=== PATIENT | male | born 1955 | race Caucasian/White ===

== ENCOUNTER 2023-01-15 07:30 | Outpatient (OUT) | payer MEDICARE, OTHER, SELFPAY ==
--- NOTE | 2023-01-15 15:00 | CA_ITS ---
Patient: VICKY VASQUEZ Exam Date: 01/15/2023 : 1955 Gender:M Ordering : BISHNU CARBAJAL Admission #: [id number] Family : DR Arnettchristina Barrigabing . Order #: [id number] CLICK HERE TO VIEW EXAM ECHOCARDIOGRAM REPORT PROCEDURE: CA ECHO DOPPLER COMPLETE INDICATIONS: LINDER, COMPARISON: None. DESCRIPTION: COMPLETE ECHOCARDIOGRAM Real-time transthoracic echocardiography with 2D, M-mode, spectral and color flow Doppler performed. QUALITY: Technical quality was limited. LEFT VENTRICLE: Normal chamber size. Mild concentric left ventricular hypertrophy. LV EF: Global left ventricular systolic function is difficult to assess but appears preserved; estimated ejection fraction is 55 to 60%. Cannot comment on regional wall motion abnormalities. DIASTOLIC: Grade 1, mild diastolic dysfunction. ATRIAL SEPTUM: Inadequately seen. LEFT ATRIUM: Mild dilatation. RIGHT ATRIUM: Mild dilatation. RIGHT VENTRICLE: Mild dilatation. Normal right ventricular systolic function. TRICUSPID VALVE: Normal mobility and thickness. No stenosis with mild regurgitation. Mild pulmonary hypertension. RVSP 36 mmHg MITRAL VALVE: Normal mobility and thickness. No evidence of mitral valve stenosis. No mitral regurgitation. AORTIC VALVE: Normal aortic valve. No evidence of aortic valve stenosis. No aortic regurgitation. AORTIC ROOT: Normal diameter and appearance. PULMONIC VALVE: Not well visualized. No stenosis. Trivial regurgitation. PERICARDIUM: No evidence of pericardial effusion. IVC: Not well visualized. CONCLUSION: Global left ventricular systolic function is difficult to assess but appears preserved; visually estimated ejection fraction is 55 to 60%. Mild left ventricular hypertrophy. Grade 1, mild diastolic dysfunction. Biatrial enlargement. The right ventricle is mildly dilated with preserved systolic function. Mild tricuspid regurgitation. Mildly elevated right ventricular systolic pressure. Adult Echocardiography Procedure Report Left Ventricle LVEDD (3.7 - 5.6 cm): 5.71 cm LVESD (2.2 - 4.0 cm): 3.79 cm LVIVS thickness (0.6 - 1.2 cm): 1.00 cm LVOT Max Gradient: 4.61 mm[Hg] Peak Velocity (LVOT): 1.07 m/s LVOT Diameter 2.02 cm Left Atrium Mitral Valve MV E to A Ratio: 0.60 Right Ventricle RV Internal Diastolic Dimension: 4.46 cm Aorta Ascending Ao Diam: 3.58 cm Aortic Valve AoV Area (Peak Rishi): 2.53 cm2, 2.53 cm2 Peak Velocity(Antegrade Flow): 1.36 m/s Peak Gradient(Antegrade Flow): 7.38 mm[Hg] Tricuspid Valve Peak Velocity (Regurgitant Flow): 2.86 m/s Pulmonic Valve Peak Gradient: 2.53 mm[Hg] Right Atrium Dictated by: Marni Ritter M.D. on 01/16/2023 at 19:00 Approved by: Marni Ritter M.D. on 01/16/2023 at 19:03
== END 2023-01-15 07:31 ==
LOC: CARD 01-31 07:31
PROVIDERS: Visit Provider Internal Medicine Cardiovascular Disease
DX: R06.09 Other forms of dyspnea (principal)
CPT/HCPCS: 93306

== ENCOUNTER 2023-02-14 06:32 | Outpatient (OUT) | payer MEDICARE, OTHER, SELFPAY ==
[2023-02-14 08:35] LABS: BUN Creatinine Ratio 10.7; Calcium 7.8 mg/dL (8.5-10.1); Carbon Dioxide 29.4 mmol/L (21.0-32.0); Chloride 103 mmol/L (98-107); Estimated GFR (African America >60 (>=60); Estimated GFR (Non-African Ame >60 (>=60); Glucose 128 mg/dL (74-106); Potassium 3.4 mmol/L (3.5-5.1); Sodium 139 mmol/L (136-145)
== END 2023-02-14 06:33 | disposition home or self-care (01) ==
LOC: LAB 06:34
PROVIDERS: PCP Family Medicine; Visit Provider Nurse Practitioner Acute Care
DX: I50.32 Chronic diastolic (congestive) heart failure (principal)
CPT/HCPCS: 36415; 80048

== ENCOUNTER 2023-11-27 07:28 | Outpatient (OUT) | payer MEDICARE, OTHER, SELFPAY ==
[2023-11-27 08:24] LABS: Anion Gap 11.6; BUN Creatinine Ratio 16.4; Calcium 8.5 mg/dL (8.5-10.1); Carbon Dioxide 29.3 mmol/L (21.0-32.0); Chloride 107 mmol/L (98-107); Estimated GFR (African America >60 (>=60); Estimated GFR (Non-African Ame >60 (>=60); Glucose 131 mg/dL (74-106); Potassium 3.9 mmol/L (3.5-5.1); Sodium 144 mmol/L (136-145)
== END 2023-11-27 07:29 | disposition home or self-care (01) ==
LOC: LAB 07:30
PROVIDERS: PCP Family Medicine; Visit Provider Internal Medicine Cardiovascular Disease
DX: I50.32 Chronic diastolic (congestive) heart failure (principal)
CPT/HCPCS: 36415; 80048

== ENCOUNTER 2024-01-26 06:38 | Outpatient (OUT) | payer MEDICARE, OTHER, SELFPAY ==
--- NOTE | 2024-01-26 06:46 | MR_ITS ---
The [address] [address] Patient Name: VICKY VASQUEZ MRN: [id number] date: 1955 Sex: M Assigned Patient Location: LAB Current Patient Location: LAB Accession/Order Number: [id number] Exam Date: 01/26/2024 07:00 Report Date: 01/26/2024 13:28 At the request of: LOLITA PANCHAL Procedure: MR head/brain wo/w con EXAM: MR head/brain wo/w con HISTORY: Asymmetrical hearing loss, left side tinnitus COMPARISON: None. TECHNIQUE: Multisequence MRI brain was performed with and without intravenous contrast. FINDINGS: There is no restricted diffusion to suggest acute infarct. There is no midline shift, mass effect, or abnormal extraaxial fluid collections. There are no abnormal parenchymal or leptomeningeal enhancement. The cortical sulci and ventricular system are mildly enlarged, consistent with mild cerebral atrophy. The internal auditory canals and cerebellopontine angles are unremarkable, without masses or abnormal enhancement. The bilateral cranial nerves VII and VIII are unremarkable. No abnormality is seen involving the membranous labyrinth. The major intracranial flow voids are visualized. The cerebellar tonsils are normal in position. The orbits demonstrate no suspicious enhancement or any focal lesions. The paranasal sinuses show no air-fluid level. There is a mucous retention cyst within left maxillary sinus and mild mucosal thickening of bilateral maxillary sinuses. There is mild left mastoid effusion. The calvarium and extracranial soft tissues are unremarkable. MR/MR head/brain wo/w con IMPRESSION: No acute intracranial abnormality or abnormal intracranial enhancement. Clear internal auditory canals and cerebellopontine angles. Mild left mastoid effusion. Electronically authenticated by: GARCIA TURNERU Date: 01/26/2024 13:28
[2024-01-26 07:00] LABS: Estimated GFR (African America >60 (>=60); Estimated GFR (Non-African Ame 54 (>=60)
== END 2024-01-26 06:39 | disposition home or self-care (01) ==
LOC: LAB 06:39
PROVIDERS: PCP Family Medicine; Visit Provider Otolaryngology
DX: H90.3 Sensorineural hearing loss, bilateral (principal); H93.12 Tinnitus, left ear
CPT/HCPCS: 36415; 70553; 82565; A9575

== ENCOUNTER 2024-08-18 07:51 | Outpatient (OUT) | payer MEDICARE, OTHER, SELFPAY ==
--- OUTSIDE RECORDS SUMMARY | 2024-08-18 07:56 | XMS_ITS | CCD ---
Author Organization [facility] Care Team Providers Care Chronic Disease Epidemiologist Name Role Phone ABDIEL ., DR FARIAS Primary Care Unavailable HOY ., DR FARIAS Admitting Unavailable HOY ., DR FARIAS Attending Unavailable HOY ., DR FARIAS Consulting Unavailable HOY ., DR FARIAS Primary Care Unavailable MISC, DR ADAME Admitting Unavailable MISC, DR ADAME Attending Unavailable MISC, DR ADAME Consulting Unavailable HOY ., DR FARIAS Primary Care Unavailable MISC, DR ADAME Admitting Unavailable MISC, DR ADAME Attending Unavailable MISC, DR ADAME Consulting Unavailable HOY ., DR FARIAS Consulting Unavailable HOY ., DR FARIAS Primary Care Unavailable HOY ., DR FARIAS Admitting Unavailable HOY ., DR FARIAS Attending Unavailable HOY ., DR FARIAS Consulting Unavailable HOY ., DR FARIAS Primary Care Unavailable HOY ., DR FARIAS Admitting Unavailable HOY ., DR FARIAS Attending Unavailable [place], DR ELTON Parikh Consulting Unavailable BISHNU CARBAJAL Attending Unavailable HAYLEY KIRBY Attending Unavailable Jarrett Vyas MD Primary Care Provider [phone] DAKOTA ROCHA Attending Unavailable DAKOTA ROCHA Attending Unavailable DAKOTA ROCHA Attending Unavailable IVANA DEAL Attending Unavailable JARRETT VYAS Referring Unavailable LOLITA PANCHAL Attending Unavailable LOLITA PANCHAL Attending Unavailable DAKOTA ROCHA Attending Unavailable DAKOTA ROCHA Attending Unavailable DAKOTA ROCHA Attending Unavailable Allergies Allergy Classification Reported Allergen(s) Allergy Type Date of Onset Reaction(s) Facility (1 source) Iodine Drug Allergy 07-14-1989 [facility] Repository Medications Current Medications Medication Drug Class(es) Dates Sig (Normalized) Sig (Original) dapagliflozin 10 mg oral tablet (5 sources) Sodium-Glucose Cotransporter 2 Inhibitor Start: 07-06-2023 Farxiga 10 MG 07/06/2023 Active diclofenac sodium 75 mg delayed release oral tablet (5 sources) Nonsteroidal Anti-inflammatory Drug Start: 06-25-2023 take 1 tablet by mouth twice daily as needed diclofenac (Voltaren) 75 MG EC tablet Take 75 mg by mouth 2 (two) times a day as needed 06/25/2023 Active furosemide 20 mg oral tablet (5 sources) Loop Diuretic Start: 04-14-2023 take 1 tablet by mouth in the morning furosemide (Lasix) 20 MG tablet Take 20 mg by mouth in the morning. 04/14/2023 Active 24 hr metoprolol succinate 100 mg extended release oral tablet (5 sources) beta-Adrenergic Ervin Start: 05-20-2023 take 1 tablet by mouth every twenty-four hours in the morning metoprolol succinate XL (Toprol-XL) 100 MG 24 hr tablet Take 100 mg by mouth in the morning. 05/20/2023 Active Problems Active Problems Problem Classification Problem Date Documented Da te Episodic/Chronic Congestive heart failure; nonhypertensive (12 sources) Unspecified diastolic (congestive) heart failure; Translations: [Chronic diastolic (congestive) heart failure] Onset: 08-15-2022 Chronic Disorders of lipid metabolism (1 source) Hyperlipidemia, unspecified; Translations: [HYPERLIPIDEMIA UNSPECIFIED] Onset: 09-01-2022 Chronic Esophageal disorders (1 source) Gastro-esophageal reflux disease without esophagitis; Translations: [GERD WITHOUT ESOPHAGITIS] Onset: 09-01-2022 Chronic Essential hypertension (8 sources) Essential (primary) hypertension; Translations: [Essential hypertension] Onset: 09-01-2022 Chronic Heart valve disorders (5 sources) Tricuspid valve regurgitation; Translations: [Rheumatic tricuspid insufficiency] Onset: 11-27-2022 01-21-2024 Chronic Hypertension with complications and secondary hypertension (1 source) Hypertensive heart disease with heart failure; Translations: [HTN HEART DISEASE W/HEART FAIL] Onset: 08-15-2022 Chronic Mycoses (2 sources) Pain in toe; Translations: [Tinea unguium] 04-26-2024 Episodic Osteoarthritis (5 sources) Osteoarthritis of knee; Translations: [Osteoarthritis of knee, unspecified] Onset: 10-01-2023 01-21-2024 Chronic Other diseases of veins and lymphatics (1 source) Vascular insufficiency; Translations: [Venous insufficiency (chronic) (peripheral)] 07-01-2024 Episodic Other lower respiratory disease (4 sources) Other forms of dyspnea; Translations: [OTHER FORMS OF DYSPNEA] Onset: 11-21-2022 Episodic Other skin disorders (2 sources) Asteatosis cutis; Translations: [Xerosis cutis] 04-26-2024 Episodic Pulmonary heart disease (7 sources) Pulmonary hypertension, unspecified; Translations: [Pulmonary hypertension] Onset: 11-27-2022 Chronic Past or Other Problems Problem Classification Problem Date Documented Da te Episodic/Chronic Diabetes mellitus without complication (1 source) Other abnormal glucose; Translations: [OTHER ABNORMAL GLUCOSE] Onset: 08-15-2022 Episodic Nonspecific chest pain (5 sources) Chest pain, unspecified; Translations: [CHEST PAIN UNSPECIFIED] Onset: 08-15-2022 Episodic Other ear and sense organ disorders (5 sources) Impacted cerumen; Translations: [Impacted cerumen, unspecified ear] Onset: 10-01-2023 01-21-2024 Episodic Other lower respiratory disease (5 sources) Dyspnea on exertion; Translations: [Other forms of dyspnea] Onset: 11-27-2022 01-21-2024 Episodic Other non-traumatic joint disorders (5 sources) Pain in unspecified knee; Translations: [PAIN IN UNSPECIFIED KNEE] Onset: 08-14-2022 Episodic Other screening for suspected conditions (not mental disorders or infectious disease) (2 sources) Encounter for screening for malignant neoplasm of prostate; Translations: [Encounter for screening for malignant neoplasm of rectum] Onset: 08-15-2022 Episodic Residual codes; unclassified (5 sources) Edema of lower extremity; Translations: [Localized edema] Onset: 11-27-2022 01-21-2024 Episodic Results Test Name Value Interpretation Reference Range Facility Office Visiton 03-29-2024 Follow-up visit [id number] Yuan Wilson 1955 M Date Provider Department Center 03/29/2024 Mattie-HAYLEY KIRBY [facility] Family History Problem Relation Age of Onset Heart failure Mother Heart attack Father Family Status - Relation Status Age at Mother Father Level of Service:03360 [place] OFFICE/OUTPATIENT ESTABLISHED LOW MDM 20 MIN Normal [facility] Office Visiton 10-01-2023 Follow-up visit [id number] Yuan Wilson 1955 M Date Provider Department Center 10/01/2023 [id number] CARBAJAL [facility] Family History Problem Relation Age of Onset Heart failure Mother Heart attack Father Family Status - Relation Status Age at Mother Father Level of Service:64674 [place] OFFICE/OUTPATIENT ESTABLISHED LOW MDM 20 MIN Normal [facility] PROF CHEM 8 (BAS METB)on Anion gap [Moles/Vol] 9.9 mmol/L Normal [facility] Comment on above: Performed By: #### B MP #### [facility] [address] [address] [address] Nataly Frye Calcium [Mass/Vol] 7.9 mg/dL Critically low 8.5-10.1 [facility] Comment on above: Performed By: #### B MP #### [facility] [address] [address] [address] Nataly Frye Chloride [Moles/Vol] 104 mmol/L Normal 98-107 [facility] Comment on above: Performed By: #### B MP #### [facility] [address] [address] [address] Nataly Frye CO2 [Moles/Vol] 33.8 mmol/L Critically high 21.0-32.0 [facility] Comment on above: Performed By: #### B MP #### [facility] [address] [address] [address] Nataly Frye Creatinine [Mass/Vol] 1.19 mg/dL Normal 0.70-1.30 [facility] Comment on above: Performed By: #### B MP #### [facility] [address] [address] [address] Nataly Frye EGFR-AF GIBRALTARIAN >60 Normal >=60 [facility] Comment on above: Performed By: #### B MP #### [facility] [address] [address] [address] Nataly Frye EGFR-NON AF GIBRALTARIAN >60 Normal >=60 [facility] Comment on above: Performed By: #### B MP #### [facility] [address] [address] [address] Nataly Frye Glucose [Mass/Vol] 130 mg/dL Critically high 74-106 [facility] Comment on above: Performed By: #### B MP #### [facility] [address] [place] [address] Dr. Nataly Frye Potassium [Moles/Vol] 3.7 mmol/L Normal 3.5-5.1 [facility] Comment on above: Performed By: #### B MP #### [facility] [address] [place] [address] Dr. Nataly Frye Sodium [Moles/Vol] 144 mmol/L Normal 136-145 [facility] Comment on above: Performed By: #### B MP #### [facility] [address] [place] [address] Dr. Nataly Frye Urea nitrogen [Mass/Vol] 18.0 mg/dL Normal 7.0-18.0 [facility] Comment on above: Performed By: #### B MP #### [facility] [address] [place] [address] Dr. Nataly Frye Urea nitrogen/Creatinine [Mass ratio] 15.1 mg/mg Normal [facility] Comment on above: Performed By: #### B MP #### [facility] [address] [place] [address] Dr. Nataly Frye BNPon 11-21-2022 Natriuretic peptide B (Bld) [Mass/Vol] 58.0 pg/mL Normal <=900.0 [facility] Comment on above: Performed By: #### B MP, BNP #### [facility] [address] [place] [address] Dr. Nataly Frye PROF CHEM 8 (BAS METB)on Anion gap [Moles/Vol] 9.6 mmol/L Normal [facility] Comment on above: Performed By: #### B MP, BNP #### [facility] [address] [place] [address] Dr. Nataly Frye Calcium [Mass/Vol] 7.3 mg/dL Critically low 8.5-10.1 [facility] Comment on above: Performed By: #### B MP, BNP #### [facility] [address] [address] [address] Nataly Frye Chloride [Moles/Vol] 104 mmol/L Normal 98-107 [facility] Comment on above: Performed By: #### B MP, BNP #### [facility] [address] [address] [address] Nataly Frye CO2 [Moles/Vol] 34.7 mmol/L Critically high 21.0-32.0 [facility] Comment on above: Performed By: #### B MP, BNP #### [facility] [address] [address] [address] Nataly Frye Creatinine [Mass/Vol] 1.33 mg/dL Critically high 0.70-1.30 [facility] Comment on above: Performed By: #### B MP, BNP #### [facility] [address] [place] [address] Dr. Nataly Frye EGFR-AF GIBRALTARIAN >60 Normal >=60 [facility] Comment on above: Performed By: #### B MP, BNP #### [facility] [address] [address] [address] Nataly Frye EGFR-NON AF GIBRALTARIAN 54 mL/min/1.73m2 Critically low >=60 [facility] Comment on above: Performed By: #### B MP, BNP #### [facility] [address] [address] [address] Nataly Frye Glucose [Mass/Vol] 146 mg/dL Critically high 74-[address] [facility] Comment on above: Performed By: #### B MP, BNP #### [facility] [address] [address] [address] Nataly Frye Potassium [Moles/Vol] 3.3 mmol/L Critically low 3.5-5.1 [facility] Comment on above: Performed By: #### B MP, BNP #### [facility] [address] [address] [address] Nataly Frye Sodium [Moles/Vol] 145 mmol/L Normal 136-145 [facility] Comment on above: Performed By: #### B MP, BNP #### [facility] [address] [place], [place] [address] Dr. Nataly Frye Urea nitrogen [Mass/Vol] 22.0 mg/dL Critically high 7.0-18.0 [facility] Comment on above: Performed By: #### B MP, BNP #### [facility] [address] [place], [place] [address] Dr. Nataly Frye Urea nitrogen/Creatinine [Mass ratio] 16.5 mg/mg Normal [facility] Comment on above: Performed By: #### B MP, BNP #### [facility] [address] [place], [place] [address] Dr. Nataly Frye ECHOCARDIO M/2D COMPLETEon 0 08-27-2022 ECHOCARDIO M/2D COMPLETE Patient: YUAN WILSON Exam Date: 08/27/2022 : 1955 Gender:M Ordering : DR JARRETT VYAS . Admission #: [id number] Family : Order #: [id number] CLICK HERE TO VIEW EXAM ECHOCARDIOGRAM REPORT PROCEDURE: CARDIO PULMONARY ECHOCARDIO M/2D COMP INDICATIONS: Chest pain, hypertension COMPARISON: None. DESCRIPTION: COMPLETE ECHOCARDIOGRAM Real-time transthoracic echocardiography with 2D, M-mode, spectral and color flow Doppler performed. QUALITY: Technical quality was good. 72 288# BP 116/72 LEFT VENTRICLE: Normal chamber size. Moderate concentric left ventricular hypertrophy. LV EF: Normal left ventricular ejection fraction, (>55%). DIASTOLIC: Diastolic function is indeterminate. ATRIAL SEPTUM: Visually appears intact. LEFT ATRIUM: Moderate dilatation. RIGHT ATRIUM: Severe dilatation. RIGHT VENTRICLE: Moderate dilatation. Right ventricular systolic function is reduced. TRICUSPID VALVE: Normal mobility and thickness. Moderate to severe regurgitation. Doppler studies reveal severely (>60) elevated right sided pressures. RVSP 84mmHg MITRAL VALVE: Normal mobility and thickness. No evidence of mitral valve stenosis. There is no mitral annular calcification. Mild mitral regurgitation. AORTIC VALVE: Normal trileaflet appearance. No visible sclerosis. Normal leaflet mobility. No evidence of aortic valve stenosis. No aortic regurgitation. AORTIC ROOT: Normal diameter and appearance. PULMONIC VALVE: Normal thickness and mobility. No stenosis. Mild regurgitation. PERICARDIUM: No evidence of pericardial effusion. CONCLUSION: Global left ventricular systolic function is normal; visually estimated ejection fraction is 60 to 65%. No wall motion abnormalities. Moderate left ventricular hypertrophy. Diastolic function is indeterminate. Biatrial enlargement. Right ventricle is moderately dilated with reduced systolic function. Moderate to severe tricuspid regurgitation. Severely elevated right-sided pressures; RVSP is 84 mmHg. Mild mitral regurgitation. Mild pulmonic regurgitation. Adult Echocardiography Procedure Report Left Ventricle LVEDD (3.7 - 5.6 cm): 5.50 cm LVESD (2.2 - 4.0 cm): 3.08 cm LVIVS thickness (0.6 - 1.2 cm): 1.31 cm LVPW thickness (0.5 - 1.0 cm): 1.21 cm e': 0.16 m/s E - e': 3.93 LVOT Max Gradient: 4.15 mm[Hg] Peak Velocity (LVOT): 1.02 m/s LVOT Diameter 2.28 cm Left Ventricular Ejection Fraction: 74.70 %, 74.70 % Left Atrium LA Volume Index (2D A2C): 118.17 ml, 118.17 ml Left Atrium Systolic Dimension: 5.33 cm Mitral Valve MV E to A Ratio: 1.00 Mitral Valve A-Wave Peak Velocity: 0.62 m/s Mitral Valve E-Wave Peak Velocity: 0.63 m/s Right Ventricle Aorta AO Root Diam: 3.72 cm Aortic Valve AoV Area (Peak Rishi): 2.77 cm2, 2.77 cm2 Peak Velocity(Antegrade Flow): 1.50 m/s Peak Gradient(Antegrade Flow): 8.96 mm[Hg] Tricuspid Valve Peak Velocity (Regurgitant Flow): 4.30 m/s, 4.35 m/s Peak Velocity: 0.42 m/s Pulmonic Valve Peak Velocity: 1.19 m/s, 1.10 m/s Peak Gradient: 5.64 mm[Hg], 4.85 mm[Hg] Right Atrium Right Atrium Systolic Pressure: 88.74 ml, 63.28 ml, 114.21 ml Dictated by: Marni Ritter M.D. on 08/27/2022 at 12:10 Approved by: Marni Ritter M.D. on 08/27/2022 at 12:17 Normal [facility] NM STRESS/REST MULTIon 08-26 NM STRESS/REST MULTI Patient: YUAN WILSON Exam Date: 08/26/2022 : 1955 Gender:M Ordering : DR JARRETT VYAS . Admission #: [id number] Family : Order #: [id number] CLICK HERE TO VIEW EXAM RADIOLOGY REPORT PROCEDURE: RADIONUCLIDE IMAGING STRESS/REST MULTI COMPARISON: None. INDICATIONS: Chest pain TECHNIQUE: Exam Description: Stress/Rest two day protocol gated SPECT Rest Imagin.0 mCi Tc-99m Cardiolite IV on 08/27/2022 Stress Imaging 26.2 mCi Tc-99m Cardiolite IV on 08/26/2022 Exercise Protocol: Osvaldo Heart Rate (bpm): Rest: 80 Max: 155 PMHR: 100 Blood Pressure: Rest: 124/78 Max: 196/86 Exercise Time: Minutes: 2 Seconds: 13 Stage Reached: Stage: 1 Mets 4.6 Symptoms: SOB Rest and peak stress ECG findings were normal and the exercise portion of the study was normal per attending physician Dr. Hanks . For more details please see separate cardiac stress test report. FINDINGS: QUALITY OF STUDY: Good. PERFUSION DEFECT: None. LOCATION: N/A SIZE: N/A. SEVERITY: N/A. TYPE: N/A. WALL MOTION: Normal. LV SIZE: Enlarged; EDV 133 mL. TID / TCD: None; 0.9 LVEF: Normal. Calculated EF 70%. SUMMARY: Myocardial perfusion imaging study has ABNORMAL findings. CONCLUSION: 1. No reversible ischemia 2. Dilated left ventricle, end-diastolic volume of 133 mL 3. Normal exercise test Dictated by: Elton Saba MD on 08/28/2022 at 06:10 Approved by: Elton Saba MD on 08/28/2022 at 06:12 Normal [facility] INSULINon 08-15-2022 Insulin 18.8 uIU/mL Normal 2.6-24.9 [facility] Comment on above: Performed By: #### I NSULIN ####[facility] [address] [place], [place] [address]XfBambi Frye BNPon 08-14-2022 Natriuretic peptide B (Bld) [Mass/Vol] 140.0 pg/mL Normal <=900.0 [facility] Comment on above: Performed By: #### L IPID, URIC, BNP, T7, TSH, CMP #### [facility] [address] [address] [address] Nataly Frye CBC AUTO DIFFon 08-14-2022 BASO # 0.0 103/ul Normal 0.0-0.1 [facility] Comment on above: Performed By: #### C BC #### [facility] [address] [address] [address] Nataly Frye Basophils/100 WBC (Bld) 0.6 % Normal 0.2-2.0 [facility] Comment on above: Performed By: #### C BC #### [facility] [address] [address] [address] Nataly Frye EO # 0.1 103/ul Normal 0.0-0.7 [facility] Comment on above: Performed By: #### C BC #### [facility] [address] [place] [address] Dr. Nataly Frye Eosinophils/100 WBC (Bld) 2.7 % Normal 0.9-7.0 [facility] Comment on above: Performed By: #### C BC #### [facility] [address] [address] [address] Nataly Frye Erythrocyte distribution width (RBC) [Ratio] 18.1 % Critically high 11.0-15.0 [facility] Comment on above: Performed By: #### C BC #### [facility] [address] [place] [address] Dr. Nataly Frye Hematocrit (Bld) [Volume fraction] 30.2 % Critically low 42.0-54.0 [facility] Comment on above: Performed By: #### C BC #### [facility] [address] [address] [address] Nataly Frye Hemoglobin (Bld) [Mass/Vol] 8.8 g/dL Critically low 14.0-18.0 [facility] Comment on above: Performed By: #### C BC #### [facility] [address] [address] [address] Nataly Frye IG # 0.06 10e3/ul Critically high 0.00-0.03 [facility] Comment on above: Performed By: #### C BC #### [facility] [address] [place] [address] Dr. Nataly Frye IG % 1.3 % Critically high 0.0-0.5 [facility] Comment on above: Performed By: #### C BC #### [facility] [address] [place] [address] Dr. Nataly Frye LYMPH # 1.7 103/ul Normal 1.2-3.8 [facility] Comment on above: Performed By: #### C BC #### [facility] [address] [place] [address] Dr. Nataly Frye Lymphocytes/100 WBC (Bld) 36.6 % Normal 20.5-60.0 [facility] Comment on above: Performed By: #### C BC #### [facility] [address] [place] [address] Dr. Nataly Frye MANUAL DIFF REQ NO Normal [facility] Comment on above: Performed By: #### C BC #### [facility] [address] [place] [address] Dr. Nataly Frye MCH (RBC) [Entitic mass] 25.5 pg Critically low 25.9-34.0 [facility] Comment on above: Performed By: #### C BC #### [facility] [address] [place] [address] Dr. Nataly Frye MCHC (RBC) [Mass/Vol] 29.1 g/dL Critically low 29.9-35.2 [facility] Comment on above: Performed By: #### C BC #### [facility] [address] [place] [address] Dr. Nataly Frye MCV (RBC) [Entitic vol] 87.5 fL Normal 80.0-94.0 [facility] Comment on above: Performed By: #### C BC #### [facility] [address] [place] [address] Dr. Nataly Frye MONO # 0.5 103/ul Normal 0.3-0.8 [facility] Comment on above: Performed By: #### C BC #### [facility] [address] [place] [address] Dr. Nataly Frye Monocytes/100 WBC (Bld) 11.0 % Normal 1.7-12.0 [facility] Comment on above: Performed By: #### C BC #### [facility] [address] [place] [address] Dr. Nataly Frye NEUT # 2.3 103/ul Normal 1.4-6.5 [facility] Comment on above: Performed By: #### C BC #### [facility] [address] [place] [address] Dr. Nataly Frye Neutrophils/100 WBC (Bld) 47.8 % Normal 43.0-75.0 [facility] Comment on above: Performed By: #### C BC #### [facility] [address] [place] [address] Dr. Nataly Frye Platelet mean volume (Bld) [Entitic vol] 9.5 fL Normal 9.5-13.5 [facility] Comment on above: Performed By: #### C BC #### [facility] [address] [place] [address] Dr. Nataly Frye PLT 172 103/ul Normal 150-450 [facility] Comment on above: Performed By: #### C BC #### [facility] [address] [place] [address] Dr. Nataly Frye RBC 3.45 106/ul Critically low 4.70-6.10 [facility] Comment on above: Performed By: #### C BC #### [facility] [address] [place] [address] Dr. Nataly Frye WBC 4.7 103/ul Normal 4.0-11.0 [facility] Comment on above: Performed By: #### C BC #### [facility] [address] [place] [address] Dr. Nataly Frye FREE THYROXINE INDEX T7on FTI 2.18 Normal 1.30-4.50 [facility] Comment on above: Performed By: #### L IPID, URIC, BNP, T7, TSH, CMP #### [facility] [address] [address] [address] Nataly Frye T3U 34.0 % Normal 33.0-40.0 [facility] Comment on above: Performed By: #### L IPID, URIC, BNP, T7, TSH, CMP #### [facility] [address] [address] [address] Nataly Frye T4 [Mass/Vol] 6.40 ug/dL Normal 4.50-12.10 [facility] Comment on above: Performed By: #### L IPID, URIC, BNP, T7, TSH, CMP #### [facility] [address] [address] [address] Nataly Frye GLYCOHEMOGLOBIN A1Con 2022 ADA RECOMMENDATION SEE BELOW Normal [facility] Comment on above: Result Comment: ADA RECOMMENDED LIMIT 4.0 - 6.0 ADA THERAPEUTIC TARGET < 7.0 ACTION SUGGESTED > 7.0 Performed By: #### A 1C ####[facility] [id number] [address]Dr. Nataly Frye HbA1c (Bld) [Mass fraction] 5.6 % Normal 4.5-6.2 [facility] Comment on above: Performed By: #### A 1C ####[facility] [id number] [address]Dr. Nataly Frye LIPID PROFILEon 08-14-2022 CHOL-HDL RATIO NORM SEE BELOW Normal [facility] Comment on above: Result Comment: 3.3 - 4.4 LOW RISK 4.4 - 7.1 AVERAGE RISK 7.1 - 11.0 MODERATE RISK >11.0 HIGH RISK Performed By: #### L IPID, URIC, BNP, T7, TSH, CMP #### [facility] [address] [address] [address] Nataly Frye Cholesterol [Mass/Vol] 106 mg/dL Normal <=200 [facility] Comment on above: Performed By: #### L IPID, URIC, BNP, T7, TSH, CMP #### [facility] [address] [address] [address] Nataly Frye Cholesterol in HDL [Mass/Vol] 25 mg/dL Critically low 40-60 [facility] Comment on above: Performed By: #### L IPID, URIC, BNP, T7, TSH, CMP #### [facility] [address] [address] [address] Nataly Frye Cholesterol in LDL [Mass/Vol] 34.6 mg/dL Normal [facility] Comment on above: Performed By: #### L IPID, URIC, BNP, T7, TSH, CMP #### [facility] [address] [address] [address] Nataly Frye Cholesterol.total/Ch olesterol in HDL [Mass ratio] 4.2 {ratio} Normal [facility] Comment on above: Performed By: #### L IPID, URIC, BNP, T7, TSH, CMP #### [facility] [address] [address] [address] Nataly Frye HDL NORMAL > or = 60 mg/dl - LO W CARDIOVASCULAR RISK <40 mg/dl - HIGH CARDIOVASCULAR RISK Normal [facility] Comment on above: Performed By: #### L IPID, URIC, BNP, T7, TSH, CMP #### [facility] [address] [address] [address] Nataly Frye LDL CALC NORMAL SEE BELOW Normal [facility] Comment on above: Result Comment: <100 mg/dl OPTIMAL 100 - 129 mg/dl NEAR OR ABOVE OPTIMAL 130 - 159 mg/dl BORDERLINE HIGH 160 - 189 mg/dl HIGH >190 mg/dl VERY HIGH Performed By: #### L IPID, URIC, BNP, T7, TSH, CMP #### [facility] [address] [address] [address] Nataly Frye Triglyceride [Mass/Vol] 232 mg/dL Critically high <=150 [facility] Comment on above: Performed By: #### L IPID, URIC, BNP, T7, TSH, CMP #### [facility] [address] [address] [address] Nataly Frye VLDL CALC 46.4 mg/dL Normal [facility] Comment on above: Performed By: #### L IPID, URIC, BNP, T7, TSH, CMP #### [facility] [address] [place] [address] Dr. Nataly Frye PROF 14(COMP METB)on 023 Albumin [Mass/Vol] 3.3 g/dL Critically low 3.4-5.0 [facility] Comment on above: Performed By: #### L IPID, URIC, BNP, T7, TSH, CMP #### [facility] [address] [place] [address] Dr. Nataly Frye Albumin/Globulin [Mass ratio] 1.0 {ratio} Normal [facility] Comment on above: Performed By: #### L IPID, URIC, BNP, T7, TSH, CMP #### [facility] [address] [place] [address] Dr. Nataly Frye ALP [Catalytic activity/Vol] 86 U/L Normal 46-116 [facility] Comment on above: Performed By: #### L IPID, URIC, BNP, T7, TSH, CMP #### [facility] [address] [place] [address] Dr. Nataly Frye ALT [Catalytic activity/Vol] 64 U/L Critically high 16-63 [facility] Comment on above: Performed By: #### L IPID, URIC, BNP, T7, TSH, CMP #### [facility] [address] [place] [address] Dr. Nataly Frye Anion gap [Moles/Vol] 11.3 mmol/L Normal [facility] Comment on above: Performed By: #### L IPID, URIC, BNP, T7, TSH, CMP #### [facility] [address] [place] [address] Dr. Nataly Frye AST [Catalytic activity/Vol] 37 U/L Normal 15-37 [facility] Comment on above: Performed By: #### L IPID, URIC, BNP, T7, TSH, CMP #### [facility] [address] [place] [address] Dr. Nataly Frye Bilirubin [Mass/Vol] 0.4 mg/dL Normal 0.2-1.0 [facility] Comment on above: Performed By: #### L IPID, URIC, BNP, T7, TSH, CMP #### [facility] [address] [place] [address] Dr. Nataly Frye Calcium [Mass/Vol] 7.9 mg/dL Critically low 8.5-10.1 [facility] Comment on above: Performed By: #### L IPID, URIC, BNP, T7, TSH, CMP #### [facility] [address] [place] [address] Dr. Nataly Frye Chloride [Moles/Vol] 106 mmol/L Normal 98-107 [facility] Comment on above: Performed By: #### L IPID, URIC, BNP, T7, TSH, CMP #### [facility] [address] [place] [address] Dr. Nataly Frye CO2 [Moles/Vol] 30.7 mmol/L Normal 21.0-32.0 [facility] Comment on above: Performed By: #### L IPID, URIC, BNP, T7, TSH, CMP #### [facility] [address] [place] [address] Dr. Nataly Frye Creatinine [Mass/Vol] 0.98 mg/dL Normal 0.70-1.30 [facility] Comment on above: Performed By: #### L IPID, URIC, BNP, T7, TSH, CMP #### [facility] [address] [place] [address] Dr. Nataly Frye EGFR-AF GIBRALTARIAN >60 Normal >=60 [facility] Comment on above: Performed By: #### L IPID, URIC, BNP, T7, TSH, CMP #### [facility] [address] [place] [address] Dr. Nataly Frye EGFR-NON AF GIBRALTARIAN >60 Normal >=60 [facility] Comment on above: Performed By: #### L IPID, URIC, BNP, T7, TSH, CMP #### [facility] [address] [place] [address] Dr. Nataly Frye Globulin (S) [Mass/Vol] 3.3 g/dL Normal [facility] Comment on above: Performed By: #### L IPID, URIC, BNP, T7, TSH, CMP #### [facility] [address] [address] [address] Nataly Frye Glucose [Mass/Vol] 114 mg/dL Normal [facility] Comment on above: Performed By: #### L IPID, URIC, BNP, T7, TSH, CMP #### [facility] [address] [address] [address] Nataly Frye Performed By: #### A 1C ####[facility] [address] [address] Nataly Frye Potassium [Moles/Vol] 4.0 mmol/L Normal 3.5-5.1 [facility] Comment on above: Performed By: #### L IPID, URIC, BNP, T7, TSH, CMP #### [facility] [address] [place] [address] Dr. Nataly Frye Protein [Mass/Vol] 6.6 g/dL Normal 6.4-8.2 [facility] Comment on above: Performed By: #### L IPID, URIC, BNP, T7, TSH, CMP #### [facility] [address] [place] [address] Dr. Nataly Frye Sodium [Moles/Vol] 144 mmol/L Normal 136-145 [facility] Comment on above: Performed By: #### L IPID, URIC, BNP, T7, TSH, CMP #### [facility] [address] [address] [address] Nataly Frye Urea nitrogen [Mass/Vol] 11.0 mg/dL Normal 7.0-18.0 [facility] Comment on above: Performed By: #### L IPID, URIC, BNP, T7, TSH, CMP #### [facility] [address] [address] [address] Nataly Frye Urea nitrogen/Creatinine [Mass ratio] 11.2 mg/mg Normal [facility] Comment on above: Performed By: #### L IPID, URIC, BNP, T7, TSH, CMP #### [facility] [address] [place] [address] Dr. Nataly Frye TSHon 08-14-2022 TSH 1.816 uIU/mL Normal 0.358-3.740 [facility] Comment on above: Performed By: #### L IPID, URIC, BNP, T7, TSH, CMP ####[facility] [address] [place], [place] [address]Bu. Nataly Frye URIC ACID SERUMon 08-14-2022 Urate [Mass/Vol] 6.6 mg/dL Normal 3.5-7.2 [facility] Comment on above: Performed By: #### L IPID, URIC, BNP, T7, TSH, CMP ####[facility] [address] [place], [place] [address]Dy. Nataly Frye Physician Referralon 021 Physician Referral [phone] [id number]:[id number] Normal [facility] Vital Signs Date Time Vital Sign Value Performing Clinician Faci lity 07-08-2024 10:44-0500 Body height 182.9 cm Dakota Rocha DPM Work Phone: [facility] 07-08-2024 10:44-0500 Body mass index (BMI) [Ratio] 36.35 kg/m2 Dakota Brown DPM Work Phone: [facility] 07-08-2024 10:44-0500 Body weight 121.56 kg Dakota Rocha DPM Work Phone: [facility] 07-08-2024 10:44-0500 Respiratory rate 18 /min Dakota Brown DPM Work Phone: [facility] 04-29-2024 09:53-0400 Body height 182.9 cm Dakota Rocha DPM Work Phone: [facility] 04-29-2024 09:53-0400 Body mass index (BMI) [Ratio] 36.35 kg/m2 Dakota Rocha DPM Work Phone: [facility] 04-29-2024 09:53-0400 Body weight 121.56 kg Dakota Rocha DPM Work Phone: [facility] 04-29-2024 09:53-0400 Diastolic blood pressure 80 mm[Hg] Dakota Rocha DPM Work Phone: [facility] 04-29-2024 09:53-0400 Heart rate 79 /min Dakota Rocha DPM Work Phone: [facility] 04-29-2024 09:53-0400 Systolic blood pressure 129 mm[Hg] Dakota Rocha DPM Work Phone: [facility] Healthcare Encounters Encounter Date Encounter Type Care Provider Facility Start: 07-08-2024 End: 07-08-2024 Bamboo flowsheet Dakota Rocha DPM Work Phone: [facility] Start: 07-08-2024 End: 07-08-2024 Bamboo flowsheet Dakota Rocha DPM Work Phone: [facility] Start: 07-08-2024 End: 07-08-2024 Patient encounter procedure Dakota Rocha DPM Work Phone: [facility] Comment on above: Pain due to onychomy cosis of toenails of both feet (Primary Dx); Venous insufficiency; Xerosis cutis Start: 07-08-2024 End: 07-08-2024 ambulatory DAKOTA ROCHA Not Available Start: 07-05-2024 End: 07-05-2024 Bamboo flowsheet Dakota Rocha DPM Work Phone: [facility] Start: 07-05-2024 End: 07-05-2024 Bamboo flowsheet Dakota Rocha DPM Work Phone: [facility] Start: 04-29-2024 End: 04-29-2024 Bamboo flowsheet Dakota Rocha DPM Work Phone: [facility] Start: 04-29-2024 End: 04-29-2024 Bamboo flowsheet Dakota Rocha DPM Work Phone: [facility] Start: 04-29-2024 End: 04-29-2024 Patient encounter procedure Dakota Rocha DPM Work Phone: [facility] Comment on above: Pain due to onychomy cosis of toenails of both feet (Primary Dx); Xerosis cutis Start: 04-29-2024 End: 04-29-2024 ambulatory DAKOTA ROCHA Not Available Start: 03-29-2024 End: 03-29-2024 ambulatory [facility] Start: 02-19-2024 End: 02-19-2024 ambulatory DAKOTA ROCHA Not Available Start: 02-17-2024 End: 02-17-2024 ambulatory LOLITA Vinod TIMMIS Not Available Start: 01-21-2024 End: 01-21-2024 ambulatory LOLITA H TIMMIS Not Available Start: 01-14-2024 End: 01-14-2024 ambulatory IVANA DEAL Not Available Start: 12-04-2023 End: 12-04-2023 ambulatory DAKOTA ROCHA Not Available Start: 10-01-2023 End: 10-01-2023 [facility] Start: 09-25-2023 End: 09-25-2023 ambulatory DAKOTA ROCHA Not Available Start: 07-17-2023 End: 07-17-2023 ambulatory DAKOTA ROCHA Not Available Start: 12-10-2022 End: 12-11-[address] JARRETT VYAS . Facility:[facility] Start: 11-21-2022 End: 11-22-[address] JARRETT VYAS . Facility:[facility] Start: 08-27-2022 End: 08-28-[address] JARRETT VYAS . Facility:[facility] Start: 08-26-2022 End: 08-27-[address] JARRETT VYAS . Facility:[facility] Start: 08-14-2022 End: 08-15-[address] JARRETT VYAS . Facility:[facility] Plan of Treatment Date Care Activity Detail Author Start: 09-16-2024 End: 09-16-2024 Patient encounter procedure 09/16/2024 10:40 AM EST Procedure Visit [facility] [address] [facility] [address] [place] [address] Dakota Rocha DPM [address] [address] [facility] Start: 07-08-2024 End: 07-08-2024 Patient encounter procedure [facility] Comment on above: Pain due to onychomy cosis of toenails of both feet (Primary Dx); Venous insufficiency; Xerosis cutis Start: 05-05-2024 End: 05-05-2024 Clinical Support 05/05/2024 8:00 AM EDT Clinical Support [facility] [address] [facility] [address] [place] [address] Ivana Deal, [facility] [address] [place] [address] [facility] Start: 04-29-2024 End: 04-29-2024 Patient encounter procedure 04/29/2024 10:00 AM EDT Procedure Visit [facility] [address] [facility] [address] [place] [address] Dakota Rocha DPM [address] [address] Pain due to onychomycosis of toenails of both feet (Primary Dx); Xerosis cutis [facility] Comment on above: Pain due to onychomy cosis of toenails of both feet (Primary Dx); Xerosis cutis Start: 03-14-2024 Influenza vaccination Influenza Vacc ine (#1) [facility] Start: 2022 Pneumococcal Vaccine : 65+ Years (1 of 1 - PCV) Pneumococcal Vaccine: 65+ Years (1 of 1 - PCV) [facility] Start: 1955 Screening for malign ant neoplasm of colon [facility] Payers Date Payer Category Payer Medicare MEDICARE [id number] 2022 Private Health Insurance [employer] [id number] 1959 Medicare [id number] 1959 Private Health Insurance [id number] 1957 Unknown [id number] .2.593 1957 Unknown [id number] [id number] .2.593 1957 Unknown [id number] [id number] .2.593 1957 Unknown [id number] [id number] .2.593 1957 Unknown [id number] [id number] .2.593 1957 Unknown [id number] 2.16.840.1.901201.3.579 .2.1259 1957 Unknown [id number] 2.16.840.1.374571.3.579 .2.1259 1957 Unknown [id number] [id number] .2.1259 1957 Unknown [id number] [id number] .2.1259 1957 Unknown [id number] 2.16.840.1.758540.3.579 .2.9 1957 Unknown [id number] 2.16.840.1.888530.3.579 .2.1259 1957 Unknown [id number] 2.16.840.1.436084.3.579 .2.9 1957 Unknown [id number] [id number] .2.9 1957 Unknown [id number] [id number] .2.1259 Social History Date Type Detail Facility Start: 01-21-2024 Tobacco smoking stat [facility] Never smoked tobacco [facility] Start: 01-21-2024 Tobacco use and exposure Smokeless tobacco non-user [facility] Start: 02-17-2024 End: 07-08-2024 Alcoholic beverage intake Ex-drinker (finding) [facility] Start: 02-17-2024 End: 07-08-2024 History of Social function [facility] Start: 02-17-2024 End: 07-08-2024 Tobacco use panel [facility] Start: 1955 Sex assigned at Not on file [facility] NEGATED: Highlighted rowStart: NINF History of tobacco use Passive smoker [facility] Clinical Notes 10-01-2023 to 07-08-2024 Dakota Rocha DPM - 07/08/2024 10:50 AM Isabel Rocha DPM - 04/29/2024 10:00 AM EDT Note Date & Type Note Facility 07-08-2024 History of Present illness Narrative Patient: Yuan Wilson : 1955 PCP: Jarrett Vyas MD SUBJECTIVE This is a 69 y.o. male that presents today with a CC of elongated, thick nails. Pt states nails have been elongated and thick for many years and cause pain with ambulation in shoegear. Pt has tried previous treatment with minimal relief. Pt presents today for nail care and treatment. Patient has positive history of xerosis to feet in the past. Allergies: No Known Allergies Past Medical History: Past Medical History: Diagnosis Date GERD (gastroesophageal reflux disease) History of Crohn's disease HTN (hypertension) ([facility]) Kidney stone Medications: Current Outpatient Medications: diclofenac (Voltaren) 75 MG EC tablet, Take 75 mg by mouth 2 (two) times a day as needed, Disp: , Rfl: Farxiga 10 MG, , Disp: , Rfl: furosemide (Lasix) 20 MG tablet, Take 20 mg by mouth in the morning., Disp: , Rfl: metoprolol succinate XL (Toprol-XL) 100 MG 24 hr tablet, Take 100 mg by mouth in the morning., Disp: , Rfl: Social History: Social History Socioeconomic History Marital status: Spouse name: Not on file Number of children: Not on file Years of education: Not on file Highest education level: Not on file Occupational History Not on file Tobacco Use Smoking status: Never Passive exposure: Never Smokeless tobacco: Never Vaping Use Vaping status: Unknown Substance and Sexual Activity Alcohol use: Not Currently Drug use: Never Sexual activity: Defer Other Topics Concern Not on file Social History Narrative Not on file Social Drivers of Health Financial Resource Strain: Not on file Food Insecurity: Not on file Transportation Needs: Not on file Physical Activity: Not on file Stress: Not on file Social Connections: Not on file Intimate Partner Violence: Unknown (09/04/2023) [facility] [place] Safety & Environment Fear of Current or Ex-Partner: Not on file Emotionally Abused: Not on file Physically Abused: Not on file Sexually Abused: Not on file Physically or Sexually Abused: Not on file Housing Stability: Not on file ROS: General: denies fever, chills, fatigue, malaise OBJECTIVE LE EXAM: DERM: Elongated thick yellow crumbly nails digits 1 through 10. Diminished hair growth b/l feet. Greatly diminished Dry and scaly skin to bilateral foot and legs +1 pitting edema to bilateral ankles with small telangiectasias and varicosities to bilateral ankles VASC: Positive palpable pedal pulses bilaterally NEURO: Gross sensation intact to bilateral feet ORTHO: Positive pain on palpation to nails 1 through 10 ASSESSMENT 1. Pain due to onychomycosis of toenails of both feet 2. Venous insufficiency 3. Xerosis cutis PLAN Discussed proper foot care with patient today. Debride nails in length and thickness digits 1 through 10 Visit spent with patient education on condition and treatment of condition. Patient to continue with Lac-Hydrin cream to feet daily and call if refill needed Dakota Rocha DPM documented in this encounter [facility] 04-29-2024 History of Present illness Narrative Patient: Yuan Wilson : 1955 PCP: Jarrett Vyas MD SUBJECTIVE This is a 68 y.o. male that presents today with a CC of elongated, thick nails. Pt states nails have been elongated and thick for many years and cause pain with ambulation in shoegear. Pt has tried previous treatment with minimal relief. Pt presents today for nail care and treatment. Patient has positive history of xerosis to feet in the past. Allergies: No Known Allergies Past Medical History: Past Medical History: Diagnosis Date GERD (gastroesophageal reflux disease) History of Crohn's disease HTN (hypertension) ([facility]) Kidney stone Medications: Current Outpatient Medications: diclofenac (Voltaren) 75 MG EC tablet, Take 75 mg by mouth 2 (two) times a day as needed, Disp: , Rfl: Farxiga 10 MG, , Disp: , Rfl: furosemide (Lasix) 20 MG tablet, Take 20 mg by mouth in the morning., Disp: , Rfl: metoprolol succinate XL (Toprol-XL) 100 MG 24 hr tablet, Take 100 mg by mouth in the morning., Disp: , Rfl: Social History: Social History Socioeconomic History Marital status: Spouse name: Not on file Number of children: Not on file Years of education: Not on file Highest education level: Not on file Occupational History Not on file Tobacco Use Smoking status: Never Passive exposure: Never Smokeless tobacco: Never Vaping Use Vaping status: Unknown Substance and Sexual Activity Alcohol use: Not Currently Drug use: Never Sexual activity: Defer Other Topics Concern Not on file Social History Narrative Not on file Social Drivers of Health Financial Resource Strain: Not on file Food Insecurity: Not on file Transportation Needs: Not on file Physical Activity: Not on file Stress: Not on file Social Connections: Not on file Intimate Partner Violence: Unknown (09/04/2023) Re[facility] from [facility] [place] Safety & Environment Fear of Current or Ex-Partner: Not on file Emotionally Abused: Not on file Physically Abused: Not on file Sexually Abused: Not on file Physically or Sexually Abused: Not on file Housing Stability: Not on file ROS: General: denies fever, chills, fatigue, malaise OBJECTIVE LE EXAM: DERM: Elongated thick yellow crumbly nails digits 1 through 10. Diminished hair growth b/l feet. Greatly diminished Dry and scaly skin to bilateral foot and legs +1 pitting edema to bilateral ankles with small telangiectasias and varicosities to bilateral ankles VASC: Positive palpable pedal pulses bilaterally NEURO: Gross sensation intact to bilateral feet ORTHO: Positive pain on palpation to nails 1 through 10 ASSESSMENT 1. Pain due to onychomycosis of toenails of both feet 2. Xerosis cutis PLAN Discussed proper foot care with patient today. Debride nails in length and thickness digits 1 through 10 Visit spent with patient education on condition and treatment of condition. Patient to continue with Lac-Hydrin cream to feet daily and call if refill needed Dakota Rocha DPM documented in this encounter [facility] 03-29-2024 Note Stable no concerning symptoms or worsening SOB or orthopnea [facility] 03-29-2024 Note Hypertension is curr ently well controlled Renal function has remained stable Continue toprol, aldactone and lasix [facility] 03-29-2024 Note [facility] II remains euvo lemic without exacerbation or activity limiting symptoms Continue GDMT- continue lasix daily and aldactone Diuretic therapy Monitor daily weights, I&O, fluid restriction 1.5-2L/day, renal function and electrolytes- [facility] 03-29-2024 Note Pt is here for a six month follow up. Pt denies chest pain, palpatation, dizziness Review of Systems Constitutional: Weight loss: 10# since January 2023. Cardiovascular: Positive for dyspnea on exertion and leg swelling. All other systems reviewed and are negative. [facility] 03-29-2024 Note [facility] CARDIOLOGY PROGR ESS NOTE HPI: Yuan Wilson is a 68 y.o. male here for routine F/U HPI 68 y.o. year old male patient with heart failure preserved ejection fraction, hypertension, and pulmonary hypertension Pt denies chest pain, palpatation, dizziness. Overall states he is feeling really well, admits typical SOB with exertion. He weight has reduced by 10 pounds since last visit. Review of Systems Constitutional: Weight loss: 10# since January 2023. Cardiovascular: Positive for dyspnea on exertion and leg swelling. All other systems reviewed and are negativ Visit Vitals BP 108/70 (BP Location: Right arm, Patient Position: Sitting) Pulse 81 Ht 1.829 m (6') Wt 119 kg (263 lb) SpO2 (!) 83% BMI 35.67 kg/m??? Smoking Status Never BSA 2.46 m??? No Known Allergies Medications: Current Outpatient Medications on File Prior to Visit Medication Sig Dispense Refill aspirin 81 mg EC tablet Take 81 mg by mouth in the morning. diclofenac (Voltaren) 75 mg EC tablet Take 75 mg by mouth in the morning. furosemide (Lasix) 20 mg tablet Take 1 tablet (20 mg) by mouth in the morning. 90 tablet 3 lansoprazole (Prevacid) [address] capsule Take 15 mg by mouth before breakfast. Do not crush or chew. metoprolol succinate XL (Toprol-XL) 100 mg 24 hr tablet Take 100 mg by mouth in the morning. spironolactone (Aldactone) 25 mg tablet Take 1 tablet (25 mg) by mouth in the morning. 90 tablet 3 [DISCONTINUED] dapagliflozin propanediol (Farxiga) 10 mg Take 1 tablet (10 mg) by mouth in the morning. (Patient not taking: Reported on 10/01/2023) 30 tablet 11 [DISCONTINUED] spironolactone (Aldactone) 25 mg tablet Take 0.5 tablets (12.5 mg) by mouth in the morning. (Patient not taking: Reported on 03/29/2024) 45 tablet 3 No current facility-administered medications on file prior to visit. Physical Exam: Constitutional: Appearance: Normal appearance. Without apparent distress, obese HENT: Head: Normocephalic and atraumatic. Nose: Nose normal. Mouth/Throat: Mouth: Mucous membranes are moist. Eyes: Extraocular Movements: Extraocular movements intact. Conjunctiva/sclera: Conjunctivae normal. Neck: Vascular: No JVD. Cardiovascular: Rate and Rhythm: Normal rate and regular rhythm. Pulses: Dorsalis pedis pulses are 3 on the right side and 3on the left side. Posterior tibial pulses are 3 on the right side and 3 on the left side. Heart sounds: Normal heart sounds, S1 normal and S2 normal. Pulmonary: Effort: Pulmonary effort is normal. Breath sounds: Normal breath sounds. Abdominal: General: Bowel sounds are normal. Palpations: Abdomen is soft. Musculoskeletal: General: Normal range of motion. Cervical back: Normal range of motion. Right lower leg: No edema. Left lower leg: No edema. Skin: General: Skin is warm and dry. Capillary Refill: Capillary refill takes less than 2 seconds. Neurological: General: No focal deficit present. Mental Status: he is alert and oriented to person, place, and time. Psychiatric: Mood and Affect: Mood normal. Behavior: Behavior normal. Thought Content: Thought content normal. Judgment: Judgment normal. Labs: reviewed with pt 02/14/2023 Sodium 139, Potassium 3.4, Chloride 103, CO2 29.4, BUN 13, Serum Creatinine 1.21, eGFR >60% 12/10/2022 Sodium 144, potassium 3.7, chloride 104, CO2 33.8, BUN 18, serum creatinine 1.19, estimated GFR greater than 60% 11/21/2022 Sodium 145, potassium 3.3, chloride 104, CO2 34.7, BUN 22, serum creatinine 1.33, estimated GFR 54% NT proBNP 58 08/15/2022 WBC 4.7, hemoglobin 8.8, hematocrit 8.2, platelets 172 Sodium 144, potassium 4.0, CO2 30.7, serum creatinine 0.96, GFR greater than 60% Total cholesterol 106, HDL 25, triglycerides 232, LDL 34.6 Imaging and other tests Echo: 01/15/2023 Global left ventricular systolic function is difficult to assess but appears preserved estimated ejection fraction 55 to 60% Mild left ventricular foot hypertrophy Grade 1 mild diastolic dysfunction Biatrial enlargement Right ventricle is mildly dilated and preserved systolic function Mild tricuspid regurgitation Mildly elevated right ventricular systolic pressure. RVSP 36 mmHg Echo: 08/27/2022 Left ventricle: Normal chamber size. Moderate concentric left ventricular hypertrophy. LVEF greater than 55%. Diastolic function is indeterminate. Left atrium : Moderate dilatation Right atrium severe dilatation Right ventricle: Moderate dilatation. Right ventricular systolic function is reduced. Tricuspid valve: Normal mobility and thickness. Moderate to severe regurgitation. Doppler studies revealed severely elevated right-sided pressures. RVSP 84 mmHg. Mitral valve: Normal mobility and thickness. No evidence of mitral valve stenosis. There is no mitral annular calcification. Mild mitral regurgitation. Aortic valve: Normal trileaflet appearance. No visible sclerosis. Normal leaflet mobility. No eviden (more content not included)... [facility] 10-01-2023 Note Cardiology Clinic No te Subjective Yuan Wilson is a 68 y.o. year old male patient with heart failure preserved ejection fraction, hypertension, and pulmonary hypertension seen in follow-up. Patient Active Problem List Diagnosis Pulmonary hypertension (CMS/HCC) Tricuspid valve insufficiency LINDER (dyspnea on exertion) Essential hypertension Diastolic heart failure (CMS/HCC) Lower extremity edema Impacted cerumen Osteoarthritis of knee Family History Problem Relation Name Age of Onset Heart failure Mother Heart attack Father Social History Tobacco Use Smoking status: Never Smokeless tobacco: Never Substance Use Topics Alcohol use: Not Currently ROS 10 point ROS is performed and is negative unless otherwise specified in HPI Objective Visit Vitals BP 124/82 (BP Location: Right arm, Patient Position: Sitting) Pulse 64 Ht 1.829 m (6') Wt 123 kg (271 lb) SpO2 96% BMI 36.75 kg/m??? Smoking Status Never BSA 2.5 m??? Physical Exam General: Awake, alert, good spirits. NAD Pulm: Breath sounds clear to ascultation bilaterally with no wheeze, crackles or rhonchi Cards: Regular rate and rhythm, S1, S2. No S3 or S4 gallop. Murmur: none Abd: Soft, Nontender, physiologic bowel sounds are present Extr: No lower extremity edema, erythmea, or cyanosis Skin: warm, dry, well perfused Neuro: A&Ox3, No gross deficits Allergies No Known Allergies Medications Current Outpatient Medications: aspirin 81 mg EC tablet, Take 81 mg by mouth in the morning., Disp: , Rfl: diclofenac (Voltaren) 75 mg EC tablet, Take 75 mg by mouth in the morning., Disp: , Rfl: furosemide (Lasix) 20 mg tablet, Take 1 tablet (20 mg) by mouth in the morning., Disp: 90 tablet, Rfl: 3 lansoprazole (Prevacid) [address] capsule, Take 15 mg by mouth before breakfast. Do not crush or chew., Disp: , Rfl: metoprolol succinate XL (Toprol-XL) 100 mg 24 hr tablet, Take 100 mg by mouth in the morning., Disp: , Rfl: spironolactone (Aldactone) 25 mg tablet, Take 0.5 tablets (12.5 mg) by mouth in the morning., Disp: 45 tablet, Rfl: 3 dapagliflozin propanediol (Farxiga) 10 mg, Take 1 tablet (10 mg) by mouth in the morning. (Patient not taking: Reported on 10/01/2023), Disp: 30 tablet, Rfl: 11 spironolactone (Aldactone) 25 mg tablet, Take 1 tablet (25 mg) by mouth in the morning., Disp: 90 tablet, Rfl: 3 Recent Labs 02/14/2023 Sodium 139, Potassium 3.4, Chloride 103, CO2 29.4, BUN 13, Serum Creatinine 1.21, eGFR >60% 12/10/2022 Sodium 144, potassium 3.7, chloride 104, CO2 33.8, BUN 18, serum creatinine 1.19, estimated GFR greater than 60% 11/21/2022 Sodium 145, potassium 3.3, chloride 104, CO2 34.7, BUN 22, serum creatinine 1.33, estimated GFR 54% NT proBNP 58 08/15/2022 WBC 4.7, hemoglobin 8.8, hematocrit 8.2, platelets 172 Sodium 144, potassium 4.0, CO2 30.7, serum creatinine 0.96, GFR greater than 60% Total cholesterol 106, HDL 25, triglycerides 232, LDL 34.6 Imaging and other tests Echo: 01/15/2023 Global left ventricular systolic function is difficult to assess but appears preserved estimated ejection fraction 55 to 60% Mild left ventricular foot hypertrophy Grade 1 mild diastolic dysfunction Biatrial enlargement Right ventricle is mildly dilated and preserved systolic function Mild tricuspid regurgitation Mildly elevated right ventricular systolic pressure. RVSP 36 mmHg Echo: 08/27/2022 Left ventricle: Normal chamber size. Moderate concentric left ventricular hypertrophy. LVEF greater than 55%. Diastolic function is indeterminate. Left atrium : Moderate dilatation Right atrium severe dilatation Right ventricle: Moderate dilatation. Right ventricular systolic function is reduced. Tricuspid valve: Normal mobility and thickness. Moderate to severe regurgitation. Doppler studies revealed severely elevated right-sided pressures. RVSP 84 mmHg. Mitral valve: Normal mobility and thickness. No evidence of mitral valve stenosis. There is no mitral annular calcification. Mild mitral regurgitation. Aortic valve: Normal trileaflet appearance. No visible sclerosis. Normal leaflet mobility. No evidence of aortic valve stenosis. No aortic regurgitation. Aortic root: Normal diameter and appearance Pulmonic valve: Normal thickness and mobility. No stenosis mild regurgitation. Pericardium: No evidence of pericardial effusion Stress test: 06/25/2023 ECG findings were normal in the exercise portion of the study was normal No reversible ischemia Dilated left ventricle, end-diastolic volume is 133 mL Normal exercise stress test Patient remained in sinus rhythm for the duration of the study. Maximum heart rate was 155, which was 100% maximum predicted heart rate. Multifocal PVCs noted during exercise. Assessment/Plan 1. Diastolic heart failure - compensated heart failure preserved ejection fraction NYHA class II. -Patient is on lasix and spironolactone. He was started on (more content not included)... [facility] 10-01-2023 Note Patient here for 6 m o follow up diastolic heart failure, hypertension, and pulmonary hypertension. Dilip Jin CNP increased spironolactone to 25mg daily at last apt in Mar 2023, and advised him to take lasix prn. He said when he did this he started swelling up a lot. He went back to taking lasix 20mg daily and spironolactone 12.5mg daily. States he feels great and is able to walk farther now. Denies chest pain, lightheadedness/syncope, and palpitations. He is not taking Farxiga due to its high cost. [facility] Evaluation note Diagnosis Pain due to onychomycosis of toenails of both feet- Primary Xerosis cutis Other specified disease of sebaceous glands [facility] Diagnosis Pain due to onychomycosis of toenails of both feet- Primary Venous insufficiency Unspecified venous (peripheral) insufficiency Xerosis cutis Other specified disease of sebaceous glands documented in this encounter [facility] Summary Purpose Family History No Family History Records FoundNo Family History Records FoundNo Family History Records FoundNo Family History Records Found Advance Directives No Advanced Directives Records FoundNo Advanced Directives Records FoundNo Advanced Directives Records FoundNo Advanced Directives Records Found Additional Source Comments (unrecognized sect ion and content) No Status Records FoundNo Status Records FoundNo Status Records FoundNo Status Records Found INFORMATION SOURCE (unrecogn ized section and content) DATE CREATED AUTHOR 06/06/2021 Val[facility] Jose [facility] DATE CREATED AUTHOR AUTHOR'S ORGANIZ ATION 12/20/2022 [facility] DATE CREATED AUTHOR AUTHOR'S ORGANIZ ATION 03/30/2024 [facility] DATE CREATED AUTHOR AUTHOR'S ORGANIZ ATION 07/09/2024 [facility] EPIC Care Teams (unrecognized sec tion and content) Chronic Disease Epidemiologist Relationship Specialty Start Date End Date Jarrett Vyas MD [address] [place] [id number] PCP - General Family Medicine 07/17/23 Chronic Disease Epidemiologist Relationship Specialty Start Date End Date Jarrett Vyas MD [address] [place] [id number] PCP - General Family Medicine 07/17/23 Reason for Visit (unrecogniz ed section and content) Reason Comments Toenail Care Non DM Nails Reason Comments Toenail Care Non dm nail care FOR RECORDS PERTAINING TO PATIENTS WHO ARE OR HAVE BEEN ENROLLED IN A CHEMICAL DEPENDENCY/SUBSTANCEABUSE PROGRAM, SOME INFORMATION MAY BE OMITTED. This clinical summary was aggregated from multiple sources. Caution should be exercised in using it in the provision of clinical care. This summary normalizes information from multiple sources, and as a consequence, information in this document may materially change the coding, format and clinical context of patient data. In addition, data may be omitted in some cases. CLINICAL DECISIONS SHOULD BE BASED ON THE PRIMARY CLINICAL RECORDS. [facility] [employer] [facility] provides no warranty or guarantee of the accuracy or completeness of information in this document.
[2024-08-18 08:12] LABS: Basophils Percent Auto 0.6 % (0.2-2.0); Eosinophils Absolute Auto 0.2 10^3/uL (0.0-0.7); Eosinophils Percent Auto 3.2 % (0.9-7.0); Hematocrit 32.5 % (42.0-54.0); Immature Granulocytes Abs Auto 0.05 10^3/uL (0.00-0.03); Immature Granulocytes Pct Auto 0.8 % (0.0-0.5); Lymphocytes Absolute Auto 2.9 10^3/uL (1.2-3.8); Lymphocytes Percent Auto 46.7 % (20.5-60.0); Mean Corpuscular HGB Conc 33.8 g/dL (29.9-35.2); Mean Corpuscular Hemoglobin 33.4 pg (25.9-34.0); Mean Corpuscular Volume 98.8 fL (80.0-94.0); Mean Platelet Volume 10.1 fL (9.5-13.5); Monocytes Absolute Auto 0.6 10^3/uL (0.3-0.8); Neutrophils Absolute Auto 2.4 10^3/uL (1.4-6.5); Neutrophils Percent Auto 38.7 % (43.0-75.0); Platelet Count 172 10^3/uL (150-450); Red Blood Count 3.29 10^6/uL (4.70-6.10); Red Cell Distribution Width 14.8 % (11.0-15.0); White Blood Count 6.3 10^3/uL (4.0-11.0)
[2024-08-18 08:47] LABS: Estimated Average Glucose 111 mg/dL; Glycohemoglobin A1C 5.5 % (4.5-6.2)
[2024-08-18 08:58] LABS: Alanine Aminotransferase 53 U/L (16-63); Albumin Globulin Ratio 1.2; Albumin Level 3.7 g/dL (3.4-5.0); Alkaline Phosphatase 80 U/L (46-116); Aspartate Amino Transferase 37 U/L (15-37); BUN Creatinine Ratio 12.3; Bilirubin Total 0.5 mg/dL (0.2-1.0); Calcium 7.8 mg/dL (8.5-10.1); Carbon Dioxide 32.2 mmol/L (21.0-32.0); Chloride 105 mmol/L (98-107); Cholesterol 103 mg/dL (<=200); Estimated GFR (African America >60 (>=60 mL/min/1.73m^2); Estimated GFR (Non-African Ame 59 (>=60 mL/min/1.73m^2); Free T3 1.77 pg/mL (2.18-3.98); Globulin 3.1 g/dL; Glucose 124 mg/dL (74-106); HDL Cholesterol 26 mg/dL (40-60); Potassium 4.2 mmol/L (3.5-5.1); Sodium 145 mmol/L (136-145); Thyroid Stimulating Hormone 3.293 uIU/mL (0.358-3.740); Total Protein 6.8 g/dL (6.4-8.2); Triglycerides 281 mg/dL (<=150); VLDL CHOLESTEROL 56.2 mg/dL
[2024-08-18 09:43] LABS: Prostate Specific Antigen Scrn 0.13 ng/mL (<=4.00)
== END 2024-08-18 07:52 | disposition home or self-care (01) ==
LOC: LAB 07:54
PROVIDERS: PCP Family Medicine; Visit Provider Family Medicine
DX: I07.1 Rheumatic tricuspid insufficiency (principal); I50.32 Chronic diastolic (congestive) heart failure; I27.20 Pulmonary hypertension, unspecified; I11.0 Hypertensive heart disease with heart failure
CPT/HCPCS: 36415; 80053; 80061; 83036; 83880; 84436; 84443; 84481; 85025; G0103

== ENCOUNTER 2024-10-07 07:36 | Outpatient (OUT) | payer MEDICARE, OTHER, SELFPAY ==
--- OUTSIDE RECORDS SUMMARY | 2024-10-07 07:38 | XMS_ITS | CCD ---
Author Organization [facility] Care Team Providers Care Contracts Officer Name Role Phone ABDIEL ., DR FARIAS [...] Unavailable HOY ., DR FARIAS Attending Unavailable POWELLTON, DR ELTON Parikh Consulting Unavailable Jarrett Vyas MD Primary Care Provider [phone] BISHNU CARBAJAL Attending Unavailable HAYLEY KIRBY Attending Unavailable JACUQELYN AGUILAR Attending Unavailable DAKOTA ROCHA Attending Unavailable DAKOTA ROCHA Attending Unavailable IVANA DEAL Attending Unavailable JARRETT VYAS Referring Unavailable LOLITA PANCHAL Attending Unavailable LOLITA PANCHAL Attending Unavailable DAKOTA ROCHA Attending Unavailable DAKOTA ROCHA Attending Unavailable DAKOTA ROCHA Attending Unavailable Allergies Allergy Classification Reported Allergen(s) Allergy Type Date of Onset Reaction(s) Facility (1 source) Iodine Drug Allergy 07-14-1989 [facility] Repository Medications Current Medications Medication Drug Class(es) [...] sources) Unspecified diastolic (congestive) heart failure; Translations: [Diastolic heart failure] Onset: 08-15-2022 Chronic Disorders of lipid metabolism (1 source) Hyperlipidemia, unspecified; Translations: [HYPERLIPIDEMIA UNSPECIFIED] Onset: 09-01-2022 Chronic Esophageal disorders (1 source) Gastro-esophageal reflux disease without esophagitis; Translations: [GERD WITHOUT ESOPHAGITIS] Onset: 09-01-2022 Chronic Essential hypertension (8 sources) Essential (primary) hypertension; Translations: [Essential hypertension] Onset: 09-01-2022 01-21-2024 Chronic Heart valve disorders (7 sources) Tricuspid valve regurgitation; Translations: [Rheumatic tricuspid [...] FORMS OF DYSPNEA] Onset: 11-21-2022 Episodic Other lower respiratory disease (2 sources) Shortness of breath; Translations: [Shortness of breath] Onset: 09-17-2024 Episodic Other skin disorders (2 sources) Asteatosis cutis; Translations: [Xerosis cutis] 04-26-2024 Episodic Pulmonary heart disease (7 sources) Pulmonary hypertension; Translations: [Pulmonary hypertension, unspecified] Onset: 11-27-2022 01-21-2024 Chronic Past or Other Problems Problem Classification [...] Value Interpretation Reference Range Facility Office Visiton 09-17-2024 Follow-up visit [id number] Yuan Wilson 1955 M Date Provider Department Center 09/17/2024 Benjamín-JACQUELYN AGUILAR [facility] Family History Problem Relation Age of Onset Heart failure Mother Heart attack Father Family Status - Relation Status Age at Mother Father Level of Service:55342 [place] OFFICE/OUTPATIENT ESTABLISHED MOD MDM 30 MIN Normal [facility] Office Visiton 03-29-2024 Follow-up visit [id number] Yuan Wilson 1955 M Date Provider Department Center 03/29/2024 120-HAYLEY KIRBY CARD [facility] Family History Problem Relation Age of Onset Heart failure Mother Heart attack Father Family Status - Relation Status Age at Mother Father Level of Service:84698 CA OFFICE/OUTPATIENT ESTABLISHED LOW MDM 20 MIN Normal [facility] Office Visiton 10-01-2023 Follow-up visit [id number] Yuan Wilson 1955 M Date Provider Department Center 10/01/2023 3848-BISHNU CARBAJAL CARD [facility] Family History Problem Relation Age of Onset Heart failure Mother Heart attack Father Family Status - Relation Status Age at Mother Father Level of Service:02983 [place] OFFICE/OUTPATIENT ESTABLISHED LOW MDM 20 MIN Normal [facility] PROF CHEM 8 (BAS METB)on Anion gap [Moles/Vol] 9.9 mmol/L Normal [facility] Comment on above: Performed By: #### B MP #### [facility] [address] [address] [address] Nataly Frye Calcium [Mass/Vol] 7.9 mg/dL Critically low 8.5-10.1 [facility] Comment on above: Performed By: #### B MP #### [facility] [address] [address] [address] Nataly Frye Chloride [Moles/Vol] 104 mmol/L Normal 98-107 [facility] Comment on above: Performed By: #### B MP #### [facility] [address] [address] [address] Nataly Frye CO2 [Moles/Vol] 33.8 mmol/L Critically high 21.0-32.0 [facility] Comment on above: Performed By: #### B MP #### [facility] [address] [address] [address] Nataly Frye Creatinine [Mass/Vol] 1.19 mg/dL Normal 0.70-1.30 [facility] Comment on above: Performed By: #### B MP #### [facility] [address] [address] [address] Nataly Frye EGFR-AF SLOVENIAN >60 Normal >=60 [facility] Comment on above: Performed By: #### B MP #### [facility] [address] [address] [address] Nataly Frye EGFR-NON AF SLOVENIAN >60 Normal >=60 [facility] Comment on above: Performed By: #### B MP #### [facility] [address] [address] [address] Nataly Frye Glucose [Mass/Vol] 130 mg/dL Critically high 74-106 [facility] Comment on above: Performed By: #### B MP #### [facility] [address] [place] [address] Dr. Nataly Frye Potassium [Moles/Vol] 3.7 mmol/L Normal 3.5-5.1 [facility] Comment on above: Performed By: #### B MP #### [facility] [address] [place] [address] Dr. Nataly Frye Sodium [Moles/Vol] 144 mmol/L Normal 136-145 [facility] Comment on above: Performed By: #### B MP #### [facility] [address] [place] [address] Dr. Nataly Frye Urea nitrogen [Mass/Vol] 18.0 mg/dL Normal 7.0-18.0 [facility] Comment on above: Performed By: #### B MP #### [facility] [address] [place] [address] Dr. Nataly Frye Urea nitrogen/Creatinine [Mass ratio] 15.1 mg/mg Normal [facility] Comment on above: Performed By: #### B MP #### [facility] [address] [place] [address] Dr. Nataly Frye BNPon 11-21-2022 Natriuretic peptide B (Bld) [Mass/Vol] 58.0 pg/mL Normal <=900.0 [facility] Comment on above: Performed By: #### B MP, BNP #### [facility] [address] [address] [address] Nataly Frye PROF CHEM 8 (BAS METB)on Anion gap [Moles/Vol] 9.6 mmol/L Normal [facility] Comment on above: Performed By: #### B MP, BNP #### [facility] [address] [place] [address] Dr. Nataly Frye Calcium [Mass/Vol] 7.3 mg/dL Critically low 8.5-10.1 [facility] Comment on above: Performed By: #### B MP, BNP #### [facility] [address] [place] [address] Dr. Ntaaly Frye Chloride [Moles/Vol] 104 mmol/L Normal 98-107 [facility] Comment on above: Performed By: #### B MP, BNP #### [facility] [address] [place] [address] Dr. Nataly Frye CO2 [Moles/Vol] 34.7 mmol/L Critically high 21.0-32.0 [facility] Comment on above: Performed By: #### B MP, BNP #### [facility] [address] [place] [address] Dr. Nataly Frye Creatinine [Mass/Vol] 1.33 mg/dL Critically high 0.70-1.30 [facility] Comment on above: Performed By: #### B MP, BNP #### [facility] [address] [place] [address] Dr. Nataly Frye EGFR-AF SLOVENIAN >60 Normal >=60 [facility] Comment on above: Performed By: #### B MP, BNP #### [facility] [address] [place] [address] Dr. Nataly Frye EGFR-NON AF SLOVENIAN 54 mL/min/1.73m2 Critically low >=60 [facility] Comment on above: Performed By: #### B MP, BNP #### [facility] [address] [place] [address] Dr. Nataly Frye Glucose [Mass/Vol] 146 mg/dL Critically high 74-106 [facility] Comment on above: Performed By: #### B MP, BNP #### [facility] [address] [address] [address] Nataly Frye Potassium [Moles/Vol] 3.3 mmol/L Critically low 3.5-5.1 [facility] Comment on above: Performed By: #### B MP, BNP #### [facility] [address] [address] [address] Nataly Frye Sodium [Moles/Vol] 145 mmol/L Normal 136-145 [facility] Comment on above: Performed By: #### B MP, BNP #### [facility] [address] [address] [address] Nataly Frye Urea nitrogen [Mass/Vol] 22.0 mg/dL Critically high 7.0-18.0 [facility] Comment on above: Performed By: #### B MP, BNP #### [facility] [address] [address] [address] Nataly Frye Urea nitrogen/Creatinine [Mass ratio] 16.5 mg/mg Normal [facility] Comment on above: Performed By: #### B MP, BNP #### [facility] [address] [address] [address] Nataly Frye ECHOCARDIO M/2D COMPLETEon 0 08-27-2022 ECHOCARDIO M/2D COMPLETE Patient: YUAN WILSON Exam Date: 08/27/2022 : 1955 Gender:M Ordering : DR JARRETT VYAS . Admission #: [id number] Family : Order #: [id number] CLICK HERE TO VIEW EXAM ECHOCARDIOGRAM REPORT [...] Ritter M.D. on 08/27/2022 at 12:17 Normal [facility] NM STRESS/REST MULTIon 08-26 NM STRESS/REST MULTI Patient: YUAN WILSON Exam Date: 08/26/2022 : 1955 Gender:M Ordering : DR JARRETT VYAS . Admission #: [id number] Family : Order #: [id number] CLICK HERE TO VIEW EXAM RADIOLOGY REPORT [...] MD on 08/28/2022 at 06:12 Normal [facility] INSULINon 08-15-2022 Insulin 18.8 uIU/mL Normal 2.6-24.9 [facility] Comment on above: Performed By: #### I NSULIN ####[facility] [id number] [address]Dr. Nataly Frye BNPon 08-14-2022 Natriuretic peptide B (Bld) [Mass/Vol] 140.0 pg/mL Normal <=900.0 [facility] Comment on above: Performed By: #### L IPID, URIC, BNP, T7, TSH, CMP #### [facility] [address] [address] [address] Nataly Frye CBC AUTO DIFFon 08-14-2022 BASO # 0.0 103/ul Normal 0.0-0.1 [facility] Comment on above: Performed By: #### C BC #### [facility] [address] [place] [address] Dr. Nataly Frye Basophils/100 WBC (Bld) 0.6 % Normal 0.2-2.0 [facility] Comment on above: Performed By: #### C BC #### [facility] [address] [place] [address] Dr. Nataly Frye EO # 0.1 103/ul Normal 0.0-0.7 [facility] Comment on above: Performed By: #### C BC #### [facility] [address] [address] [address] Nataly Frye Eosinophils/100 WBC (Bld) 2.7 % Normal 0.9-7.0 [facility] Comment on above: Performed By: #### C BC #### [facility] [address] [place] [address] Dr. Nataly Frye Erythrocyte distribution width (RBC) [Ratio] 18.1 % Critically high 11.0-15.0 [facility] Comment on above: Performed By: #### C BC #### [facility] [address] [place] [address] Dr. Nataly Frye Hematocrit (Bld) [Volume fraction] 30.2 % Critically low 42.0-54.0 [facility] Comment on above: Performed By: #### C BC #### [facility] [address] [address] [address] Nataly Frye Hemoglobin (Bld) [Mass/Vol] 8.8 g/dL Critically low 14.0-18.0 [facility] Comment on above: Performed By: #### C BC #### [facility] [address] [place] [address] Dr. Nataly Frye IG # 0.06 10e3/ul Critically high 0.00-0.03 [facility] Comment on above: Performed By: #### C BC #### [facility] [address] [place] [address] Dr. Nataly Frye IG % 1.3 % Critically high 0.0-0.5 [facility] Comment on above: Performed By: #### C BC #### [facility] [address] [place] [address] Dr. Nataly Frye LYMPH # 1.7 103/ul Normal 1.2-3.8 [facility] Comment on above: Performed By: #### C BC #### [facility] [address] [place] [address] Dr. Nataly Frye Lymphocytes/100 WBC (Bld) 36.6 % Normal 20.5-60.0 [facility] Comment on above: Performed By: #### C BC #### [facility] [address] [place] [address] Dr. Nataly Frye MANUAL DIFF REQ NO Normal [facility] Comment on above: Performed By: #### C BC #### [facility] [address] [place] [address] Dr. Nataly Frye MCH (RBC) [Entitic mass] 25.5 pg Critically low 25.9-34.0 [facility] Comment on above: Performed By: #### C BC #### [facility] [address] [place] [address] Dr. Nataly Frye MCHC (RBC) [Mass/Vol] 29.1 g/dL Critically low 29.9-35.2 [facility] Comment on above: Performed By: #### C BC #### [facility] [address] [address] [address] Nataly Frye MCV (RBC) [Entitic vol] 87.5 fL Normal 80.0-94.0 [facility] Comment on above: Performed By: #### C BC #### [facility] [address] [address] [address] Nataly Frye MONO # 0.5 103/ul Normal 0.3-0.8 [facility] Comment on above: Performed By: #### C BC #### [facility] [address] [address] [address] Nataly Frye Monocytes/100 WBC (Bld) 11.0 % Normal 1.7-12.0 [facility] Comment on above: Performed By: #### C BC #### [facility] [address] [address] [address] Nataly Frye NEUT # 2.3 103/ul Normal 1.4-6.5 [facility] Comment on above: Performed By: #### C BC #### [facility] [address] [address] [address] Nataly Frye Neutrophils/100 WBC (Bld) 47.8 % Normal 43.0-75.0 [facility] Comment on above: Performed By: #### C BC #### [facility] [address] [address] [address] Nataly Frye Platelet mean volume (Bld) [Entitic vol] 9.5 fL Normal 9.5-13.5 [facility] Comment on above: Performed By: #### C BC #### [facility] [address] [address] [address] Nataly Frye PLT 172 103/ul Normal 150-450 [facility] Comment on above: Performed By: #### C BC #### [facility] [address] [address] [address] Nataly Frye RBC 3.45 106/ul Critically low 4.70-6.10 [facility] Comment on above: Performed By: #### C BC #### [facility] [address] [address] [address] Nataly Frye WBC 4.7 103/ul Normal 4.0-11.0 [facility] Comment on above: Performed By: #### C BC #### [facility] [address] [address] [address] Nataly Frye FREE THYROXINE INDEX T7on FTI 2.18 Normal 1.30-4.50 [facility] Comment on above: Performed By: #### L IPID, URIC, BNP, T7, TSH, CMP #### [facility] [address] [address] [address] Nataly Frye T3U 34.0 % Normal 33.0-40.0 [facility] Comment on above: Performed By: #### L IPID, URIC, BNP, T7, TSH, CMP #### [facility] [address] [address] [address] Nataly Frye T4 [Mass/Vol] 6.40 ug/dL Normal 4.50-12.10 [facility] Comment on above: Performed By: #### L IPID, URIC, BNP, T7, TSH, CMP #### [facility] [address] [address] [address] Nataly Frye GLYCOHEMOGLOBIN A1Con 2022 ADA RECOMMENDATION SEE BELOW Normal [facility] Comment on above: Result Comment: ADA RECOMMENDED LIMIT 4.0 - 6.0 ADA THERAPEUTIC TARGET < 7.0 ACTION SUGGESTED > 7.0 Performed By: #### A 1C ####[facility] [id number] [id number] Nataly Frye HbA1c (Bld) [Mass fraction] 5.6 % Normal 4.5-6.2 [facility] Comment on above: Performed By: #### A 1C ####[facility] [address] [id number] Nataly Frye LIPID PROFILEon 08-14-2022 CHOL-HDL RATIO NORM SEE BELOW Normal [facility] Comment on above: Result Comment: 3.3 - 4.4 LOW RISK 4.4 - 7.1 AVERAGE RISK 7.1 - 11.0 MODERATE RISK >11.0 HIGH RISK Performed By: #### L IPID, URIC, BNP, T7, TSH, CMP #### [facility] [address] [place] [address] Dr. Nataly Frye Cholesterol [Mass/Vol] 106 mg/dL Normal <=200 [facility] Comment on above: Performed By: #### L IPID, URIC, BNP, T7, TSH, CMP #### [facility] [address] [place] [address] Dr. Nataly Frye Cholesterol in HDL [Mass/Vol] 25 mg/dL Critically low 40-60 [facility] Comment on above: Performed By: #### L IPID, URIC, BNP, T7, TSH, CMP #### [facility] [address] [place] [address] Dr. Nataly Frye Cholesterol in LDL [Mass/Vol] 34.6 mg/dL Normal [facility] Comment on above: Performed By: #### L IPID, URIC, BNP, T7, TSH, CMP #### [facility] [address] [place] [address] Dr. Nataly Frye Cholesterol.total/Ch olesterol in HDL [Mass ratio] 4.2 {ratio} Normal [facility] Comment on above: Performed By: #### L IPID, URIC, BNP, T7, TSH, CMP #### [facility] [address] [place] [address] Dr. Nataly Frye HDL NORMAL > or = 60 mg/dl - LO W CARDIOVASCULAR RISK <40 mg/dl - HIGH CARDIOVASCULAR RISK Normal [facility] Comment on above: Performed By: #### L IPID, URIC, BNP, T7, TSH, CMP #### [facility] [address] [place] [address] Dr. Nataly Frye LDL CALC NORMAL SEE BELOW Normal [facility] Comment on above: Result Comment: <100 mg/dl OPTIMAL 100 - 129 mg/dl NEAR OR ABOVE OPTIMAL 130 - 159 mg/dl BORDERLINE HIGH 160 - 189 mg/dl HIGH >190 mg/dl VERY HIGH Performed By: #### L IPID, URIC, BNP, T7, TSH, CMP #### [facility] [address] [place] [address] Dr. Nataly Frye Triglyceride [Mass/Vol] 232 mg/dL Critically high <=150 [facility] Comment on above: Performed By: #### L IPID, URIC, BNP, T7, TSH, CMP #### [facility] [address] [address] [address] Nataly Frye VLDL CALC 46.4 mg/dL Normal [facility] Comment on above: Performed By: #### L IPID, URIC, BNP, T7, TSH, CMP #### [facility] [address] [place] [address] Dr. Nataly Frye PROF 14(COMP METB)on 023 Albumin [Mass/Vol] 3.3 g/dL Critically low 3.4-5.0 [facility] Comment on above: Performed By: #### L IPID, URIC, BNP, T7, TSH, CMP #### [facility] [address] [place] [address] Dr. Nataly Frye Albumin/Globulin [Mass ratio] 1.0 {ratio} Normal [facility] Comment on above: Performed By: #### L IPID, URIC, BNP, T7, TSH, CMP #### [facility] [address] [place] [address] Dr. Nataly Frye ALP [Catalytic activity/Vol] 86 U/L Normal 46-116 [facility] Comment on above: Performed By: #### L IPID, URIC, BNP, T7, TSH, CMP #### [facility] [address] [place] [address] Dr. Nataly Frye ALT [Catalytic activity/Vol] 64 U/L Critically high 16-63 [facility] Comment on above: Performed By: #### L IPID, URIC, BNP, T7, TSH, CMP #### [facility] [address] [place] [address] Dr. Nataly Frye Anion gap [Moles/Vol] 11.3 mmol/L Normal [facility] Comment on above: Performed By: #### L IPID, URIC, BNP, T7, TSH, CMP #### [facility] [address] [place] [address] Dr. Nataly Frye AST [Catalytic activity/Vol] 37 U/L Normal 15-37 [facility] Comment on above: Performed By: #### L IPID, URIC, BNP, T7, TSH, CMP #### [facility] [address] [place] [address] Dr. Nataly Frye Bilirubin [Mass/Vol] 0.4 mg/dL Normal 0.2-1.0 [facility] Comment on above: Performed By: #### L IPID, URIC, BNP, T7, TSH, CMP #### [facility] [address] [place] [address] Dr. Nataly Frye Calcium [Mass/Vol] 7.9 mg/dL Critically low 8.5-10.1 [facility] Comment on above: Performed By: #### L IPID, URIC, BNP, T7, TSH, CMP #### [facility] [address] [place] [address] Dr. Nataly Frye Chloride [Moles/Vol] 106 mmol/L Normal 98-107 [facility] Comment on above: Performed By: #### L IPID, URIC, BNP, T7, TSH, CMP #### [facility] [address] [place] [address] Dr. Nataly Frye CO2 [Moles/Vol] 30.7 mmol/L Normal 21.0-32.0 [facility] Comment on above: Performed By: #### L IPID, URIC, BNP, T7, TSH, CMP #### [facility] [address] [place] [address] Dr. Nataly Frye Creatinine [Mass/Vol] 0.98 mg/dL Normal 0.70-1.30 [facility] Comment on above: Performed By: #### L IPID, URIC, BNP, T7, TSH, CMP #### [facility] [address] [place] [address] Dr. Nataly Frye EGFR-AF SLOVENIAN >60 Normal >=60 [facility] Comment on above: Performed By: #### L IPID, URIC, BNP, T7, TSH, CMP #### [facility] [address] [address] [address] Nataly Frye EGFR-NON AF SLOVENIAN >60 Normal >=60 [facility] Comment on above: Performed By: #### L IPID, URIC, BNP, T7, TSH, CMP #### [facility] [address] [address] [address] Nataly Frye Globulin (S) [Mass/Vol] 3.3 g/dL Normal [facility] Comment on above: Performed By: #### L IPID, URIC, BNP, T7, TSH, CMP #### [facility] [address] [address] [address] Nataly Frye Glucose [Mass/Vol] 114 mg/dL Normal [facility] Comment on above: Performed By: #### L IPID, URIC, BNP, T7, TSH, CMP #### [facility] [address] [address] [address] Nataly Frye Performed By: #### A 1C ####[facility] [id number] [address]Dr. Nataly Frye Potassium [Moles/Vol] 4.0 mmol/L Normal 3.5-5.1 [facility] Comment on above: Performed By: #### L IPID, URIC, BNP, T7, TSH, CMP #### [facility] [address] [address] [address] Nataly Frye Protein [Mass/Vol] 6.6 g/dL Normal 6.4-8.2 [facility] Comment on above: Performed By: #### L IPID, URIC, BNP, T7, TSH, CMP #### [facility] [address] [address] [address] Nataly Frye Sodium [Moles/Vol] 144 mmol/L Normal 136-145 [facility] Comment on above: Performed By: #### L IPID, URIC, BNP, T7, TSH, CMP #### [facility] [address] [address] [address] Nataly Frye Urea nitrogen [Mass/Vol] 11.0 mg/dL Normal 7.0-18.0 [facility] Comment on above: Performed By: #### L IPID, URIC, BNP, T7, TSH, CMP #### [facility] [address] [place], [place] [address] Dr. Nataly Frye Urea nitrogen/Creatinine [Mass ratio] 11.2 mg/mg Normal [facility] Comment on above: Performed By: #### L IPID, URIC, BNP, T7, TSH, CMP #### [facility] [address] [place], [place] [address] Dr. Nataly Frye TSHon 08-14-2022 TSH 1.816 uIU/mL Normal 0.358-3.740 [facility] Comment on above: Performed By: #### L IPID, URIC, BNP, T7, TSH, CMP ####[facility] [id number] [place], [place] [address]XmDr. Nataly Frye URIC ACID SERUMon 08-14-2022 Urate [Mass/Vol] 6.6 mg/dL Normal 3.5-7.2 [facility] Comment on above: Performed By: #### L IPID, URIC, BNP, T7, TSH, CMP ####[facility] [id number] [id number]. Nataly Frye Physician Referralon 021 Physician Referral [phone] [id number] Normal [facility] Vital Signs Date Time Vital Sign Value Performing Clinician Faci lity 07-08-2024 10:44-0500 Body height 182.9 cm Dakota JORDANM Work Phone: [facility] 07-08-2024 10:44-0500 Body mass index (BMI) [Ratio] 36.35 kg/m2 Dakota Rocha DPM Work Phone: [facility] 07-08-2024 10:44-0500 Body weight 121.56 kg Dakota Rocha DPM Work Phone: [facility] 07-08-2024 10:44-0500 Respiratory rate 18 /min Dakota Rocha DPM Work Phone: [facility] 04-29-2024 09:53-0400 Body height 182.9 cm Dakota Rocha DPM Work Phone: [facility] 04-29-2024 09:53-0400 Body mass index (BMI) [Ratio] 36.35 kg/m2 Dakota Rocha DPM Work Phone: [facility] 04-29-2024 09:53-0400 Body weight 121.56 kg Dakota Rocha DPM Work Phone: [facility] 04-29-2024 09:53-0400 Diastolic blood pressure 80 mm[Hg] Dakota Rocha DPM Work Phone: [facility] 04-29-2024 09:53-0400 Heart rate 79 /min Dakota oRcha DPM Work Phone: [facility] 04-29-2024 09:53-0400 Systolic blood pressure 129 mm[Hg] Dakota Rocha DPM Work Phone: [facility] Healthcare Encounters Encounter Date Encounter Type Care Provider Facility Start: 09-30-2024 End: 09-30-2024 ambulatory DAKOTA ROCHA Not Available Start: 09-17-2024 End: 09-17-2024 ambulatory [facility] Start: 07-08-2024 End: 07-08-2024 Bamboo flowsheet Dakota Rocha DPM Work Phone: [facility] Start: 07-08-2024 End: 07-08-2024 Bamboo flowsheet Dakota Rocha DPM Work Phone: [facility] Start: 07-08-2024 End: 07-08-2024 Patient encounter procedure Dakota Rocha DPM Work Phone: [facility] Comment on above: Pain due to onychomy cosis of toenails of both feet (Primary Dx); Venous insufficiency; Xerosis cutis Start: 07-08-2024 End: 07-08-2024 ambulatory DAKOTA ROCHA Not Available Start: 07-05-2024 End: 07-05-2024 Bamboo flowsheet Dakota Rocha DPM Work Phone: [facility] Start: 07-05-2024 End: 07-05-2024 Bamboo flowsheet Dakota Rocha DPM Work Phone: [facility] Start: 04-29-2024 End: 04-29-2024 Bamboo flowsheet Dakota Rocha DPM Work Phone: [facility] Start: 04-29-2024 End: 04-29-2024 Bamboo flowsheet Dakota Rocha DPM Work Phone: [facility] Start: 04-29-2024 End: 04-29-2024 Patient encounter procedure Dakota Rocha DPM Work Phone: [facility] Comment on above: Pain due to onychomy cosis of toenails of both feet (Primary Dx); Xerosis cutis Start: 04-29-2024 End: 04-29-2024 ambulatory DAKOTA ROCHA Not Available Start: 03-29-2024 End: 03-29[facility] Start: 02-19-2024 End: 02-19-2024 ambulatory DAKOTA ROCHA Not Available Start: 02-17-2024 End: 02-17-2024 ambulatory LOLITA H TIMMIS Not Available Start: 01-21-2024 End: 01-21-2024 ambulatory LOLITA H TIMMIS Not Available Start: 01-14-2024 End: 01-14-2024 ambulatory IVANA DEAL Not Available Start: 12-04-2023 End: 12-04-2023 ambulatory DAKOTA ROCHA Not Available Start: 10-01-2023 End: 10-01-2023 ambulatory [facility] Start: 12-10-2022 End: 12-11-[address] JARRETT VYAS . Facility: Start: 11-21-2022 End: 11-22-[address] JARRETT VYAS . Facility:[facility] Start: 08-27-2022 End: 08-28-[address] JARRETT VYAS . Facility:[facility] Start: 08-26-2022 End: 08-27-[address] JARRETT VYAS . Facility:[facility] Start: 08-14-2022 End: 08-15-[address] JARRETT VYAS . Facility: Plan of Treatment Date Care Activity Detail Author Start: 09-16-2024 End: 09-16-2024 Patient encounter procedure 09/16/2024 10:40 AM EST Procedure Visit [facility] [address] [facility] [address] [place] [address] Dakota Rocha, DPM [address] [address] [facility] Start: 07-08-2024 End: 07-08-2024 Patient encounter procedure [facility] Comment on above: Pain due to onychomy cosis of toenails of both feet (Primary Dx); Venous insufficiency; Xerosis cutis Start: 05-05-2024 End: 05-05-2024 Clinical Support 05/05/2024 8:00 AM EDT Clinical Support [facility] [address] [facility] [address] [place] [address] Ivana Deal, [facility] [address] [place] [address] [facility] Start: 04-29-2024 End: 04-29-2024 Patient encounter procedure 04/29/2024 10:00 AM EDT Procedure Visit [facility] [address] [facility] [address] [place] [address] Dakota Rocha, DPM [address] [address] Pain due to onychomycosis of toenails of both feet (Primary Dx); Xerosis cutis [facility] Comment on above: Pain due to onychomy cosis of toenails of both feet (Primary Dx); Xerosis cutis Start: 03-14-2024 Influenza vaccination Influenza Vacc ine (#1) [facility] Start: 2022 Pneumococcal Vaccine : 65+ Years (1 of 1 - PCV) Pneumococcal Vaccine: 65+ Years (1 of 1 - PCV) [facility] Start: 1955 Screening for malign ant neoplasm of colon [facility] Healthcare Payers Date Payer Category Payer Medicare MEDICARE [id number] 2022 Private Health Insurance [employer] [id number] 1959 Medicare [id number] 1959 Private Health Insurance [id number] 1957 Unknown [id number] [id number] .2.593 1957 Unknown [id number] [id number] .2.593 1957 Unknown [id number] 2.16.840.1.607862.3.579 .2.593 1957 Unknown [id number] 2.16.840.1.550699.3.579 .2.593 1957 Unknown [id number] 2.16.840.1.627091.3.579 .2.593 1957 Unknown [id number] 2.16.840.1.796820.3.579 .2.1259 1957 Unknown [id number] 2.16.840.1.315916.3.579 .2.1259 1957 Unknown [id number] 2.16.840.1.233403.3.579 .2.1259 1957 Unknown [id number] 2.16.840.1.627851.3.579 .2.1259 1957 Unknown [id number] 2.16.840.1.289329.3.579 .2.1259 1957 Unknown [id number] 2.16.840.1.712944.3.579 .2.1259 1957 Unknown [id number] 2.16.840.1.112117.3.579 .2.1259 1957 Unknown [id number] [id number] .2.1259 Social History Date Type Detail Facility Start: 01-21-2024 Tobacco smoking stat [facility] Never smoked tobacco [facility] Start: [...] NINF History of tobacco use Passive smoker [facility] Clinical Notes 10-01-2023 to 09-17-2024 Dakota Rocha, ELVER - 07/08/2024 10:50 AM Isabel Rocha, ELVER - 04/29/2024 10:00 AM EDT Note Date & Type Note Facility 09-17-2024 Note PR Cardiology - [facility] Subjective Yuan Wilson is a 69 y.o. year old male patient being seen for 6 mo follow up diastolic heart failure, hypertension, and pulmonary hypertension. Had routine labs with lipid panel last month. Denies chest pain, palpitations, and LE edema. Says his LINDER remains unchanged. Doing very well. Patient Active Problem List Diagnosis Pulmonary hypertension (CMS/HCC) Tricuspid valve insufficiency LINDER (dyspnea on exertion) Essential hypertension Diastolic heart failure (CMS/HCC) Lower extremity edema Impacted cerumen Osteoarthritis of knee Hearing loss Anemia Family History Problem Relation Name Age of Onset Heart failure Mother Heart attack Father Social History Tobacco Use Smoking status: Never Smokeless tobacco: Never Substance Use Topics Alcohol use: Not Currently HPI Yuan is seen in follow-up. This is the first time I am meeting him. He is a 69-year-old man who has a history of heart failure preserved ejection fraction, hypertension and pulmonary hypertension. In 2022 he underwent an echocardiogram that showed normal LV systolic function with moderate to severe tricuspid regurgitation and severely elevated right-sided pressures with an RVSP of 84 mmHg. He was managed for heart failure with preserved ejection fraction. Follow-up echocardiogram in January 2023 showed improvement in right-sided pressures with an RVSP of 36 and mild tricuspid regurgitation. In the past he was started on Jardiance but could not afford it. He is currently on spironolactone and furosemide. In addition he is on metoprolol succinate and baby aspirin. He denies chest pain. He has lower extremity edema. He has shortness of breath that has been worse lately. NYHA class II-III symptoms. No palpitations. Review of Systems Cardiovascular: Positive for dyspnea on exertion (unchanged) and leg swelling. Negative for chest pain and palpitations. Neurological: Positive for loss of balance. All other systems reviewed and are negative. Objective Visit Vitals BP 118/78 (BP Location: Right arm, Patient Position: Sitting) Pulse 87 Ht 1.829 m (6') Wt 122 kg (269 lb) SpO2 96% BMI 36.48 kg/m??? Smoking Status Never BSA 2.49 m??? Physical Exam Constitutional: Appearance: He is well-developed. He is obese. He is not ill-appearing. HENT: Head: Normocephalic and atraumatic. Nose: Nose normal. Eyes: General: No scleral icterus. Pupils: Pupils are equal, round, and reactive to light. Neck: Thyroid: No thyromegaly. Vascular: No JVD. Cardiovascular: Rate and Rhythm: Normal rate and regular rhythm. Pulses: Radial pulses are 2+ on the right side and 2+ on the left side. Heart sounds: Normal heart sounds. No murmur heard. No friction rub. No gallop. Pulmonary: Effort: Pulmonary effort is normal. No respiratory distress. Breath sounds: Normal breath sounds. No wheezing or rales. Chest: Chest wall: No tenderness. Abdominal: General: Bowel sounds are normal. There is no distension. Palpations: Abdomen is soft. Tenderness: There is no abdominal tenderness. Musculoskeletal: General: No swelling. Cervical back: Neck supple. Right lower le+ Pitting Edema present. Left lower le+ Pitting Edema present. Skin: General: Skin is warm and dry. Neurological: General: No focal deficit present. Mental Status: He is alert and oriented to person, place, and time. Psychiatric: Mood and Affect: Mood normal. Behavior: Behavior is cooperative. Judgment: Judgment normal. Allergies No Known Allergies Medications Current Outpatient [...] , Rfl: spironolactone (Aldactone) 25 mg tablet, TAKE 1 TABLET BY MOUTH EVERY DAY IN THE MORNING, Disp: 90 tablet, Rfl: 3 dapagliflozin propanediol (Farxiga) 10 mg, Take 1 tablet (10 mg) by mouth in the morning., Disp: 30 tablet, Rfl: 11 Recent Labs Blood testing 08/18/2024: Hemoglobin 11, platelets 172, potassium 4.2, BUN 15, creatinine 1.22, EGFR 59, hemoglobin A1c 5.5%, LFTs normal, NT proBNP 165, triglycerides 281, cholesterol 103, HDL 26, LDL 21, TSH 3.293, T4 normal, free T31.77 [2.18-3.98]. 02/14/2023 Sodium 139, Potassium 3.4, Chloride 103, CO2 29.4, BUN 13, Serum Creatinine 1.21, eGFR >60% 12/10/2022 Sodium 144, potassium 3.7, chloride 104, CO2 33.8, BUN 18, serum creatinine 1.19, estimated GFR greater than 60% 11/21/2022 Sodium 145, potassium 3.3, chloride 104, (more content not included)... [facility] 07-08-2024 History of Present illness Narrative Patient: [...] disease) History of Crohn's disease HTN (hypertension) ([facility]) Kidney stone Medications: Current Outpatient Medications: diclofenac [...] Partner Violence: Unknown (09/04/2023) Re[facility] from [facility] [place] [facility] Fear of Current [...] Dakota Rocha DPM documented in this encounter [facility] 04-29-2024 History of Present illness Narrative Patient: [...] disease) History of Crohn's disease HTN (hypertension) ([facility]/HCC) Kidney stone Medications: Current Outpatient Medications: diclofenac [...] Partner Violence: Unknown (09/04/2023) Received from [facility] [place] [facility] Fear of Current [...] Dakota Rocha DPM documented in this encounter [facility] 03-29-2024 Note Stable no concerning symptoms or worsening SOB or orthopnea [facility] 03-29-2024 Note Hypertension is curr ently well controlled Renal function has remained stable Continue toprol, aldactone and lasix [facility] 03-29-2024 Note [facility] II remains euvo lemic without exacerbation or activity limiting symptoms Continue GDMT- continue lasix daily and aldactone Diuretic therapy Monitor daily weights, I&O, fluid restriction 1.5-2L/day, renal function and electrolytes- [facility] 03-29-2024 Note [facility] CARDIOLOGY PROGR ESS NOTE [...] mobility. No eviden (more content not included)... [facility] 03-29-2024 Note Pt is here for a six month follow up. Pt denies chest pain, palpatation, dizziness Review of Systems Constitutional: Weight loss: 10# since January 2023. Cardiovascular: Positive for dyspnea on exertion and leg swelling. All other systems reviewed and are negative. [facility] 10-01-2023 Note Cardiology Clinic No te Subjective [...] was started on (more content not included)... [facility] 10-01-2023 Note Patient here for 6 m [...] taking Farxiga due to its high cost. [facility] Evaluation note Diagnosis Pain due to onychomycosis [...] and content) DATE CREATED AUTHOR 06/06/2021 [facility] [employer] [facility] DATE CREATED AUTHOR AUTHOR'S ORGANIZ ATION 12/20/2022 [facility] DATE CREATED AUTHOR AUTHOR'S ORGANIZ ATION 09/19/2024 [facility] DATE CREATED AUTHOR AUTHOR'S ORGANIZ ATION 10/02/2024 [facility] Special[facility] EP[employer] Care Teams (unrecognized sec tion and content) Contracts Officer Relationship Specialty Start Date End Date Jarrett Vyas MD [address] [place] [address] PCP - General Family Medicine 07/17/23 Contracts Officer Relationship Specialty Start Date End Date Jarrett Vyas MD [address] [place] [address] [phone] PCP - General Family Medicine 07/17/23 Reason [...] BE BASED ON THE PRIMARY CLINICAL RECORDS. [facility] [email or web address] [facility]. provides no warranty or guarantee of the accuracy or completeness of information in this document.
--- NOTE | 2024-10-07 08:00 | CA_ITS ---
Patient Name: VICKY VASQUEZ MR#: [id number] : 1955 Exam Date: 10/07/2024 Ordering Doctor: DR JACQUELYN COFFMAN M.D. ECHOCARDIOGRAM REPORT PROCEDURE: CA ECHO DOPPLER COMPLETE INDICATIONS: Heart failure, dyspnea, hypertension COMPARISON: None. DESCRIPTION: COMPLETE ECHOCARDIOGRAM Real-time transthoracic echocardiography with 2D, M-mode, spectral and color flow Doppler performed. QUALITY: Technical quality was good. LEFT VENTRICLE: Normal chamber size. Thickened septal wall. Mild to moderate concentric hypertrophy. Normal systolic function. LV EF: Normal left ventricular ejection fraction, (60-65%). DIASTOLIC: Diastolic function is indeterminate. ATRIAL SEPTUM: LEFT ATRIUM: Severe dilatation. RIGHT ATRIUM: Moderate dilatation. RIGHT VENTRICLE: Normal chamber size. Normal right ventricular systolic function. TRICUSPID VALVE: Normal mobility and thickness. No stenosis with mild to moderate regurgitation. Doppler studies reveal severely (>60) elevated right sided pressures. RVSP 63 mmHg MITRAL VALVE: Normal mobility and thickness. No evidence of mitral valve stenosis. There is no mitral annular calcification. Mild mitral regurgitation. AORTIC VALVE: Normal trileaflet appearance. No visible sclerosis. Normal leaflet mobility. No evidence of aortic valve stenosis. No aortic regurgitation. AORTIC ROOT: Normal diameter and appearance. Ascending aorta is normal in size. PULMONIC VALVE: Normal thickness and mobility. No stenosis. Trivial regurgitation. PERICARDIUM: No evidence of pericardial effusion. IVC: Collapses with inspirations. IVC is dilated (2.2 cm) PLEURA: CONCLUSION: 1. Mild to moderate concentric left ventricular hypertrophy with normal systolic function. LVEF is estimated at 60 to 65%. 2. Normal right ventricular size and systolic function. 3. Moderate to severe biatrial dilatation. 4. Mild to moderate tricuspid regurgitation. 5. Mild mitral regurgitation. 6. Severely elevated right-sided pressures. RVSP is 63 mmHg. Adult Echocardiography Procedure Report Left Ventricle LVEDD (3.7 - 5.6 cm): 5.27 cm LVESD (2.2 - 4.0 cm): 3.70 cm LVIVS thickness (0.6 - 1.2 cm): 1.46 cm LVPW thickness (0.5 - 1.0 cm): 0.92 cm e': 0.14 m/s E - e': 4.18 LVOT Max Gradient: 2.57 mm[Hg] LVOT Area (cm2): 0.80 m/s Peak Velocity (LVOT): 0.80 m/s Mean Velocity (LVOT): 0.58 m/s LVOT Diameter 2.33 cm Left Atrium LA Volume Index (2D A2C): 56.78 ml/m2 Left Atrium Systolic Dimension: 5.52 cm Mitral Valve MV E to A Ratio: 1.05 Mitral Valve A-Wave Peak Velocity: 0.55 m/s Mitral Valve E-Wave Peak Velocity: 0.58 m/s Right Ventricle Aorta AO Root Diam: 3.71 cm Ascending Ao Diam: 2.99 cm Aortic Valve AoV Area (Peak Rishi): 2.84 cm2, 2.84 cm2 AoV Area (VTI): 2.67 cm2, 2.67 cm2 Peak Velocity(Antegrade Flow): 1.20 m/s Peak Gradient(Antegrade Flow): 5.79 mm[Hg] Mean Velocity(Antegrade Flow): 0.83 m/s Mean Gradient(Antegrade Flow): 3.14 mm[Hg] Velocity Time Integral: 28.79 cm Tricuspid Valve Peak Velocity (Regurgitant Flow): 3.71 m/s Pulmonic Valve Mean Gradient: 1.51 mm[Hg] Mean Velocity: 0.57 m/s Peak Velocity: 0.87 m/s, 1.00 m/s Peak Gradient: 3.98 mm[Hg], 3.01 mm[Hg] Right Atrium Right Atrium Systolic Pressure: 55.67 ml, 55.67 ml Dictated by: Jacquelyn Coffman M.D. on 10/08/2024 at 17:00 Approved by: Jacquelyn Coffman M.D. on 10/08/2024 at 17:07
[2024-10-07] MEDS: ALBUTEROL SULFATE 2.5 MG/3 ML VIAL NEB IH (09:07)
== END 2024-10-07 07:37 | disposition home or self-care (01) ==
LOC: CARD 07:36
PROVIDERS: PCP Family Medicine; Visit Provider Internal Medicine Interventional Cardiology
DX: I50.32 Chronic diastolic (congestive) heart failure (principal); R06.02 Shortness of breath
CPT/HCPCS: 93306; 94060; 94726; 94729

== ENCOUNTER 2024-10-28 06:53 | Outpatient (OUT) | payer MEDICARE, OTHER, SELFPAY ==
--- OUTSIDE RECORDS SUMMARY | 2024-10-28 06:59 | XMS_ITS | CCD ---
Author Organization [facility] Care Team Providers Care Regulator Mechanic Name Role Phone ABDIEL ., DR FARIAS [...] Unavailable HOY ., DR FARIAS Attending Unavailable BURKE, DR ELTON Parikh Consulting Unavailable Jarrett Vyas MD Primary Care Provider [phone] DAKOTA ROCHA Attending Unavailable DAKOTA ROCHA Attending Unavailable IVANA DEAL Attending Unavailable JARRETT VYAS Referring Unavailable LOLITA PANCHAL Attending Unavailable LOLITA PANCHAL Attending Unavailable DAKOAT ROCHA Attending Unavailable DAKOTA ROCHA Attending Unavailable DAKOTA ROCHA Attending Unavailable JACQUELYN AGUILAR Attending Unavailable HAYLEY KIRBY Attending Unavailable Allergies Allergy Classification Reported Allergen(s) Allergy Type Date of Onset Reaction(s) Facility (1 source) Iodine Drug Allergy 07-14-1989 [facility] Rep[facility] Medications Current Medications Medication Drug Class(es) [...] Test Name Value Interpretation Reference Range Facility 10-19-2024 36 Patient called back. He will double his lasix to 40mg daily and have BMP in 1 week. Order faxed to [facility]. Patient verbalized understanding. Normal [facility] 36on 10-18-2024 36 Regarding echo resul t from 10/07/2024: MD Maryann Turner MA I want him to increase furosemide to 40 mg daily. He will need the BMP I had ordered to be done 1 week after the increase. LM for patient to return my call. Normal [facility] Office Visiton 09-17-2024 Follow-up visit [id number] Yuan Wilson 1955 M Date Provider Department Center 09/17/2024 AJCQUELYN MERA [facility] Family History Problem Relation Age of Onset Heart failure Mother Heart attack Father Family Status - Relation Status Age at Mother Father Level of Service:27162 [place] OFFICE/OUTPATIENT ESTABLISHED MOD MDM [address] [facility] Office Visiton 03-29-2024 Follow-up visit [id number] Yuan Wilson 1955 M Date Provider Department Center 03/29/2024 HAYLEY SALMON [facility] Family History Problem Relation Age of Onset Heart failure Mother Heart attack Father Family Status - Relation Status Age at Mother Father Level of Service:37476 [place] OFFICE/OUTPATIENT ESTABLISHED LOW MDM [address] [facility] PROF CHEM 8 (BAS METB)on Anion gap [Moles/Vol] 9.9 mmol/L Normal [facility] Comment on above: Performed By: #### B MP #### [facility] [address] [place] [address] Dr. Nataly Frye Calcium [Mass/Vol] 7.9 mg/dL Critically low 8.5-10.1 Th [facility] Comment on above: Performed By: #### B MP #### [facility] [address] [address] [address] Nataly Frye Chloride [Moles/Vol] 104 mmol/L Normal 98-107 [facility] Comment on above: Performed By: #### B MP #### [facility] [address] [address] [address] Nataly Frye CO2 [Moles/Vol] 33.8 mmol/L Critically high 21.0-32.0 [facility] Comment on above: Performed By: #### B MP #### [facility] [address] [address] [address] Nataly Frye Creatinine [Mass/Vol] 1.19 mg/dL Normal 0.70-1.30 [facility] Comment on above: Performed By: #### B MP #### [facility] [address] [place] [address] Dr. Nataly Frye EGFR-AF BURUNDIAN >60 Normal >=60 [facility] Comment on above: Performed By: #### B MP #### [facility] [address] [address] [address] Nataly Frye EGFR-NON AF BURUNDIAN >60 Normal >=60 [facility] Comment on above: Performed By: #### B MP #### [facility] [address] [address] [address] Nataly Frye Glucose [Mass/Vol] 130 mg/dL Critically high 74-106 T [facility] Comment on above: Performed By: #### B MP #### [facility] [address] [place] [address] Dr. Nataly Frye Potassium [Moles/Vol] 3.7 mmol/L Normal 3.5-5.1 [facility] Comment on above: Performed By: #### B MP #### [facility] [address] [address] [address] Nataly Frye Sodium [Moles/Vol] 144 mmol/L Normal 136-145 [facility] Comment on above: Performed By: #### B MP #### [facility] [address] [place] [address] Dr. Nataly Frye Urea nitrogen [Mass/Vol] 18.0 mg/dL Normal 7.0-18.0 [facility] Comment on above: Performed By: #### B MP #### [facility] [address] [place] [address] Dr. Nataly Frye Urea nitrogen/Creatinine [Mass ratio] 15.1 mg/mg Normal [facility] Comment on above: Performed By: #### B MP #### [facility] [address] [place] [address] Dr. Nataly Frye BNPon 11-21-2022 Natriuretic peptide B (Bld) [Mass/Vol] 58.0 pg/mL Normal <=900.0 [facility] Comment on above: Performed By: #### B MP, BNP #### [facility] [address] [address] [address] Nataly Frye PROF CHEM 8 (BAS METB)on Anion gap [Moles/Vol] 9.6 mmol/L Normal [facility] Comment on above: Performed By: #### B MP, BNP #### [facility] [address] [place] [address] Dr. Nataly Frye Calcium [Mass/Vol] 7.3 mg/dL Critically low 8.5-10.1 [facility] Comment on above: Performed By: #### B MP, BNP #### [facility] [address] [place] [address] Dr. Nataly Frye Chloride [Moles/Vol] 104 mmol/L Normal 98-107 [facility] Comment on above: Performed By: #### B MP, BNP #### [facility] [address] [place] [address] Dr. Nataly Frye CO2 [Moles/Vol] 34.7 mmol/L Critically high 21.0-32.0 [facility] Comment on above: Performed By: #### B MP, BNP #### [facility] [address] [place] [address] Dr. Nataly Frye Creatinine [Mass/Vol] 1.33 mg/dL Critically high 0.70-1.30 [facility] Comment on above: Performed By: #### B MP, BNP #### [facility] [address] [place] [address] Dr. Nataly Frye EGFR-AF BURUNDIAN >60 Normal >=60 [facility] Comment on above: Performed By: #### B MP, BNP #### [facility] [address] [place] [address] Dr. Nataly Frye EGFR-NON AF BURUNDIAN 54 mL/min/1.73m2 Critically low >=60 [facility] Comment on above: Performed By: #### B MP, BNP #### [facility] [address] [place] [address] Dr. Nataly Frye Glucose [Mass/Vol] 146 mg/dL Critically high 74-106 [facility] Comment on above: Performed By: #### B MP, BNP #### [facility] [address] [address] [address] Nataly Frye Potassium [Moles/Vol] 3.3 mmol/L Critically low 3.5-5.1 [facility] Comment on above: Performed By: #### B MP, BNP #### [facility] [address] [place] [address] Dr. Nataly Frye Sodium [Moles/Vol] 145 mmol/L Normal 136-145 [facility] Comment on above: Performed By: #### B MP, BNP #### [facility] [address] [place] [address] Dr. Nataly Frye Urea nitrogen [Mass/Vol] 22.0 mg/dL Critically high 7.0-18.0 [facility] Comment on above: Performed By: #### B MP, BNP #### [facility] [address] [place] [address] Dr. Nataly Frye Urea nitrogen/Creatinine [Mass ratio] 16.5 mg/mg Normal [facility] Comment on above: Performed By: #### B MP, BNP #### [facility] [address] [place] [address] Dr. Nataly Frye ECHOCARDIO M/2D COMPLETEon 0 08-27-2022 ECHOCARDIO M/2D COMPLETE Patient: YUAN WILSON Exam Date: 08/27/2022 : 1955 Gender:M Ordering : DR JARRETT VYAS . Admission #: [id number] Family : Order #: [id number] CLICK HERE TO VIEW EXAM ECHOCARDIOGRAM REPORT [...] Ritter M.D. on 08/27/2022 at 12:17 Normal [facility] NM STRESS/REST MULTIon 08-26 NM STRESS/REST MULTI Patient: YUAN WILSON Exam Date: 08/26/2022 : 1955 Gender:M Ordering : DR JARRETT VYAS . Admission #: [id number] Family : Order #: [id number] CLICK HERE TO VIEW EXAM RADIOLOGY REPORT [...] MD on 08/28/2022 at 06:12 Normal [facility] INSULINon 08-15-2022 Insulin 18.8 uIU/mL Normal 2.6-24.9 [facility] Comment on above: Performed By: #### I NSULIN ####[facility] [address] [address]Dr. Nataly Frye BNPon 08-14-2022 Natriuretic peptide B (Bld) [Mass/Vol] 140.0 pg/mL Normal <=900.0 [facility] Comment on above: Performed By: #### L IPID, URIC, BNP, T7, TSH, CMP #### [facility] [address] [address] [address] Nataly Frye CBC AUTO DIFFon 08-14-2022 BASO # 0.0 103/ul Normal 0.0-0.1 [facility] Comment on above: Performed By: #### C BC #### [facility] [address] [place] [address] Dr. Nataly Frye Basophils/100 WBC (Bld) 0.6 % Normal 0.2-2.0 [facility] Comment on above: Performed By: #### C BC #### [facility] [address] [place] [address] Dr. Nataly Frye EO # 0.1 103/ul Normal 0.0-0.7 [facility] Comment on above: Performed By: #### C BC #### [facility] [address] [place] [address] Dr. Nataly Frye Eosinophils/100 WBC (Bld) 2.7 % Normal 0.9-7.0 [facility] Comment on above: Performed By: #### C BC #### [facility] [address] [place] [address] Dr. Nataly Frye Erythrocyte distribution width (RBC) [Ratio] 18.1 % Critically high 11.0-15.0 [facility] Comment on above: Performed By: #### C BC #### [facility] [address] [place] [address] Dr. Nataly Frye Hematocrit (Bld) [Volume fraction] 30.2 % Critically low 42.0-54.0 [facility] Comment on above: Performed By: #### C BC #### [facility] [address] [place] [address] Dr. Nataly Frye Hemoglobin (Bld) [Mass/Vol] 8.8 g/dL Critically low 14.0-18.0 [facility] Comment on above: Performed By: #### C BC #### [facility] [address] [place] [address] Dr. Nataly Frye IG # 0.06 10e3/ul Critically high 0.00-0.03 [facility] Comment on above: Performed By: #### C BC #### [facility] [address] [place] [address] Dr. Nataly Frye IG % 1.3 % Critically high 0.0-0.5 [facility] Comment on above: Performed By: #### C BC #### [facility] [address] [place] [address] Dr. Nataly Frye LYMPH # 1.7 103/ul Normal 1.2-3.8 [facility] Comment on above: Performed By: #### C BC #### [facility] [address] [place] [address] Dr. Nataly Frye Lymphocytes/100 WBC (Bld) 36.6 % Normal 20.5-60.0 [facility] Comment on above: Performed By: #### C BC #### [facility] [address] [place] [address] Dr. Nataly Frye MANUAL DIFF REQ NO Normal [facility] Comment on above: Performed By: #### C BC #### [facility] [address] [place] [address] Dr. Nataly Frye MCH (RBC) [Entitic mass] 25.5 pg Critically low 25.9-34.0 [facility] Comment on above: Performed By: #### C BC #### [facility] [address] [place] [address] Dr. Nataly Frye MCHC (RBC) [Mass/Vol] 29.1 g/dL Critically low 29.9-35.2 [facility] Comment on above: Performed By: #### C BC #### [facility] [address] [place] [address] Dr. Nataly Frye MCV (RBC) [Entitic vol] 87.5 fL Normal 80.0-94.0 [facility] Comment on above: Performed By: #### C BC #### [facility] [address] [place] [address] Dr. Nataly Frye MONO # 0.5 103/ul Normal 0.3-0.8 [facility] Comment on above: Performed By: #### C BC #### [facility] [address] [place] [address] Dr. Nataly Frye Monocytes/100 WBC (Bld) 11.0 % Normal 1.7-12.0 [facility] Comment on above: Performed By: #### C BC #### [facility] [address] [place] [address] Dr. Nataly Frye NEUT # 2.3 103/ul Normal 1.4-6.5 [facility] Comment on above: Performed By: #### C BC #### [facility] [address] [place] [address] Dr. Nataly Frye Neutrophils/100 WBC (Bld) 47.8 % Normal 43.0-75.0 [facility] Comment on above: Performed By: #### C BC #### [facility] [address] [place] [address] Dr. Nataly Frye Platelet mean volume (Bld) [Entitic vol] 9.5 fL Normal 9.5-13.5 [facility] Comment on above: Performed By: #### C BC #### [facility] [address] [place] [address] Dr. Nataly Frye PLT 172 103/ul Normal 150-450 [facility] Comment on above: Performed By: #### C BC #### [facility] [address] [place] [address] Dr. Nataly Frye RBC 3.45 106/ul Critically low 4.70-6.10 [facility] Comment on above: Performed By: #### C BC #### [facility] [address] [address] [address] Nataly Frye WBC 4.7 103/ul Normal 4.0-11.0 [facility] Comment on above: Performed By: #### C BC #### [facility] [address] [address] [address] Nataly Frye FREE THYROXINE INDEX T7on FTI 2.18 Normal 1.30-4.50 [facility] Comment on above: Performed By: #### L IPID, URIC, BNP, T7, TSH, CMP #### [facility] [address] [address] [address] Nataly Frye T3U 34.0 % Normal 33.0-40.0 [facility] Comment on above: Performed By: #### L IPID, URIC, BNP, T7, TSH, CMP #### [facility] [address] [address] [address] Nataly Frye T4 [Mass/Vol] 6.40 ug/dL Normal 4.50-12.10 [facility] Comment on above: Performed By: #### L IPID, URIC, BNP, T7, TSH, CMP #### [facility] [address] [address] [address] Nataly Frye GLYCOHEMOGLOBIN A1Con 2022 ADA RECOMMENDATION SEE BELOW Normal [facility] Comment on above: Result Comment: ADA RECOMMENDED LIMIT 4.0 - 6.0 ADA THERAPEUTIC TARGET < 7.0 ACTION SUGGESTED > 7.0 Performed By: #### A 1C ####[facility] [address] [id number] Nataly Frye HbA1c (Bld) [Mass fraction] 5.6 % Normal 4.5-6.2 [facility] Comment on above: Performed By: #### A 1C ####[facility] [address] [address]Dr. Nataly Frye LIPID PROFILEon 08-14-2022 CHOL-HDL RATIO NORM SEE BELOW Normal [facility] Comment on above: Result Comment: 3.3 - 4.4 LOW RISK 4.4 - 7.1 AVERAGE RISK 7.1 - 11.0 MODERATE RISK >11.0 HIGH RISK Performed By: #### L IPID, URIC, BNP, T7, TSH, CMP #### [facility] [address] [address] [address] Nataly Frye Cholesterol [Mass/Vol] 106 mg/dL Normal <=200 [facility] Comment on above: Performed By: #### L IPID, URIC, BNP, T7, TSH, CMP #### [facility] [address] [address] [address] Nataly Frye Cholesterol in HDL [Mass/Vol] 25 mg/dL Critically low 40-60 [facility] Comment on above: Performed By: #### L IPID, URIC, BNP, T7, TSH, CMP #### [facility] [address] [place] [address] Dr. Nataly Frye Cholesterol in LDL [Mass/Vol] 34.6 mg/dL Normal [facility] Comment on above: Performed By: #### L IPID, URIC, BNP, T7, TSH, CMP #### [facility] [address] [address] [address] Nataly Frye Cholesterol.total/Ch olesterol in HDL [Mass ratio] 4.2 {ratio} Normal [facility] Comment on above: Performed By: #### L IPID, URIC, BNP, T7, TSH, CMP #### [facility] [address] [address] [address] Nataly Frye HDL NORMAL > or = 60 mg/dl - LO W CARDIOVASCULAR RISK <40 mg/dl - HIGH CARDIOVASCULAR RISK Normal [facility] Comment on above: Performed By: #### L IPID, URIC, BNP, T7, TSH, CMP #### [facility] [address] [place] [address] Dr. Nataly Frye LDL CALC NORMAL SEE BELOW Normal [facility] Comment on above: Result Comment: <100 mg/dl OPTIMAL 100 - 129 mg/dl NEAR OR ABOVE OPTIMAL 130 - 159 mg/dl BORDERLINE HIGH 160 - 189 mg/dl HIGH >190 mg/dl VERY HIGH Performed By: #### L IPID, URIC, BNP, T7, TSH, CMP #### [facility] [address] [place] [address] Dr. Nataly Frye Triglyceride [Mass/Vol] 232 mg/dL Critically high <=150 [facility] Comment on above: Performed By: #### L IPID, URIC, BNP, T7, TSH, CMP #### [facility] [address] [place] [address] Dr. Nataly Frye VLDL CALC 46.4 mg/dL Normal [facility] Comment on above: Performed By: #### L IPID, URIC, BNP, T7, TSH, CMP #### [facility] [address] [place] [address] Dr. Nataly Frye PROF 14(COMP METB)on 023 Albumin [Mass/Vol] 3.3 g/dL Critically low 3.4-5.0 Th [facility] Comment on above: Performed By: #### L IPID, URIC, BNP, T7, TSH, CMP #### [facility] [address] [place] [address] Dr. Nataly Frye Albumin/Globulin [Mass ratio] 1.0 {ratio} Normal [facility] Comment on above: Performed By: #### L IPID, URIC, BNP, T7, TSH, CMP #### [facility] [address] [place] [address] Dr. Nataly Frye ALP [Catalytic activity/Vol] 86 U/L Normal 46-116 [facility] Comment on above: Performed By: #### L IPID, URIC, BNP, T7, TSH, CMP #### [facility] [address] [place] [address] Dr. Nataly Frye ALT [Catalytic activity/Vol] 64 U/L Critically high 16-63 [facility] Comment on above: Performed By: #### L IPID, URIC, BNP, T7, TSH, CMP #### [facility] [address] [place] [address] Dr. Nataly Frye Anion gap [Moles/Vol] 11.3 mmol/L Normal [facility] Comment on above: Performed By: #### L IPID, URIC, BNP, T7, TSH, CMP #### [facility] [address] [address] [address] Nataly Frye AST [Catalytic activity/Vol] 37 U/L Normal 15-37 [facility] Comment on above: Performed By: #### L IPID, URIC, BNP, T7, TSH, CMP #### [facility] [address] [place] [address] Dr. Nataly Frye Bilirubin [Mass/Vol] 0.4 mg/dL Normal 0.2-1.0 [facility] Comment on above: Performed By: #### L IPID, URIC, BNP, T7, TSH, CMP #### [facility] [address] [place] [address] Dr. Nataly Frye Calcium [Mass/Vol] 7.9 mg/dL Critically low 8.5-10.1 [facility] Comment on above: Performed By: #### L IPID, URIC, BNP, T7, TSH, CMP #### [facility] [address] [place] [address] Dr. Nataly Frye Chloride [Moles/Vol] 106 mmol/L Normal 98-107 [facility] Comment on above: Performed By: #### L IPID, URIC, BNP, T7, TSH, CMP #### [facility] [address] [place] [address] Dr. Nataly Frye CO2 [Moles/Vol] 30.7 mmol/L Normal 21.0-32.0 [facility] Comment on above: Performed By: #### L IPID, URIC, BNP, T7, TSH, CMP #### [facility] [address] [place] [address] Dr. Nataly Frye Creatinine [Mass/Vol] 0.98 mg/dL Normal 0.70-1.30 [facility] Comment on above: Performed By: #### L IPID, URIC, BNP, T7, TSH, CMP #### [facility] [address] [place] [address] Dr. Nataly Frye EGFR-AF BURUNDIAN >60 Normal >=60 [facility] Comment on above: Performed By: #### L IPID, URIC, BNP, T7, TSH, CMP #### [facility] [address] [address] [address] Nataly Frye EGFR-NON AF BURUNDIAN >60 Normal >=60 [facility] Comment on above: Performed By: #### L IPID, URIC, BNP, T7, TSH, CMP #### [facility] [address] [address] [address] Nataly Frye Globulin (S) [Mass/Vol] 3.3 g/dL Normal [facility] Comment on above: Performed By: #### L IPID, URIC, BNP, T7, TSH, CMP #### [facility] [address] [place] [address] Dr. Nataly Frye Glucose [Mass/Vol] 114 mg/dL Normal [facility] Comment on above: Performed By: #### L IPID, URIC, BNP, T7, TSH, CMP #### [facility] [address] [place] [address] Dr. Nataly Frye Performed By: #### A 1C ####[facility] [address] [address]. Nataly Frye Potassium [Moles/Vol] 4.0 mmol/L Normal 3.5-5.1 [facility] Comment on above: Performed By: #### L IPID, URIC, BNP, T7, TSH, CMP #### [facility] [address] [place] [address] Dr. Nataly Frye Protein [Mass/Vol] 6.6 g/dL Normal 6.4-8.2 [facility] Comment on above: Performed By: #### L IPID, URIC, BNP, T7, TSH, CMP #### [facility] [address] [place] [address] Dr. Nataly Frye Sodium [Moles/Vol] 144 mmol/L Normal 136-145 [facility] Comment on above: Performed By: #### L IPID, URIC, BNP, T7, TSH, CMP #### [facility] [address] [place] [address] Dr. Nataly Frye Urea nitrogen [Mass/Vol] 11.0 mg/dL Normal 7.0-18.0 [facility] Comment on above: Performed By: #### L IPID, URIC, BNP, T7, TSH, CMP #### [facility] [address] [address] [address] Nataly Frye Urea nitrogen/Creatinine [Mass ratio] 11.2 mg/mg Normal [facility] Comment on above: Performed By: #### L IPID, URIC, BNP, T7, TSH, CMP #### [facility] [address] [address] [address] Nataly Frye TSHon 08-14-2022 TSH 1.816 uIU/mL Normal 0.358-3.740 [facility] Comment on above: Performed By: #### L IPID, URIC, BNP, T7, TSH, CMP ####[facility] [address] [address]Dr. Nataly Frye URIC ACID SERUMon 08-14-2022 Urate [Mass/Vol] 6.6 mg/dL Normal 3.5-7.2 [facility] Comment on above: Performed By: #### L IPID, URIC, BNP, T7, TSH, CMP ####[facility] [address] [id number]. Nataly Frye Physician Referralon 021 Physician Referral [phone] [id number] Normal [facility] Vital Signs Date Time Vital Sign Value Performing Clinician Faci lity 07-08-2024 10:44-0500 Body height 182.9 cm Dakota Rocha DPM Work Phone: [facility] 07-08-2024 10:44-0500 Body mass index (BMI) [Ratio] 36.35 kg/m2 Dakota Rocha DPM Work Phone: [facility] 07-08-2024 10:44-0500 Body weight 121.56 kg Dakota Rocha DPM Work Phone: [facility] 07-08-2024 10:44-0500 Respiratory rate 18 /min Dakota Rocha DPM Work Phone: [facility] 04-29-2024 09:53-0400 Body height 182.9 cm Dakota Rocha DPM Work Phone: [facility] 04-29-2024 09:53-0400 Body mass index (BMI) [Ratio] 36.35 kg/m2 Dakota Rocha DPM Work Phone: [facility] 04-29-2024 09:53-0400 Body weight 121.56 kg Dakota Rocha DPM Work Phone: [facility] 04-29-2024 09:53-0400 Diastolic blood pressure 80 mm[Hg] Dakota Rocha DPM Work Phone: [facility] 04-29-2024 09:53-0400 Heart rate 79 /min Dakota Rocha DPM Work Phone: [facility] 04-29-2024 09:53-0400 Systolic blood pressure 129 mm[Hg] Dakota Rocha DPM Work Phone: [facility] Healthcare Encounters Encounter Date Encounter Type Care Provider Facility Start: 09-30-2024 End: 09-30-2024 ambulatory DAKOTA ROCHA Not Available Start: 09-17-2024 End: 09-17-2024 ambulatory [facility] Start: 07-08-2024 End: 07-08-2024 Bamboo flowsheet Dakota Rocha DPM Work Phone: [facility] Start: 07-08-2024 End: 07-08-2024 Bamboo flowsheet Dakota Rocha DPM Work Phone: [facility] Start: 07-08-2024 End: 07-08-2024 Patient encounter procedure Dakota Rocha DPM Work Phone: [facility] Comment on above: Pain due [...] Start: 04-29-2024 End: 04-29-2024 Bamboo flowsheet Dakota Jed Aj DPM Work Phone: [facility] Start: 04-29-2024 End: 04-29-2024 Patient encounter procedure Dakota Rocha DPM Work Phone: [facility] Comment on above: Pain due to onychomy cosis of toenails of both feet (Primary Dx); Xerosis cutis Start: 04-29-2024 End: 04-29-2024 ambulatory DAKOTA ROCHA Not Available Start: 03-29-2024 End: 03-29-2024 ambulatory [facility] Start: 02-19-2024 End: 02-19-2024 ambulatory DAKOTA ROCHA Not Available Start: 02-17-2024 End: 02-17-2024 ambulatory LOLITA H TIMMIS Not Available Start: 01-21-2024 End: 01-21-2024 ambulatory LOLITA H TIMMIS Not Available Start: 01-14-2024 End: 01-14-2024 ambulatory IVANA DEAL Not Available Start: 12-04-2023 End: 12-04-2023 ambulatory DAKOTA ROCHA Not Available Start: 12-10-2022 [...] Procedure Visit [facility] [address] [facility] [address] [place] [address] Dakota Rocha DPM [address] [address] [facility] Start: 07-08-2024 End: 07-08-2024 Patient encounter procedure [facility] Comment on above: Pain due to onychomy cosis of toenails of both feet (Primary Dx); Venous insufficiency; Xerosis cutis Start: 05-05-2024 End: 05-05-2024 Clinical Support 05/05/2024 8:00 AM EDT Clinical Support [facility] [address] [facility] [address] [place] [address] Ivana Deal, [facility] [address] [place] [address] [facility] Start: 04-29-2024 End: 04-29-2024 Patient encounter procedure 04/29/2024 10:00 AM EDT Procedure Visit [facility] [address] [facility] [address] [place] [address] Dakota Rocha DPM [address] [address] Pain due to onychomycosis of toenails of both feet (Primary Dx); Xerosis cutis [facility] Comment on above: Pain due to onychomy cosis of toenails of both feet (Primary Dx); Xerosis cutis Start: 03-14-2024 Influenza vaccination Influenza Vacc ine (#1) [facility] Start: 2022 Pneumococcal Vaccine : 65+ Years (1 of 1 - PCV) Pneumococcal Vaccine: 65+ Years (1 of 1 - PCV) [facility] Start: 1955 Screening for malign ant neoplasm of colon [facility] Payers Date Payer Category Payer Medicare MEDICARE [id number] 2022 Private Health Insurance HUMAN [id number] 5 1959 Medicare [id number] 1959 Private Health Insurance [id number] 1957 Unknown [id number] 2..840.1.469407.3.579 .2.593 1957 Unknown [id number] 2.840.1.790331.3.579 .2.593 1957 Unknown [id number] 2.16.840.1.503051.3.579 .2.593 1957 Unknown [id number] 2.16.840.1.092231.3.579 .2.593 1957 Unknown [id number] 2.16.840.1.879250.3.579 .2.593 1957 Unknown [id number] 2.16.840.1.596105.3.579 .2.1259 1957 Unknown [id number] 2.16.840.1.689335.3.579 .2.1259 1957 Unknown [id number] 2.16.840.1.063011.3.579 .2.1259 1957 Unknown [id number] 2.16.840.1.360941.3.579 .2.1259 1957 Unknown [id number] 2.16.840.1.506440.3.579 .2.1259 1957 Unknown [id number] 2.16.840.1.965085.3.579 .2.1259 1957 Unknown [id number] 2.16.840.1.720381.3.579 .2.1259 1957 Unknown [id number] 2.16.840.1.770022.3.579 .2.1259 Social History Date Type Detail Facility Start: 01-21-2024 Tobacco smoking stat [facility] Never smoked tobacco [facility] Start: 01-21-2024 [...] of tobacco use Passive smoker [facility] Progress note 09-17-2024 Note Date & Type Note Facility 09-17-2024 Note MD Cardiology - [facility] Subjective Yuan Wilson is a 69 [...] 3.3, chloride 104, (more content not included)... [facility] History of Present illness Narrative 07-08-2024 Dakota Rocha, DPM - 07/08/2024 10:50 AM EST Note Date & Type Note Facility 07-08-2024 History of Presen t illness Narrative Patient: Yuan Wilson : 1955 [...] disease) History of Crohn's disease HTN (hypertension) ([facility]) Kidney stone Medications: Current Outpatient Medications: diclofenac [...] Partner Violence: Unknown (09/04/2023) [facility] [place] [facility] Fear of [...] Dakota Rocha DPM documented in this encounter [facility] History of Present illness Narrative 04-29-2024 Dakota Rocha DPM - 04/29/2024 10:00 AM EDT Note Date & Type Note Facility 04-29-2024 History of Presen t illness Narrative Patient: Yuan Wilson : 1955 [...] disease) History of Crohn's disease HTN (hypertension) ([facility]) Kidney stone Medications: Current Outpatient Medications: diclofenac [...] Partner Violence: Unknown (09/04/2023) Received from [facility] [place] [facility] Fear of [...] Dakota Rocha DPM documented in this encounter [facility] Progress note 03-29-2024 Note Date & Type Note Facility 03-29-2024 Note Stable no concerning symptoms or worsening SOB or orthopnea [facility] Progress note 03-29-2024 Note Date & Type Note Facility 03-29-2024 Note Hypertension is curr ently well controlled Renal function has remained stable Continue toprol, aldactone and lasix [facility] Progress note 03-29-2024 Note Date & Type Note Facility 03-29-2024 Note [facility] II remains euvo lemic without exacerbation or activity limiting symptoms Continue GDMT- continue lasix daily and aldactone Diuretic therapy Monitor daily weights, I&O, fluid restriction 1.5-2L/day, renal function and electrolytes- [facility] Progress note 03-29-2024 Note Date & Type Note Facility 03-29-2024 Note Pt is here for a six month follow up. Pt denies chest pain, palpatation, dizziness Review of Systems Constitutional: Weight loss: 10# since January 2023. Cardiovascular: Positive for dyspnea on exertion and leg swelling. All other systems reviewed and are negative. [facility] Progress note 03-29-2024 Note Date & Type Note Facility 03-29-2024 Note [facility] ESS NOTE [...] mobility. No eviden (more content not included)... [facility] Evaluation note Note Date & Type Note Facility Evaluation note Diagnosis Pain due to onychomycosis of toenails of both feet- Primary Xerosis cutis Other specified disease of sebaceous glands documented in this encounter [facility] Evaluation note Note Date & Type Note Facility Evaluation note Diagnosis Pain due to onychomycosis [...] section and content) DATE CREATED AUTHOR 06/06/2021 [facility] DATE CREATED AUTHOR AUTHOR'S ORGANIZ ATION 12/20/2022 [facility] pital DATE CREATED AUTHOR AUTHOR'S ORGANIZ ATION 10/02/2024 [facility] EPIC DATE CREATED AUTHOR AUTHOR'S ORGANIZ ATION 10/19/2024 [facility] Care Teams (unrecognized sec tion and content) Regulator Mechanic Relationship Specialty Start Date End Date Jarrett Vyas MD [address] [place] [address] PCP - General Family Medicine 07/17/23 Regulator Mechanic Relationship Specialty Start Date End Date Jarrett Vyas MD [address] [place] [address] PCP - General Family Medicine 07/17/23 Reason [...] BE BASED ON THE PRIMARY CLINICAL RECORDS. [facility]. provides no warranty or guarantee of the accuracy or completeness of information in this document.
[2024-10-28 08:53] LABS: Anion Gap 12.7; BUN Creatinine Ratio 11.7; Calcium 8.2 mg/dL (8.5-10.1); Chloride 106 mmol/L (98-107); Estimated GFR (African America >60 (>=60 mL/min/1.73m^2); Estimated GFR (Non-African Ame 52 (>=60 mL/min/1.73m^2); Glucose 139 mg/dL (74-106); Potassium 3.7 mmol/L (3.5-5.1); Sodium 144 mmol/L (136-145)
== END 2024-10-28 06:54 | disposition home or self-care (01) ==
LOC: LAB 06:56
PROVIDERS: PCP Family Medicine; Visit Provider Internal Medicine Interventional Cardiology
DX: I50.32 Chronic diastolic (congestive) heart failure (principal)
CPT/HCPCS: 36415; 80048

== ENCOUNTER 2025-02-11 06:45 | Outpatient (OUT) | payer MEDICARE, OTHER, SELFPAY ==
--- OUTSIDE RECORDS SUMMARY | 2024-12-14 09:00 | XMS_ITS ---
Author Organization [facility] in [place] Address [address] [place] [address] Care Team Providers Care Drug And Alcohol Counsellor Name Role Phone Melquiades Vyas Primary Care Provider [phone] Arsen Hanks [phone] REASON FOR VISIT ABN.PFT Encounters Encounter Location Date Provider Diagnosis Pulmonary Medicine [address] [address] 12/14/2024 Arsen Hanks Plan Of Treatment No Information Progress Notes * Yuan VASQUEZDOB: 7 (69 yo M)Acc No.[id number]:12/14/2024 UNLOCKED PROGRESS NOTE New Patient Patient: Yuan ORDOÑEZ Provider: Lety Hanks DO :1955 A ge:69 Y S ex:Male Date:12/14/2024 Address:[address] [place], [place] [id number] Pcp:Melquiades Vyas Subjective: * Chief Complaints: * 1 . ABN.PFT. * Medical History: Objective: * Vitals: Assessment: Plan: * Treatment: * * Electronic signature of Berna Hanks DO on 02/11/2025 at 06:47 AM EDT Sign off status: Pending Visit Status: C ANC (Cancelled) * Provider: Lety Hanks DO Date: 0 12/14/2024 Generated for Printi ng/Faxing/eTransmitting on: 02/11/2025 06:47 AM EDT
--- OUTSIDE RECORDS SUMMARY | 2025-01-31 07:00 | XMS_ITS ---
Author Organization [facility] [place] Address [address] [place] [address] Care Team Providers Care Flask Carrier Name Role Phone Melquiades Vyas Primary Care Provider Allergies No Known Allergies REASON FOR VISIT Presents to office with for right upper arm and right shoulder pain x1 month. Getting worse. Denies any injury, unable to lift the arm up. Medications Medication SIG (Take, Route, Frequency, Duration) Notes Start Date End Date Status Multi For Him Active Spironolactone 25 MG 1/2 tablet Orally Daily Active Lasix 40 MG 1 tablet Orally Once a day Active Metoprolol Succinate ER 100 MG TAKE 1 TABLET BY MOUTH EVERY DAY for 90 days Active Farxiga 10 MG 1 tablet Orally Once a day Active Aspirin 81 81 MG 1 tablet Orally Once a day Active Advair HFA 115-21 MCG/ACT 2 puffs Inhala tion Twice a day for 30 days 11/08/2024 Active Turmeric Active Diclofenac Sodium 75 MG 1 tablet as need ed Orally Twice a day for 30 06/25/2023 Active Social History Tobacco Use: Social History Observation Description Date Details (start date - stop date) Never Smoker NA - NA Tobacco Use/Smoking Question Answer Notes Patient is a nonsmoker AUDIT-C (Standard) Question Answer Notes Did you have a drink containing alcohol in the p ast year? 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 [address] [place] [address] 01/31/2025 Melquiades Hobing Shoulder impingement syndrome, right M75.41 and Frozen shoulder, right M75.01 Assessments Encounter Date Diagnosis (ICD Code) Assessment Notes Treatment Notes Treatment Clinical Notes Section Notes 01/31/2025 Shoulder impingement syndrome, right (ICD-10 - M75.41) 01/31/2025 Frozen shoulder, right (ICD-10 - M75.01) Plan Of Treatment Pending Test Test Name Order Date MRI SHOULDER RT WO CON 01/31/2025 Progress Notes * Yuan VASQUEZDOB: 7 (69 yo M)Acc No.[id number]:01/31/2025 Progress Note Patient: Yuan ORDOÑEZ Provider: Ngoc Vyas ([facility])MD :1955 A ge:69 Y S ex:Male Date:01/31/2025 Address:[address] [place], [place] [id number] Check In:10:46 AM ESTCheck O ut:11:37 AM EST Subjective: * Chief Complaints: * P resents to office with for right upper arm and right shoulder pain x1 month. Getting worse. Denies any injuryUnable to lift the arm up. * HPI: G eneral: R shoudler - no injry= no old injury - feels deeper than just muscle Beenn goping on for a month - prog worse. * Active Problem List R06.09 Other forms of dyspn ea Modified On:11/14/2022/U Status:confirmed I10 Essential (primary) hypertension Modified On:11/14/2022U Status:confirmed I07.1 Rheumatic tricuspid insufficiency Modified On:11/14/2022/U Status:confirmed I27.20 Pulmonary hypertensi on, unspecified Modified On:11/14/2022U Status:confirmed I50.32 Chronic diastolic (c ongestive) heart failure Modified On:01/28/2023 Status:confirmed K50.90 Crohn disease Modified On:06/19/2023 Status:confirmed M17.9 Knee osteoarthritis Modified On:06/25/2023 Status:confirmed H61.20 Cerumen impaction Modified On:06/25/2023 Status:confirmed R06.09 Dyspnea on exertion Modified On:10/06/2023 Status:confirmed H91.90 Hearing loss Modified On:11/10/2023 Status:confirmed 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 SNHL (sen sorineural hearing loss) Modified On:01/22/2024 Status:confirmed H93.12 Left-sided tinnitus Modified On:01/22/2024 Status:confirmed D64.9 Anemia Modified On:08/18/2024 Status:confirmed J44.9 COPD (chronic obstru ctive pulmonary disease) Modified On:10/15/2024 Status:confirmed M75.41 Shoulder impingement syndrome, right Modified On:01/31/2025 Status:confirmed M75.01 Frozen shoulder, rig ht Modified On:01/31/2025 Status:confirmed * Medical History: * Surgical History: L umbar surgery Right Knee Surgery Bilateral Kidney Stone Removal Laproscopic Surgery for Crohns Disese RLQ Hernia Repair * Hospitalization/Major Diagno stic Procedure: * Family History: F ather: , diagnosed with Diabetes mellitus without mention of complication, type II or unspecified type, not stated as uncontrolled, Unspecified essential hypertension. M other: , congestive heart failure, diagnosed with Unspecified essential hypertension, Diabetes mellitus without mention of complication, type II or unspecified type, not stated as uncontrolled. B rother(s): Skin Cancer, diagnosed with Other malignant neoplasm of unspecified site, Diabetes mellitus without mention of complication, type II or unspecified type, not stated as uncontrolled. D aughter(s): alive. 2 brother(s) , 1 sister(s) . 5 daughter(s) - healthy. . Unknown history on one brother and sister. * Social History: T obacco Use: T obacco Use/Smoking P atient is a n onsmoker D rug/Alcohol: A FAMILIA-C (Standard) D id you have a drink containing alcohol in the past year? N o P oints 0 I nterpretation N egative * Medications: T akingAdvair HFA(Fluticasone-Salmeterol) 115-21 MCG/ACT Aerosol 2 puffs Inhalation Twice a day Aspirin 81(Aspirin) 81 MG Tablet Delayed Release 1 tablet Orally Once a day Diclofenac Sodium 75 MG Tablet Delayed Release 1 tablet as needed Orally Twice a day Farxiga(Dapagliflozin Propanediol) 10 MG Tablet 1 tablet Orally Once a day Lasix(Furosemide) 40 MG Tablet 1 tablet Orally Once a day Metoprolol Succinate ER 100 MG Tablet Extended Release 24 Hour TAKE 1 TABLET BY MOUTH EVERY DAY Multi For Him Spironolactone 25 MG Tablet 1/2 tablet Orally Daily Turmeric Medication List reviewed and reconciled with the patientTaking Advair HFA(Fluticasone-Salmeterol) 115-21 MCG/ACT Aerosol 2 puffs Inhalation Twice a day Taking Aspirin 81(Aspirin) 81 MG Tablet Delayed Release 1 tablet Orally Once a day Taking Diclofenac Sodium 75 MG Tablet Delayed Release 1 tablet as needed Orally Twice a day Taking Farxiga(Dapagliflozin Propanediol) 10 MG Tablet 1 tablet Orally Once a day Taking Lasix(Furosemide) 40 MG Tablet 1 tablet Orally Once a day Taking Metoprolol Succinate ER 100 MG Tablet Extended Release 24 Hour TAKE 1 TABLET BY MOUTH EVERY DAY Taking Multi For Him Taking Spironolactone 25 MG Tablet 1/2 tablet Orally Daily Taking Turmeric Medication List reviewed and reconciled with the patient * Allergies: N .K.D.A.no[Allergies Verified] Objective: * Vitals: W t:272.4lbs, Ht: 72 in, BP:112/68mm Hg, BMI:36.94Index, Ht-cm: 182.88 cm, Wt-k.56 kg. * Examination: A bdomen Exam:: R shoulder -= very limited inr or exteranl aor lateal moevement due to pain and just lack pf movment =- on forced exam - has shome rotation in shoulder bu is all coming from scapular rotation. Assessment: * Assessment: 1. S houlder impingement syndrome, right - M75.41 (Primary) 2 . F rozen shoulder, right - M75.01 Plan: * Treatment: 2. F rozen shoulder, right I maging: MRI SHOULDER RT WO CON * Procedure Codes: * Preventive Medicine: Screenings/Counseling: B WA ACTION PLAN Above Normal BMI Follow-up D ietary management education, guidance, and counseling See treatment section of progress note for complete details of management plan. F ALL RISK SCREENING Fall Risk Assessment: N o falls in the past year * * Sign off status: Completed Visit Status: C HK (Check Out) true * Provider: Ngoc Vyas ([facility])MD Date: 0 01/31/2025 Generated for Chel quiñonez/Jake/Edisonitting on: 0 02/11/2025 06:48 AM EDT History and Physical Notes * HPI (History of Present Illness) Category Sub-Category Detail Notes Category Not es General R shoudler - no injry= no old injury - feels deeper than just muscle Beenn goping on for a month - prog worse Examination Category Sub-Category Detail Notes Category Not es Abdomen Exam: R shoulder -= very limited inr or exteranl aor lateal moevement due to pain and just lack pf movment =- on forced exam - has shome rotation in shoulder bu is all coming from scapular rotation
--- OUTSIDE RECORDS SUMMARY | 2025-02-09 05:06 | XMS_ITS ---
Author Organization [facility] in [place] Address [address] [place] [address] Care Team Providers Care Utilization Reviewer Name Role Phone Melquiades Vyas Primary Care Provider [phone] REASON FOR VISIT pre-medicate Medications Medication SIG (Take, Route, Frequency, Duration) Notes Start Date End Date Status Valium 10 MG 1 tablet as needed O rally once about 1 hour before procedure for 1 days 02/09/2025 Active Encounters Encounter Location Date Provider Diagnosis [facility] [address] [place] [address] 02/09/2025 Melquiades Vyas Plan Of Treatment Medication Medication Name Sig Start Date Stop Date Notes Valium 10 MG 1 tablet as needed O rally once about 1 hour before procedure for 1 days 02/09/2025 Progress Notes * Yuan VASQUEZDOB: (69 yo M)Acc No.[id number]:02/09/2025 Patient: Yuan ORDOÑEZ :1955 A ge:69 Y S ex:Male Address:[address] [place] [address], [address] * Refills Start Valium Tablet, 10 MG, Orally, 1, 1 tablet as needed, once about 1 hour before procedure, 1 days * true * Date: Generated for Chel quiñonez/Veenag/eTransmitting on: 0 02/11/2025 06:47 AM EDT
--- OUTSIDE RECORDS SUMMARY | 2025-02-09 06:45 | XMS_ITS | CCD ---
Author Organization 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 Name Role Phone ABDIEL ., DR FARIAS [...] Unavailable HOY ., DR FARIAS Attending Unavailable [place], DR ELTON [employer] Unavailable Jarrett Vyas MD Primary Care Provider [phone] Jarrett Vyas MD Primary Care Provider [phone] DAKOTA ROCHA Attending Unavailable DAKOTA ROCHA Attending Unavailable IVANA DEAL Attending Unavailable JARRETT VYAS Referring Unavailable LOLITA PANCHAL Attending Unavailable LOLITA PANCHAL Attending Unavailable DAKOTA ROCHA Attending Unavailable DAKOTA ROCHA Attending Unavailable DAKOTA ROCHA Attending Unavailable HAYLEY KIRBY Attending Unavailable JACQUELYN AGUILAR Attending Unavailable JACQUELYN AGUILAR Attending Unavailable Allergies Allergy Classification Reported Allergen(s) Allergy Type Date of Onset Reaction(s) Facility (1 source) Iodine Drug Allergy 07-14-[address] [facility] Repository Medications Current Medications Medication Drug Class(es) Dates Sig (Normalized) Sig (Original) dapagliflozin 10 mg oral tablet (7 sources) Sodium-Glucose Cotransporter 2 Inhibitor Start: 07-06-2023 Farxiga 10 MG 07/06/2023 Active diclofenac sodium 75 mg delayed release oral tablet (7 sources) Nonsteroidal Anti-inflammatory Drug Start: 06-25-2023 take 1 tablet by mouth twice daily as needed diclofenac (Voltaren) 75 MG EC tablet Take 75 mg by mouth 2 (two) times a day as needed 06/25/2023 Active furosemide 20 mg oral tablet (7 sources) Loop Diuretic Start: 04-14-2023 take 1 tablet by mouth in the morning furosemide (Lasix) 20 MG tablet Take 20 mg by mouth in the morning. 04/14/2023 Active 24 hr metoprolol succinate 100 mg extended release oral tablet (7 sources) beta-Adrenergic Ervin Start: 05-20-2023 take 1 tablet by mouth every twenty-four hours in the morning metoprolol succinate XL (Toprol-XL) 100 MG 24 hr tablet Take 100 mg by mouth in the morning. 05/20/2023 Active Problems Active Problems Problem Classification Problem Date Documented Da te Episodic/Chronic Congestive heart failure; nonhypertensive (14 sources) Unspecified diastolic (congestive) heart failure; Translations: [Diastolic heart failure] Onset: 08-15-2022 Chronic Disorders of lipid metabolism (1 source) Hyperlipidemia, unspecified; Translations: [HYPERLIPIDEMIA UNSPECIFIED] Onset: 09-01-2022 Chronic Esophageal disorders (1 source) Gastro-esophageal reflux disease without esophagitis; Translations: [GERD WITHOUT ESOPHAGITIS] Onset: 09-01-2022 Chronic Essential hypertension (10 sources) Essential (primary) hypertension; Translations: [Essential hypertension] Onset: 09-01-2022 01-21-2024 Chronic Heart valve disorders (9 sources) Tricuspid valve regurgitation; Translations: [Rheumatic tricuspid insufficiency] Onset: 11-27-2022 01-21-2024 Chronic Hypertension with complications and secondary hypertension (1 source) Hypertensive heart disease with heart failure; Translations: [HTN HEART DISEASE W/HEART FAIL] Onset: 08-15-2022 Chronic Mycoses (3 sources) Pain in toe; Translations: [Tinea unguium] 04-26-2024 Episodic Osteoarthritis (7 sources) Osteoarthritis of knee; Translations: [Osteoarthritis of knee, unspecified] Onset: 10-01-2023 01-21-2024 Chronic Other diseases of veins and lymphatics (2 sources) Vascular insufficiency; Translations: [Venous insufficiency (chronic) (peripheral)] 07-01-2024 Episodic Other lower respiratory disease (4 sources) Other forms of dyspnea; Translations: [OTHER FORMS OF DYSPNEA] Onset: 11-21-2022 Episodic Other lower respiratory disease (2 sources) Shortness of breath; Translations: [Shortness of breath] Onset: 09-17-2024 Episodic Other skin disorders (3 sources) Asteatosis cutis; Translations: [Xerosis cutis] 04-26-2024 Episodic Pulmonary heart disease (9 sources) Pulmonary hypertension; Translations: [Pulmonary hypertension, unspecified] Onset: 11-27-2022 01-21-2024 Chronic Past or Other Problems Problem Classification Problem Date Documented Da te Episodic/Chronic Diabetes mellitus without complication (1 source) Other abnormal glucose; Translations: [OTHER ABNORMAL GLUCOSE] Onset: 08-15-2022 Episodic Nonspecific chest pain (5 sources) Chest pain, unspecified; Translations: [CHEST PAIN UNSPECIFIED] Onset: 08-15-2022 Episodic Other ear and sense organ disorders (7 sources) Impacted cerumen; Translations: [Impacted cerumen, unspecified ear] Onset: 10-01-2023 01-21-2024 Episodic Other lower respiratory disease (7 sources) Dyspnea on exertion; Translations: [Other forms [...] rectum] Onset: 08-15-2022 Episodic Residual codes; unclassified (7 sources) Edema of lower extremity; Translations: [Localized edema] Onset: 11-27-2022 01-21-2024 Episodic Results Test Name Value Interpretation Reference Range Facility Office Visiton 12-13-2024 Follow-up visit [id number] Yuan Wilson 1955 M Date Provider Department Center 12/13/2024 Benjamín-JACQUELYN AGUILAR [facility] Family History Problem Relation Age of Onset Heart failure Mother Heart attack Father Family Status - Relation Status Age at Mother Father Level of Service:74049 [place] OFFICE/OUTPATIENT ESTABLISHED MOD MDM 30 MIN [facility] 11-22-2024 36 Regarding lab result s from 10/28/2024: and PFT's from 10/07/2024: MD Yolette Turner MA Renal function is ok. Continue same increased lasix dose. I also reviewed his PFTs and I want him to see Dr Hanks. Follow up with me in 2 months. Addendum added to last visit's note. LM for patient on his VM. Asked him to call back to schedule December with Dr. Aguilar. Referral to Dr. Hanks sent. [facility] 10-27-2024 29 Addended by: YOLETTE HDZ on: 10/27/2024 11:58 AM Modules accepted: Orders [facility] 10-27-2024 36 Patient called to make you aware that the increase in lasix (up to 40mg daily) has been affecting his neuropathy. Says his feet felt like he was walking on burning coals . He has not noticed more SOB. Trelegy inhaler has been helping him. Denies LE edema. He took 20mg today instead of 40mg. I reminded him to have BMP you ordered, and he will have it drawn tomorrow. Please advise. Thanks. (I have added Maria Teresa to this thread because I am off tomorrow.) [facility] 10-19-2024 36 Patient called back. He will double his lasix to 40mg daily and have BMP in 1 week. Order faxed to [facility]. Patient verbalized understanding. [facility] 10-18-2024 36 Regarding echo resul t from 10/07/2024: MD Yolette Turner MA I want him to increase furosemide to 40 mg daily. He will need the BMP I had ordered to be done 1 week after the increase. LM for patient to return my call. [facility] Telephoneon 10-18-2024 Telephone [id number] Yuan Wilson 1955 Date Provider Department Center 10/18/2024 8-YOLETTE HDZ CARD [facility] Family History Problem Relation Age of Onset Heart failure Mother Heart attack Father Family Status - Relation Status Age at Mother Father Normal [facility] Office Visiton 09-17-2024 Follow-up visit [id number] Yuan Wilson 1955 M Date Provider Department Center 09/17/2024 Benjamín-JACQUELYN AGUILAR [facility] Family History Problem Relation Age of Onset Heart failure Mother Heart attack Father Family Status - Relation Status Age at Mother Father Level of Service:24294 [place] OFFICE/OUTPATIENT ESTABLISHED MOD MDM 30 MIN Normal [facility] Office Visiton 03-29-2024 Follow-up visit [id number] Yuan Wilson 1955 M Date Provider Department Center 03/29/2024 120-MIRTAHAYLEY CARD [facility] Family History Problem Relation Age of Onset Heart failure Mother Heart attack Father Family Status - Relation Status Age at Mother Father Level of Service:61739 [place] OFFICE/OUTPATIENT ESTABLISHED LOW MDM 20 MIN Normal [facility] PROF CHEM 8 (BAS METB)on Anion gap [Moles/Vol] 9.9 mmol/L Normal [facility] Comment on above: Performed By: #### B MP #### [facility] [address] [address] [address] Nataly Frye Calcium [Mass/Vol] 7.9 mg/dL Critically low 8.5-10.1 [facility] Comment on above: Performed By: #### B MP #### [facility] [address] [address] [address] Nataly Frye Chloride [Moles/Vol] 104 mmol/L Normal 98-107 [facility] Comment on above: Performed By: #### B MP #### [facility] [address] [address] [address] Nataly Frye CO2 [Moles/Vol] 33.8 mmol/L Critically high 21.0-32.0 [facility] Comment on above: Performed By: #### B MP #### [facility] [address] [address] [address] Nataly Frye Creatinine [Mass/Vol] 1.19 mg/dL Normal 0.70-1.30 [facility] Comment on above: Performed By: #### B MP #### [facility] [address] [place] [address] Dr. Nataly Frye EGFR-AF BAHAMIAN >60 Normal >=60 [facility] Comment on above: Performed By: #### B MP #### [facility] [address] [place] [address] Dr. Nataly Frye EGFR-NON AF BAHAMIAN >60 Normal >=60 [facility] Comment on above: Performed By: #### B MP #### [facility] [address] [place] [address] Dr. Nataly Frye Glucose [Mass/Vol] 130 mg/dL Critically high 74-106 [facility] Comment on above: Performed By: #### B MP #### [facility] [address] [place] [address] Dr. Nataly Frye Potassium [Moles/Vol] 3.7 mmol/L Normal 3.5-5.1 [facility] Comment on above: Performed By: #### B MP #### [facility] [address] [place] [address] Dr. Nataly Frye Sodium [Moles/Vol] 144 mmol/L Normal 136-145 [facility] Comment on above: Performed By: #### B MP #### [facility] [address] [place] [address] Dr. Nataly Frye Urea nitrogen [Mass/Vol] 18.0 mg/dL Normal 7.0-18.0 [facility] Comment on above: Performed By: #### B MP #### [facility] [address] [place] [address] Dr. Nataly Frye Urea nitrogen/Creatinine [Mass ratio] 15.1 mg/mg Normal [facility] Comment on above: Performed By: #### B MP #### [facility] [address] [place] [address] Dr. Nataly Frye BNPon 11-21-2022 Natriuretic peptide B (Bld) [Mass/Vol] 58.0 pg/mL Normal <=900.0 [facility] Comment on above: Performed By: #### B MP, BNP #### [facility] [address] [place] [address] Dr. Nataly Frye PROF CHEM 8 (BAS METB)on Anion gap [Moles/Vol] 9.6 mmol/L Normal [facility] Comment on above: Performed By: #### B MP, BNP #### [facility] [address] [place] [address] Dr. Nataly Frye Calcium [Mass/Vol] 7.3 mg/dL Critically low 8.5-10.[address] [facility] Comment on above: Performed By: #### B MP, BNP #### [facility] [address] [place] [address] Dr. Nataly Frye Chloride [Moles/Vol] 104 mmol/L Normal 98-107 [facility] Comment on above: Performed By: #### B MP, BNP #### [facility] [address] [place] [address] Dr. Nataly Frye CO2 [Moles/Vol] 34.7 mmol/L Critically high 21.0-32.0 [facility] Comment on above: Performed By: #### B MP, BNP #### [facility] [address] [place] [address] Dr. Nataly Frye Creatinine [Mass/Vol] 1.33 mg/dL Critically high 0.70-1.30 [facility] Comment on above: Performed By: #### B MP, BNP #### [facility] [address] [place] [address] Dr. Nataly Frye EGFR-AF BAHAMIAN >60 Normal >=60 [facility] Comment on above: Performed By: #### B MP, BNP #### [facility] [address] [place] [address] Dr. Nataly Frye EGFR-NON AF BAHAMIAN 54 mL/min/1.73m2 Critically low >=60 [facility] Comment on above: Performed By: #### B MP, BNP #### [facility] [address] [place] [address] Dr. Nataly Frye Glucose [Mass/Vol] 146 mg/dL Critically high 74-106 [facility] Comment on above: Performed By: #### B MP, BNP #### [facility] [address] [address] [address] Nataly Frye Potassium [Moles/Vol] 3.3 mmol/L Critically low 3.5-5.1 [facility] Comment on above: Performed By: #### B MP, BNP #### [facility] [address] [address] [address] Nataly Frye Sodium [Moles/Vol] 145 mmol/L Normal 136-145 [facility] Comment on above: Performed By: #### B MP, BNP #### [facility] [address] [place] [address] Dr. Nataly Frye Urea nitrogen [Mass/Vol] 22.0 mg/dL Critically high 7.0-18.0 [facility] Comment on above: Performed By: #### B MP, BNP #### [facility] [address] [place] [address] Dr. Nataly Frye Urea nitrogen/Creatinine [Mass ratio] 16.5 mg/mg Normal [facility] Comment on above: Performed By: #### B MP, BNP #### [facility] [address] [place] [address] Dr. Nataly Frye ECHOCARDIO M/2D COMPLETEon 0 08-27-2022 ECHOCARDIO M/2D COMPLETE Patient: YUAN WILSON Exam Date: 08/27/2022 : 1955 Gender:M Ordering : DR JARRETT VYAS . Admission #: [id number] Family : Order #: [id number] CLICK HERE TO VIEW EXAM ECHOCARDIOGRAM REPORT [...] Ritter M.D. on 08/27/2022 at 12:17 Normal [facility] STRESS/REST MULTIon 08-26 NM STRESS/REST MULTI Patient: YUAN WILSON Exam Date: 08/26/2022 : 1955 Gender:M Ordering : DR JARRETT VYAS . Admission #: [id number] Family : Order #: [id number] CLICK HERE TO VIEW EXAM RADIOLOGY REPORT [...] MD on 08/28/2022 at 06:[address] [facility] INSULINon 08-15-2022 Insulin 18.8 uIU/mL Normal 2.6-24.[address] [facility] Comment on above: Performed By: #### I NSULIN ####[facility] [id number] [address]Dr. Nataly Frye BNPon 08-14-2022 Natriuretic peptide B (Bld) [Mass/Vol] 140.0 pg/mL Normal <=900.[address] [facility] Comment on above: Performed By: #### L IPID, URIC, BNP, T7, TSH, CMP #### [facility] [address] [place] [address] Dr. Nataly Frye CBC AUTO DIFFon 08-14-2022 BASO # 0.0 103/ul Normal 0.0-0.1 [facility] Comment on above: Performed By: #### C BC #### [facility] [address] [place] [address] Dr. Nataly Frye Basophils/100 WBC (Bld) 0.6 % Normal 0.2-2.[address] [facility] Comment on above: Performed By: #### C BC #### [facility] [address] [place] [address] Dr. Nataly Frye EO # 0.1 103/ul Normal 0.0-0.[address] [facility] Comment on above: Performed By: #### C BC #### [facility] [address] [place] [address] Dr. Nataly Frye Eosinophils/100 WBC (Bld) 2.7 % Normal 0.9-7.[address] [facility] Comment on above: Performed By: #### C BC #### [facility] [address] [place] [address] Dr. Nataly Frye Erythrocyte distribution width (RBC) [Ratio] 18.1 % Critically high 11.0-15.0 [facility] Comment on above: Performed By: #### C BC #### [facility] [address] [address] [address] Nataly Frye Hematocrit (Bld) [Volume fraction] 30.2 % Critically low 42.0-54.0 [facility] Comment on above: Performed By: #### C BC #### [facility] [address] [place] [address] Dr. Nataly Frye Hemoglobin (Bld) [Mass/Vol] 8.8 g/dL Critically low 14.0-18.0 [facility] Comment on above: Performed By: #### C BC #### [facility] [address] [place] [address] Dr. Nataly Frye IG # 0.06 10e3/ul Critically high 0.00-0.03 [facility] Comment on above: Performed By: #### C BC #### [facility] [address] [place] [address] Dr. Nataly Frye IG % 1.3 % Critically high 0.0-0.5 [facility] Comment on above: Performed By: #### C BC #### [facility] [address] [place] [address] Dr. Nataly Frye LYMPH # 1.7 103/ul Normal 1.2-3.8 [facility] Comment on above: Performed By: #### C BC #### [facility] [address] [place] [address] Dr. Nataly Frye Lymphocytes/100 WBC (Bld) 36.6 % Normal 20.5-60.0 [facility] Comment on above: Performed By: #### C BC #### [facility] [address] [place] [address] Dr. Nataly Frye MANUAL DIFF REQ NO Normal [facility] Comment on above: Performed By: #### C BC #### [facility] [address] [place] [address] Dr. Nataly Frye MCH (RBC) [Entitic mass] 25.5 pg Critically low 25.9-34.0 [facility] Comment on above: Performed By: #### C BC #### [facility] [address] [place] [address] Dr. Nataly Frye MCHC (RBC) [Mass/Vol] 29.1 g/dL Critically low 29.9-35.[address] [facility] Comment on above: Performed By: #### C BC #### [facility] [address] [place] [address] Dr. Nataly Frye MCV (RBC) [Entitic vol] 87.5 fL Normal 80.0-94.[address] [facility] Comment on above: Performed By: #### C BC #### [facility] [address] [place] [address] Dr. Nataly Frye MONO # 0.5 103/ul Normal 0.3-0.[address] [facility] Comment on above: Performed By: #### C BC #### [facility] [address] [place] [address] Dr. Nataly Frye Monocytes/100 WBC (Bld) 11.0 % Normal 1.7-12.[address] [facility] Comment on above: Performed By: #### C BC #### [facility] [address] [place] [address] Dr. Nataly Frye NEUT # 2.3 103/ul Normal 1.4-6.[address] [facility] Comment on above: Performed By: #### C BC #### [facility] [address] [place] [address] Dr. Nataly Frye Neutrophils/100 WBC (Bld) 47.8 % Normal 43.0-75.[address] [facility] Comment on above: Performed By: #### C BC #### [facility] [address] [place] [address] Dr. Nataly Frye Platelet mean volume (Bld) [Entitic vol] 9.5 fL Normal 9.5-13.[address] [facility] Comment on above: Performed By: #### C BC #### [facility] [address] [place] [address] Dr. Nataly Frye PLT 172 103/ul Normal 150-[address] [facility] Comment on above: Performed By: #### C BC #### [facility] [address] [place] [address] Dr. Nataly Frye RBC 3.45 106/ul Critically low 4.70-6.10 [facility] Comment on above: Performed By: #### C BC #### [facility] [address] [address] [address] Nataly Frye WBC 4.7 103/ul Normal 4.0-11.0 [facility] Comment on above: Performed By: #### C BC #### [facility] [address] [address] [address] Nataly Frye FREE THYROXINE INDEX T7on FTI 2.18 Normal 1.30-4.50 [facility] Comment on above: Performed By: #### L IPID, URIC, BNP, T7, TSH, CMP #### [facility] [address] [place] [address] Dr. Nataly Frye T3U 34.0 % Normal 33.0-40.0 [facility] Comment on above: Performed By: #### L IPID, URIC, BNP, T7, TSH, CMP #### [facility] [address] [address] [address] Nataly Frye T4 [Mass/Vol] 6.40 ug/dL Normal 4.50-12.10 [facility] Comment on above: Performed By: #### L IPID, URIC, BNP, T7, TSH, CMP #### [facility] [address] [address] [address] Nataly Frye GLYCOHEMOGLOBIN A1Con 2022 ADA RECOMMENDATION SEE BELOW Normal [facility] Comment on above: Result Comment: ADA RECOMMENDED LIMIT 4.0 - 6.0 ADA THERAPEUTIC TARGET < 7.0 ACTION SUGGESTED > 7.0 Performed By: #### A 1C ####[facility] [id number] [address]Dr. Nataly Frye HbA1c (Bld) [Mass fraction] 5.6 % Normal 4.5-6.2 [facility] Comment on above: Performed By: #### A 1C ####[facility] [id number] [address]Dr. Nataly Frye LIPID PROFILEon 08-14-2022 CHOL-HDL RATIO NORM SEE BELOW Normal [facility] Comment on above: Result Comment: 3.3 - 4.4 LOW RISK 4.4 - 7.1 AVERAGE RISK 7.1 - 11.0 MODERATE RISK >11.0 HIGH RISK Performed By: #### L IPID, URIC, BNP, T7, TSH, CMP #### [facility] [address] [address] [address] Nataly Frye Cholesterol [Mass/Vol] 106 mg/dL Normal <=[address] [facility] Comment on above: Performed By: #### L IPID, URIC, BNP, T7, TSH, CMP #### [facility] [address] [address] [address] Nataly Frye Cholesterol in HDL [Mass/Vol] 25 mg/dL Critically low 40-60 [facility] Comment on above: Performed By: #### L IPID, URIC, BNP, T7, TSH, CMP #### [facility] [address] [address] [address] Nataly Frye Cholesterol in LDL [Mass/Vol] 34.6 mg/dL Normal [facility] Comment on above: Performed By: #### L IPID, URIC, BNP, T7, TSH, CMP #### [facility] [address] [address] [address] Nataly Frye Cholesterol.total/Ch olesterol in HDL [Mass ratio] 4.2 {ratio} Normal [facility] Comment on above: Performed By: #### L IPID, URIC, BNP, T7, TSH, CMP #### [facility] [address] [address] [address] Nataly Frye HDL NORMAL > or = 60 mg/dl - LO W CARDIOVASCULAR RISK <40 mg/dl - HIGH CARDIOVASCULAR RISK Normal [facility] Comment on above: Performed By: #### L IPID, URIC, BNP, T7, TSH, CMP #### [facility] [address] [address] [address] Nataly Frye LDL CALC NORMAL SEE BELOW Normal [facility] Comment on above: Result Comment: <100 mg/dl OPTIMAL 100 - 129 mg/dl NEAR OR ABOVE OPTIMAL 130 - 159 mg/dl BORDERLINE HIGH 160 - 189 mg/dl HIGH >190 mg/dl VERY HIGH Performed By: #### L IPID, URIC, BNP, T7, TSH, CMP #### [facility] [address] [address] [address] Nataly Frye Triglyceride [Mass/Vol] 232 mg/dL Critically high <=150 [facility] Comment on above: Performed By: #### L IPID, URIC, BNP, T7, TSH, CMP #### [facility] [address] [place] [address] Dr. Nataly Frye VLDL CALC 46.4 mg/dL Normal [facility] Comment on above: Performed By: #### L IPID, URIC, BNP, T7, TSH, CMP #### [facility] [address] [place] [address] Dr. Nataly Frye PROF 14(COMP METB)on 023 Albumin [Mass/Vol] 3.3 g/dL Critically low 3.4-5.0 [facility] Comment on above: Performed By: #### L IPID, URIC, BNP, T7, TSH, CMP #### [facility] [address] [place] [address] Dr. Nataly Frye Albumin/Globulin [Mass ratio] 1.0 {ratio} Normal [facility] Comment on above: Performed By: #### L IPID, URIC, BNP, T7, TSH, CMP #### [facility] [address] [place] [address] Dr. Nataly Frye ALP [Catalytic activity/Vol] 86 U/L Normal 46-116 [facility] Comment on above: Performed By: #### L IPID, URIC, BNP, T7, TSH, CMP #### [facility] [address] [place] [address] Dr. Nataly Frye ALT [Catalytic activity/Vol] 64 U/L Critically high 16-63 [facility] Comment on above: Performed By: #### L IPID, URIC, BNP, T7, TSH, CMP #### [facility] [address] [place] [address] Dr. Nataly Frye Anion gap [Moles/Vol] 11.3 mmol/L Normal [facility] Comment on above: Performed By: #### L IPID, URIC, BNP, T7, TSH, CMP #### [facility] [address] [place] [address] Dr. Nataly Frye AST [Catalytic activity/Vol] 37 U/L Normal 15-37 [facility] Comment on above: Performed By: #### L IPID, URIC, BNP, T7, TSH, CMP #### [facility] [address] [place] [address] Dr. Nataly Frye Bilirubin [Mass/Vol] 0.4 mg/dL Normal 0.2-1.0 [facility] Comment on above: Performed By: #### L IPID, URIC, BNP, T7, TSH, CMP #### [facility] [address] [place] [address] Dr. Nataly Frye Calcium [Mass/Vol] 7.9 mg/dL Critically low 8.5-10.1 [facility] Comment on above: Performed By: #### L IPID, URIC, BNP, T7, TSH, CMP #### [facility] [address] [place] [address] Dr. Nataly Frye Chloride [Moles/Vol] 106 mmol/L Normal 98-107 [facility] Comment on above: Performed By: #### L IPID, URIC, BNP, T7, TSH, CMP #### [facility] [address] [place] [address] Dr. Nataly Frye CO2 [Moles/Vol] 30.7 mmol/L Normal 21.0-32.0 [facility] Comment on above: Performed By: #### L IPID, URIC, BNP, T7, TSH, CMP #### [facility] [address] [place] [address] Dr. Nataly Frye Creatinine [Mass/Vol] 0.98 mg/dL Normal 0.70-1.30 [facility] Comment on above: Performed By: #### L IPID, URIC, BNP, T7, TSH, CMP #### [facility] [address] [place] [address] Dr. Nataly Frye EGFR-AF BAHAMIAN >60 Normal >=60 [facility] Comment on above: Performed By: #### L IPID, URIC, BNP, T7, TSH, CMP #### [facility] [address] [address] [address] Nataly Frye EGFR-NON AF BAHAMIAN >60 Normal >=60 [facility] Comment on above: Performed By: #### L IPID, URIC, BNP, T7, TSH, CMP #### [facility] [address] [address] [address] Nataly Frye Globulin (S) [Mass/Vol] 3.3 g/dL Normal [facility] Comment on above: Performed By: #### L IPID, URIC, BNP, T7, TSH, CMP #### [facility] [address] [place] [address] Dr. Nataly Frye Glucose [Mass/Vol] 114 mg/dL Normal [facility] Comment on above: Performed By: #### L IPID, URIC, BNP, T7, TSH, CMP #### [facility] [address] [place] [address] Dr. Nataly Frye Performed By: #### A 1C ####[facility] [address] [place], [place] [address]Dr. Nataly Frye Potassium [Moles/Vol] 4.0 mmol/L Normal 3.5-5.[address] [facility] Comment on above: Performed By: #### L IPID, URIC, BNP, T7, TSH, CMP #### [facility] [address] [address] [address] Nataly Frye Protein [Mass/Vol] 6.6 g/dL Normal 6.4-8.2 [facility] Comment on above: Performed By: #### L IPID, URIC, BNP, T7, TSH, CMP #### [facility] [address] [place] [address] Dr. Nataly Frye Sodium [Moles/Vol] 144 mmol/L Normal 136-145 [facility] Comment on above: Performed By: #### L IPID, URIC, BNP, T7, TSH, CMP #### [facility] [address] [place], [place] [address] Dr. Nataly Frye Urea nitrogen [Mass/Vol] 11.0 mg/dL Normal 7.0-18.0 [facility] Comment on above: Performed By: #### L IPID, URIC, BNP, T7, TSH, CMP #### [facility] [address] [place], [place] [address] Dr. Nataly Frye Urea nitrogen/Creatinine [Mass ratio] 11.2 mg/mg Normal [facility] Comment on above: Performed By: #### L IPID, URIC, BNP, T7, TSH, CMP #### [facility] [address] [place], [place] [address] Dr. Nataly Frye TSHon 08-14-2022 TSH 1.816 uIU/mL Normal 0.358-3.740 [facility] Comment on above: Performed By: #### L IPID, URIC, BNP, T7, TSH, CMP ####[facility] [address] [place], [place] [address]LlDr. Nataly Frye URIC ACID SERUMon 08-14-2022 Urate [Mass/Vol] 6.6 mg/dL Normal 3.5-7.2 [facility] Comment on above: Performed By: #### L IPID, URIC, BNP, T7, TSH, CMP ####[facility] [address] [place], [place] [address]RxDr. Nataly Frye Physician Referralon 021 Physician Referral [phone] [id number]:[id number] Normal [facility] Vital Signs Date Time Vital Sign Value Performing Clinician Faci lity 12-09-2024 10:30-040 Body height 182.9 cm Dakota Rocha DPM Work Phone: [facility] 12-09-2024 10:30-040 Body mass index (BMI) [Ratio] 36.35 kg/m2 Dakota Rocha DPM Work Phone: [facility] 12-09-2024 10:30-040 Body weight 121.56 kg Dakota Brown DPM Work Phone: [facility] 12-09-2024 10:30-0400 Respiratory rate 18 /min Dakota Rocha DPM Work Phone: [facility] 07-08-2024 10:44-0500 Body height 182.9 cm Dakota Rocha DPM Work Phone: [facility] 07-08-2024 10:44-0500 Body mass index (BMI) [Ratio] 36.35 kg/m2 Dakota Brown DPM Work Phone: [facility] 07-08-2024 10:44-0500 Body weight 121.56 kg Dakota Rocha DPM Work Phone: [facility] 07-08-2024 10:44-0500 Respiratory rate 18 /min Dakota Rocha DPM Work Phone: [facility] 04-29-2024 09:53-0400 Body height 182.9 cm Dakota Rocha DPM Work Phone: [facility] 04-29-2024 09:53-0400 Body mass index (BMI) [Ratio] 36.35 kg/m2 Dakota Brown DPM Work Phone: [facility] 04-29-2024 09:53-0400 Body weight 121.56 kg Dakota Rocha DPM Work Phone: [facility] 04-29-2024 09:53-0400 Diastolic blood pressure 80 mm[Hg] Dakotadestiny Rocha DPM Work Phone: [facility] 04-29-2024 09:53-0400 Heart rate 79 /min Dakota Aj DPM Work Phone: [facility] 04-29-2024 09:53-0400 Systolic blood pressure 129 mm[Hg] Dakota Aj DPM Work Phone: [facility] Healthcare Encounters Encounter Date Encounter Type Care Provider Facility Start: 12-13-2024 End: 12-13-2024 ambulatory [facility] Start: 12-09-2024 End: 12-09-2024 Bamboo flowsheet Dakota Rocha DPM Work Phone: [facility] Start: 12-09-2024 End: 12-09-2024 Bamboo flowsheet Dakota Rocha DPM Work Phone: [facility] Start: 12-09-2024 End: 12-09-2024 Patient encounter procedure Dakota Rocha DPM Work Phone: [facility] Comment on above: Pain due to onychomy cosis of toenails of both feet (Primary Dx); Venous insufficiency; Xerosis cutis Start: 12-09-2024 End: 12-09-2024 ambulatory DAKOTA ROCHA Not Available Start: 09-30-2024 End: 09-30-2024 ambulatory DAKOTA ROCHA Not Available Start: 09-17-2024 End: 09-17-2024 ambulatory [facility] Start: 07-08-2024 End: 07-08-2024 Bamboo flowsheet Dakota Rocha DPM Work Phone: [facility] Start: 07-08-2024 End: 07-08-2024 Bamboo flowsheet Dakota Rocha DPM Work Phone: [facility] Start: 07-08-2024 End: 07-08-2024 [...] Not Available Start: 03-29-2024 End: 03-29-2024 ambulatory [facility] Start: 02-19-2024 End: 02-19-2024 ambulatory DAKOTA ROCHA Not Available Start: 02-17-2024 End: 02-17-2024 ambulatory LOLITA H TIMMIS Not Available Start: 01-21-2024 End: 01-21-2024 ambulatory LOLITA H TIMMIS Not Available Start: 01-14-2024 End: 01-14-2024 ambulatory IVANA DEAL Not Available Start: 12-10-2022 End: 12-11-[address] JARRETT VYAS . Facility:[facility] Start: 11-21-2022 End: 11-22-[address] JARRETT VYAS . Facility:[facility] Start: 08-27-2022 End: 08-28-[address] JARRETT VYAS . Facility:[facility] Start: 08-26-2022 End: 08-27-[address] JARRETT VYAS . Facility:[facility] Start: 08-14-2022 End: 08-15-[address] JARRETT VYAS . Facility:[facility] Plan of Treatment Date Care Activity Detail Author Start: 03-14-2025 Influenza vaccination Influenz a Vaccine (Season Ended) [facility] Start: 12-09-2024 End: 12-09-2024 Patient encounter procedure 12/09/2024 10:40 AM EDT Procedure Visit [facility] [address] [facility] [address] [place] [address] Dakota Rocha, NIKKIM [address] [address] Pain due to onychomycosis of toenails of both feet (Primary Dx); Venous insufficiency; Xerosis cutis [facility] Comment on above: Pain due to onychomy cosis of toenails of both feet (Primary Dx); Venous insufficiency; Xerosis cutis Start: 09-16-2024 End: 09-16-2024 Patient encounter procedure 09/16/2024 10:40 AM EST Procedure Visit [facility] [address] [id number] Dakota Rocha, NIKKIM [address] [address] [facility] Start: 07-08-2024 End: 07-08-2024 Patient encounter procedure [facility] Comment on above: Pain due to onychomy cosis of toenails of both feet (Primary Dx); Venous insufficiency; Xerosis cutis Start: 05-05-2024 End: 05-05-2024 Clinical Support 05/05/2024 8:00 AM EDT Clinical Support [facility] [address] [facility] [address] [place] [id number] Ivana Deal, [facility] [address] [place] [address] [facility] Start: 04-29-2024 End: 04-29-2024 Patient encounter procedure 04/29/2024 10:00 AM EDT Procedure Visit [facility] [address] [facility] [address] [place] [id number] Dakota Rocha, ELVER [address] [address] Pain due to onychomycosis of toenails of both feet (Primary Dx); Xerosis cutis [facility] Comment on above: Pain due to onychomy cosis of toenails of both feet (Primary Dx); Xerosis cutis Start: 03-14-2024 Influenza vaccination Influenza Vacc ine (#1) [facility] Start: 2022 Pneumococcal Vaccine : 65+ Years (1 of 1 - PCV) Pneumococcal Vaccine: 65+ Years (1 of 1 - PCV) [facility] Start: 2007 Pneumococcal Vaccine : 65+ Years (1 of 1 - PCV) Pneumococcal Vaccine: 65+ Years (1 of 1 - PCV) [facility] Start: 1955 Screening for malign ant neoplasm of colon [facility] Payers Date Payer Category Payer Medicare MEDICARE [id number] 2022 Private Health Insurance [employer] .[id number] 1959 Medicare [id number] 1959 Private Health Insurance [id number] 1957 Unknown [id number] [id number] .2.593 1957 Unknown [id number] 2.16.840.1.835797.3.579 .2.593 1957 Unknown [id number] 2.16.840.1.419786.3.579 .2.593 1957 Unknown [id number] 2.16.840.1.493377.3.579 .2.593 1957 Unknown [id number] 2.16.840.1.936370.3.579 .2.593 1957 Unknown [id number] 2.16.840.1.850670.3.579 .2.1259 1957 Unknown [id number] 2.16.840.1.365243.3.579 .2.1259 1957 Unknown [id number] 2.16.840.1.433996.3.579 .2.1259 1957 Unknown [id number] 2.16.840.1.636063.3.579 .2.1259 1957 Unknown [id number] 2.16.840.1.194304.3.579 .2.1259 1957 Unknown [id number] 2.16.840.1.359183.3.579 .2.1259 1957 Unknown [id number] 2.16.840.1.974967.3.579 .2.1259 1957 Unknown [id number] [id number] .2.1259 Social History Date Type Detail Facility Start: 01-21-2024 Tobacco smoking stat [facility] Never smoked tobacco [facility] Start: 01-21-2024 Tobacco use and exposure Smokeless tobacco non-user [facility] Start: 02-17-2024 End: 12-09-2024 Alcoholic beverage intake Ex-drinker (finding) [facility] Start: 02-17-2024 End: 09-30-2024 History of Social function [facility] Start: 02-17-2024 End: 09-30-2024 Tobacco use panel [facility] Start: 1955 Sex assigned at Not on file N [facility] NEGATED: Highlighted rowStart: NINF History of tobacco use Passive smoker [facility] Clinical Notes 03-29-2024 to 12-13-2024 Dakota Rocha, DP - 12/09/2024 10:40 AM EDTDakota Rocha, DPM - 07/08/2024 10:50 AM ESTDakota Rocha, DPM - 04/29/2024 10:00 AM EDT Note Date & Type Note Facility 12-13-2024 Note OR Cardiology - [facility] Subjective Yuan Wilson is a 69 y.o. year old male patient being seen for 3 mo follow up. Patient had PFT and ECHO. Patient states he still has LINDER. Patient states his lasix was increase and if he takes 2 every day, patient states he gets leg cramps, patient states he takes 1 one day and 2 the next day. Patient would like to talk about the use of THC for his neuropathy in his feet. Patient Active Problem List Diagnosis Pulmonary hypertension (CMS/HCC) Tricuspid valve insufficiency LINDER (dyspnea on exertion) Essential hypertension Diastolic heart failure (CMS/HCC) Lower extremity edema Impacted cerumen Osteoarthritis of knee Hearing loss Anemia Family History Problem Relation Name Age of Onset Heart failure Mother Heart attack Father Social History Tobacco Use Smoking status: Never Smokeless tobacco: Never Substance Use Topics Alcohol use: Yes Comment: occasional Drug use: Never HPI Yuan is seen in follow-up. This [...] is on metoprolol succinate and baby aspirin. At visit of 09/17/2024 he was complaining of shortness of breath. I checked an echocardiogram that showed severely elevated right-sided pressures with an RVSP of 63 mmHg. I increased his Lasix to 40 mg daily. A follow-up BMP on 10/28/2024 showed stable renal function and potassium. 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 Today he reports that he is taking furosemide 20 mg alternating with 40 mg every other day, due to cramping in his legs if he takes furosemide 40 mg daily. He denies chest pain. He still has lower extremity edema. He still has shortness of breath NYHA class II-III symptoms. No palpitations. He will see pulmonary tomorrow. Review of Systems Cardiovascular: Positive for dyspnea on exertion (unchanged). Neurological: Positive for loss of balance. All other systems reviewed and are negative. Objective Visit Vitals BP 119/81 (BP Location: Left arm, Patient Position: Sitting) Pulse 71 Ht 1.829 m (6') Wt 122 kg (269 lb) SpO2 98% BMI 36.48 kg/m??? Smoking Status Never BSA [...] mouth in the morning., Disp: , Rfl: dapagliflozin propanediol (Farxiga) 10 mg, Take 1 tablet (10 mg) by mouth in the morning., Disp: 30 tablet, Rfl: 11 diclofenac (Voltaren) 75 mg EC tablet, Take 75 mg by mouth in the morning., Disp: , Rfl: furosemide (Lasix) 20 mg tablet, Take 2 tablets (40 mg) by mouth in the morning. (Patient taking differently: Take 40 mg by mouth in the morning. 1 29 mg tab, next day 2 20 mg tabs), Disp: 180 tablet, Rfl: 3 lansoprazole (Prevacid) [address] capsule, Take 15 mg by mouth before breakfast. Do not crush or chew., Disp: , Rfl: metoprolol succinate XL (Toprol-XL) 100 mg 24 hr tablet, Take 100 mg by m (more content not included)... [facility] 12-09-2024 History of Present illness Narrative Patient: Yuan [...] presents today for nail care and treatment. Pt also has history of venous stasis to b/l lower extremities Patient has positive history of xerosis to feet in the past. Allergies: No Known Allergies Past Medical History: Past Medical History: Diagnosis Date GERD (gastroesophageal reflux disease) History of Crohn's disease HTN (hypertension) ([facility]) Kidney stone Medications: Current Outpatient Medications: diclofenac [...] Partner Violence: Unknown (09/04/2023) Received from [facility] Safety & Environment Fear of Current or [...] feet ORTHO: Positive pain on palpation to toenails of the left 1,2,3,4,5 toes and right 1,2,3,4,5 toes ASSESSMENT 1. Pain due to onychomycosis of toenails of both feet 2. Venous insufficiency 3. Xerosis cutis PLAN Discussed proper foot care with patient today. Debride nails in length and thickness digits 1 through 10 Visit spent with patient education on condition and treatment of condition. Patient to continue with Lac-Hydrin cream to feet daily and call if refill needed Dakota A Brown, DPM documented in this encounter [facility] 09-17-2024 Note OR Cardiology - [facility] Subjective Yuan Wilson is a 69 [...] 3.3, chloride 104, (more content not included)... [facility] 07-08-2024 History of Present illness Narrative Patient: [...] disease) History of Crohn's disease HTN (hypertension) ([facility]) Kidney stone Medications: Current Outpatient Medications: diclofenac [...] Partner Violence: Unknown (09/04/2023) [facility] from [facility] [place] Safety & Environment Fear of Current [...] Dakota Rocha DPM documented in this encounter [facility] 04-29-2024 History of Present illness Narrative [...] disease) History of Crohn's disease HTN (hypertension) ([facility]) Kidney stone Medications: Current Outpatient Medications: diclofenac [...] Partner Violence: Unknown (09/04/2023) Received from [facility] [place] Safety & Environment Fear of Current [...] Dakota Rocha DPM documented in this encounter [facility] 03-29-2024 Note Stable no concerning symptoms or worsening SOB or orthopnea [facility] 03-29-2024 Note Hypertension is curr ently well controlled Renal function has remained stable Continue toprol, aldactone and lasix [facility] 03-29-2024 Note [facility] II remains euvo lemic without exacerbation or activity limiting symptoms Continue GDMT- continue lasix daily and aldactone Diuretic therapy Monitor daily weights, I&O, fluid restriction 1.5-2L/day, renal function and electrolytes- [facility] 03-29-2024 Note Pt is here for a six month follow up. Pt denies chest pain, palpatation, dizziness Review of Systems Constitutional: Weight loss: 10# since January 2023. Cardiovascular: Positive for dyspnea on exertion and leg swelling. All other systems reviewed and are negative. [facility] 03-29-2024 Note [facility] CARDIOLOGY PROGR ESS NOTE [...] mobility. No eviden (more content not included)... [facility] Evaluation note Diagnosis Pain due to onychomycosis of toenails of both feet- Primary Xerosis cutis Other specified disease of sebaceous glands documented in this encounter [facility] HealthcareEvaluation note* Diagnosis Pain due to onychomycosis of toenails of both feet- Primary Venous insufficiency Unspecified venous (peripheral) insufficiency Xerosis cutis Other specified disease of sebaceous glands documented in this encounter [facility] HealthcareEvaluation note* Diagnosis Pain due to onychomycosis [...] content) DATE CREATED AUTHOR 06/06/2021 [facility] DATE CREATED AUTHOR AUTHOR'S ORGANIZ ATION 12/20/2022 [facility] pital DATE CREATED AUTHOR AUTHOR'S ORGANIZ ATION 12/11/2024 [facility] EPIC DATE CREATED AUTHOR AUTHOR'S ORGANIZ ATION 12/13/2024 [facility] Care Teams (unrecognized sec tion and content) Egg Trayer Relationship Specialty Start Date End Date Jarrett Vyas MD [address] [place] [address] PCP - General Family Medicine 07/17/23 Egg Trayer Relationship Specialty Start Date End Date Jarrett Vyas MD [address] [place] [address] PCP - General Family Medicine 07/17/23 Egg Trayer Relationship Specialty Start Date End Date Jarrett Vyas MD [address] [place] [address] PCP - General Family Medicine 07/17/23 Egg Trayer Relationship Specialty Start Date End Date Jarrett Vyas MD [address] [place] [address] PCP - General Family Medicine 07/17/23 Reason [...] BE BASED ON THE PRIMARY CLINICAL RECORDS. [employer] [facility]. provides no warranty or guarantee of the accuracy or completeness of information in this document.
--- NOTE | 2025-02-11 | MR_ITS ---
The [address] [address] Patient Name: VICKY VASQUEZ MRN: [id number] date: 1955 Sex: M Assigned Patient Location: MRI Current Patient Location: MRI Accession/Order Number: [id number] Exam Date: 02/11/2025 09:17 Report Date: 02/11/2025 09:21 At the request of: JARRETT MEADOWS MD Procedure: MR shoulder RT wo con MR RIGHT SHOULDER CLINICAL INFORMATION: Right shoulder pain. COMPARISON: None. PROCEDURE: Axial, oblique coronal, and oblique sagittal long TR images of the shoulder were obtained. FINDINGS: ROTATOR CUFF AND ASSOCIATED STRUCTURES Biceps Tendon: The biceps tendon is normally situated within the bicipital groove. No complete or partial biceps tendon tear is present. Rotator cuff: There is a full-thickness tear of the supraspinatus insertion. There is medial retraction of portions of the tendon by 1.8 cm. There is a gap partial unroofing the humeral head at the insertion site measuring 1.6 cm in AP dimension. There is increased signal intensity within the infraspinatus tendon suggesting tendinopathy. Teres minor and subscapularis are intact. Musculature: There is no muscular tear, contusion, or atrophy. Bursa: No bursal effusion or thickening is seen. OSSEOUS STRUCTURES Acromioclavicular joint: There are moderate degenerative changes of the acromioclavicular joint. A type 2 acromion configuration is noted. There is no anterior or lateral acromial downsloping. Bones: No Hill-Sachs, reverse Hill-Sachs, or bony Bankart lesions are seen. There are no fractures or regions of abnormal bone marrow signal intensity. GLENOHUMERAL JOINT Joint: There is no glenohumeral joint effusion. Cartilage: No focal hyaline cartilage defects are noted. Labrum: The labrum is not optimally evaluated. Other support structures: There is mild thickening of the joint capsule in the axillary recess measuring 1 cm in thickness. Correlation with clinical signs of adhesive capsulitis is recommended. MR/MR shoulder RT wo con IMPRESSION: 1. There is a full-thickness tear of the supraspinatus insertion. There is medial retraction of portions of the tendon by 1.8 cm. There is a gap partial unroofing the humeral head at the insertion site measuring 1.6 cm in AP dimension. 2. There is increased signal intensity within the infraspinatus tendon suggesting tendinopathy. 3. There is mild thickening of the joint capsule in the axillary recess measuring 1 cm in thickness. Correlation with clinical signs of adhesive capsulitis is recommended. Impression dictated by: Dylan Cutler M.D. 02/11/2025 9:21 AM Dictation Location: [place] [address] Electronically authenticated by: [id number] Y Date: 02/11/2025 09:21
--- OUTSIDE RECORDS SUMMARY | 2025-02-11 06:48 | XMS_ITS | CCD ---
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 Name Role Phone ABDIEL ., DR FARIAS Primary Care Unavailable HOY ., DR FARIAS Admitting Unavailable HOY ., DR FARIAS Attending Unavailable HOY ., DR FARISA Consulting Unavailable HOY ., DR FARIAS Primary [...] Unavailable HOY ., DR FARIAS Attending Unavailable FAIR PLAY, DR ELTON Parikh Consulting Unavailable Jarrett Vyas MD Primary Care Provider [phone] Jarrett Vyas MD Primary Care Provider [phone] DAKOTA ROCHA Attending Unavailable DAKOTA ROCHA Attending [...] (1 source) [facility] Drug Allergy 07-14-1989 [facility] Medications Current Medications Medication Drug [...] Range Facility Office Visiton 12-13-2024 Follow-up visit [id number] Yuan Wilson 1955 M Date Provider Department Center 12/13/2024 Benjamín-JACQUELYN AGUILAR [facility] Family History Problem Relation Age of Onset Heart failure Mother Heart attack Father Family Status - Relation Status Age at Mother Father Level of Service:07071 [place] OFFICE/OUTPATIENT ESTABLISHED MOD MDM 30 MIN [facility] 11-22-2024 36 Regarding lab result s from [...] Dr. Aguilar. Referral to Dr. Hanks sent. [facility] 10-27-2024 29 Addended by: YOLETTE HDZ on: 10/27/2024 11:58 AM Modules accepted: Orders [facility] 10-27-2024 36 Patient called to make you [...] this thread because I am off tomorrow.) [facility] 10-19-2024 36 Patient called back. He will double his lasix to 40mg daily and have BMP in 1 week. Order faxed to [facility]. Patient verbalized understanding. [facility] 10-18-2024 36 Regarding echo resul t from 10/07/2024: MD Yolette Turner MA I want him to increase furosemide to 40 mg daily. He will need the BMP I had ordered to be done 1 week after the increase. LM for patient to return my call. [facility] Telephoneon 10-18-2024 Telephone [id number] Yuan Wilson 1955 Date Provider Department Center 10/18/2024 8-YOLETTE HDZ CARD [facility] Family History Problem Relation Age of Onset Heart failure Mother Heart attack Father Family Status - Relation Status Age at Mother Father Normal [facility] Office Visiton 09-17-2024 Follow-up visit [id number] Yuan Wilson 1955 M Date Provider Department Center 09/17/2024 Benjamín-JACQUELYN AGUILAR [facility] Family History Problem Relation Age of Onset Heart failure Mother Heart attack Father Family Status - Relation Status Age at Mother Father Level of Service:08085 [place] OFFICE/OUTPATIENT ESTABLISHED MOD MDM 30 MIN Normal [facility] Office Visiton 03-29-2024 Follow-up visit [id number] Yuan Wilson 1955 M Date Provider Department Center 03/29/2024 120-MIRTAHAYLEY CARD [facility] Family History Problem Relation Age of Onset Heart failure Mother Heart attack Father Family Status - Relation Status Age at Mother Father Level of Service:06948 [place] OFFICE/OUTPATIENT ESTABLISHED LOW MDM 20 MIN Normal [facility] PROF CHEM 8 (BAS METB)on Anion gap [Moles/Vol] 9.9 mmol/L Normal [facility] Comment on above: Performed By: #### B MP #### [facility] [address] [address] [address] Nataly Frye Calcium [Mass/Vol] 7.9 mg/dL Critically low 8.5-10.1 [facility] Comment on above: Performed By: #### B MP #### [facility] [address] [address] [address] Nataly Frye Chloride [Moles/Vol] 104 mmol/L Normal 98-107 [facility] Comment on above: Performed By: #### B MP #### [facility] [address] [address] [address] Nataly Frye CO2 [Moles/Vol] 33.8 mmol/L Critically high 21.0-32.0 [facility] Comment on above: Performed By: #### B MP #### [facility] [address] [address] [address] Nataly Frye Creatinine [Mass/Vol] 1.19 mg/dL Normal 0.70-1.30 [facility] Comment on above: Performed By: #### B MP #### [facility] [address] [place] [address] Dr. Nataly Frye EGFR-AF HUNGARIAN >60 Normal >=60 [facility] Comment on above: Performed By: #### B MP #### [facility] [address] [place] [address] Dr. Nataly Frye EGFR-NON AF HUNGARIAN >60 Normal >=60 [facility] Comment on above: Performed By: #### B MP #### [facility] [address] [place] [address] Dr. Nataly Frye Glucose [Mass/Vol] 130 mg/dL Critically high 74-106 [facility] Comment on above: Performed By: #### B MP #### [facility] [address] [place] [address] Dr. Nataly Frye Potassium [Moles/Vol] 3.7 mmol/L Normal 3.5-5.1 [facility] Comment on above: Performed By: #### B MP #### [facility] [address] [place] [address] Dr. Nataly Frye Sodium [Moles/Vol] 144 mmol/L Normal 136-145 [facility] Comment on above: Performed By: #### B MP #### [facility] [address] [place] [address] Dr. Nataly Frye Urea nitrogen [Mass/Vol] 18.0 mg/dL Normal 7.0-18.0 [facility] Comment on above: Performed By: #### B MP #### [facility] [address] [place] [address] Dr. Nataly Frye Urea nitrogen/Creatinine [Mass ratio] 15.1 mg/mg Normal [facility] Comment on above: Performed By: #### B MP #### [facility] [address] [place] [address] Dr. Nataly Frye BNPon 11-21-2022 Natriuretic peptide B (Bld) [Mass/Vol] 58.0 pg/mL Normal <=900.0 [facility] Comment on above: Performed By: #### B MP, BNP #### [facility] [address] [place] [address] Dr. Nataly Frye PROF CHEM 8 (BAS METB)on Anion gap [Moles/Vol] 9.6 mmol/L Normal [facility] Comment on above: Performed By: #### B MP, BNP #### [facility] [address] [place] [address] Dr. Nataly Frye Calcium [Mass/Vol] 7.3 mg/dL Critically low 8.5-10.1 [facility] Comment on above: Performed By: #### B MP, BNP #### [facility] [address] [place] [address] Dr. Nataly Frye Chloride [Moles/Vol] 104 mmol/L Normal 98-107 [facility] Comment on above: Performed By: #### B MP, BNP #### [facility] [address] [place] [address] Dr. Nataly Frye CO2 [Moles/Vol] 34.7 mmol/L Critically high 21.0-32.0 [facility] Comment on above: Performed By: #### B MP, BNP #### [facility] [address] [place] [address] Dr. Nataly Frye Creatinine [Mass/Vol] 1.33 mg/dL Critically high 0.70-1.30 [facility] Comment on above: Performed By: #### B MP, BNP #### [facility] [address] [place] [address] Dr. Nataly Frye EGFR-AF HUNGARIAN >60 Normal >=60 [facility] Comment on above: Performed By: #### B MP, BNP #### [facility] [address] [place] [address] Dr. Nataly Frye EGFR-NON AF HUNGARIAN 54 mL/min/1.73m2 Critically low >=60 [facility] Comment on above: Performed By: #### B MP, BNP #### [facility] [address] [place] [address] Dr. Nataly Frye Glucose [Mass/Vol] 146 mg/dL Critically high 74-106 [facility] Comment on above: Performed By: #### B MP, BNP #### [facility] [address] [address] [address] Nataly Frey Potassium [Moles/Vol] 3.3 mmol/L Critically low 3.5-5.1 [facility] Comment on above: Performed By: #### B MP, BNP #### [facility] [address] [address] [address] Nataly Frye Sodium [Moles/Vol] 145 mmol/L Normal 136-145 [facility] Comment on above: Performed By: #### B MP, BNP #### [facility] [address] [place] [address] Dr. Nataly Frye Urea nitrogen [Mass/Vol] 22.0 mg/dL Critically high 7.0-18.0 [facility] Comment on above: Performed By: #### B MP, BNP #### [facility] [address] [place] [address] Dr. Nataly Frye Urea nitrogen/Creatinine [Mass ratio] 16.5 mg/mg Normal [facility] Comment on above: Performed By: #### B MP, BNP #### [facility] [address] [place] [address] Dr. Nataly Frye ECHOCARDIO M/2D COMPLETEon 0 08-27-2022 ECHOCARDIO M/2D COMPLETE Patient: YUAN WILSON Exam Date: 08/27/2022 : 1955 Gender:M Ordering : DR JARRETT VYAS . Admission #: [id number] Family : Order #: [id number] CLICK HERE TO VIEW EXAM ECHOCARDIOGRAM REPORT [...] Ritter M.D. on 08/27/2022 at 12:17 Normal [facility] STRESS/REST MULTIon 08-26 NM STRESS/REST MULTI Patient: YUAN WILSON Exam Date: 08/26/2022 : 1955 Gender:M Ordering : DR JARRETT VYAS . Admission #: [id number] Family : Order #: [id number] CLICK HERE TO VIEW EXAM RADIOLOGY REPORT [...] MD on 08/28/2022 at 06:12 Normal [facility] INSULINon 08-15-2022 Insulin 18.8 uIU/mL Normal 2.6-24.9 [facility] Comment on above: Performed By: #### I NSULIN ####[facility] [address] [address]Dr. Nataly Frye BNPon 08-14-2022 Natriuretic peptide B (Bld) [Mass/Vol] 140.0 pg/mL Normal <=900.0 [facility] Comment on above: Performed By: #### L IPID, URIC, BNP, T7, TSH, CMP #### [facility] [address] [place] [address] Dr. Naatly Frye CBC AUTO DIFFon 08-14-2022 BASO # 0.0 103/ul Normal 0.0-0.1 [facility] Comment on above: Performed By: #### C BC #### [facility] [address] [place] [address] Dr. Nataly Frye Basophils/100 WBC (Bld) 0.6 % Normal 0.2-2.0 [facility] Comment on above: Performed By: #### C BC #### [facility] [address] [place] [address] Dr. Nataly Frye EO # 0.1 103/ul Normal 0.0-0.7 [facility] Comment on above: Performed By: #### C BC #### [facility] [address] [place] [address] Dr. Nataly Frye Eosinophils/100 WBC (Bld) 2.7 % Normal 0.9-7.0 [facility] Comment on above: Performed By: #### C BC #### [facility] [address] [place] [address] Dr. Nataly Frye Erythrocyte distribution width (RBC) [Ratio] 18.1 % Critically high 11.0-15.0 [facility] Comment on above: Performed By: #### C BC #### [facility] [address] [address] [address] Nataly Frye Hematocrit (Bld) [Volume fraction] 30.2 % Critically low 42.0-54.0 [facility] Comment on above: Performed By: #### C BC #### [facility] [address] [place] [address] Dr. Nataly Frye Hemoglobin (Bld) [Mass/Vol] 8.8 g/dL Critically low 14.0-18.0 [facility] Comment on above: Performed By: #### C BC #### [facility] [address] [place] [address] Dr. Nataly Frye IG # 0.06 10e3/ul Critically high 0.00-0.03 [facility] Comment on above: Performed By: #### C BC #### [facility] [address] [place] [address] Dr. Nataly Frye IG % 1.3 % Critically high 0.0-0.5 [facility] Comment on above: Performed By: #### C BC #### [facility] [address] [place] [address] Dr. Nataly Frye LYMPH # 1.7 103/ul Normal 1.2-3.8 [facility] Comment on above: Performed By: #### C BC #### [facility] [address] [place] [address] Dr. Nataly Frye Lymphocytes/100 WBC (Bld) 36.6 % Normal 20.5-60.0 [facility] Comment on above: Performed By: #### C BC #### [facility] [address] [place] [address] Dr. Nataly Frye MANUAL DIFF REQ NO Normal [facility] Comment on above: Performed By: #### C BC #### [facility] [address] [place] [address] Dr. Nataly Frye MCH (RBC) [Entitic mass] 25.5 pg Critically low 25.9-34.0 [facility] Comment on above: Performed By: #### C BC #### [facility] [address] [place] [address] Dr. Nataly Frye MCHC (RBC) [Mass/Vol] 29.1 g/dL Critically low 29.9-35.2 [facility] Comment on above: Performed By: #### C BC #### [facility] [address] [place] [address] Dr. Nataly Frye MCV (RBC) [Entitic vol] 87.5 fL Normal 80.0-94.0 [facility] Comment on above: Performed By: #### C BC #### [facility] [address] [place] [address] Dr. Nataly Frye MONO # 0.5 103/ul Normal 0.3-0.8 [facility] Comment on above: Performed By: #### C BC #### [facility] [address] [place] [address] Dr. Nataly Frye Monocytes/100 WBC (Bld) 11.0 % Normal 1.7-12.0 [facility] Comment on above: Performed By: #### C BC #### [facility] [address] [place] [address] Dr. Nataly Frye NEUT # 2.3 103/ul Normal 1.4-6.5 [facility] Comment on above: Performed By: #### C BC #### [facility] [address] [place] [address] Dr. Nataly Frye Neutrophils/100 WBC (Bld) 47.8 % Normal 43.0-75.0 [facility] Comment on above: Performed By: #### C BC #### [facility] [address] [place] [address] Dr. Nataly Frye Platelet mean volume (Bld) [Entitic vol] 9.5 fL Normal 9.5-13.5 [facility] Comment on above: Performed By: #### C BC #### [facility] [address] [place] [address] Dr. Nataly Frye PLT 172 103/ul Normal 150-450 [facility] Comment on above: Performed By: #### C BC #### [facility] [address] [place] [address] Dr. Nataly Frye RBC 3.45 106/ul Critically low 4.70-6.10 [facility] Comment on above: Performed By: #### C BC #### [facility] [address] [address] [address] Nataly Frye WBC 4.7 103/ul Normal 4.0-11.0 [facility] Comment on above: Performed By: #### C BC #### [facility] [address] [address] [address] Nataly Frye FREE THYROXINE INDEX T7on FTI 2.18 Normal 1.30-4.50 [facility] Comment on above: Performed By: #### L IPID, URIC, BNP, T7, TSH, CMP #### [facility] [address] [place] [address] Dr. Nataly Frye T3U 34.0 % Normal 33.0-40.0 [facility] Comment on above: Performed By: #### L IPID, URIC, BNP, T7, TSH, CMP #### [facility] [address] [address] [address] Nataly Frye T4 [Mass/Vol] 6.40 ug/dL Normal 4.50-12.10 [facility] Comment on above: Performed By: #### L IPID, URIC, BNP, T7, TSH, CMP #### [facility] [address] [address] [address] Nataly Frye GLYCOHEMOGLOBIN A1Con 2022 ADA RECOMMENDATION SEE BELOW Normal [facility] Comment on above: Result Comment: ADA RECOMMENDED LIMIT 4.0 - 6.0 ADA THERAPEUTIC TARGET < 7.0 ACTION SUGGESTED > 7.0 Performed By: #### A 1C ####[facility] [address] [address]Dr. Nataly Frye HbA1c (Bld) [Mass fraction] 5.6 % Normal 4.5-6.2 [facility] Comment on above: Performed By: #### A 1C ####[facility] [address] [address]Dr. Nataly Frye LIPID PROFILEon 08-14-2022 CHOL-HDL RATIO NORM SEE BELOW Normal [facility] Comment on above: Result Comment: 3.3 - 4.4 LOW RISK 4.4 - 7.1 AVERAGE RISK 7.1 - 11.0 MODERATE RISK >11.0 HIGH RISK Performed By: #### L IPID, URIC, BNP, T7, TSH, CMP #### [facility] [address] [address] [address] Nataly Frye Cholesterol [Mass/Vol] 106 mg/dL Normal <=200 [facility] Comment on above: Performed By: #### L IPID, URIC, BNP, T7, TSH, CMP #### [facility] [address] [address] [address] Nataly Frye Cholesterol in HDL [Mass/Vol] 25 mg/dL Critically low 40-60 [facility] Comment on above: Performed By: #### L IPID, URIC, BNP, T7, TSH, CMP #### [facility] [address] [address] [address] Nataly Frye Cholesterol in LDL [Mass/Vol] 34.6 mg/dL Normal [facility] Comment on above: Performed By: #### L IPID, URIC, BNP, T7, TSH, CMP #### [facility] [address] [address] [address] Nataly Frye Cholesterol.total/Ch olesterol in HDL [Mass ratio] 4.2 {ratio} Normal [facility] Comment on above: Performed By: #### L IPID, URIC, BNP, T7, TSH, CMP #### [facility] [address] [address] [address] Nataly Frye HDL NORMAL > or = 60 mg/dl - LO W CARDIOVASCULAR RISK <40 mg/dl - HIGH CARDIOVASCULAR RISK Normal [facility] Comment on above: Performed By: #### L IPID, URIC, BNP, T7, TSH, CMP #### [facility] [address] [address] [address] Nataly Frye LDL CALC NORMAL SEE BELOW Normal [facility] Comment on above: Result Comment: <100 mg/dl OPTIMAL 100 - 129 mg/dl NEAR OR ABOVE OPTIMAL 130 - 159 mg/dl BORDERLINE HIGH 160 - 189 mg/dl HIGH >190 mg/dl VERY HIGH Performed By: #### L IPID, URIC, BNP, T7, TSH, CMP #### [facility] [address] [address] [address] Nataly Frye Triglyceride [Mass/Vol] 232 mg/dL Critically high <=150 [facility] Comment on above: Performed By: #### L IPID, URIC, BNP, T7, TSH, CMP #### [facility] [address] [place] [address] Dr. Nataly Frye VLDL CALC 46.4 mg/dL Normal [facility] Comment on above: Performed By: #### L IPID, URIC, BNP, T7, TSH, CMP #### [facility] [address] [place] [address] Dr. Nataly Frye PROF 14(COMP METB)on 023 Albumin [Mass/Vol] 3.3 g/dL Critically low 3.4-5.0 [facility] Comment on above: Performed By: #### L IPID, URIC, BNP, T7, TSH, CMP #### [facility] [address] [place] [address] Dr. Nataly Frye Albumin/Globulin [Mass ratio] 1.0 {ratio} Normal [facility] Comment on above: Performed By: #### L IPID, URIC, BNP, T7, TSH, CMP #### [facility] [address] [place] [address] Dr. Nataly Frye ALP [Catalytic activity/Vol] 86 U/L Normal 46-116 [facility] Comment on above: Performed By: #### L IPID, URIC, BNP, T7, TSH, CMP #### [facility] [address] [place] [address] Dr. Nataly Frye ALT [Catalytic activity/Vol] 64 U/L Critically high 16-63 [facility] Comment on above: Performed By: #### L IPID, URIC, BNP, T7, TSH, CMP #### [facility] [address] [place] [address] Dr. Nataly Frye Anion gap [Moles/Vol] 11.3 mmol/L Normal [facility] Comment on above: Performed By: #### L IPID, URIC, BNP, T7, TSH, CMP #### [facility] [address] [place] [address] Dr. Nataly Frye AST [Catalytic activity/Vol] 37 U/L Normal 15-37 [facility] Comment on above: Performed By: #### L IPID, URIC, BNP, T7, TSH, CMP #### [facility] [address] [place] [address] Dr. Nataly Frye Bilirubin [Mass/Vol] 0.4 mg/dL Normal 0.2-1.0 [facility] Comment on above: Performed By: #### L IPID, URIC, BNP, T7, TSH, CMP #### [facility] [address] [place] [address] Dr. Nataly Frye Calcium [Mass/Vol] 7.9 mg/dL Critically low 8.5-10.1 [facility] Comment on above: Performed By: #### L IPID, URIC, BNP, T7, TSH, CMP #### [facility] [address] [place] [address] Dr. Nataly Frye Chloride [Moles/Vol] 106 mmol/L Normal 98-107 [facility] Comment on above: Performed By: #### L IPID, URIC, BNP, T7, TSH, CMP #### [facility] [address] [place] [address] Dr. Nataly Frye CO2 [Moles/Vol] 30.7 mmol/L Normal 21.0-32.0 [facility] Comment on above: Performed By: #### L IPID, URIC, BNP, T7, TSH, CMP #### [facility] [address] [place] [address] Dr. Nataly Frye Creatinine [Mass/Vol] 0.98 mg/dL Normal 0.70-1.30 [facility] Comment on above: Performed By: #### L IPID, URIC, BNP, T7, TSH, CMP #### [facility] [address] [place] [address] Dr. Nataly Frye EGFR-AF HUNGARIAN >60 Normal >=60 [facility] Comment on above: Performed By: #### L IPID, URIC, BNP, T7, TSH, CMP #### [facility] [address] [address] [address] Nataly Frye EGFR-NON AF HUNGARIAN >60 Normal >=60 [facility] Comment on above: Performed By: #### L IPID, URIC, BNP, T7, TSH, CMP #### [facility] [address] [address] [address] Nataly Frye Globulin (S) [Mass/Vol] 3.3 g/dL Normal [facility] Comment on above: Performed By: #### L IPID, URIC, BNP, T7, TSH, CMP #### [facility] [address] [place] [address] Dr. Nataly Frye Glucose [Mass/Vol] 114 mg/dL Normal [facility] Comment on above: Performed By: #### L IPID, URIC, BNP, T7, TSH, CMP #### [facility] [address] [place] [address] Dr. Nataly Frye Performed By: #### A 1C ####[facility] [address] [place], [place] [address]Dr. Nataly Frye Potassium [Moles/Vol] 4.0 mmol/L Normal 3.5-5.1 [facility] Comment on above: Performed By: #### L IPID, URIC, BNP, T7, TSH, CMP #### [facility] [address] [address] [address] Nataly Frye Protein [Mass/Vol] 6.6 g/dL Normal 6.4-8.2 [facility] Comment on above: Performed By: #### L IPID, URIC, BNP, T7, TSH, CMP #### [facility] [address] [place] [address] Dr. Nataly Frye Sodium [Moles/Vol] 144 mmol/L Normal 136-145 [facility] Comment on above: Performed By: #### L IPID, URIC, BNP, T7, TSH, CMP #### [facility] [address] [place], [place] [address] Dr. Nataly Frye Urea nitrogen [Mass/Vol] 11.0 mg/dL Normal 7.0-18.0 [facility] Comment on above: Performed By: #### L IPID, URIC, BNP, T7, TSH, CMP #### [facility] [address] [place], [place] [address] Dr. Nataly Frye Urea nitrogen/Creatinine [Mass ratio] 11.2 mg/mg Normal [facility] Comment on above: Performed By: #### L IPID, URIC, BNP, T7, TSH, CMP #### [facility] [address] [place], [place] [address] Dr. Nataly Frye TSHon 08-14-2022 TSH 1.816 uIU/mL Normal 0.358-3.740 [facility] Comment on above: Performed By: #### L IPID, URIC, BNP, T7, TSH, CMP ####[facility] [address] [place], [place] [address]ZsDr. Nataly Frye URIC ACID SERUMon 08-14-2022 Urate [Mass/Vol] 6.6 mg/dL Normal 3.5-7.2 [facility] Comment on above: Performed By: #### L IPID, URIC, BNP, T7, TSH, CMP ####[facility] [address] [place], [place] [address]RhDr. Nataly Frye Physician Referralon 021 Physician Referral [phone] [id number]:[id number] Normal [facility] Vital Signs Date Time Vital Sign Value Performing Clinician Faci lity 12-09-2024 10:30-040 Body height 182.9 cm Dakota Rocha DPM Work Phone: [facility] 12-09-2024 10:30-040 Body mass index (BMI) [Ratio] 36.35 kg/m2 Dakota Rocha DPM Work Phone: [facility] 12-09-2024 10:30-040 Body weight 121.56 kg Dakota Brown DPM Work Phone: [facility] 12-09-2024 10:30-0400 Respiratory rate 18 /min Dakota Rocha DPM Work Phone: [facility] 07-08-2024 10:44-0500 Body height 182.9 cm Dakota Rocha DPM Work Phone: [facility] 07-08-2024 10:44-0500 Body mass index (BMI) [Ratio] 36.35 kg/m2 Dakota Brown DPM Work Phone: [facility] 07-08-2024 10:44-0500 Body weight 121.56 kg Dakota Rocha DPM Work Phone: [facility] 07-08-2024 10:44-0500 Respiratory rate 18 /min Dakota Rocha DPM Work Phone: [facility] 04-29-2024 09:53-0400 Body height 182.9 cm Dakota Rocha DPM Work Phone: [facility] 04-29-2024 09:53-0400 Body mass index (BMI) [Ratio] 36.35 kg/m2 Dakota Brown DPM Work Phone: [facility] 04-29-2024 09:53-0400 Body weight 121.56 kg Dakota Rocha DPM Work Phone: [facility] 04-29-2024 09:53-0400 Diastolic blood pressure 80 mm[Hg] Dakotadestiny Rocha DPM Work Phone: [facility] 04-29-2024 09:53-0400 Heart rate 79 /min Dakota Aj DPM Work Phone: [facility] 04-29-2024 09:53-0400 Systolic blood pressure 129 mm[Hg] Dakota Aj DPM Work Phone: [facility] Encounters Encounter Date Encounter Type Care Provider Facility Start: 12-13-2024 End: 12-13-2024 ambulatory [facility] Start: 12-09-2024 End: 12-09-2024 Bamboo flowsheet Dakota [...] Not Available Start: 09-17-2024 End: 09-17-2024 ambulatory [facility] Start: 07-08-2024 End: 07-08-2024 Bamboo flowsheet Dakota [...] Not Available Start: 03-29-2024 End: 03-29-2024 ambulatory [facility] Start: 02-19-2024 End: 02-19-2024 ambulatory DAKOTA [...] Influenza vaccination Influenz a Vaccine (Season Ended) [facility] Start: 12-09-2024 End: 12-09-2024 Patient encounter procedure 12/09/2024 10:40 AM EDT Procedure Visit [facility] [address] [facility] [address] [place] [address] Dakota Rocha, NIKKIM [address] [address] Pain due to onychomycosis of toenails of both feet (Primary Dx); Venous insufficiency; Xerosis cutis [facility] Comment on above: Pain due to onychomy cosis of toenails of both feet (Primary Dx); Venous insufficiency; Xerosis cutis Start: 09-16-2024 End: 09-16-2024 Patient encounter procedure 09/16/2024 10:40 AM EST Procedure Visit [facility] [address] [id number] Dakota Rocha, NIKKIM [address] [address] [facility] Start: 07-08-2024 End: 07-08-2024 Patient encounter procedure [facility] Comment on above: Pain due to onychomy cosis of toenails of both feet (Primary Dx); Venous insufficiency; Xerosis cutis Start: 05-05-2024 End: 05-05-2024 Clinical Support 05/05/2024 8:00 AM EDT Clinical Support [facility] [address] [facility] [address] [place] [id number] Ivana Deal, [facility] [address] [place] [address] [facility] Start: 04-29-2024 End: 04-29-2024 Patient encounter procedure 04/29/2024 10:00 AM EDT Procedure Visit [facility] [address] [facility] [address] [place] [phone] Dakota Rocha, ELVER [address] [address] Pain due to onychomycosis of toenails of both feet (Primary Dx); Xerosis cutis [facility] Comment on above: Pain due to onychomy cosis of toenails of both feet (Primary Dx); Xerosis cutis Start: 03-14-2024 Influenza vaccination Influenza Vacc ine (#1) [facility] Start: 2022 Pneumococcal Vaccine : 65+ Years (1 of 1 - PCV) Pneumococcal Vaccine: 65+ Years (1 of 1 - PCV) [facility] Start: 2007 Pneumococcal Vaccine : 65+ Years (1 of 1 - PCV) Pneumococcal Vaccine: 65+ Years (1 of 1 - PCV) [facility] Start: 1955 Screening for malign ant neoplasm of colon [facility] Payers Date Payer Category Payer Medicare MEDICARE [id number] 2022 Private Health Insurance [employer] [id number] 1959 Medicare [id number] 1959 Private Health Insurance [id number] 1957 Unknown [id number] [id number] .2.593 1957 Unknown [id number] 2.16.840.1.980660.3.579 .2.593 1957 Unknown [id number] 2.16.840.1.056315.3.579 .2.593 1957 Unknown [id number] 2.16.840.1.859942.3.579 .2.593 1957 Unknown [id number] 2.16.840.1.307950.3.579 .2.593 1957 Unknown [id number] 2.16.840.1.610638.3.579 .2.1259 1957 Unknown [id number] 2.16.840.1.970726.3.579 .2.1259 1957 Unknown [id number] 2.16.840.1.609977.3.579 .2.1259 1957 Unknown [id number] 2.16.840.1.872678.3.579 .2.1259 1957 Unknown [id number] 2.16.840.1.911415.3.579 .2.1259 1957 Unknown [id number] 2.16.840.1.200772.3.579 .2.1259 1957 Unknown [id number] 2.16.840.1.445329.3.579 .2.1259 1957 Unknown [id number] 2.16.840.1.262282.3.579 .2.1259 Social History Date Type Detail Facility Start: 01-21-2024 Tobacco smoking stat [facility] Never smoked tobacco [facility] Start: 01-21-2024 Tobacco use and exposure Smokeless tobacco non-user [facility] Start: 02-17-2024 End: 12-09-2024 Alcoholic beverage intake Ex-drinker (finding) [facility] Start: 02-17-2024 End: 09-30-2024 History of Social function [facility] Start: 02-17-2024 End: 09-30-2024 Tobacco use panel [facility] Start: 1955 Sex assigned at Not on file N [facility] NEGATED: Highlighted rowStart: NINF History of tobacco use Passive smoker [facility] Clinical Notes 03-29-2024 to 12-13-2024 Dakota Rocha, DP - 12/09/2024 10:40 AM EDTDakota Rocha, DPM - 07/08/2024 10:50 AM ESTDakota Rocha, DPM - 04/29/2024 10:00 AM EDT Note Date & Type Note Facility 12-13-2024 Note PR Cardiology - [facility] Subjective Yuan Wilson is a 69 [...] mg by m (more content not included)... [facility] 12-09-2024 History of Present illness Narrative Patient: [...] disease) History of Crohn's disease HTN (hypertension) ([facility]) Kidney stone Medications: Current Outpatient Medications: diclofenac [...] Partner Violence: Unknown (09/04/2023) Received from [facility] Safety & Environment Fear of Current or [...] A Brown, DPM documented in this encounter [facility] 09-17-2024 Note [facility]iology - [facility] Subjective Yuan Wilson is a 69 [...] 3.3, chloride 104, (more content not included)... [facility] 07-08-2024 History of Present illness Narrative [...] disease) History of Crohn's disease HTN (hypertension) ([facility]) Kidney stone Medications: Current Outpatient Medications: diclofenac [...] Partner Violence: Unknown (09/04/2023) Received from [facility] [place] Safety & Environment Fear of Current [...] Dakota Rocha DPM documented in this encounter [facility] 04-29-2024 History of Present illness Narrative [...] disease) History of Crohn's disease HTN (hypertension) ([facility]) Kidney stone Medications: Current Outpatient Medications: diclofenac [...] Partner Violence: Unknown (09/04/2023) Received from [facility] [place] Safety & Environment Fear of Current [...] Dakota Rocha DPM documented in this encounter [facility] 03-29-2024 Note Stable no concerning symptoms or worsening SOB or orthopnea [facility] 03-29-2024 Note Hypertension is curr ently well controlled Renal function has remained stable Continue toprol, aldactone and lasix [facility] 03-29-2024 Note [facility] II remains euvo lemic without exacerbation or activity limiting symptoms Continue GDMT- continue lasix daily and aldactone Diuretic therapy Monitor daily weights, I&O, fluid restriction 1.5-2L/day, renal function and electrolytes- [facility] 03-29-2024 Note Pt is here for a six month follow up. Pt denies chest pain, palpatation, dizziness Review of Systems Constitutional: Weight loss: 10# since January 2023. Cardiovascular: Positive for dyspnea on exertion and leg swelling. All other systems reviewed and are negative. [facility] 03-29-2024 Note [facility] ESS [...] mobility. No eviden (more content not included)... [facility] Evaluation note Diagnosis Pain due to onychomycosis of toenails of both feet- Primary Xerosis cutis Other specified disease of sebaceous glands documented in this encounter [facility] HealthcareEvaluation note* Diagnosis Pain due to onychomycosis of toenails of both feet- Primary Venous insufficiency Unspecified venous (peripheral) insufficiency Xerosis cutis Other specified disease of sebaceous glands documented in this encounter [facility] HealthcareEvaluation note* Diagnosis Pain due to [...] content) DATE CREATED AUTHOR 06/06/2021 Valdes Jose [facility] DATE CREATED AUTHOR AUTHOR'S ORGANIZ ATION 12/20/2022 [facility] pital DATE CREATED AUTHOR AUTHOR'S ORGANIZ ATION 12/11/2024 [facility] EPIC DATE CREATED AUTHOR AUTHOR'S ORGANIZ ATION 12/13/[address] [facility] Care Teams (unrecognized sec tion and content) Extractor Puller Relationship Specialty Start Date End Date Jarrett Vyas MD [address] [place] [address] PCP - General Family Medicine 07/17/23 Extractor Puller Relationship Specialty Start Date End Date Jarrett Vyas MD [address] [place] [address] PCP - General Family Medicine 07/17/23 Extractor Puller Relationship Specialty Start Date End Date Jarrett Vyas MD [address] [place] [address] PCP - General Family Medicine 07/17/23 Extractor Puller Relationship Specialty Start Date End Date Jarrett Vyas MD [address] [place] [address] PCP - General Family Medicine 07/17/23 Reason [...] BE BASED ON THE PRIMARY CLINICAL RECORDS. [employer] [facility]. provides no warranty or guarantee of the accuracy or completeness of information in this document.
--- OUTSIDE RECORDS SUMMARY | 2025-02-11 06:48 | XMS_ITS | Clinical Summary ---
Author Organization [facility] Address [address] [place] [address] Care Team Providers Care Network Architect Manager Name Role Phone Wojciech Vyas MD Primary Care Provider [phone] Allergies No known active allergies Medications Farxiga 10 MG 07/06/2023 Activ e diclofenac (Voltaren) 75 MG EC tablet Take 75 mg by mouth 2 (two) times a day as needed 06/25/2023 Active furosemide (Lasix) 20 MG tablet Take 20 mg by mouth in the morning. 04/14/2023 Active metoprolol succinate XL (Toprol-XL) 100 MG 24 hr tablet Take 100 mg by mouth in the morning. 05/20/2023 Active Active Problems Problem Noted Date Diagnosed Date Impacted cerumen 10/01/2023 Osteoarthritis of knee 10/01/2023 Diastolic heart failure 11/27/2022 LINDER (dyspnea on exertion) 11/27/2022 Essential hypertension 11/27/2022 Lower extremity edema 11/27/2022 Pulmonary hypertension 11/27/2022 Tricuspid valve insufficiency 11/27/2022 Encounters Date Type Department Care Team Description 12/09/2024 10:40 AM EDT Procedure Visit [facility] [address] [place] [phone] Dakota Rocha DPM Pain due to onychomycosis of toenails of both feet (Primary Dx); Venous insufficiency; Xerosis cutis 12/09/2024 Bamboo flowsheet [facility] [address] [place] [phone] Dakota Rocha DPM 12/09/2024 Travel from Last 3 Months Family History Medical History Relation Name Comments Diabetes Father Heart disease Father Hypertension Father Diabetes Mother Heart disease Mother Hypertension Mother Hypertension Other Relation Name Status Comments Father Mother Other Social History Tobacco Use Types Packs/Day Years Used Date Smoking Tobacco: Never Passive Smoke Exposure: Never Smokeless Tobacco: Never Tobacco Cessation:Counseling Given: Yes Alcohol Use Standard Drinks/Week Comments Not Currently 0 (1 standard drink = 0.6 oz pur e alcohol) Sex and Gender Information Value Date Recorded Sex Assigned at Not on file Legal Sex Male 6:53 PM EDT Gender Identity Not on file Sexual Orientation Not on file Last Filed Vital Signs Vital Sign Reading Time Taken Comments Blood Pressure 128/78 09/30/2024 10:37 AM EDT Pulse 83 09/30/2024 10:37 AM EDT Temperature - - Respiratory Rate 18 12/09/2024 10:30 AM EDT Oxygen Saturation - - Inhaled Oxygen Concentration - - Weight 122 kg (268 lb) 12/09/2024 10:30 AM EDT Height 182.9 cm (6') 12/09/2024 10:30 AM EDT Body Mass Index 36.35 12/09/2024 10:30 AM EDT Plan of Treatment Upcoming Encounters Date Type Department Care Team (Late st Contact Info) Description 02/17/2025 11:30 AM EDT Procedure Visit [facility] 112 [facility] [address] [place] [address] Dakota Rocha, DPStefani [address] [facility] [address] [place] [address] Health Maintenance Due Date Last Done Comments CT Colonography 1955 Colonoscopy 1955 Colorectal Cancer Screening 1955 FIT-DNA 1957 FIT 1957 FOBT 1955 Sigmoidoscopy 1955 Pneumococcal Vaccine: 65+ Years (1 of 1 - PCV) 007 Influenza Vaccine (#1) 2025 Insurance MEDICARE Care Teams Network Architect Manager Relationship Specialty Start Date End Date Wojciech Vyas MD [address] [place] [address] PCP - General Family Medicine 07/17/23
--- OUTSIDE RECORDS SUMMARY | 2025-02-11 06:48 | XMS_ITS | Clinical Summary ---
Author Organization [facility] Address [address] [place] [address] Care Team Providers Care Legal Billing Coordinator Name Role Phone Wojciech Vyas MD Primary Care Provider [phone] Allergies No known active allergies Medications metoprolol succinate XL (Toprol-XL) 100 mg 24 hr tablet Take 100 mg by mouth in the morning. 3 Active lansoprazole (Prevacid) [address] capsule Take 15 mg by mouth before breakfast. Do not crush or chew. Active aspirin 81 mg EC tablet Take 81 mg by mouth in the morning. Active diclofenac (Voltaren) 75 mg EC tablet Take 75 mg by mouth in the morning. 3 Active spironolactone (Aldactone) 25 mg tabletIndication s:LINDER (dyspnea on exertion) TAKE 1 TABLET BY MOUTH EVERY DAY IN THE MORNING 90 tablet 3 5 Active dapagliflozin propanediol (Farxiga) 10 mgIndications:Ch ronic diastolic congestive heart failure (CMS/HCC) Take 1 tablet (10 mg) by mouth in the morning. 30 tablet 11 5 09/18/19 26 Active furosemide (Lasix) 20 mg tabletIndication s:Dyspnea on exertion Take 2 tablets (40 mg) by mouth in the morning. 180 tablet 3 5 10/28/19 26 Active Additional Information Patient taking differently:40 mg oral Daily,1 29 mg tab, next day 2 20 mg tabs, Reported on 12/13/2024 Active Problems Problem Noted Date Diagnosed Date Anemia 09/17/2024 Hearing loss 03/24/2024 Impacted cerumen 10/01/2023 10/01/2023 Osteoarthritis of knee 10/01/2023 Pulmonary hypertension 11/27/2022 Assessment & Plan (03/29/2024 1:22 PM EDT): Stable no concerning symptoms or worsening SOB or orthopnea Tricuspid valve insufficiency 11/27/2022 LINDER (dyspnea on exertion) 11/27/2022 Essential hypertension 11/27/2022 Assessment & Plan (03/29/2024 1:21 PM EDT): Hypertension is currently well controlled Renal function has remained stable Continue toprol, aldactone and lasix Diastolic heart failure 11/27/2022 Assessment & Plan (03/29/2024 1:21 PM EDT): [facility] II remains euvolemic without exacerbation or activity limiting symptoms Continue GDMT- continue lasix daily and aldactone Diuretic therapy Monitor daily weights, I&O, fluid restriction 1.5-2L/day, renal function and electrolytes- Lower extremity edema 11/27/2022 Encounters Date Type Department Care Team Description 12/13/2024 9:30 AM EDT Office Visit [facility] [place] [address] [place] [phone] Edmund Coffman MD Chronic diastolic congestive heart failure (CMS/HCC) (Primary Dx); Shortness of breath; Primary hypertension; Pulmonary hypertension (CMS/HCC); Nonrheumatic tricuspid valve regurgitation 11/22/2024 Telephone [facility] [address] [place] [address] Maryann Em MA from Last 3 Months Immunizations Immunization Administration Dates Next Due Unspecified Sars-Cov-2 Vaccination 06/22/2021 Zoster, Recombinant 09/15/2022,07/16/2022 Family History Medical History Relation Name Comments Heart attack Father Heart failure Mother Relation Name Status Comments Father Mother Social History Tobacco Use Types Packs/Day Years Used Date Smoking Tobacco: Never Smokeless Tobacco: Never Tobacco Cessation:Counseling Given: Not Answered Alcohol Use Standard Drinks/Week Comments Yes 0 (1 standard drink = 0.6 oz pur e alcohol) occasional [place] Safety & Environment Answer Date Rec orded Fear of Current or Ex-Partner Not on file Emotionally Abused Not on file 09/04/2023 Physically Abused Not on file 09/04/2023 Sexually Abused Not on file 09/04/2023 Physically or Sexually Abused Not on file Sex and Gender Information Value Date Recorded Sex Assigned at Not on file Legal Sex Male 9:33 AM EST Gender Identity Not on file Sexual Orientation Not on file Last Filed Vital Signs Vital Sign Reading Time Taken Comments Blood Pressure 119/81 12/13/2024 9:23 AM EDT Pulse 71 12/13/2024 9:23 AM EDT Temperature - - Respiratory Rate - - Oxygen Saturation 98% 12/13/2024 9:23 AM EDT Inhaled Oxygen Concentration - - Weight 122 kg (269 lb) 12/13/2024 9:23 AM EDT Height 182.9 cm (6') 12/13/2024 9:23 AM EDT Body Mass Index 36.48 12/13/2024 9:23 AM EDT Plan of Treatment Health Maintenance Due Date Last Done Comments CT Colonography 1955 Colonoscopy 1955 Colorectal Cancer Screening 1957 FIT-DNA 1957 FIT 1957 FOBT 1955 Medicare Annual Wellness (AWV) 1955 Sigmoidoscopy 1957 Depression Screening 1969 Pneumococcal Vaccine: 50+ Years (1 of 2 - PCV) 1976 Adult Tetanus 1979 Fall Risk Screening 2022 COVID-19 Vaccine (4 - 2023-2 5 season) 2024 06/22/2021, 06/22/2021, 11/22/2020 Influenza Vaccine (#1) 2025 Zoster Vaccines Completed 09/15/2022, 07/16/2022 HIB Vaccines Aged Out No longer eligi ble based on patient's age to complete this topic HPV Vaccines Aged Out No longer eligi ble based on patient's age to complete this topic IPV Vaccines Aged Out No longer eligi ble based on patient's age to complete this topic Meningococcal B Vaccine Aged Out No l onger eligible based on patient's age to complete this topic Meningococcal Vaccine Aged Out No kassie santhosh eligible based on patient's age to complete this topic Rotavirus Vaccines Aged Out No longer eligible based on patient's age to complete this topic Insurance MEDICARE [employer] Care Teams Legal Billing Coordinator Relationship Specialty Start Date End Date Wojciech Vyas MD [address] [place] [address] PCP - General 11/07/22
--- OUTSIDE RECORDS SUMMARY | 2025-02-11 06:48 | XMS_ITS | Encounter Summary ---
Author Organization [facility] Address [address] [place] [address] Care Team Providers Care Plant Controls Specialist Name Role Phone Wojciech Vyas MD Primary Care Provider [phone] Encounter Details Date Type Department Care Team (Late Contact Info) Description 01/26/2024 Clinisync Result Encounter [facility] Department Unsolicited Rosemary Julio MD [address] [facility] [address] [place] [address] Social History Tobacco Use Types Packs/Day Years Used Date Smoking Tobacco: Never Passive Smoke Exposure: Never Smokeless Tobacco: Never Alcohol Use Standard Drinks/Week Comments Not Currently 0 (1 standard drink = 0.6 oz pur e alcohol) Sex and Gender Information Value Date Recorded Sex Assigned at Not on file Legal Sex Male 6:53 PM EDT Gender Identity Not on file Sexual Orientation Not on file documented as of this encounter Plan of Treatment Upcoming Encounters Date Type Department Care Team (Late Contact Info) Description 02/17/2025 11:30 AM EDT Procedure Visit [facility] [address] [facility] [address] [place] [id number] Dakota Rocha DPM [address] [facility] [address] [place] [address] documented as of this encounter Procedures Procedure Name Priority Date/Time Associated Diagnosis Comments MRI HEAD/BRAIN WO/W CONTR 01/26/2024 1:28 PM EDT documented in this encounter Results * MRI HEAD/BRAIN WO/W CONTR (01/26/2024 1:28 PM EDT) Anatomical Region Laterality Modality Radiographic Kinjal ging 01/26/2024 1:28 PM EDT Narrative 01/26/2024 1:30 [place] [address] Magnetic Resonance Report Signed Patient: VICKY VASQUEZ MR#: [id number] : 1955 Acct:[id number] Age/Sex: 68 / M ADM Date: 01/26/24 Loc: LAB Attending Dr: Rosemary Julio M.D. Ordering Physician: Rosemary Julio M.D. Date of Service: 01/26/24 Procedure(s): MR head/brain wo/w con Accession Number(s): [id number] cc: Wojciech Vyas M.D.; Rosemary Julio M.D. [address] [address] Patient Name: VICKY VASQUEZ MRN: [facility]:[id number] date: 1955 Sex: M Assigned Patient Location: LAB Current Patient Location: LAB Accession/Order Number: [id number] Exam Date: 01/26/2024 07:00 Report Date: 01/26/2024 13:28 At the request of: ROSEMARY JULIO Procedure: MR head/brain wo/w con EXAM: MR head/brain wo/w con HISTORY: Asymmetrical hearing loss, left side tinnitus COMPARISON: None. TECHNIQUE: Multisequence MRI brain was performed with and without intravenous contrast. FINDINGS: There is no restricted diffusion to suggest acute infarct. There is no midline shift, mass effect, or abnormal extraaxial fluid collections. There are no abnormal parenchymal or leptomeningeal enhancement. The cortical sulci and ventricular system are mildly enlarged, consistent with mild cerebral atrophy. The internal auditory canals and cerebellopontine angles are unremarkable, without masses or abnormal enhancement. The bilateral cranial nerves VII and VIII are unremarkable. No abnormality is seen involving the membranous labyrinth. The major intracranial flow voids are visualized. The cerebellar tonsils are normal in position. The orbits demonstrate no suspicious enhancement or any focal lesions. The paranasal sinuses show no air-fluid level. There is a mucous retention cyst within left maxillary sinus and mild mucosal thickening of bilateral maxillary sinuses. There is mild left mastoid effusion. The calvarium and extracranial soft tissues are unremarkable. MR/MR head/brain wo/w con IMPRESSION: No acute intracranial abnormality or abnormal intracranial enhancement. Clear internal auditory canals and cerebellopontine angles. Mild left mastoid effusion. Electronically authenticated by: GARCIA YUAN Date: 01/26/2024 13:28 Dictated By: GARCIA YUAN M.D. Signed By: 01/26/24 1330 DD/ 1328 TD/TT: Termite Treater: Procedure Note Radiology, Radiologist, MD - 01/26/2024 [place] [address] Magnetic Resonance Report Signed Patient: VICKY VASQUEZ LMR#: [id number] : 1955cct:[id number] Age/Sex: 68 / MADM Date: 01/26/24 Loc: LAB Attending Dr: Rosemary Julio M.D. Ordering Physician: Rosemary Julio M.D. Date of Service: 01/26/24 Procedure(s): MR head/brain wo/w con Accession Number(s): [id number] cc: Wojciech Vyas M.D.; Rosemary Julio M.D. The [place] [address] Patient Name: VICKY VASQUEZ MRN: [facility]:[id number] date: 1955 Sex: M Assigned Patient Location: LAB Current Patient Location: LAB Accession/Order Number: [id number] Exam Date: 01/26/2024 07:00 Report Date: 01/26/2024 13:28 At the request of: ROSEMARY JULIO Procedure: MR head/brain wo/w con EXAM: MR head/brain wo/w con HISTORY: Asymmetrical hearing loss, left side tinnitus COMPARISON: None. TECHNIQUE: Multisequence MRI brain was performed with and withoutintravenous contrast. FINDINGS: There is no restricted diffusion to suggest acute infarct. There is nomidline shift, mass effect, or abnormal extraaxial fluid collections. There are no abnormal parenchymal or leptomeningeal enhancement. The cortical sulci and ventricular system are mildly enlarged, consistentwith mild cerebral atrophy. The internal auditory canals and cerebellopontine angles are unremarkable, without masses or abnormal enhancement. The bilateral cranial nerves VIIand VIII are unremarkable. No abnormality is seen involving the membranous labyrinth. The major intracranial flow voids are visualized. The cerebellar tonsilsare normal in position. The orbits demonstrate no suspicious enhancement or any focal lesions. The paranasal sinuses show no air-fluid level. There is a mucous retentioncyst within left maxillary sinus and mild mucosal thickening of bilateralmaxillary sinuses. There is mild left mastoid effusion. The calvarium andextracranial soft tissues are unremarkable. MR/MR head/brain wo/w con IMPRESSION: No acute intracranial abnormality or abnormal intracranial enhancement. Clear internal auditory canals and cerebellopontine angles. Mild left mastoid effusion. Electronically authenticated by: GARCIA YUAN Date: 01/26/2024 13:28 Dictated By: GARCIA YUAN M.D. Signed By:01/26/24 1330 DD/ 1328 TD/TT: Termite Treater: us Rosemary Julio MD IMG XR PROCEDURES Final Resul t documented in this encounter Visit Diagnoses Not on filedocumented in this encounter Care Teams Plant Controls Specialist Relationship Specialty Start Date End Date Wojciech Vyas MD [address] [place] [address] PCP - General Family Medicine 07/17/23 documented as of this encounter
== END 2025-02-11 06:46 | disposition home or self-care (01) ==
LOC: MRI 06:46
PROVIDERS: PCP Family Medicine; Visit Provider Family Medicine
DX: M75.41 Impingement syndrome of right shoulder (principal); M75.01 Adhesive capsulitis of right shoulder; S46.011A Strain of muscle(s) and tendon(s) of the rotator cuff of right shoulder, initial encounter
CPT/HCPCS: 73221

== ENCOUNTER 2025-03-10 10:59 | Outpatient (OUT) | payer MEDICARE, OTHER, SELFPAY ==
--- NOTE | 2025-03-10 | XR_ITS ---
The [place] [id number] Patient Name: VICKY VASQUEZ MRN: [id number] date: 1955 Sex: M Assigned Patient Location: [facility] Current Patient Location: Accession/Order Number: [id number] Exam Date: 03/10/2025 11:00 Report Date: 03/10/2025 13:20 At the request of: MAKENNA HARRELL DO Procedure: XR shoulder RT min 2V RIGHT SHOULDER - 4 views CLINICAL HISTORY: Pain in right shoulder radiating down the arm for the past 3-4 months. No injury. M25.511 COMPARISON: None AP, Y, axillary and Grashey views were obtained. There is no evidence of fracture or dislocation. There is mild hypertrophy at the acromioclavicular joint. There is mild sclerosis at the greater tuberosity. There are no significant soft tissue abnormalities. XR/XR shoulder RT min 2V IMPRESSION: NO ACUTE BONY FINDINGS. Impression dictated by: Casandra Farrar M.D. 03/10/2025 1:20 PM Dictation Location: [id number] Electronically authenticated by: [id number] Y Date: 03/10/2025 13:20
--- OUTSIDE RECORDS SUMMARY | 2025-03-10 11:13 | XMS_ITS | CCD ---
Author Organization [facility] Care Team Providers Care Unit Reactor Operator Name Role Phone ABDIEL ., DR FARIAS [...] Unavailable HOY ., DR FARIAS Attending Unavailable WALDRON, DR ELTON Parikh Consulting Unavailable Jarrett Vyas MD Primary Care Provider [phone] Jarrett Vyas MD Primary Care Provider [phone] HAYLEY KIRBY Attending Unavailable JACQUELYN AGUILAR Attending Unavailable JACQUELYN AGUILAR Attending Unavailable DAKOTA ROCHA Attending Unavailable DAKOTA ROCHA Attending Unavailable DAKOTA ROCHA Attending Unavailable DAKOTA ROCHA Attending Unavailable DAKOTA ROCHA Attending Unavailable Allergies Allergy Classification Reported Allergen(s) Allergy Type Date of Onset Reaction(s) Facility (1 source) Iodine Drug Allergy 07-14-1989 [facility] Repository Medications Current Medications Medication Drug Class(es) Dates Sig (Normalized) Sig (Original) dapagliflozin 10 mg oral tablet (9 sources) Sodium-Glucose Cotransporter 2 Inhibitor Start: 07-06-2023 Farxiga 10 MG 07/06/2023 Active diclofenac sodium 75 mg delayed release oral tablet (9 sources) Nonsteroidal Anti-inflammatory Drug Start: 06-25-2023 take 1 tablet by mouth twice daily as needed diclofenac (Voltaren) 75 MG EC tablet Take 75 mg by mouth 2 (two) times a day as needed 06/25/2023 Active furosemide 20 mg oral tablet (9 sources) Loop Diuretic Start: 04-14-2023 take 1 tablet by mouth in the morning furosemide (Lasix) 20 MG tablet Take 20 mg by mouth in the morning. 04/14/2023 Active 24 hr metoprolol succinate 100 mg extended release oral tablet (9 sources) beta-Adrenergic Ervin Start: 05-20-2023 take 1 tablet by mouth every twenty-four hours in the morning metoprolol succinate XL (Toprol-XL) 100 MG 24 hr tablet Take 100 mg by mouth in the morning. 05/20/2023 Active Problems Active Problems Problem Classification Problem Date Documented Da te Episodic/Chronic Congestive heart failure; nonhypertensive (16 sources) Unspecified diastolic (congestive) heart failure; Translations: [Diastolic heart failure] Onset: 08-15-2022 Chronic Disorders of lipid metabolism (1 source) Hyperlipidemia, unspecified; Translations: [HYPERLIPIDEMIA UNSPECIFIED] Onset: 09-01-2022 Chronic Esophageal disorders (1 source) Gastro-esophageal reflux disease without esophagitis; Translations: [GERD WITHOUT ESOPHAGITIS] Onset: 09-01-2022 Chronic Essential hypertension (12 sources) Essential (primary) hypertension; Translations: [Essential hypertension] Onset: 09-01-2022 01-21-2024 Chronic Heart valve disorders (11 sources) Tricuspid valve regurgitation; Translations: [Rheumatic tricuspid insufficiency] Onset: 11-27-2022 01-21-2024 Chronic Hypertension with complications and secondary hypertension (1 source) Hypertensive heart disease with heart failure; Translations: [HTN HEART DISEASE W/HEART FAIL] Onset: 08-15-2022 Chronic Mycoses (4 sources) Pain in toe; Translations: [Tinea unguium] 04-26-2024 Episodic Osteoarthritis (9 sources) Osteoarthritis of knee; Translations: [Osteoarthritis of knee, unspecified] Onset: 10-01-2023 01-21-2024 Chronic Other diseases of veins and lymphatics (3 sources) Vascular insufficiency; Translations: [Venous insufficiency (chronic) (peripheral)] 07-01-2024 Episodic Other lower respiratory disease (4 sources) Other forms of dyspnea; Translations: [OTHER FORMS OF DYSPNEA] Onset: 11-21-2022 Episodic Other lower respiratory disease (2 sources) Shortness of breath; Translations: [Shortness of breath] Onset: 09-17-2024 Episodic Other skin disorders (4 sources) Asteatosis cutis; Translations: [Xerosis cutis] 04-26-2024 Episodic Pulmonary heart disease (11 sources) Pulmonary hypertension; Translations: [Pulmonary hypertension, unspecified] Onset: 11-27-2022 01-21-2024 Chronic Past or Other Problems Problem Classification Problem Date Documented Da te Episodic/Chronic Diabetes mellitus without complication (1 source) Other abnormal glucose; Translations: [OTHER ABNORMAL GLUCOSE] Onset: 08-15-2022 Episodic Nonspecific chest pain (5 sources) Chest pain, unspecified; Translations: [CHEST PAIN UNSPECIFIED] Onset: 08-15-2022 Episodic Other ear and sense organ disorders (9 sources) Impacted cerumen; Translations: [Impacted cerumen, unspecified ear] Onset: 10-01-2023 01-21-2024 Episodic Other lower respiratory disease (9 sources) Dyspnea on exertion; Translations: [Other forms [...] rectum] Onset: 08-15-2022 Episodic Residual codes; unclassified (9 sources) Edema of lower extremity; Translations: [Localized edema] Onset: 11-27-2022 01-21-2024 Episodic Results Test Name Value Interpretation Reference Range Facility Office Visiton 12-13-2024 Follow-up visit [id number] Yuan Wilson 1955 M Date Provider Department Center 12/13/2024 Benjamín-JACQUELYN AGUILAR AMY Li Family History Problem Relation Age of Onset Heart failure Mother Heart attack Father Family Status - Relation Status Age at Mother Father Level of Service:71825 UT OFFICE/OUTPATIENT ESTABLISHED MOD MDM 30 MIN Normal [facility] 36on 11-22-2024 36 Regarding lab result s from [...] Dr. Aguilar. Referral to Dr. Hanks sent. [facility] 10-27-2024 29 Addended by: YOLETTE HDZ on: 10/27/2024 11:58 AM Modules accepted: Orders [facility] 10-27-2024 36 Patient called to make you [...] this thread because I am off tomorrow.) [facility] 10-19-2024 36 Patient called back. He will double his lasix to 40mg daily and have BMP in 1 week. Order faxed to [facility]. Patient verbalized understanding. [facility] 10-18-2024 36 Regarding echo resul t from 10/07/2024: MD Yolette Turner MA I want him to increase furosemide to 40 mg daily. He will need the BMP I had ordered to be done 1 week after the increase. LM for patient to return my call. [facility] Telephoneon 10-18-2024 Telephone [id number] Yuan Wilson Sherman 1955 M Date Provider Department Center 10/18/2024 [id number] HDZ CARD [facility] Family History Problem Relation Age of Onset Heart failure Mother Heart attack Father Family Status - Relation Status Age at Mother Father Normal [facility] Office Visiton 09-17-2024 Follow-up visit [id number] Yuan Wilson 1955 M Date Provider Department Center 09/17/2024 [facility] Problem Relation Age of Onset Heart failure Mother Heart attack Father Family Status - Relation Status Age at Mother Father Level of Service:17884 UT OFFICE/OUTPATIENT ESTABLISHED MOD MDM 30 MIN Normal [facility] Office Visiton 03-29-2024 Follow-up visit [id number] Yuan Wilson 1955 M Date Provider Department Center 03/29/2024 HAYLEY SALMON [facility] Family History Problem Relation Age of Onset Heart failure Mother Heart attack Father Family Status - Relation Status Age at Mother Father Level of Service:48998 UT OFFICE/OUTPATIENT ESTABLISHED LOW MDM 20 MIN Normal [facility] PROF CHEM 8 (BAS METB)on Anion gap [Moles/Vol] 9.9 mmol/L Normal [facility] Comment on above: Performed By: #### B MP #### [facility] [address] [address] [address] Nataly Frye Calcium [Mass/Vol] 7.9 mg/dL Critically low 8.5-10.1 [facility] Comment on above: Performed By: #### B MP #### [facility] [address] [address] [address] Nataly Frye Chloride [Moles/Vol] 104 mmol/L Normal 98-107 [facility] Comment on above: Performed By: #### B MP #### [facility] [address] [address] [address] Nataly Frye CO2 [Moles/Vol] 33.8 mmol/L Critically high 21.0-32.0 [facility] Comment on above: Performed By: #### B MP #### [facility] [address] [address] [address] Nataly Frye Creatinine [Mass/Vol] 1.19 mg/dL Normal 0.70-1.30 [facility] Comment on above: Performed By: #### B MP #### [facility] [address] [address] [address] Nataly Frye EGFR-AF NEW ZEALANDER >60 Normal >=[address] [facility] Comment on above: Performed By: #### B MP #### [facility] [address] [address] [address] Nataly Frye EGFR-NON AF NEW ZEALANDER >60 Normal >=60 [facility] Comment on above: Performed By: #### B MP #### [facility] [address] [address] [address] Nataly Frye Glucose [Mass/Vol] 130 mg/dL Critically high 74-106 [facility] Comment on above: Performed By: #### B MP #### [facility] [address] [place] [address] Dr. Nataly Frye Potassium [Moles/Vol] 3.7 mmol/L Normal 3.5-5.1 [facility] Comment on above: Performed By: #### B MP #### [facility] [address] [place] [address] Dr. Nataly Frye Sodium [Moles/Vol] 144 mmol/L Normal 136-145 [facility] Comment on above: Performed By: #### B MP #### [facility] [address] [place] [address] Dr. Nataly Frye Urea nitrogen [Mass/Vol] 18.0 mg/dL Normal 7.0-18.0 [facility] Comment on above: Performed By: #### B MP #### [facility] [address] [place] [address] Dr. Nataly Frye Urea nitrogen/Creatinine [Mass ratio] 15.1 mg/mg Normal [facility] Comment on above: Performed By: #### B MP #### [facility] [address] [place] [address] Dr. Nataly Frye BNPon 11-21-2022 Natriuretic peptide B (Bld) [Mass/Vol] 58.0 pg/mL Normal <=900.0 [facility] Comment on above: Performed By: #### B MP, BNP #### [facility] [address] [address] [address] Nataly Frye PROF CHEM 8 (BAS METB)on Anion gap [Moles/Vol] 9.6 mmol/L Normal [facility] Comment on above: Performed By: #### B MP, BNP #### [facility] [address] [place] [address] Dr. Nataly Frye Calcium [Mass/Vol] 7.3 mg/dL Critically low 8.5-10.1 [facility] Comment on above: Performed By: #### B MP, BNP #### [facility] [address] [place] [address] Dr. Nataly Fyre Chloride [Moles/Vol] 104 mmol/L Normal 98-107 [facility] Comment on above: Performed By: #### B MP, BNP #### [facility] [address] [place] [address] Dr. Nataly Frye CO2 [Moles/Vol] 34.7 mmol/L Critically high 21.0-32.0 [facility] Comment on above: Performed By: #### B MP, BNP #### [facility] [address] [place] [address] Dr. Nataly Frye Creatinine [Mass/Vol] 1.33 mg/dL Critically high 0.70-1.30 [facility] Comment on above: Performed By: #### B MP, BNP #### [facility] [address] [place] [address] Dr. Nataly Frye EGFR-AF NEW ZEALANDER >60 Normal >=[address] [facility] Comment on above: Performed By: #### B MP, BNP #### [facility] [address] [place] [address] Dr. Nataly Frye EGFR-NON AF NEW ZEALANDER 54 mL/min/1.73m2 Critically low >=60 [facility] Comment on above: Performed By: #### B MP, BNP #### [facility] [address] [place] [address] Dr. Nataly Frye Glucose [Mass/Vol] 146 mg/dL Critically high 74-106 [facility] Comment on above: Performed By: #### B MP, BNP #### [facility] [address] [address] [address] Nataly Frye Potassium [Moles/Vol] 3.3 mmol/L Critically low 3.5-5.1 [facility] Comment on above: Performed By: #### B MP, BNP #### [facility] [address] [address] [address] Nataly Frye Sodium [Moles/Vol] 145 mmol/L Normal 136-145 [facility] Comment on above: Performed By: #### B MP, BNP #### [facility] [address] [address] [address] Nataly Frye Urea nitrogen [Mass/Vol] 22.0 mg/dL Critically high 7.0-18.0 [facility] Comment on above: Performed By: #### B MP, BNP #### [facility] [address] [address] [address] Nataly Frye Urea nitrogen/Creatinine [Mass ratio] 16.5 mg/mg Normal [facility] Comment on above: Performed By: #### B MP, BNP #### [facility] [address] [address] [address] Nataly Frye ECHOCARDIO M/2D COMPLETEon 0 08-27-2022 ECHOCARDIO M/2D COMPLETE Patient: YUAN WILSON Exam Date: 08/27/2022 : 1955 Gender:M Ordering : DR JARRETT VYAS . Admission #: [id number] Family : Order #: [id number] CLICK HERE TO VIEW EXAM ECHOCARDIOGRAM REPORT [...] Ritter M.D. on 08/27/2022 at 12:17 Normal [facility] NM STRESS/REST MULTIon 08-26 NM STRESS/REST MULTI Patient: YUAN WILSON Exam Date: 08/26/2022 : 1955 Gender:M Ordering : DR JARRETT VYAS . Admission #: [id number] Family : Order #: [id number] CLICK HERE TO VIEW EXAM RADIOLOGY REPORT [...] MD on 08/28/2022 at 06:12 Normal [facility] INSULINon 08-15-2022 Insulin 18.8 uIU/mL Normal 2.6-24.9 [facility] Comment on above: Performed By: #### I NSULIN ####[facility] [address] [address]Dr. Nataly Frye BNPon 08-14-2022 Natriuretic peptide B (Bld) [Mass/Vol] 140.0 pg/mL Normal <=900.0 [facility] Comment on above: Performed By: #### L IPID, URIC, BNP, T7, TSH, CMP #### [facility] [address] [address] [address] Nataly Frye CBC AUTO DIFFon 08-14-2022 BASO # 0.0 103/ul Normal 0.0-0.1 [facility] Comment on above: Performed By: #### C BC #### [facility] [address] [place] [address] Dr. Nataly Frye Basophils/100 WBC (Bld) 0.6 % Normal 0.2-2.0 [facility] Comment on above: Performed By: #### C BC #### [facility] [address] [place] [address] Dr. Nataly Frye EO # 0.1 103/ul Normal 0.0-0.7 [facility] Comment on above: Performed By: #### C BC #### [facility] [address] [address] [address] Nataly Frye Eosinophils/100 WBC (Bld) 2.7 % Normal 0.9-7.0 [facility] Comment on above: Performed By: #### C BC #### [facility] [address] [address] [address] Nataly Frye Erythrocyte distribution width (RBC) [Ratio] 18.1 % Critically high 11.0-15.0 [facility] Comment on above: Performed By: #### C BC #### [facility] [address] [place] [address] Dr. Nataly Frye Hematocrit (Bld) [Volume fraction] 30.2 % Critically low 42.0-54.0 [facility] Comment on above: Performed By: #### C BC #### [facility] [address] [address] [address] Nataly Frye Hemoglobin (Bld) [Mass/Vol] 8.8 g/dL Critically low 14.0-18.0 [facility] Comment on above: Performed By: #### C BC #### [facility] [address] [address] [address] Nataly Frye IG # 0.06 10e3/ul Critically high 0.00-0.03 [facility] Comment on above: Performed By: #### C BC #### [facility] [address] [place] [address] Dr. Nataly Frye IG % 1.3 % Critically high 0.0-0.5 [facility] Comment on above: Performed By: #### C BC #### [facility] [address] [place] [address] Dr. Nataly Frye LYMPH # 1.7 103/ul Normal 1.2-3.8 [facility] Comment on above: Performed By: #### C BC #### [facility] [address] [place] [address] Dr. Nataly Frye Lymphocytes/100 WBC (Bld) 36.6 % Normal 20.5-60.0 [facility] Comment on above: Performed By: #### C BC #### [facility] [address] [place] [address] Dr. Nataly Frye MANUAL DIFF REQ NO Normal [facility] Comment on above: Performed By: #### C BC #### [facility] [address] [place] [address] Dr. Nataly Frye MCH (RBC) [Entitic mass] 25.5 pg Critically low 25.9-34.0 [facility] Comment on above: Performed By: #### C BC #### [facility] [address] [place] [address] Dr. Nataly Frye MCHC (RBC) [Mass/Vol] 29.1 g/dL Critically low 29.9-35.2 [facility] Comment on above: Performed By: #### C BC #### [facility] [address] [address] [address] Nataly Frye MCV (RBC) [Entitic vol] 87.5 fL Normal 80.0-94.0 [facility] Comment on above: Performed By: #### C BC #### [facility] [address] [address] [address] Nataly Frye MONO # 0.5 103/ul Normal 0.3-0.8 [facility] Comment on above: Performed By: #### C BC #### [facility] [address] [address] [address] Nataly Frye Monocytes/100 WBC (Bld) 11.0 % Normal 1.7-12.0 [facility] Comment on above: Performed By: #### C BC #### [facility] [address] [address] [address] Nataly Frye NEUT # 2.3 103/ul Normal 1.4-6.5 [facility] Comment on above: Performed By: #### C BC #### [facility] [address] [address] [address] Nataly Frye Neutrophils/100 WBC (Bld) 47.8 % Normal 43.0-75.0 [facility] Comment on above: Performed By: #### C BC #### [facility] [address] [address] [address] Nataly Frye Platelet mean volume (Bld) [Entitic vol] 9.5 fL Normal 9.5-13.5 [facility] Comment on above: Performed By: #### C BC #### [facility] [address] [address] [address] Nataly Frye PLT 172 103/ul Normal 150-450 [facility] Comment on above: Performed By: #### C BC #### [facility] [id number] Nataly Frye RBC 3.45 106/ul Critically low 4.70-6.10 [facility] Comment on above: Performed By: #### C BC #### [facility] [address] [address] [address] Nataly Frye WBC 4.7 103/ul Normal 4.0-11.0 [facility] Comment on above: Performed By: #### C BC #### [facility] [address] [address] [address] Nataly Frye FREE THYROXINE INDEX T7on FTI 2.18 Normal 1.30-4.50 [facility] Comment on above: Performed By: #### L IPID, URIC, BNP, T7, TSH, CMP #### [facility] [address] [address] [address] Nataly Frye T3U 34.0 % Normal 33.0-40.0 [facility] Comment on above: Performed By: #### L IPID, URIC, BNP, T7, TSH, CMP #### [facility] [address] [address] [address] Nataly Frye T4 [Mass/Vol] 6.40 ug/dL Normal 4.50-12.10 [facility] Comment on above: Performed By: #### L IPID, URIC, BNP, T7, TSH, CMP #### [facility] [address] [address] [address] Nataly Frye GLYCOHEMOGLOBIN A1Con 2022 ADA RECOMMENDATION SEE BELOW Normal [facility] Comment on above: Result Comment: ADA RECOMMENDED LIMIT 4.0 - 6.0 ADA THERAPEUTIC TARGET < 7.0 ACTION SUGGESTED > 7.0 Performed By: #### A 1C ####[facility] [id number] [id number] Nataly Frye HbA1c (Bld) [Mass fraction] 5.6 % Normal 4.5-6.2 [facility] Comment on above: Performed By: #### A 1C ####[facility] [id number] [id number] Nataly Frye LIPID PROFILEon 08-14-2022 CHOL-HDL RATIO NORM SEE BELOW Normal [facility] Comment on above: Result Comment: 3.3 - 4.4 LOW RISK 4.4 - 7.1 AVERAGE RISK 7.1 - 11.0 MODERATE RISK >11.0 HIGH RISK Performed By: #### L IPID, URIC, BNP, T7, TSH, CMP #### [facility] [address] [address] [address] Nataly Frye Cholesterol [Mass/Vol] 106 mg/dL Normal <=200 [facility] Comment on above: Performed By: #### L IPID, URIC, BNP, T7, TSH, CMP #### [facility] [address] [address] [address] Nataly Frye Cholesterol in HDL [Mass/Vol] 25 mg/dL Critically low 40-60 [facility] Comment on above: Performed By: #### L IPID, URIC, BNP, T7, TSH, CMP #### [facility] [address] [place] [address] Dr. Nataly Frye Cholesterol in LDL [Mass/Vol] 34.6 mg/dL Normal [facility] Comment on above: Performed By: #### L IPID, URIC, BNP, T7, TSH, CMP #### [facility] [address] [place] [address] Dr. Nataly Frye Cholesterol.total/Ch olesterol in HDL [Mass ratio] 4.2 {ratio} Normal [facility] Comment on above: Performed By: #### L IPID, URIC, BNP, T7, TSH, CMP #### [facility] [address] [place] [address] Dr. Nataly Frye HDL NORMAL > or = 60 mg/dl - LO W CARDIOVASCULAR RISK <40 mg/dl - HIGH CARDIOVASCULAR RISK Normal [facility] Comment on above: Performed By: #### L IPID, URIC, BNP, T7, TSH, CMP #### [facility] [address] [place] [address] Dr. Nataly Frye LDL CALC NORMAL SEE BELOW Normal [facility] Comment on above: Result Comment: <100 mg/dl OPTIMAL 100 - 129 mg/dl NEAR OR ABOVE OPTIMAL 130 - 159 mg/dl BORDERLINE HIGH 160 - 189 mg/dl HIGH >190 mg/dl VERY HIGH Performed By: #### L IPID, URIC, BNP, T7, TSH, CMP #### [facility] [address] [place] [address] Dr. Nataly Frye Triglyceride [Mass/Vol] 232 mg/dL Critically high <=150 [facility] Comment on above: Performed By: #### L IPID, URIC, BNP, T7, TSH, CMP #### [facility] [address] [place] [address] Dr. Nataly Frye VLDL CALC 46.4 mg/dL Normal [facility] Comment on above: Performed By: #### L IPID, URIC, BNP, T7, TSH, CMP #### [facility] [address] [place] [address] Dr. Nataly Frye PROF 14(COMP METB)on 023 Albumin [Mass/Vol] 3.3 g/dL Critically low 3.4-5.0 [facility] Comment on above: Performed By: #### L IPID, URIC, BNP, T7, TSH, CMP #### [facility] [address] [place] [address] Dr. Nataly Frye Albumin/Globulin [Mass ratio] 1.0 {ratio} Normal [facility] Comment on above: Performed By: #### L IPID, URIC, BNP, T7, TSH, CMP #### [facility] [address] [place] [address] Dr. Nataly Frye ALP [Catalytic activity/Vol] 86 U/L Normal 46-116 [facility] Comment on above: Performed By: #### L IPID, URIC, BNP, T7, TSH, CMP #### [facility] [address] [place] [address] Dr. Nataly Frye ALT [Catalytic activity/Vol] 64 U/L Critically high 16-63 [facility] Comment on above: Performed By: #### L IPID, URIC, BNP, T7, TSH, CMP #### [facility] [address] [place] [address] Dr. Nataly Frye Anion gap [Moles/Vol] 11.3 mmol/L Normal [facility] Comment on above: Performed By: #### L IPID, URIC, BNP, T7, TSH, CMP #### [facility] [address] [place] [address] Dr. Nataly Frye AST [Catalytic activity/Vol] 37 U/L Normal 15-37 [facility] Comment on above: Performed By: #### L IPID, URIC, BNP, T7, TSH, CMP #### [facility] [address] [place] [address] Dr. Nataly Frye Bilirubin [Mass/Vol] 0.4 mg/dL Normal 0.2-1.0 [facility] Comment on above: Performed By: #### L IPID, URIC, BNP, T7, TSH, CMP #### [facility] [address] [place] [address] Dr. Nataly Frye Calcium [Mass/Vol] 7.9 mg/dL Critically low 8.5-10.1 Th e [facility] Comment on above: Performed By: #### L IPID, URIC, BNP, T7, TSH, CMP #### [facility] [address] [place] [address] Dr. Nataly Frye Chloride [Moles/Vol] 106 mmol/L Normal 98-107 [facility] Comment on above: Performed By: #### L IPID, URIC, BNP, T7, TSH, CMP #### [facility] [address] [place] [address] Dr. Nataly Frye CO2 [Moles/Vol] 30.7 mmol/L Normal 21.0-32.0 [facility] Comment on above: Performed By: #### L IPID, URIC, BNP, T7, TSH, CMP #### [facility] [address] [place] [address] Dr. Nataly Frye Creatinine [Mass/Vol] 0.98 mg/dL Normal 0.70-1.30 [facility] Comment on above: Performed By: #### L IPID, URIC, BNP, T7, TSH, CMP #### [facility] [address] [place] [address] Dr. Nataly Frye EGFR-AF NEW ZEALANDER >60 Normal >=60 [facility] Comment on above: Performed By: #### L IPID, URIC, BNP, T7, TSH, CMP #### [facility] [address] [address] [address] Nataly Frye EGFR-NON AF NEW ZEALANDER >60 Normal >=60 [facility] Comment on above: Performed By: #### L IPID, URIC, BNP, T7, TSH, CMP #### [facility] [address] [address] [address] Nataly Frye Globulin (S) [Mass/Vol] 3.3 g/dL Normal [facility] Comment on above: Performed By: #### L IPID, URIC, BNP, T7, TSH, CMP #### [facility] [address] [address] [address] Nataly Frye Glucose [Mass/Vol] 114 mg/dL Normal [facility] Comment on above: Performed By: #### L IPID, URIC, BNP, T7, TSH, CMP #### [facility] [address] [address] [address] Nataly Frye Performed By: #### A 1C ####[facility] [address] [address]Dr. Nataly Frye Potassium [Moles/Vol] 4.0 mmol/L Normal 3.5-5.1 [facility] Comment on above: Performed By: #### L IPID, URIC, BNP, T7, TSH, CMP #### [facility] [address] [address] [address] Nataly Frye Protein [Mass/Vol] 6.6 g/dL Normal 6.4-8.2 [facility] Comment on above: Performed By: #### L IPID, URIC, BNP, T7, TSH, CMP #### [facility] [address] [address] [address] Nataly Frye Sodium [Moles/Vol] 144 mmol/L Normal 136-145 [facility] Comment on above: Performed By: #### L IPID, URIC, BNP, T7, TSH, CMP #### [facility] [address] [address] [address] Nataly Frye Urea nitrogen [Mass/Vol] 11.0 mg/dL Normal 7.0-18.0 [facility] Comment on above: Performed By: #### L IPID, URIC, BNP, T7, TSH, CMP #### [facility] [address] [place], [place] [address] Dr. Nataly Frye Urea nitrogen/Creatinine [Mass ratio] 11.2 mg/mg Normal [facility] Comment on above: Performed By: #### L IPID, URIC, BNP, T7, TSH, CMP #### [facility] [address] [place], [place] [address] Dr. Nataly Frye TSHon 08-14-2022 TSH 1.816 uIU/mL Normal 0.358-3.740 [facility] Comment on above: Performed By: #### L IPID, URIC, BNP, T7, TSH, CMP ####[facility] [address] [place], [place] [address]HpDr. Nataly Frye URIC ACID SERUMon 08-14-2022 Urate [Mass/Vol] 6.6 mg/dL Normal 3.5-7.[address] [facility] Comment on above: Performed By: #### L IPID, URIC, BNP, T7, TSH, CMP ####[facility] [address] [id number]. Nataly Frye Physician Referralon 021 Physician Referral [phone] [id number] Normal [facility] Vital Signs Date Time Vital Sign Value Performing Clinician Osorioi lity 02-17-2025 11:28-040 Body height 182.9 cm Dakota Rocha DPM Work Phone: [facility] 02-17-2025 11:28-040 Body mass index (BMI) [Ratio] 36.35 kg/m2 Dakota Rocha DPM Work Phone: [facility] 02-17-2025 11:28-040 Body weight 121.56 kg Dakoat Rocha DPM Work Phone: [facility] 02-17-2025 11:28-040 Respiratory rate 18 /min Dakota Brown DPM Work Phone: [facility] 12-09-2024 10:30-0400 Body height 182.9 cm Dakota Brown DPM Work Phone: [facility] 12-09-2024 10:30-0400 Body mass index (BMI) [Ratio] 36.35 kg/m2 Dakota Brown DPM Work Phone: [facility] 12-09-2024 10:30-0400 Body weight 121.56 kg Dakota Brown DPM Work Phone: [facility] 12-09-2024 10:30-0400 Respiratory rate 18 /min Dakota Brown DPM Work Phone: [facility] 07-08-2024 10:44-0500 Body height 182.9 cm Dakota Brown DPM Work Phone: [facility] 07-08-2024 10:44-0500 Body mass index (BMI) [Ratio] 36.35 kg/m2 Dakota Brown DPM Work Phone: [facility] 07-08-2024 10:44-0500 Body weight 121.56 kg Dakota Brown DPM Work Phone: [facility] 07-08-2024 10:44-0500 Respiratory rate 18 /min Dakota Brown DPM Work Phone: [facility] 04-29-2024 09:53-0400 Body height 182.9 cm Dakota Brown DPM Work Phone: [facility] 04-29-2024 09:53-0400 Body mass index (BMI) [Ratio] 36.35 kg/m2 Dakota Brown DPM Work Phone: [facility] 04-29-2024 09:53-0400 Body weight 121.56 kg Dakota Brown DPM Work Phone: [facility] 04-29-2024 09:53-0400 Diastolic blood pressure 80 mm[Hg] Dakota Brown DPM Work Phone: [facility] 04-29-2024 09:53-0400 Heart rate 79 /min Dakota Aj DPM Work Phone: [facility] 04-29-2024 09:53-0400 Systolic blood pressure 129 mm[Hg] Dakota Aj DPM Work Phone: [facility] Encounters Encounter Date Encounter Type Care Provider Facility Start: 02-17-2025 End: 02-17-2025 Bamboo flowsheet Dakota Rocha DPM Work Phone: [facility] Start: 02-17-2025 End: 02-17-2025 Bamboo flowsheet Dakota Rocha DPM Work Phone: [facility] Start: 02-17-2025 End: 02-17-2025 Patient encounter procedure Dakota Rocha DPM Work Phone: [facility] Comment on above: Pain due to onychomy cosis of toenails of both feet (Primary Dx); Venous insufficiency; Xerosis cutis Start: 02-17-2025 End: 02-17-2025 ambulatory DAKOTA ROCHA Not Available Start: 12-13-2024 End: 12-13-2024 ambulatory [facility] Start: 12-09-2024 End: 12-09-2024 Bamboo flowsheet Dakota Rocha DPM Work Phone: [facility] Start: 12-09-2024 End: 12-09-2024 Bamboo flowsheet Dakota Rocha DPM Work Phone: [facility] Start: 12-09-2024 End: 12-09-2024 Patient encounter procedure Dakota Rocha DPM Work Phone: [facility] Comment on above: Pain due to onychomy cosis of toenails of both feet (Primary Dx); Venous insufficiency; Xerosis cutis Start: 12-09-2024 End: 12-09-2024 ambulatory DAKOTA ROCHA Not Available Start: 09-30-2024 End: 09-30-2024 ambulatory DAKOTA ROCHA Not Available Start: 09-17-2024 End: 09-17-2024 ambulatory [facility] Start: 07-08-2024 End: 07-08-2024 Bamboo flowsheet Dakota Rocha DPM Work Phone: [facility] Start: 07-08-2024 End: 07-08-2024 Bamboo flowsheet Dakota Jed Aj DPM Work [...] Start: 07-05-2024 End: 07-05-2024 Bamboo flowsheet Dakota Jed Aj DPM Work [...] Not Available Start: 03-29-2024 End: 03-29-2024 ambulatory [facility] Start: 12-10-2022 End: 12-11-[address] JARRETT VYAS . Facility: Start: 11-21-2022 End: 11-22-[address] JARRETT VYAS . Facility:[facility] Start: 08-27-2022 End: 08-28-[address] JARRETT VYAS . Facility:[facility] Start: 08-26-2022 End: 08-27-[address] JARRETT VYAS . Facility:[facility] Start: 08-14-2022 End: 08-15-[address] JARRETT VYAS . Facility: Plan of Treatment Date Care Activity Detail Author Start: 05-12-2025 End: 05-12-2025 Patient encounter procedure 05/12/2025 9:00 AM EDT Procedure Visit [facility] [address] [address] Dakota Rocha DPM [address] [address] [facility] Start: 03-14-2025 Influenza vaccination [facility] Start: 02-17-2025 End: 02-17-2025 Patient encounter procedure 02/17/2025 11:30 AM EDT Procedure Visit [facility] [address] [address] Dakota Rocha DPM [address] [address] Pain due to onychomycosis of toenails of both feet (Primary Dx); Venous insufficiency; Xerosis cutis [facility] Comment on above: Pain due to onychomy cosis of toenails of both feet (Primary Dx); Venous insufficiency; Xerosis cutis Start: 12-09-2024 End: 12-09-2024 Patient encounter procedure 12/09/2024 10:40 AM EDT Procedure Visit [facility] 112 [facility] [address] [place] [address] Dakota Rocha, ELVER [address] [address] Pain due to onychomycosis of toenails of both feet (Primary Dx); Venous insufficiency; Xerosis cutis [facility] Comment on above: Pain due to onychomy cosis of toenails of both feet (Primary Dx); Venous insufficiency; Xerosis cutis Start: 09-16-2024 End: 09-16-2024 Patient encounter procedure 09/16/2024 10:40 AM EST Procedure Visit [facility] 112 [facility] [address] [place] [address] Dakota Rocha DPM [address] [address] [facility] Start: 07-08-2024 End: 07-08-2024 Patient encounter procedure [facility] Comment on above: Pain due to onychomy cosis of toenails of both feet (Primary Dx); Venous insufficiency; Xerosis cutis Start: 05-05-2024 End: 05-05-2024 Clinical Support 05/05/2024 8:00 AM EDT Clinical Support [facility] 112 [facility] [address] [place] [id number] Ivana Deal, [facility] [address] [place] [address] [facility] Start: 04-29-2024 End: 04-29-2024 Patient encounter procedure 04/29/2024 10:00 AM EDT Procedure Visit [facility] 112 [facility] [address] [place] [address] Dakota Rocha DPM [address] [address] Pain due to onychomycosis of toenails of both feet (Primary Dx); Xerosis cutis [facility] Comment on above: Pain due to onychomy cosis of toenails of both feet (Primary Dx); Xerosis cutis Start: 03-14-2024 Influenza vaccination Influenza Vacc ine (#1) [facility] Start: 2022 Pneumococcal Vaccine : 65+ Years (1 of 1 - PCV) Pneumococcal Vaccine: 65+ Years (1 of 1 - PCV) [facility] Start: 2007 Pneumococcal Vaccine : 65+ Years (1 of 1 - PCV) Pneumococcal Vaccine: 65+ Years (1 of 1 - PCV) [facility] Start: 1957 Screening for malign ant neoplasm of colon [facility] Healthcare Payers Date Payer Category Payer Medicare MEDICARE [id number] 2022 Private Health Insurance HUMAN [id number] 1959 Medicare [id number] 1959 Private Health Insurance [id number] 1957 Unknown [id number] [id number] .2.593 1957 Unknown [id number] [id number] .2.593 1957 Unknown [id number] [id number] .2.593 1957 Unknown [id number] [id number] .2.593 1957 Unknown [id number] [id number] .2.593 1957 Unknown [id number] [id number] .2.1259 1957 Unknown [id number] 2.16.840.1.525304.3.579 .2.1259 1957 Unknown [id number] 2.16.840.1.785298.3.579 .2.1259 1957 Unknown [id number] [id number] .2.1259 1957 Unknown [id number] [id number] .2.1259 Social History Date Type Detail Facility Start: 01-21-2024 Tobacco smoking stat [facility] Never smoked tobacco [facility] Start: 01-21-2024 Tobacco use and exposure Smokeless tobacco non-user [facility] Start: 02-17-2024 End: 02-17-2025 Alcoholic beverage intake Ex-drinker (finding) [facility] Start: 02-17-2024 End: 12-09-2024 History of Social function [facility] Start: 02-17-2024 End: 12-09-2024 Tobacco use panel [facility] Start: 1955 Sex assigned at Not on file [facility] NEGATED: Highlighted rowStart: NINF History of tobacco use Passive smoker [facility] Clinical Notes 03-29-2024 to 02-17-2025 Dakota Rocha, DP - 02/17/2025 11:30 AM Ani Rocha, DP - 12/09/2024 10:40 AM Ani Rocha, ELVER - 07/08/2024 10:50 AM Isabel Jed Aj, NIKKI - 04/29/2024 10:00 AM EDT Note Date & Type Note Facility 02-17-2025 History of Present illness Narrative Patient: Yuan [...] disease) History of Crohn's disease HTN (hypertension) Kidney stone Medications: Current Outpatient Medications: diclofenac [...] Partner Violence: Unknown (09/04/2023) Received from [facility] Fear of Current or [...] Dakota Rocha DPM documented in this encounter [facility] 12-13-2024 Note DE Cardiology - [facility] Subjective Yuan Wilson is a [...] m (more content not included)... [facility] 12-09-2024 History of Present illness Narrative Patient: [...] disease) History of Crohn's disease HTN (hypertension) ([facility]) Kidney stone Medications: Current Outpatient Medications: [...] Partner Violence: Unknown (09/04/2023) Received from [facility] Fear of Current or [...] Dakota Rocha DPM documented in this encounter [facility] 09-17-2024 Note DE Cardiology - [facility] Subjective Yuan Wilson is a [...] 104, (more content not included)... [facility] 07-08-2024 History of Present illness Narrative Patient: [...] disease) History of Crohn's disease HTN (hypertension) ([facility]) Kidney stone Medications: Current Outpatient Medications: [...] Partner Violence: Unknown (09/04/2023) [facility] from [facility] [place] [facility] Fear of Current [...] A Brown, DPM documented in this encounter [facility] 04-29-2024 History of Present illness Narrative [...] disease) History of Crohn's disease HTN (hypertension) ([facility]) Kidney stone Medications: Current Outpatient Medications: [...] Partner Violence: Unknown (09/04/2023) Received from [facility] [place] [facility] Fear of Current [...] Dakota Rocha DPM documented in this encounter [facility] 03-29-2024 Note Stable no concerning symptoms or worsening SOB or orthopnea [facility] 03-29-2024 Note Hypertension is curr ently well controlled Renal function has remained stable Continue toprol, aldactone and lasix [facility] 03-29-2024 Note [facility] II remains euvo lemic without exacerbation or activity limiting symptoms Continue GDMT- continue lasix daily and aldactone Diuretic therapy Monitor daily weights, I&O, fluid restriction 1.5-2L/day, renal function and electrolytes- [facility] 03-29-2024 Note Pt is here for a six month follow up. Pt denies chest pain, palpatation, dizziness Review of Systems Constitutional: Weight loss: 10# since January 2023. Cardiovascular: Positive for dyspnea on exertion and leg swelling. All other systems reviewed and are negative. [facility] 03-29-2024 Note [facility] CARDIOLOGY PROGR ESS NOTE [...] eviden (more content not included)... [facility] Evaluation note Diagnosis Pain due to onychomycosis of toenails of both feet- Primary Xerosis cutis Other specified disease of sebaceous glands documented in this encounter [facility] HealthcareEvaluation note* Diagnosis Pain due to onychomycosis of toenails of both feet- Primary Venous insufficiency Unspecified venous (peripheral) insufficiency Xerosis cutis Other specified disease of sebaceous glands documented in this encounter [facility] HealthcareEvaluation note* Diagnosis Pain due to onychomycosis of toenails of both feet- Primary Venous insufficiency Unspecified venous (peripheral) insufficiency Xerosis cutis Other specified disease of sebaceous glands documented in this encounter [facility] Summary Purpose Family History No Family [...] section and content) DATE CREATED AUTHOR 06/06/2021 [facility] DATE CREATED AUTHOR AUTHOR'S ORGANIZ ATION 12/20/2022 [facility] DATE CREATED AUTHOR AUTHOR'S ORGANIZ ATION 12/13/2024 [facility] DATE CREATED AUTHOR AUTHOR'S ORGANIZ ATION 02/19/2025 [facility] dical Specialists [facility] Care Teams (unrecognized sec tion and content) Unit Reactor Operator Relationship Specialty Start Date End Date Jarrett Vyas MD [address] [place] [address] PCP - General Family Medicine 07/17/23 Unit Reactor Operator Relationship Specialty Start Date End Date Jarrett Vyas MD [address] [place] [address] PCP - General Family Medicine 07/17/23 Unit Reactor Operator Relationship Specialty Start Date End Date Jarrett Vyas MD [address] [place] [address] PCP - General Family Medicine 07/17/23 Unit Reactor Operator Relationship Specialty Start Date End Date Jarrett Vyas MD [address] [place] [address] PCP - General Family Medicine 07/17/23 Unit Reactor Operator Relationship Specialty Start Date End Date Jarrett Vyas MD [address] [place] [address] PCP - General Family Medicine 07/17/23 Reason for Visit (unrecogniz ed section and content) Reason Comments Toenail Care Non DM Nails Reason Comments Toenail Care Non dm nail care Reason Comments Toenail Care FOR RECORDS PERTAINING TO PATIENTS WHO ARE [...] BE BASED ON THE PRIMARY CLINICAL RECORDS. [facility] [employer] [facility]. provides no warranty or guarantee of the accuracy or completeness of information in this document.
== END 2025-03-10 11:00 | disposition home or self-care (01) ==
LOC: RAD 10:59
PROVIDERS: PCP Family Medicine; Visit Provider Physician Assistant
DX: M25.511 Pain in right shoulder (principal)
CPT/HCPCS: 73030

== ENCOUNTER 2025-03-16 12:37 | Outpatient (RCR) | payer MEDICARE, OTHER, SELFPAY | END 2025-04-02 06:51 | disposition home or self-care (01) | LOC: PT 12:37 | PROVIDERS: PCP Family Medicine; Visit Provider Physician Assistant | DX: M75.101 Unspecified rotator cuff tear or rupture of right shoulder, not specified as traumatic (principal); M75.21 Bicipital tendinitis, right shoulder | CPT/HCPCS: 97110; 97112; 97162 ==

== ENCOUNTER 2025-06-14 07:48 | Outpatient (OUT) | payer MEDICARE, OTHER, SELFPAY ==
--- OUTSIDE RECORDS SUMMARY | 2025-06-14 07:51 | XMS_ITS | Encounter Summary ---
Author Organization [facility] Address [address] [place] [address] Care Team Providers Care Retail Management Keyholder Name Role Phone Wojciech Vyas MD Primary Care Provider [phone] Encounter Details DateTypeDepartmentCare Team (Latest Contact Info)Vncusotkpto99/19/2025Orders Only [facility] [address] [place] [address] Maria Teresa Leyva MA DOE (dyspnea on exertion) (Primary Dx) Social History Tobacco UseTypesPacks/DayYears UsedDateSmoking Tobacco: NeverSmokeless Tobacco: NeverAlcohol UseStandard Drinks/WeekCommentsYes0 (1 standard drink = 0.6 oz pure alcohol)occasionalUT Safety & EnvironmentAnswerDate RecordedFear of Current or Ex-PartnerNot on file09/04/2023Emotionally AbusedNot on file09/04/2023hysically AbusedNot on file09/04/2023Sexually AbusedNot on file09/04/2023hysically or Sexually AbusedNot on file09/04/2023Sex and Gender InformationValueDate Recorded Sex Assigned at BirthNot on fileLegal TrhVfra5408/29/2022 9:33 AM ESTGender IdentityNot on fileSexual OrientationNot on filedocumented as of this encounter Plan of Treatment DateTypeDepartmentCare Team (Latest Contact Info)Jqcofcnerqv94/31/2025 9:15 AM ESTOffice Visit [facility] [address] [place] [address] Edmund Coffman MD [address] [facility] [place] [address] NameTypePriorityAssociated DiagnosesOrder ScheduleTreadmill Stress Myocardial Perfusion ImagingCardiac ServicesRoutine LINDER (dyspnea on exertion) Expected: 06/01/2025 (Approximate), Expires: 06/01/2027documented as of this encounter Visit Diagnoses Diagnosis LINDER (dyspnea on exertion)- Primary Other dyspnea and respiratory abnormality documented in this encounter Care Teams Team MemberRelationshipSpecialtyStart DateEnd Date Wojciech Vyas MD [address] [facility] [place] [address] PCP - General11/07/22documented as of this encounter
--- OUTSIDE RECORDS SUMMARY | 2025-06-14 07:51 | XMS_ITS | Clinical Summary ---
Author Organization [facility] Address [address] [place] [address] Care Team Providers Care Botany Professor Name Role Phone Wojciech Vyas MD Primary Care Provider [phone] Allergies No known active allergies Medications MedicationSigDispense QuantityRefillsLast FilledStart DateEnd DateStatus Farxiga 10 MG 07/06/2023ctive diclofenac (Voltaren) 75 MG EC tablet Take 75 mg by mouth 2 (two) times a day as fqzygd2206/25/2023ctive furosemide (Lasix) 20 MG tablet Take 20 mg by mouth in the morning.04/14/2023ctive metoprolol succinate XL (Toprol-XL) 100 MG 24 hr tablet Take 100 mg by mouth in the morning.05/20/2023ctive Active Problems ProblemNoted DateDiagnosed DateImpacted tmeauht6510/01/2023Osteoarthritis of knee 10/01/2023iastolic heart moqloaa0411/27/2022OE (dyspnea on exertion)11/27/2022 Essential azwvadevgmzx41/17/2023Lower extremity edema11/27/2022ulmonary wizkiiwwhvrt59/17/2023Tricuspid valve aidhsdajhuauo45/17/2023 Encounters DateTypeDepartmentCare QbqoVuczdqdblwx95/30/2025 9:00 AM EDTProcedure Visit [facility] [address] [place] [address] Dakota Rocha DPM Pain due to onychomycosis of toenails of both feet (Primary Dx); Venous insufficiency; Xerosis cutis05/12/2025amboo flowsheet [facility] [address] [place] [address] Dakota Rocha DPM 05/12/2025Travelfrom Last 3 Months Family History Medical HistoryRelationNameCommentsDiabetesFatherHeart diseaseFatherHypertension FatherDiabetesMotherHeart diseaseMotherHypertensionMotherHypertensionOther RelationNameStatusCommentsFatherDeceasedMotherDeceasedOther Social History Tobacco UseTypesPacks/DayYears UsedDateSmoking Tobacco: NeverPassive Smoke Exposure: NeverSmokeless Tobacco: Never Tobacco Cessation:Counseling Given: Yes Alcohol UseStandard Drinks/WeekCommentsNot Currently0 (1 standard drink = 0.6 oz pure alcohol)Sex and Gender InformationValueDate RecordedSex Assigned at Not on fileLegal WagJmjn3809/25/2022 6:53 PM EDTGender IdentityNot on fileSexual OrientationNot on file Last Filed Vital Signs Vital SignReadingTime TakenCommentsBlood Jzwcypwu109/7803 10:37 AM EDT Tvmle714009/30/2024 10:37 AM EDTTemperature--Respiratory Soiu1566 8:58 AM EDTOxygen Saturation--Inhaled Oxygen Concentration--Hjfwqj740 kg (268 lb) 05/12/2025 8:58 AM LLFWnefoe040.9 cm (6')05/12/2025 8:58 AM EDTBody Mass Index 36.351 8:58 AM EDT Plan of Treatment DateTypeDepartmentCare Team (Latest Contact Info)Xgrnkloofjy76/22/2026 9:10 AM ESTProcedure Visit [facility] 112 [facility] [address] [place] [address] Dakota Rocha, ELVER [address] [facility] [address] [place] [address] Health MaintenanceDue DateLast DoneCommentsCT Amboqpdcjskp1957Colonoscopy 1957Colorectal Cancer Kymzqkugm1957FIT-DNA1957FIT1955 FOBT05/02/19578228Bqbhrggjnhoky1957Pneumococcal Vaccine: 65+ Years (1 of 1 - PCV)2007COVID-19 Vaccine (2024- season), 11/22/2020Influenza Vaccine (#1)2025 Insurance Care Teams Team MemberRelationshipSpecialtyStart Date Wojciech Vyas MD [address] [place] [address] PCP - GeneralFamily Medicine07/17/23
--- OUTSIDE RECORDS SUMMARY | 2025-06-14 07:51 | XMS_ITS | Clinical Summary ---
Author Organization [facility] Address [address] [place] [address] Care Team Providers Care Client Development Manager Name Role Phone Wojciech Vyas MD Primary Care Provider Allergies No known active allergies Medications MedicationSigDispense QuantityRefillsLast FilledStart DateEnd DateStatus metoprolol succinate XL (Toprol-XL) 100 mg 24 hr tablet Take 100 mg by mouth in the morning.08/20/2022ctive lansoprazole (Prevacid) [address] capsule Take 15 mg by mouth before breakfast. Do not crush or chew.Active aspirin 81 mg EC tablet Take 81 mg by mouth in the morning.Active diclofenac (Voltaren) 75 mg EC tablet Take 75 mg by mouth in the morning.06/25/2023ctive spironolactone (Aldactone) 25 mg tablet Indications:LINDER (dyspnea on exertion)TAKE 1 TABLET BY MOUTH EVERY DAY IN THE MORNING 90 tablet 5Active furosemide (Lasix) 20 mg tablet Indications:Dyspnea on exertionTake 2 tablets (40 mg) by mouth in the morning. 180 tablet [id number]/ctive Additional Information Patient taking differently:40 mg oral Daily,1 29 mg tab, next day 2 20 mg tabs, Reported on 12/13/2024 dapagliflozin propanediol (Farxiga) 10 mg Indications:Chronic diastolic congestive heart failure (CMS/HCC)Take 1 tablet (10 mg) by mouth in the morning. 90 tablet 309509/ctive Active Problems ProblemNoted DateDiagnosed EbovWppmeu79/07/2025Hearing loss03/24/2024Impacted /Osteoarthritis of kneeulmonary ywkypjvoiecs72/17/2023 Assessment & Plan (03/29/2024 1:22 PM EDT): Stable no concerning symptoms or worsening SOB or orthopnea Tricuspid valve gtgzivkkbfkpg28/17/2023OE (dyspnea on exertion)11/27/2022 Essential ziieydmyxpue26/17/2023 Assessment & Plan (03/29/2024 1:21 PM EDT): Hypertension is currently well controlled Renal function has remained stable Continue toprol, aldactone and lasix Diastolic heart hgungtf8711/27/2022 Assessment & Plan (03/29/2024 1:21 PM EDT): NYHC II remains euvolemic without exacerbation or activity limiting symptoms Continue GDMT- continue lasix daily and aldactone Diuretic therapy Monitor daily weights, I&O, fluid restriction 1.5-2L/day, renal function and electrolytes- Lower extremity edema11/27/2022 Encounters DateTypeDepartmentCare KqenExwbafpueqr22/19/2025Orders Only [facility] [address] [place] [address] Maria Teresa Leyva MA LINDER (dyspnea on exertion) (Primary Dx)03/18/2025Refill [facility] [address] [place] [address] Maria Teresa Leyva MA Chronic diastolic congestive heart failure (CMS/HCC)from Last 3 Months Immunizations ImmunizationAdministration DatesNext DueUnspecified Sars-Cov-2 Vaccination 06/22/2021Zoster, Izazqoewjlv95/05/2023,07/16/2022 Family History Medical HistoryRelationNameCommentsHeart attackFatherHeart failureMotherRelation NameStatusCommentsFatherDeceasedMotherDeceased Social History Tobacco UseTypesPacks/DayYears UsedDateSmoking Tobacco: NeverSmokeless Tobacco: Never Tobacco Cessation:Counseling Given: Not Answered Alcohol UseStandard Drinks/WeekCommentsYes0 (1 standard drink = 0.6 oz pure alcohol)occasionalUT Safety & EnvironmentAnswerDate RecordedFear of Current or Ex-PartnerNot on file09/04/2023Emotionally AbusedNot on file09/04/2023hysically AbusedNot on file09/04/2023Sexually AbusedNot on file09/04/2023hysically or Sexually AbusedNot on file09/04/2023Sex and Gender InformationValueDate Recorded Sex Assigned at BirthNot on fileLegal TvqMqor5008/29/2022 9:33 AM ESTGender IdentityNot on fileSexual OrientationNot on file Last Filed Vital Signs Vital SignReadingTime TakenCommentsBlood Kusoepjz221/8106 9:23 AM EDT Ibtyp658112/13/2024 9:23 AM EDTTemperature--Respiratory Rate--Oxygen Zlrhiqbcip58% 12/13/2024 9:23 AM EDTInhaled Oxygen Concentration--Kfykjr326 kg (269 lb) 12/13/2024 9:23 AM EFGQgyhga079.9 cm (6')12/13/2024 9:23 AM EDTBody Mass Index 36.48012/13/2024 9:23 AM EDT Plan of Treatment DateTypeDepartmentCare Team (Latest Contact Info)Exdwoukfmlv24/31/2025 9:15 AM ESTOffice Visit [facility] [address] [address] Edmund Coffman MD [address] [facility] [address] [facility] [place] [address] Health MaintenanceDue DateLast DoneCommentsCT Jmbzubgxyzex1957Colonoscopy 1957Colorectal Cancer Ldvkzgbyo1957FIT-DNA1957FIT1957 FOBT1957Medicare Annual Wellness (AWV)05/02/19571741Fifqcdayzlncb1957 Depression Yudogbcpt46/20/1969Pneumococcal Vaccine: 50+ Years (1 of 2 - PCV) 1976Adult Igbrikt5205/02/1979Fall Risk Ymusmcbix29/20/2022COVID-19 Vaccine (2024- season)5108/23/2020, 06/22/2021, 11/22/2020Influenza Vaccine (#1)2025Zoster IbaxfxvpInancirhw86/05/2023, 07/16/2022HIB Vaccines Aged OutNo longer eligible based on patient's age to complete this topicHPV VaccinesAged OutNo longer eligible based on patient's age to complete this topic IPV VaccinesAged OutNo longer eligible based on patient's age to complete this topicMeningococcal B VaccineAged OutNo longer eligible based on patient's age to complete this topicMeningococcal VaccineAged OutNo longer eligible based on patient's age to complete this topicRotavirus VaccinesAged OutNo longer eligible based on patient's age to complete this topic Insurance Care Teams Team MemberRelationshipSpecialtyStart DateEnd Wojciech Vyas MD [address] [facility] [address] [address] [facility]11/07/22
--- NOTE | 2025-06-14 09:54 | PC.NURSE ---
Nursing Note Cardiac Stress Test Reviewed: Medication, allergies and patient history reviewed. Stress Test: [x ] Patient tolerated stress test well. [ ] Patient unable to tolerate walking on treadmill. Switched to Lexiscan stress test. [] No chest pain noted per patient [x ] Chest pain that resolved prior to leaving stress lab. [ ] No dyspnea noted. [x ] Dyspnea that resolved prior to leaving stress lab. [ ] Patient left stress lab asymptomatic and hemodynamically stable. [ ] Patient taken to the Emergency Room due to non-resolving symptoms following stress test. [x ] Patient achieved target heart rate. [ ] Patient unable to achieve target heart rate. [ ] Aminophylline administered as reversal agent to Lexiscan (Regadenoson). [ ] Nitro administered. Nursing Comments:Pt had cardioliit test done tolerated well chest pain resolved prior to leaving stress lab.
--- NOTE | 2025-06-14 16:02 | PM.STRESS ---
Stress Test Stress Test Requesting physician: JACQUELYN AGUILAR Procedure: Treadmill nuclear stress test General Information: Reason for Stress Test: Dyspnea with exertion Cardiac History and Risk Factors: Hypertension Resting 12 - Lead Electrocardiogram: Sinus rhythm with normal intervals with poor R wave progression and low amplitude R waves in the precordial leads Stress Test: Protocol: Osvaldo protocol Exercise Capacity: Patient exercised for 3 minutes and 2 seconds achieving a work level of 4.6 METS reaching stage 1. Blood Pressure Response: Patient had a baseline blood pressure of 108/70 that increased to 150/72 at peak exercise which is an expected normal response. Rhythm: Sinus rhythm with a base heart rate of 75 bpm that increased to 151 bpm ruling out chronotropic incompetence. PVCs that were noted during exercise. ST - Response: Significant baseline artifact made interpretation very difficult. Minimal ST segment depression seen on lead II and any other leads Patient Response: Chest tightness Interpretation: Interpretation: 1. No criteria for ischemia noted on EKG albeit presence of baseline artifact made this challenging. 2. Abnormal heart rate recovery but normal chronotropic response 3. Gaffney treadmill score indicates medium risk for adverse cardiac events 4. Nuclear portion of the study to be dictated separate
== END 2025-06-14 07:49 | disposition home or self-care (01) ==
LOC: CARD 07:48
PROVIDERS: PCP Family Medicine; Visit Provider Internal Medicine Interventional Cardiology
DX: R06.09 Other forms of dyspnea (principal)
CPT/HCPCS: 78452; 93017; A9500

== ENCOUNTER 2025-06-15 07:48 | Outpatient (OUT) | payer MEDICARE, OTHER, SELFPAY ==
--- OUTSIDE RECORDS SUMMARY | 2025-06-15 07:51 | XMS_ITS | CCD ---
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 Name Role Phone ABDIEL ., DR FARIAS [...] Unavailable HOY ., DR FARIAS Attending Unavailable ALPINE, DR ELTON Parikh Consulting Unavailable Jarrett Vyas MD Primary Care Provider [phone] Jarrett Vyas MD Primary Care Provider [phone] HAYLEY KIRBY Attending Unavailable JACQUELYN AGUILAR Attending Unavailable JACQUELYN AGUILAR Attending Unavailable Tulio Ortiz DO Attending Provider [phone] Jarrett Vyas MD Primary Care Provider [phone] Jarrett Vyas MD Primary Care Provider [phone] [phone] DAKOTA ROCHA Attending Unavailable DAKOTA ROCHA Attending Unavailable DAKOTA ROCHA Attending Unavailable DAKOTA ROCHA Attending Unavailable DAKOTA ROCHA Attending Unavailable Allergies Allergy ClassificationReported Allergen(s)Allergy TypeDate of OnsetReaction(s) Facility (1 source)IodineDrug Zbkgyxq14-11-1769[facility] Medications Current Medications MedicationDrug Class(es)DatesSig (Normalized)Sig (Original)aspirin 81 mg oral tablet (2 sources)Platelet Aggregation Inhibitor, Nonsteroidal Anti-inflammatory Drug Start: 59-18-1045bcny 1 tablet by mouth once dailyAspirin 81 mg tablet Active 81 MG PO Daily March 10, 2025 12:00am Complies with drug therapydapagliflozin 10 mg oral tablet (14 sources)Sodium-Glucose Cotransporter 2 InhibitorStart: 56-85-5591Xhifwus 10 MG 07/06/2023 Activediclofenac sodium 75 mg delayed release oral tablet (14 sources)Nonsteroidal Anti-inflammatory DrugStart: 95-90-3834quqn 1 tablet by mouth twice daily as neededdiclofenac (Voltaren) 75 MG EC tablet Take 75 mg by mouth 2 (two) times a day as needed 06/25/2023 Activefurosemide 20 mg oral tablet (14 sources)Loop DiureticStart: 52-73-4923dsmo 1 tablet by mouth in the morning furosemide (Lasix) 20 MG tablet Take 20 mg by mouth in the morning. 04/14/2023 Activelansoprazole 30 mg delayed release oral capsule (2 sources)Proton Pump InhibitorStart: 81-98-1018hvao 1 capsule by mouth once dailyLansoprazole (Prevacid) 30 mg capsule,delayed release(DR/EC) Active 30 MG PO Daily March 10, 2025 12:00am Complies with drug ysmxmuj08 hr metoprolol succinate 100 mg extended release oral tablet (14 sources)beta-Adrenergic BlockerStart: 76-48-5303llax 1 tablet by mouth every twenty-four hours in the morningmetoprolol succinate XL (Toprol-XL) 100 MG 24 hr tablet Take 100 mg by mouth in the morning. 05/20/2023 Activespironolactone 25 mg oral tablet (2 sources)Aldosterone AntagonistStart: 78-11-0572Nhgsmysdzmibyo 25 mg tablet Active MG PO March 10, 2025 12:00am Complies with drug therapy Problems Active Problems Problem ClassificationProblemDateDocumented DateEpisodic/ChronicCongestive heart failure; nonhypertensive (20 sources)Unspecified diastolic (congestive) heart failure; Translations: [Diastolic heart failure]Onset: 63-35-6244GdqqyvtImirthzaz of lipid metabolism (1 source)Hyperlipidemia, unspecified; Translations: [HYPERLIPIDEMIA UNSPECIFIED]Onset: 28-17-6395KzbdhxpIglriitvam disorders (1 source)Gastro-esophageal reflux disease without esophagitis; Translations: [GERD WITHOUT ESOPHAGITIS]Onset: 93-38-1472RifizwcIaslsyhzq hypertension (17 sources)Essential (primary) hypertension; Translations: [Essential hypertension]Onset: 194148-09-1721VkvcbxyWrvgs valve disorders (14 sources)Tricuspid valve regurgitation; Translations: [Rheumatic tricuspid insufficiency]Onset: 996516-90-2814MiaiwgoLjvreewaowop with complications and secondary hypertension (1 source)Hypertensive heart disease with heart failure; Translations: [HTN HEART DISEASE W/HEART FAIL]Onset: 08-80-2010OznnlkmGusgcwg (5 sources)Pain in toe; Translations: [Tinea unguium]82-47-7987Jpxuezmv Osteoarthritis (14 sources)Osteoarthritis of knee; Translations: [Osteoarthritis of knee, unspecified]Onset: 607867-23-3321JstseegFgeoy connective tissue disease (3 sources)Right rotator cuff syndrome; Translations: [Unspecified rotator cuff tear or rupture of right shoulder, not specified as traumatic]32-55-9146Niuwarmy Other connective tissue disease (5 sources)Biceps tendinitis; Translations: [Bicipital tendinitis, right shoulder]55-69-8970XwulwsomWxjnc connective tissue disease (3 sources)Tear of right rotator cuff; Translations: [Unspecified rotator cuff tear or rupture of right shoulder, not specified as traumatic]97-75-3275Urxbckdo Other diseases of veins and lymphatics (4 sources)Vascular insufficiency; Translations: [Venous insufficiency (chronic) (peripheral)]60-34-0195QdhloasqYfpry lower respiratory disease (4 sources)Other forms of dyspnea; Translations: [OTHER FORMS OF DYSPNEA]Onset: 67-26-8810PynxmuzxHkpen lower respiratory disease (2 sources)Shortness of breath; Translations: [Shortness of breath]Onset: 41-70-7940DgbjsmslOgwvx non-traumatic joint disorders (2 sources)Pain in right shoulder; Translations: [Right shoulder pain]03-09-2025 EpisodicOther skin disorders (5 sources)Asteatosis cutis; Translations: [Xerosis cutis]10-63-6951Yopjaawj Pulmonary heart disease (14 sources)Pulmonary hypertension; Translations: [Pulmonary hypertension, unspecified]Onset: hronic Past or Other Problems Problem ClassificationProblemDateDocumented DateEpisodic/ChronicDiabetes mellitus without complication (1 source)Other abnormal glucose; Translations: [OTHER ABNORMAL GLUCOSE]Onset: 29-21-6586MdjftiwpAdacnwspbth chest pain (5 sources)Chest pain, unspecified; Translations: [CHEST PAIN UNSPECIFIED]Onset: 86-80-5113OjgndovqEtssf ear and sense organ disorders (12 sources)Impacted cerumen; Translations: [Impacted cerumen, unspecified ear] Onset: 886161-52-8446QhjqwqhjEhoat lower respiratory disease (12 sources)Dyspnea on exertion; Translations: [Other forms of dyspnea]Onset: 339865-42-1237AgnifynwFuoou non-traumatic joint disorders (5 sources)Pain in unspecified knee; Translations: [PAIN IN UNSPECIFIED KNEE] Onset: 60-38-7296AipwfherXoqvv screening for suspected conditions (not mental disorders or infectious disease) (2 sources)Encounter for screening for malignant neoplasm of prostate; Translations: [Encounter for screening for malignant neoplasm of rectum]Onset: 65-88-8624EzslrafyCweyurno codes; unclassified (12 sources)Edema of lower extremity; Translations: [Localized edema]Onset: 584966-31-8757Kkviapuy Results Test NameValueInterpretationReference RangeFacilityOffice Visiton 12-13-2024 Follow-up [id number] Yuan Wilson 1955 M Date Provider Department Center 12/13/2024 JACQUELYN MERA [facility] Family History Problem Relation Age of Onset Heart failure Mother Heart attack Father Family Status - Relation Status Age at Mother Father Level of Service:93521 [place] OFFICE/OUTPATIENT ESTABLISHED MOD MDM 30 [facility]36on 55-91-467108Pyjmssctj lab results from 10/28/2024: and PFT's from 10/07/2024: MD [...] with Dr. Aguilar. Referral to Dr. Hanks sent.[facility] 29on 45-09-067449Ifsgrtro by: YOLETTE HDZ on: 10/27/2024 11:58 AM Modules accepted: OrdersNormalUniSouthern [place] Medical Center36on 10-27-2024 36Patient called to make you aware that the [...] to this thread because I am off tomorrow.)[facility]36on 01-66-855966Tfnfiet called back. He will double his lasix to 40mg daily and have BMP in 1 week. Order faxed to [facility]. Patient verbalized understanding.[facility]36on 57-98-750805Ywtjrbcso echo result from 10/07/2024: MD Yolette Turner MA I want him to increase furosemide to 40 mg daily. He will need the BMP I had ordered to be done 1 week after the increase. LM for patient to return my call.[facility] Telephoneon [id number] Yuan Wilson 1955 M Date Provider Department Center 10/18/2024 928-YOLETTE HDZ CARD [facility] Family History Problem Relation Age of Onset Heart failure Mother Heart attack Father Family Status - Relation Status Age at Mother FatherNormalUniSouthern [place] Medical CenterOffice Visiton 92-28-2964Czmzem- up [id number] Yuan Wilson 1955 M Date Provider Department Center 09/17/2024 JACQUELYN MERA [facility]3] Hos Family History Problem Relation Age of Onset Heart failure Mother Heart attack Father Family Status - Relation Status Age at Mother Father Level of Service:00189 [place] OFFICE/OUTPATIENT ESTABLISHED MOD MDM 30 [facility] CenterOffice [facility] 24-30-3608Zpjoes-up visit [id number] Yuan Wilson 1955 M Date Provider Department Center 03/29/2024 HAYLEY SALMON [facility]3] [facility] Family History Problem Relation Age of Onset Heart failure Mother Heart attack Father Family Status - Relation Status Age at Mother Father Level of Service:94741 MI OFFICE/OUTPATIENT ESTABLISHED LOW MDM 20 [facility] CenterMRI HEAD/BRAIN WO/W CONTRon 88-74[place]79[place], [place] [address] Magnetic Resonance Report Signed Patient: YUAN WILSON MR#: [id number] : 1955 Acct:[id number] Age/Sex: 68 / M ADM Date: 01/26/24 Loc: LAB Attending Dr: Rosemary Panchal M.D. Ordering Physician: Rosemary Panchal M.D. Date of Service: 01/26/24 Procedure(s): MR head/brain wo/w con Accession Number(s): [id number] cc: Jarrett Vyas M.D.; Rosemary Panchal M.D. [place] [address] Patient Name: YUAN WILSON MRN: TB[facility]:[id number] date: 1955 Sex: M Assigned Patient Location: LAB Current Patient Location: LAB Accession/Order Number: [id number] Exam Date: 01/26/2024 07:00 Report Date: 01/26/2024 13:28 At the request of: ROSEMARY PANCHAL Procedure: MR head/brain wo/w con EXAM: MR [...] Signed By: 01/26/24 1330 DD/ 1328 TD/TT: Roll Skinner:CARMENHRadiology, Radiologist, - 01/26/2024 [place] [address] Magnetic Resonance Report Signed Patient: YUAN WILSON MR#: [id number] : 1955 Acct:[id number] Age/Sex: 68 / M ADM Date: 01/26/24 Loc: LAB Attending Dr: Rosemary Panchal M.D. Ordering Physician: Rosemary Panchal M.D. Date of Service: 01/26/24 Procedure(s): MR head/brain wo/w con Accession Number(s): [id number] cc: Jarrett Vyas M.D.; Rosemary Panchal M.D. [address] [place] [address] Patient Name: YUAN WILSON MRN: [facility]:[id number] date: 1955 Sex: M Assigned Patient Location: LAB Current Patient Location: LAB Accession/Order Number: [id number] Exam Date: 01/26/2024 07:00 Report Date: 01/26/2024 13:28 At the request of: ROSEMARY PANCHAL Procedure: MR head/brain wo/w con EXAM: MR [...] By: GARCIA YUAN M.D. Signed By: 01/26/24 1339 DD/ 1328 TD/TT: Roll Skinner: SVEN HealthcareRadiology Study observation (narrative)SVEN HealthcareMRI HEAD/BRAIN WO/W CONTROrdered By: Radiologist Radiology on 93-59-5057[facility] Work Phone: PROF CHEM 8 (BAS METB)on 48-22-0896Pibyo gap [Moles/Vol]9.9 mmol/LNormalThe [facility] HospitalComment on above:Performed By: #### BMP #### [facility] [address] [address] [address] Nataly FryeCalcium [Mass/Vol]7.9 mg/dLCritically low8.5-10.1The [facility] HospitalComment on above:Performed By: #### BMP #### [facility] [address] [place] [address] [address] Nataly FryeChloride [Moles/Vol]104 mmol/BDhsttp46-876Qqs [facility] Comment on above:Performed By: #### BMP #### [facility] [address] [place] [address] Dr. Nataly FryeCO2 [Moles/Vol]33.8 mmol/LCritically high21.0-32.0The [facility] HospitalComment on above:Performed By: #### BMP #### [facility] [address] [place] [address] Dr. Nataly FryeCreatinine [Mass/Vol]1.19 mg/dLNormal0.70-1.30The [facility] HospitalComment on above:Performed By: #### BMP #### [facility] [address] [place] [address] Dr. Nataly FortuneGFR-AF SWEDISH>60Normal>=60The [facility] HospitalComment on above:Performed By: #### BMP #### [facility] [address] [place] [address] Dr. Nataly FortuneGFR-NON AF SWEDISH>60Normal>=60The [facility] HospitalComment on above:Performed By: #### BMP #### [facility] [address] [address] [address] Nataly FryeGlucose [Mass/Vol]130 mg/dLCritically dvhg37-612Jnr [facility] HospitalComment on above:Performed By: #### BMP #### [facility] [address] [place] [address] Dr. Nataly FryePotassium [Moles/Vol]3.7 mmol/LNormal3.5-5.1The [facility] Comment on above:Performed By: #### BMP #### [facility] [address] [place] [address] [address] Nataly Patinodium [Moles/Vol]144 mmol/EKmjytd284-636Tqi [facility] Comment on above:Performed By: #### BMP #### [facility] [address] [place] [address] Dr. Nataly FryeUrea nitrogen [Mass/Vol]18.0 mg/dLNormal7.0-18.0The [facility] HospitalComment on above:Performed By: #### BMP #### [facility] [address] [place] [address] Dr. Nataly Cee nitrogen/Creatinine [Mass ratio]15.1 mg/mgNormalThe [facility] HospitalComment on above:Performed By: #### BMP #### [facility] [address] [place] [address] Dr. Nataly Kirby 40-19-7823Otftqccuxuu peptide B (Bld) [Mass/Vol]58.0 pg/mL Normal<=900.0The [facility] HospitalComment on above:Performed By: #### BMP, BNP #### [facility] [address] [place] [address] Dr. Nataly Jean CHEM 8 (BAS METB)on 38-99-4350Bknlc gap [Moles/Vol]9.6 mmol/LNormalThe [facility] HospitalComment on above:Performed By: #### BMP, BNP #### [facility] [address] [place] [address] Dr. Nataly FryeCalcium [Mass/Vol]7.3 mg/dLCritically low8.5-10.1The [facility] HospitalComment on above:Performed By: #### BMP, BNP #### [facility] [address] [place] [address] Dr. Nataly FryeChloride [Moles/Vol]104 mmol/KEcciof06-368Axq [facility] Comment on above:Performed By: #### BMP, BNP #### [facility] [address] [place] [address] Dr. Nataly FryeCO2 [Moles/Vol]34.7 mmol/LCritically high21.0-32.0The [facility] HospitalComment on above:Performed By: #### BMP, BNP #### [facility] [address] [address] [address] Nataly FryeCreatinine [Mass/Vol]1.33 mg/dLCritically high0.70-1.30The [facility] HospitalComment on above:Performed By: #### BMP, BNP #### [facility] [address] [place] [address] [address] Ingram ChangEGFR-AF SWEDISH>60Normal>=60The [facility] HospitalComment on above:Performed By: #### BMP, BNP #### [facility] [address] [address] [address] Nataly FortuneGFR-NON AF TFXZSDGY62 mL/min/1.90s3Pflywkfjci low>=60The [facility] HospitalComment on above:Performed By: #### BMP, BNP #### [facility] [address] [place] [address] [address] Nataly FryeGlucose [Mass/Vol]146 mg/dLCritically ayna99-715Yig [facility] HospitalComment on above:Performed By: #### BMP, BNP #### [facility] [address] [place] [address] [address] Nataly FryePotassium [Moles/Vol]3.3 mmol/LCritically low3.5-5.1The [facility] HospitalComment on above:Performed By: #### BMP, BNP #### [facility] [address] [place] [address] [address] Nataly FryeSodium [Moles/Vol]145 mmol/TVoryly728-050Esk [facility] Comment on above:Performed By: #### BMP, BNP #### [facility] [address] [place] [address] [address] Nataly FryeUrea nitrogen [Mass/Vol]22.0 mg/dLCritically high7.0-18.0The [facility] HospitalComment on above:Performed By: #### BMP, BNP #### [facility] [address] [place] [address] [address] Nataly FryeUrea nitrogen/Creatinine [Mass ratio]16.5 mg/mgNoSalem City HospitalComment on above:Performed By: #### BMP, BNP #### [facility] [address] [place] [address] [address] Ingram ChangECHOCARDIO M/2D COMPLETEon 69-99-0970ONFNVAJULY M/2D COMPLETE Patient: YUAN WILSON Exam Date: 08/27/2022 : 1955 Gender:M Ordering : DR JARRETT VYAS . Admission #: [id number] Family : Order #: [id number] CLICK HERE TO VIEW EXAM ECHOCARDIOGRAM REPORT [...] by: Marni Ritter M.D. on 08/27/2022 at 12:17[facility] STRESS/REST MULTIon 32-31-5596MI STRESS/REST MULTIPatient: YUAN WILSON Exam Date: 08/26/2022 : 1955 Gender:M Ordering : DR JARRETT VYAS . Admission #: [id number] Family : Order #: [id number] CLICK HERE TO VIEW EXAM RADIOLOGY REPORT [...] by: Elton Saba MD on 08/28/2022 at 06:12[facility] INSULINon 04-29-0393Rgdflda87.8 uIU/mLNormal2.6-24.9The [facility] HospitalComment on above:Performed By: #### INSULIN ####[facility] [address] [place], [place] [address]MgDr. Nataly Kirby 67-92-3919Udencvrlxyh peptide B (Bld) [Mass/Vol]140.0 pg/mLNormal<=900.0The [facility] HospitalComment on above:Performed By: #### LIPID, URIC, BNP, T7, TSH, CMP #### [facility] [address] [place], [place] [address] Dr. Nataly Forde AUTO DIFFon 86-82-5466FQFL #0.0 103/ulNormal0.0-0.1The [facility] HospitalComment on above:Performed By: #### CBC #### [facility] [address] [place] [address] [address] Nataly FryeBasophils/100 WBC (Bld)0.6 %Normal0.2-2.0[facility] Comment on above:Performed By: #### CBC #### [facility] [address] [place] [address] Dr. Nataly Schreiber #0.1 103/ulNormal0.0-0.7The [facility] HospitalComment on above: Performed By: #### CBC #### [facility] [address] [place] [address] Dr. Nataly Fortuneosinophils/100 WBC (Bld)2.7 %Normal0.9-7.0[facility] Comment on above:Performed By: #### CBC #### [facility] [address] [place] [address] Dr. Nataly Fortunerythrocyte distribution width (RBC) [Ratio]18.1 %Critically high 11.0-15.0[facility] HospitalComment on above:Performed By: #### CBC #### [facility] [address] [place] [address] Dr. Nataly Boggsatocrit (Bld) [Volume fraction]30.2 %Critically low42.0-54.0 The [facility] HospitalComment on above:Performed By: #### CBC #### [facility] [address] [place] [address] Dr. Nataly FryeHemoglobin (Bld) [Mass/Vol]8.8 g/dLCritically low14.0-18.0[facility] HospitalComment on above:Performed By: #### CBC #### [facility] [address] [place] [address] Dr. Nataly Moore #0.06 10e3/ulCritically high0.00-0.03[facility] Comment on above:Performed By: #### CBC #### [facility] [address] [place] [address] Dr. Nataly Moore %1.3 %Critically high0.0-0.5The [facility] HospitalComment on above:Performed By: #### CBC #### [facility] [address] [place] [address] Dr. Nataly Lim #1.7 103/ulNormal1.2-3.8The [facility] HospitalComment on above:Performed By: #### CBC #### [facility] [address] [place] [address] Dr. Nataly Almaguerhocytes/100 WBC (Bld)36.6 %Igjvqo72.5-60.0The [facility] HospitalComment on above:Performed By: #### CBC #### [facility] [address] [place] [address] Dr. Nataly Sharma DIFF REQNONormalThe [facility] HospitalComment on above: Performed By: #### CBC #### [facility] [address] [place] [address] Dr. Nataly Freitas (RBC) [Entitic mass]25.5 pgCritically low25.9-34.0The [facility] HospitalComment on above:Performed By: #### CBC #### [facility] [address] [place] [address] Dr. Nataly Valenzuela (RBC) [Mass/Vol]29.1 g/dLCritically low29.9-35.2The [facility] HospitalComment on above:Performed By: #### CBC #### [facility] [address] [place] [address] Dr. Nataly Giraldo (RBC) [Entitic vol]87.5 bFMlayvt83.0-94.0The [facility] HospitalComment on above:Performed By: #### CBC #### [facility] [address] [place] [address] Dr. Nataly Motley #0.5 103/ulNormal0.3-0.8The [facility] HospitalComment on above:Performed By: #### CBC #### [facility] [address] [place] [address] Dr. Yilan ChangMonocytes/100 WBC (Bld)11.0 %Normal1.7-12.0The [facility] Comment on above:Performed By: #### CBC #### [facility] [address] [place] [address] Dr. Nataly Beyer #2.3 103/ulNormal1.4-6.5The [facility] HospitalComment on above:Performed By: #### CBC #### [facility] [address] [place] [address] Dr. Nataly Garciautrophils/100 WBC (Bld)47.8 %Vtwjyn92.0-75.0The [facility] HospitalComment on above:Performed By: #### CBC #### [facility] [address] [place] [address] Dr. Nataly Mckeonlet mean volume (Bld) [Entitic vol]9.5 fLNormal9.5-13.5The [facility] HospitalComment on above:Performed By: #### CBC #### [facility] [address] [place] [address] Dr. Nataly FryePLT172 103/hpMqukrp362-126Glg [facility] HospitalComment on above: Performed By: #### CBC #### [facility] [address] [place] [address] Dr. Nataly FryeRBC3.45 106/ulCritically low4.70-6.10The [facility] HospitalComment on above:Performed By: #### CBC #### [facility] [address] [place] [address] Dr. Nataly FryeWBC4.7 103/ulNormal4.0-11.0The [facility] HospitalComment on above: Performed By: #### CBC #### [facility] [address] [place] [address] Dr. Nataly Jorgensen THYROXINE INDEX T7on 30-25-6207GHX6.55Wcdhhu4.30-4.50The [facility] HospitalComment on above:Performed By: #### LIPID, URIC, BNP, T7, TSH, CMP #### [facility] [address] [place] [address] [address] Nataly FryeT3U34.0 %Orbsud85.0-40.0[facility] HospitalComment on above: Performed By: #### LIPID, URIC, BNP, T7, TSH, CMP #### [facility] [address] [place] [address] [address] Nataly FryeT4 [Mass/Vol]6.40 ug/dLNormal4.50-12.10The [facility] Comment on above:Performed By: #### LIPID, URIC, BNP, T7, TSH, CMP #### [facility] [address] [place] [address] [address] Nataly FryeGLYCOHEMOGLOBIN A1Con 59-61-0725YMX RECOMMENDATIONSEE BELOWGlenbeigh HospitalCommclaren bay special care hospital on above:Result Comment: ADA RECOMMENDED LIMIT 4.0 - 6.0 ADA THERAPEUTIC TARGET < 7.0 ACTION SUGGESTED > 7.0Performed By: #### A1C ####[facility] [address] [place] [address]Dr. Nataly FryeHbA1c (Bld) [Mass fraction]5.6 %Normal4.5-6.2[facility] Comment on above:Performed By: #### A1C ####[facility] [address] [place] [address]Dr.Yilan FryeLIPID PROFILEon 08-14-2022 CHOL-HDL RATIO NORMSEE [facility] HospitalCommclaren bay special [facility] hospital on above:Result Comment: 3.3 - 4.4 LOW RISK 4.4 - 7.1 AVERAGE RISK 7.1 - 11.0 MODERATE RISK >11.0 HIGH RISKPerformed By: #### LIPID, URIC, BNP, T7, TSH, CMP #### [facility] [address] [place] [address] [address] Nataly FryeCholesterol [Mass/Vol]106 mg/dLNormal<=200[facility] Comment on above:Performed By: #### LIPID, URIC, BNP, T7, TSH, CMP #### [facility] [address] [place] [address] [address] Nataly FryeCholesterol in HDL [Mass/Vol]25 mg/dLCritically zyn87-12Jtq [facility] on above:Performed By: #### LIPID, URIC, BNP, T7, TSH, CMP #### [facility] [address] [place] [address] Dr. Nataly Eddyesterol in LDL [Mass/Vol]34.6 mg/dLMansfield Hospital on above:Performed By: #### LIPID, URIC, BNP, T7, TSH, CMP #### [facility] [address] [place] [address] Dr. Nataly Gil.total/Cholesterol in HDL [Mass ratio]4.2 {ratio} NormalThe [facility] on above:Performed By: #### LIPID, URIC, BNP, T7, TSH, CMP #### [facility] [address] [place] [address] Dr. Nataly Acosta NORMAL> or = 60 mg/dl - LOW CARDIOVASCULAR RISK <40 mg/dl - HIGH CARDIOVASCULAR RISKKettering Memorial HospitalCommclaren bay special care hospital on above:Performed By: #### LIPID, URIC, BNP, T7, TSH, CMP #### [facility] [address] [place] [address] Dr. Nataly Henriquez CALC NORMALSEE BELOWKettering Memorial HospitalCommclaren bay special care hospital on above:Result Comment: <100 mg/dl OPTIMAL 100 - 129 mg/dl NEAR OR ABOVE OPTIMAL 130 - 159 mg/dl BORDERLINE HIGH 160 - 189 mg/dl HIGH >190 mg/dl VERY HIGH Performed By: #### LIPID, URIC, BNP, T7, TSH, CMP #### [facility] [address] [place] [address] Dr. Nataly FryeTriglyceride [Mass/Vol]232 mg/dLCritically high<=150The [facility] on above:Performed By: #### LIPID, URIC, BNP, T7, TSH, CMP #### [facility] [address] [place] [address] Dr. Nataly MendozaLDL CALC46.4 mg/dLMount St. Mary Hospitalment on above: Performed By: #### LIPID, URIC, BNP, T7, TSH, CMP #### [facility] [address] [place] [address] Dr. Nataly Jean 14(COMP METB)on 09-67-7749Fsmldap [Mass/Vol]3.3 g/dL Critically low3.4-5.0The [facility] HospitalComment on above:Performed By: #### LIPID, URIC, BNP, T7, TSH, CMP #### [facility] [address] [place] [address] Dr. Nataly FryeAlbumin/Globulin [Mass ratio]1.0 {ratio}NormalThe [facility] HospitalComment on above:Performed By: #### LIPID, URIC, BNP, T7, TSH, CMP #### [facility] [address] [place] [address] Dr. Nataly Salas [Catalytic activity/Vol]86 U/FZjmjtg93-319Hse [facility] HospitalComment on above:Performed By: #### LIPID, URIC, BNP, T7, TSH, CMP #### [facility] [address] [place] [address] Dr. Nataly Tolentino [Catalytic activity/Vol]64 U/LCritically vuvc24-66Zkv [facility] HospitalComment on above:Performed By: #### LIPID, URIC, BNP, T7, TSH, CMP #### [facility] [address] [place] [address] Dr. Nataly Duarte gap [Moles/Vol]11.3 mmol/LNormalThe [facility] Comment on above:Performed By: #### LIPID, URIC, BNP, T7, TSH, CMP #### [facility] [address] [place] [address] Dr. Nataly Ny [Catalytic activity/Vol]37 U/KXvcowy80-76Kqv [facility] HospitalComment on above:Performed By: #### LIPID, URIC, BNP, T7, TSH, CMP #### [facility] [address] [place] [address] Dr. Nataly FryeBilirubin [Mass/Vol]0.4 mg/dLNormal0.2-1.0The [facility] Comment on above:Performed By: #### LIPID, URIC, BNP, T7, TSH, CMP #### [facility] [address] [place] [address] Dr. Nataly FryeCalcium [Mass/Vol]7.9 mg/dLCritically low8.5-10.1The [facility] HospitalComment on above:Performed By: #### LIPID, URIC, BNP, T7, TSH, CMP #### [facility] [address] [place] [address] Dr. Nataly FryeChloride [Moles/Vol]106 mmol/HIhgogv87-866Wjj [facility] Comment on above:Performed By: #### LIPID, URIC, BNP, T7, TSH, CMP #### [facility] [address] [place] [address] Dr. Nataly FryeCO2 [Moles/Vol]30.7 mmol/WTzxgmq83.0-32.0[facility] Comment on above:Performed By: #### LIPID, URIC, BNP, T7, TSH, CMP #### [facility] [address] [place] [address] Dr. Nataly FryeCreatinine [Mass/Vol]0.98 mg/dLNormal0.70-1.30The [facility] HospitalComment on above:Performed By: #### LIPID, URIC, BNP, T7, TSH, CMP #### [facility] [address] [place] [address] Dr. Nataly FortuneGFR-AF SWEDISH>60Normal>=60The [facility] HospitalComment on above:Performed By: #### LIPID, URIC, BNP, T7, TSH, CMP #### [facility] [address] [place] [address] Dr. Nataly FortuneGFR-NON AF SWEDISH>60Normal>=60The [facility] HospitalComment on above:Performed By: #### LIPID, URIC, BNP, T7, TSH, CMP #### [facility] [address] [place] [address] Dr. Nataly FryeGlobulin (S) [Mass/Vol]3.3 g/dLNormalThe [facility] HospitalComment on above:Performed By: #### LIPID, URIC, BNP, T7, TSH, CMP #### [facility] [address] [address] [address] Nataly FryeGlucose [Mass/Vol]114 mg/dLNoSalem City HospitalComment on above:Performed By: #### LIPID, URIC, BNP, T7, TSH, CMP #### [facility] [address] [address] [address] Nataly FryePerformed By: #### A1C ####[facility] [address] [address]Dr.Yilan FryePotassium [Moles/Vol]4.0 mmol/L Normal3.5-5.1The [facility] HospitalComment on above:Performed By: #### LIPID, URIC, BNP, T7, TSH, CMP #### [facility] [address] [place] [address] Dr. Nataly FryeProtein [Mass/Vol]6.6 g/dLNormal6.4-8.2The [facility] Comment on above:Performed By: #### LIPID, URIC, BNP, T7, TSH, CMP #### [facility] [address] [place] [address] Dr. Nataly FryeSodium [Moles/Vol]144 mmol/RTnhgaj724-474Dws [facility] Comment on above:Performed By: #### LIPID, URIC, BNP, T7, TSH, CMP #### [facility] [address] [address] [address] Nataly FryeUrea nitrogen [Mass/Vol]11.0 mg/dLNormal7.0-18.0The [facility] HospitalComment on above:Performed By: #### LIPID, URIC, BNP, T7, TSH, CMP #### [facility] [address] [place] [address] Dr. Nataly Cee nitrogen/Creatinine [Mass ratio]11.2 mg/mgNoSalem City HospitalComment on above:Performed By: #### LIPID, URIC, BNP, T7, TSH, CMP #### [facility] [address] [place] [address] Dr. Nataly Bullard 56-94-2395ECT0.816 uIU/mLNormal0.358-3.740The [facility] HospitalComment on above:Performed By: #### LIPID, URIC, BNP, T7, TSH, CMP ####[facility] [address] [place], [place] [address]BtBambi FryeURIC ACID SERUMon 82-22-2941Daqrh [Mass/Vol]6.6 mg/dLNormal3.5-7.2The [facility] HospitalComment on above:Performed By: #### LIPID, URIC, BNP, T7, TSH, CMP ####[facility] [address] [place], [place] [address]YzBambi FryePhysician Referralon 66-04-1075Syjlapvpb Referral [id number]#1.00CD:[address] [place] [address] Vital Signs Date TimeVital SignValuePerforming KsaadornqDzamgbmg59-15-0847 08:58-0400Body .9 cmDakota Brown DPM Work Phone: [facility] HospitalGsfyojostl05-93-6269 08:58-0400Body mass index (BMI) [Ratio]36.35 kg/c3Goyjfcoh Brown DPM Work Phone: [facility] HospitalGbeqnyzddm55-16-0149 08:58-0400Body kryrer936.56 kgDakota Brown DPM Work Phone: [facility] HospitalDfotdpsxbk71-48-2307 08:58-0400Respiratory rate18 /minNicalbaro Brown DPM Work Phone: [facility] HospitalTitsfdsbws44-49-8168 09:57-0400Body ktxood149.26 cmJarrett Vyas MD Work Phone: [facility]10-23-2025 09:57-0400 Body mass index (BMI) [Ratio]40 kg/m1QgazoasJarrett Vyas MD Work Phone: [facility]10-23-2025 09:57-0400 Body dgidoc053 kgDouglas Hoy MD Work Phone: [facility]08-28-2025 11:37-0400 Body ftfivf633.26 cmJarrett Vyas MD Work Phone: [facility]08-28-2025 11:37-0400 Body mass index (BMI) [Ratio]40.1 kg/c3AiraoknJarrett Vyas MD Work Phone: [facility]08-28-2025 11:37-0400 Body .37 Ofelia Vyas MD Work Phone: [phone])750-[address] [place], [place] [address]1608-07-2025 11:28-0400 Body kyhfha843.9 cmNicholas Brown DPM Work Phone: [phone] [place], [place] [address]Clneovcjiv04-77-6316 11:28-0400Body mass index (BMI) [Ratio]36.35 kg/w3Vwvdxwgo Brown DPM Work Phone: [phone] [place], [place] [address]Kziarxxvif61-77-1681 11:28-0400Body oxdwyk411.56 kgNicholas Brown DPM Work Phone: [phone]-[facility] HospitalUwvjkapqxb30-55-8785 11:28-0400Respiratory rate18 /minNicholas Brown DPM Work Phone: [facility] HospitalVhwifolabw86-65-3972 10:30-0400Body .9 cmNicholas Brown DPM Work Phone: 1(033)1-[address] [place], [place] [address]Lbmzhfwixb76-50-2244 10:30-0400Body mass index (BMI) [Ratio]36.35 kg/n5Rtrhuffw Brown DPM Work Phone: [phone] [place], [place] [address]Qqxiptozyx04-98-9058 10:30-0400Body .56 kgNicholas Brown DPM Work Phone: [phone]-[facility] HospitalSrflzpbxak96-27-0729 10:30-0400Respiratory rate18 /minNicholas Brown DPM Work Phone: [facility] HospitalDpcrohzjmx41-56-6703 10:44-0500Body .9 cmNicholsameer Rocha DPM Work Phone: [facility] HospitalEiahpabbnp14-89-7827 10:44-0500Body mass index (BMI) [Ratio]36.35 kg/j7Opzxpprz Brown DPM Work Phone: [facility] HospitalVfrjdpuxcf99-09-1251 10:44-0500Body .56 kgDakota Brown DPM Work Phone: [facility] HospitalXsczmsqusk10-04-5789 10:44-0500Respiratory rate18 /minDakota Brown DPM Work Phone: [facility] HospitalJxtskpbvql95-74-4589 09:53-0400Body .9 cmDakota Brown DPM Work Phone: [facility] HospitalGwtcgohwve38-66-7728 09:53-0400Body mass index (BMI) [Ratio]36.35 kg/l2Rangvssf Brown DPM Work Phone: [facility] HospitalBwipkczkqw59-05-6085 09:53-0400Body okqkhm337.56 kgCassidysameer Rocha DPM Work Phone: noSaint [facility] Science CenterWrzhrmwtaw84-87-3174 09:53-0400Diastolic blood mm[Hg]Dakota Rocha DPM Work Phone: noSaint [facility] University Health Science CenterRwwahwtuta10-01-9368 09:53-0400Heart rate79 /min Dakota Rocha DPM Work Phone: [facility] HospitalVwckqvmpmc25-45-4424 09:53-0400Systolic blood snbltbpy195 mm[Hg]Dakota Rocha DPM Work Phone: noRI Healthcare Encounters Encounter DateEncounter TypeCare ProviderFacilityStart: 05-12-2025 End: 93-28-3828Fotqdm flowsheetDakota Rocha DPM Work Phone: [facility] PODIATRYStart: 05-12-2025 End: 17-45-6723Iieute flowsheetNicalbaro Rocha DPM Work Phone: [facility] CI PODIATRYStart: 05-12-2025 End: 41-99-8450Culusep encounter procedureDakota Rocha DPM Work Phone: noms CI PODIATRYComment on above:Pain due to onychomycosis of toenails of both feet (Primary Dx); Venous insufficiency; Xerosis cutisStart: 05-12-2025 End: 90-15-2056usrsmjsqlhBWVFOGLW A BROWNNot AvailableStart: 05-05-2025 End: 96-66-8851cznfsrcalnBajkdkd M Hoy MD Work Phone: -[facility] ColumbusueStart: 05-05-2025 End: 40-75-5219Stqtueh encounter procedureTulio Ortiz [facility] [place] Work Phone: Start: 03-10-2025 End: 38-69-5820gowepnjqxuZkgnuzc M Hoy MD Work Phone: [facility] Work Phone: Start: 03-10-2025 End: 58-94-7102Qzzwjlh encounter Gee Ortiz [facility] [place] Work Phone: Start: 02-17-2025 End: 40-02-5522Ysdwmv flowsStacy Rocha DPM Work Phone: [facility] CI PODIATRYStart: 02-17-2025 End: 99-66-0686Cenqjg Zay Rocha DPM Work Phone: [facility] CI PODIATRYStart: 02-17-2025 End: 44-23-2575Zjnygyo encounter procedureDakota Rocha DPM Work Phone: n[facility] CI PODIATRYComment on above:Pain due to onychomycosis of toenails of both feet (Primary Dx); Venous insufficiency; Xerosis cutisStart: 02-17-2025 End: 09-18-6530zxtmcfegsgHSTOVLBL A BROWNNot AvailableStart: 12-13-2024 End: 00-68-7583eskudzhleyUJFXCCBellevue Hospital Start: 12-09-2024 End: 07-34-1242Jkfsai flowsheetNicholas A Brown DPM Work Phone: noMS CI PODIATRYStart: 12-09-2024 End: 30-66-1835Xwgzwt flowsheetNicholas A Brown DPM Work Phone: noMS CI PODIATRYStart: 12-09-2024 End: 68-25-9062Vfzsbxx encounter procedureNicholas A Brown DPM Work Phone: n[facility] CI PODIATRYComment on above:Pain due to onychomycosis of toenails of both feet (Primary Dx); Venous insufficiency; Xerosis cutisStart: 12-09-2024 End: 35-99-7657jhahpjalpwIBXMXDSH A ARTIENot AvailableStart: 09-30-2024 End: 62-67-9879bkrecrwpkxQOAHOWBS A ARTIENot AvailableStart: 09-17-2024 End: 65-46-1965ohyjgnzgzpKHRORRBellevue Hospital Start: 07-08-2024 End: 15-60-1584Ohnaad flowsheetNicholas A Brown DPM Work Phone: [facility] CI PODIATRYStart: 07-08-2024 End: 34-87-7949Rxqupq flowsheetNicholas A Brown DPM Work Phone: noMS CI PODIATRYStart: 07-08-2024 End: 55-36-3190Hsemyfq encounter procedureNicholas A Brown DPM Work Phone: n[facility] CI PODIATRYComment on above:Pain due to onychomycosis of toenails of both feet (Primary Dx); Venous insufficiency; Xerosis cutisStart: 07-08-2024 End: 10-74-5553bitnzytluoFGSKEGOW A BROWNNot AvailableStart: 07-05-2024 End: 38-30-4640Mikzoc flowsheetNicholas A Brown DPM Work Phone: [facility] CI PODIATRYStart: 07-05-2024 End: 75-93-2097Peqsqq flowsheetNicholas Jed Rocha DPM Work Phone: noMS CI PODIATRYStart: 04-29-2024 End: 20-00-4479Kowqwj flowsheetNicholas A Brown DPM Work Phone: noMS CI PODIATRYStart: 04-29-2024 End: 89-51-3464Dwjyjg flowsheetNicholas A Brown DPM Work Phone: noMS CI PODIATRYStart: 04-29-2024 End: 53-69-8552Esizona encounter procedureNicalbaro Rocha DPM Work Phone: n[facility] CI PODIATRYComment on above:Pain due to onychomycosis of toenails of both feet (Primary Dx); Xerosis cutisStart: 03-29-2024 End: 29-11-0311nabkpoqlnxYJNCTAW BOESUniversBerger Hospitaltart: 01-26-2024 End: 38-67-5447Oaytgvhrq Result EncounterHilary Vinod Panchal MD Work Phone: noms External Department UnsolicitedStart: 01-26-2024 End: 37-82-2366Drlzflels Result EncounterHilary Vinod Panchal MD Work Phone: noms External Department UnsolicitedStart: 12-10-2022 End: 44-38-7960wqneodvowfKW JARRETT HOY .Facility:S9Gcbmx: 11-21-2022 End: 36-99-8928cvyepexgipUH JARRETT HOY .Facility:D4Uockz: 08-27-2022 End: 94-31-2305brywbmpcllKC JARRETT HOY .Facility:X0Ydszh: 08-26-2022 End: 11-42-4992ereieatzunFW JARRETT HOY .Facility:L5Apglv: 08-14-2022 End: 15-86-1858hnlkwbysajAG JARRETT HOY .Facility:[address] DateProcedureProcedure DetailPerforming ClinicianStart: 70-65-9827CDW HEAD/BRAIN WO/W Bridger Panchal MD Work Phone: Plan of Treatment DateCare ActivityDetailAuthorStart: 05-12-2025 End: 56-05-6844Hmbrrji encounter procedureNOMS CI PODIATRYComment on above:Pain due to onychomycosis of toenails of both feet (Primary Dx); Venous insufficiency; Xerosis cutisStart: 17-54-5250BJWEE-19 Vaccine ( season)COVID-19 Vaccine ()[facility] HealthcareStart: 06-26-9449Ojiafylmq vaccinationNOMS HealthcareStart: 02-17-2025 End: 49-41-8014Jbvzztk encounter /07/2025 11:30 AM EDT Procedure Visit [facility] [address] [address] Dakota Rocha DPM [address] [address] Pain due to onychomycosis of toenails of both feet (Primary Dx); Venous insufficiency; Xerosis cutisNOMS CI PODIATRY Comment on above:Pain due to onychomycosis of toenails of both feet (Primary Dx); Venous insufficiency; Xerosis cutisStart: 12-09-2024 End: 95-65-5671Ukeygkg encounter /29/2025 10:40 AM EDT Procedure Visit [facility] [address] [address] Dakota Rocha DPM [address] [address] Pain due to onychomycosis of toenails of both feet (Primary Dx); Venous insufficiency; Xerosis cutisNOMS CI PODIATRY Comment on above:Pain due to onychomycosis of toenails of both feet (Primary Dx); Venous insufficiency; Xerosis cutisStart: 09-16-2024 End: 21-35-0706Azdylxb encounter zfokyedgk80/06/2025 10:40 AM EST Procedure Visit [facility] [address] [facility] [address] [place] [address] Daokta Rocha, EVLER [address] [address] [facility] CI PODIATRYStart: 07-08-2024 End: 43-85-8898Pctfora encounter procedureNOMS CI PODIATRYComment on above:Pain due to onychomycosis of toenails of both feet (Primary Dx); Venous insufficiency; Xerosis cutisStart: 05-05-2024 End: 69-41-0616Xkmmebfu Bzbrsik6005/05/2024 8:00 AM EDT Clinical Support [facility] [address] [facility] [address] [place] [address] Ivana Deal, [facility] [address] [place] [address] [facility] CI AUDStart: 04-29-2024 End: 22-16-8664Mttlffn encounter vglvowesh29/17/2024 10:00 AM EDT Procedure Visit [facility] [address] [facility] [address] [place] [address] Dakota Rocha DPM [address] [address] Pain due to onychomycosis of toenails of both feet (Primary Dx); Xerosis cutisNOMS CI PODIATRYComment on above:Pain due to onychomycosis of toenails of both feet (Primary Dx); Xerosis cutisStart: 34-83-5750Hvnbenpaj vaccinationInfluenza Vaccine (#1)[facility] HealthcareStart: 80-71-8170Vnjsiwdhunfq Vaccine: 65+ Years (1 of 1 - PCV) Pneumococcal Vaccine: 65+ Years (1 of 1 - PCV)[facility] HealthcareStart: 2007 Pneumococcal Vaccine: 65+ Years (1 of 1 - PCV)Pneumococcal Vaccine: 65+ Years (1 of 1 - PCV)[facility] HealthcareStart: 30-06-1615KRcN/Tdap/Td Vaccines (1 - Tdap) DTaP/Tdap/Td Vaccines (1 - Tdap)[facility] HealthcareStart: 71-97-9842Oxnzozrfp for malignant neoplasm of colonNOMS HealthcareXR Shoulder - right [facility] Payers DatePayer CategoryPayerPolicy ID2022MedicareMEDICARE Member Subscriber Plan / Payer (Effective 2022-Present) Name: Yuan Wilson Member ID: [id number] Relation to Subscriber: Self Name: Yuan Wilson Subscriber ID: [id number] Payer ID: STATE Group ID: Not on file Type: Medicare Address: [address] [id number] Insurance [id number] [id number] 09-57-5974Lmldwxv Health [id number] 2..[id number] 2..1.175683.3.57[id number] 2..1.516871.3.57[id number] 2..1.754277.3.57[id number] 2..1.156156.3.57[id number] [id number] 2..840.1.255663.3.57[id number] 2..840.1.528269.3.57[id number] 2..840.1.701721.3.57[id number] 2.16.840.1.724377.3.579.2.1259 Social History DateTypeDetailFacilityStart: 17-41-8038Axmicfc smoking status NHISNever smoked tobaccoNOMS HealthcareStart: 95-31-8047Qjnheab use and exposureSmokeless tobacco non-userNOMS HealthcareStart: 02-17-2024 End: 81-03-0174Hwtilrbiv beverage intakeEx-drinker (finding)[facility] Start: 02-17-2024 End: 97-52-7803Ihgctfs of Social functionNOMS HealthcareStart: 02-17-2024 End: 50-48-0099Pmmvbys use panelNOMS HealthcareStart: 54-50-0560Nqr assigned at [facility] valdeseNot on fileNORI HealthcareTobacco smoking status NHISUnknown if ever smoked [facility] Work Phone: SexMale (finding)[facility] Start: 25-35-1275Hcv Assigned At [facility] Start: 44-02-8909OmsRyxfHUFU HealthcareNEGATED: Highlighted rowStart: NINF History of tobacco usePassive smokerNOMS Healthcare Clinical Notes 03-29-2024 to 05-12-2025 Note Date & LhzaWijiEhsmpcdn05-85-9318 History of Present illness Narrative* Dakota Rocha, DPM - 05/12/2025 9:00 AM EDT Patient: Yuan Wilson : 1955 PCP: Jarrett Vyas MD SUBJECTIVE This is a 70 y.o. male that presents today with a [...] Partner Violence: Unknown (09/04/2023) Received from [facility] Safety & Environment Fear of Current [...] needed Dakota Rocha DPM documented in this encounterSainte Genevieve County Memorial HospitalQpzxqpbgzh59-77-1300 Evaluation note* Diagnosis Onset Date Resolution Status Admit Date Bicipital tendinitis, right shoulder acuteAugust 2024 10:54amRight rotator cuff tearacuteAugust 2024 10:54amBicipital tendinitis, right shoulderacuteOctober 2024 9:38amRight rotator cuff tearacuteOctober 2024 9:38am [facility] Work Phone: 1([phone]) 485-679908-07-2025 History of Present illness Narrative* Dakota Rocha DPM - 02/17/2025 11:30 AM EDT Patient: Yuan Wilson : 1955 PCP: Jarrett [...] Partner Violence: Unknown (09/04/2023) Received from [facility] Safety & Environment Fear of Current [...] needed Dakota Rocha DPM documented in this encounterSainte Genevieve County Memorial HospitalOdvgtxwiia32-66-8150 NoteUT Cardiology - [facility] Subjective uYan Wilson is a 69 y.o. year old [...] 100 mg by m (more content not included)...[facility]05-29-2025 History of Present illness Narrative* Dakota Rocha, DPM - 12/09/2024 10:40 AM EDT Patient: Yuan Wilson : 1955 PCP: Jarrett [...] disease) History of Crohn's disease HTN (hypertension) ([facility] Kidney stone Medications: Current Outpatient [...] Partner Violence: Unknown (09/04/2023) Received from [facility] Safety & Environment Fear of Current [...] needed Dakota Rocha DPM documented in this encounterSainte Genevieve County Memorial HospitalPzipmzjrcr76-45-2144 NoteUT Cardiology - [facility] Subjective Yuan Wilson is a [...] 3.3, chloride 104, (more content not included)... [facility]12-26-2024 History of Present illness Narrative* Dakota Rocha, DPM - 07/08/2024 10:50 AM EST Patient: Yuan Wilson : 1955 PCP: Jarrett [...] disease) History of Crohn's disease HTN (hypertension) ([facility]) Kidney stone Medications: Current Outpatient [...] Partner Violence: Unknown (09/04/2023) Received from [facility], [facility] Safety & Environment Fear of Current [...] needed Dakota Rocha DPM documented in this encounterSainte Genevieve County Memorial HospitalTkyyxaurfz26-83-8641 History of Present illness Narrative* Dakota Rocha DPM - 04/29/2024 10:00 AM EDT Patient: Yuan Wilson : 1955 PCP: Jarrett [...] disease) History of Crohn's disease HTN (hypertension) ([facility]) Kidney stone Medications: Current Outpatient [...] Partner Violence: Unknown (09/04/2023) Received from [facility], [facility] [place] Safety & Environment Fear of [...] needed Dakota Rocha DPM documented in this encounterSainte Genevieve County Memorial HospitalVhdqxzxafl55-58-5564 NoteStable no concerning symptoms or worsening SOB or orthopneaUnSt. Mary's Medical [facility] 03-29-2024 NoteHypertension is currently well controlled Renal function has remained stable Continue toprol, aldactone and lasixUnSt. Mary's [facility] 03-29-2024 NoteNYHC II remains euvolemic without exacerbation or activity limiting symptoms Continue GDMT- continue lasix daily and aldactone Diuretic therapy Monitor daily weights, I&O, fluid restriction 1.5-2L/day, renal function and electrolytes-[facility]09-16-2024 NotePt is here for a six month follow up. Pt denies chest pain, palpatation, dizziness Review of Systems Constitutional: Weight loss: 10# since January 2023. Cardiovascular: Positive for dyspnea on exertion and leg swelling. All other systems reviewed and are negative.[facility] 03-29-2024 NoteUTP CARDIOLOGY PROGRESS NOTE HPI: Yuan Wilson is a 68 [...] leaflet mobility. No eviden (more content not included)...[facility]* Diagnosis Pain due to onychomycosis of toenails of both feet- Primary Xerosis cutis Other specified disease of sebaceous glands documented in this encounter [facility] HealthcareEvaluation note* Diagnosis Pain due to onychomycosis of toenails of both feet- Primary Venous insufficiency Unspecified venous (peripheral) insufficiency Xerosis cutis Other specified disease of sebaceous glands documented in this encounter [facility] HealthcareEvaluation note* Diagnosis Pain due to onychomycosis of toenails of both feet- Primary Venous insufficiency Unspecified venous (peripheral) insufficiency Xerosis cutis Other specified disease of sebaceous glands documented in this encounter [facility] HealthcareEvaluation note* Diagnosis Onset Date Resolution Status Admit Date Bicipital tendinitis, right shoulder acuteAugust 2024 10:54amRotator cuff syndrome of right shoulderacuteAugust 2024 10:54am [facility] Work Phone: Evaluation note* Diagnosis Pain due to onychomycosis of toenails of both feet- Primary Venous insufficiency Unspecified venous (peripheral) insufficiency Xerosis cutis Other specified disease of sebaceous glands documented in this encounter [facility] for referral (narrative)No reason for referral information availableMer[facility] Work Phone: Summary Purpose Family History No Family History Records FoundNo Family History Records FoundNo Family History Records FoundNo Family History Records Found Advance Directives No Advanced Directives Records Found Advance Directive Response Recorded Date/ Time Advance Directives No August 18, 2024 4:05pm Chief Complaint and Reason for Visit Chief Complaint Admit Date [facility] CONSULT DR VYAS RT ROTATOR CUFF TEAR MRI TB March 10, 2025 10:54am Reason for Visit Admit Date Bicipital tendinitis, right shoulder Aug ust 2024 10:54am Rotator cuff syndrome of right shoulder March 10, 2025 10:54am Chief Complaint Admit Date [facility] CONSULT DR VYAS RT ROTATOR CUFF TEAR MRI TB March 10, 2025 10:54am [facility] 8 weeks May 05, 2025 9 :38am Reason for Visit Admit Date Bicipital tendinitis, right shoulder Aug ust 2024 10:54am Right rotator cuff tear March 10 10:54am Bicipital tendinitis, right shoulder Oct linnea 2024 9:38am Right rotator cuff tear May 05 9:38am Additional Source Comments (unrecognized sect ion and content) No Status Records FoundNo Status Records FoundNo Status Records FoundNo Status Records Found INFORMATION SOURCE (unrecogn ized section and content) DATE CREATED AUTHOR 06/06/2021 [facility] DATE CREATED AUTHOR AUTHOR'S ORGANIZ ATION 12/20/2022 [facility] DATE CREATED AUTHOR AUTHOR'S ORGANIZ ATION 12/13/2024 [facility] DATE CREATED AUTHOR AUTHOR'S ORGANIZ ATION 05/13/2025 [facility] EPIC Care Teams (unrecognized sec tion and content) Team MemberRelationshipSpecialtyStart DateEnd Date Jarrett Vyas MD [address] [facility] [place] [phone] [facility] - [facility]07/17/23Team MemberRelationshipSpecialtyStart DateEnd [facility] Jarrett Vyas MD [address] [facility], [phone] [facility] - [facility] Medicine07/17/23Team MemberRelationshipSpecialtyStart DateEnd [facility] Jarrett Vyas MD [address] [facility], [phone] [facility] - [facility]07/17/23Team MemberRelationshipSpecialtyStart DateEnd Date Jarrett Vyas MD [address] [facility] [facility] [address] PCP - [facility] Medicine07/17/23Team MemberRelationshipSpecialtyStart DateEnd Date Jarrett Vyas MD [address] [phone] PCP - [facility] Medicine07/17/23 Team Status: Active Member Role Status Mirtha Vyas MD Primary Care Provider Active Team Status: Inactive Member Role Status Mirtha Ortiz DO Attending Provider Active St art: March 10, 2025 End: March 10, 2025Opal Alvarez Care ProviderActiveStart: March 10, 2025 End: March 10, 2025 Team Status: Active Member Role/Relationship Status Mirtha Vyas MD Primary Care Provider Active Team Status: Inactive Member Role/Relationship Status Mirtha Ortiz DO Attending Provider Active St art: March 10, 2025 End: March 10, 2025DoRalph Castrosearcy hospitalbing Care ProviderActiveStart: March 10, 2025 End: March 10, 2025 Team Status: Inactive Member Role/Relationship Status Dates Jarrett Vyas MD Primary Care Provider Active Start: May 05, 2025 End: May 05, 2025Tulio Ortiz DOAttending ProviderActiveStart: May 05, 2025 End: May 05, 2025Team MemberRelationshipSpecialtyStart DateEnd Date Jarrett Vyas MD [address] [place] [phone] PCP - GeneralFamily Medicine07/17/23 Reason for Visit (unrecogniz ed section and content) ReasonCommentsToenail CareNon DM NailsReasonCommentsToenail CareNon dm nail care ReasonCommentsToenail Care Goals (unrecognized section and content) Goals may be documented in a n alternate sectionGoals may be documented in an alternate section FOR RECORDS PERTAINING TO PATIENTS WHO ARE [...] BE BASED ON THE PRIMARY CLINICAL RECORDS. [facility]. provides no warranty or guarantee of the accuracy or completeness of information in this document.
--- OUTSIDE RECORDS SUMMARY | 2025-06-15 07:52 | XMS_ITS | Clinical Summary ---
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 Name Role Phone Wojciech Vyas MD Primary Care Provider [phone] Allergies No known active allergies Medications MedicationSigDispense QuantityRefillsLast FilledStart DateEnd DateStatus Farxiga 10 MG 07/06/2023ctive diclofenac (Voltaren) 75 MG EC tablet Take 75 mg by mouth 2 (two) times a day as qstvwc2906/25/2023ctive furosemide (Lasix) 20 MG tablet Take 20 mg by mouth in the morning.04/14/2023ctive metoprolol succinate XL (Toprol-XL) 100 MG 24 hr tablet Take 100 mg by mouth in the morning.05/20/2023ctive Active Problems ProblemNoted DateDiagnosed DateImpacted yvfvzhf3810/01/2023Osteoarthritis of knee 10/01/2023iastolic heart ifcjlmg1711/27/2022OE (dyspnea on exertion)11/27/2022 Essential tiuxowvtgkdc46/17/2023Lower extremity edema11/27/2022ulmonary bunoutfcbpmt08/17/2023Tricuspid valve jepzwnjyrlemv00/17/2023 Encounters DateTypeDepartmentCare GievNakhwthiftb33/30/2025 9:00 AM EDTProcedure Visit [facility] [address] [place] [address] Dakota Rocha DPM Pain due to onychomycosis of toenails of both feet (Primary Dx); Venous insufficiency; Xerosis cutis05/12/2025amboo flowsheet [facility] [address] [place] [address] Dakota Rocha DPM 05/12/2025Travelfrom Last 3 Months Family History Medical HistoryRelationNameCommentsDiabetesFatherHeart diseaseFatherHypertension FatherDiabetesMotherHeart diseaseMotherHypertensionMotherHypertensionOther RelationNameStatusCommentsFatherDeceasedMotherDeceasedOther Social History Tobacco UseTypesPacks/DayYears UsedDateSmoking Tobacco: NeverPassive Smoke Exposure: NeverSmokeless Tobacco: Never Tobacco Cessation:Counseling Given: Yes Alcohol UseStandard Drinks/WeekCommentsNot Currently0 (1 standard drink = 0.6 oz pure alcohol)Sex and Gender InformationValueDate RecordedSex Assigned at Not on fileLegal ApxGojd8309/25/2022 6:53 PM EDTGender IdentityNot on fileSexual OrientationNot on file Last Filed Vital Signs Vital SignReadingTime TakenCommentsBlood Rxinjjyb315/7803 10:37 AM EDT Iitgm012609/30/2024 10:37 AM EDTTemperature--Respiratory Muqz2233 8:58 AM EDTOxygen Saturation--Inhaled Oxygen Concentration--Fzoscg149 kg (268 lb) 05/12/2025 8:58 AM GYTJqjfpl563.9 cm (6')05/12/2025 8:58 AM EDTBody Mass Index 36.351 8:58 AM EDT Plan of Treatment DateTypeDepartmentCare Team (Latest Contact Info)Mdzgqtynmca95/22/2026 9:10 AM ESTProcedure Visit [facility] [address] [facility] [address] [place] [address] Dakota Rocha, [place] [address] [facility] [address] [place] [address] Health MaintenanceDue DateLast DoneCommentsCT Zjiikvciiihj1957Colonoscopy 1957Colorectal Cancer Ghzzprcbz1957FIT-DNA1957FIT1957 FOBT05/02/19574883Tiscdlsrlypei1957Pneumococcal Vaccine: 65+ Years (1 of 1 - PCV)2007COVID-19 Vaccine (2024- season), 11/22/2020Influenza Vaccine (#1)2025 Insurance Care Teams Team MemberRelationshipSpecialtyStart Date Wojciech Vyas MD [address] [place] [phone] PCP - GeneralFamily Medicine07/17/23
== END 2025-06-15 07:49 | disposition home or self-care (01) ==
LOC: NM 07:49
PROVIDERS: PCP Family Medicine; Visit Provider Internal Medicine Interventional Cardiology
DX: R06.09 Other forms of dyspnea (principal)

== ENCOUNTER 2025-07-13 07:50 | Outpatient (OUT) | payer MEDICARE, OTHER, SELFPAY ==
--- OUTSIDE RECORDS SUMMARY | 2024-12-14 08:00 | XMS_ITS ---
Author Organization [facility] in [place] Address [address] [place] [address] Care Team Providers Care Manager Of Data Name Role Phone Melquiades Vyas Primary Care Provider [phone] Arsen Hanks [phone] REASON FOR VISIT ABN.PFT Encounters Encounter Location Date Provider Diagnosis Pulmonary Medicine [address] [address] 12/14/2024 Arsen Hanks Plan Of Treatment No Information Progress Notes * Yuan VASQUEZDOB: 7 (70 yo M)Acc No.[id number]:12/14/2024 UNLOCKED PROGRESS NOTE New Patient Patient: Yuan ORDOÑEZ :?Arsen Hanks DODOB:1955???Age:69 Y ???Sex:MaleDate:12/14/2024Phone:[phone]:[address] [place], [place] [address]Pcp:Melquiades Vyas Subjective: * Chief Complaints: * 1 . ABN.PFT. * Medical History: Objective: * Vitals: Assessment: Plan: * Treatment: * * Electronic signature of Arsen Hanks DO on 07/13/2025 at 07:54 AM ESTSign off status: PendingVisit Status:?CANC (Cancelled) * Provider: Lety Hanks DO Date: 0 12/14/2024 Generated for Printing/Faxing/eTransmitting on:?07/13/2025 07:54 AM EST
--- OUTSIDE RECORDS SUMMARY | 2025-07-13 07:53 | XMS_ITS | CCD ---
Author Organization [facility] Care Team Providers Care Entertainment & Media Correspondent Name Role Phone ABDIEL ., DR FARIAS [...] FARIAS Primary Care Unavailable HOY ., DR FRAIAS Admitting Unavailable HOY ., DR FARIAS Attending Unavailable HOY ., DR FARIAS Consulting Unavailable HOY ., DR FARIAS Primary Care Unavailable HOY ., DR FARIAS Admitting Unavailable HOY ., DR FARIAS Attending Unavailable DOLLAR BAY, DR ELTON Parikh Consulting Unavailable Jarrett Vyas MD Primary Care Provider [phone] Jarrett Vyas MD Primary Care Provider [phone] HAYLEY KIRBY Attending Unavailable JACQUELYN AGUILAR Attending Unavailable JACQUELYN AGUILAR Attending Unavailable Tulio Ortiz DO Attending Provider Jarrett Vyas MD Primary Care Provider [phone] Jarrett Vyas MD Primary Care Provider [phone] DAKOTA ROCHA Attending Unavailable DAKOTA ROCHA Attending Unavailable DAKOTA ROCHA Attending Unavailable DAKOTA ROCHA Attending Unavailable DAKOTA ROCHA Attending Unavailable Allergies Allergy ClassificationReported Allergen(s)Allergy TypeDate of OnsetReaction(s) Facility (1 source)IodineDrug Uvznltq00-86-1824[facility] Medications Current Medications MedicationDrug Class(es)DatesSig (Normalized)Sig (Original)aspirin 81 mg oral tablet (2 sources)Platelet Aggregation Inhibitor, Nonsteroidal Anti-inflammatory Drug Start: 88-12-3957zvbz 1 tablet by mouth once dailyAspirin 81 mg tablet Active 81 MG PO Daily March 10, 2025 12:00am Complies with drug therapydapagliflozin 10 mg oral tablet (14 sources)Sodium-Glucose Cotransporter 2 InhibitorStart: 09-41-4899Pqjprdp 10 MG 07/06/2023 Activediclofenac sodium 75 mg delayed release oral tablet (14 sources)Nonsteroidal Anti-inflammatory DrugStart: 50-73-9707ntka 1 tablet by mouth twice daily as neededdiclofenac (Voltaren) 75 MG EC tablet Take 75 mg by mouth 2 (two) times a day as needed 06/25/2023 Activefurosemide 20 mg oral tablet (14 sources)Loop DiureticStart: 46-18-4177dext 1 tablet by mouth in the morning furosemide (Lasix) 20 MG tablet Take 20 mg by mouth in the morning. 04/14/2023 Activelansoprazole 30 mg delayed release oral capsule (2 sources)Proton Pump InhibitorStart: 30-09-0674roco 1 capsule by mouth once dailyLansoprazole (Prevacid) 30 mg capsule,delayed release(DR/EC) Active 30 MG PO Daily March 10, 2025 12:00am Complies with drug vvgturk25 hr metoprolol succinate 100 mg extended release oral tablet (14 sources)beta-Adrenergic BlockerStart: 38-94-8531qdog 1 tablet by mouth every twenty-four hours in the morningmetoprolol succinate XL (Toprol-XL) 100 MG 24 hr tablet Take 100 mg by mouth in the morning. 05/20/2023 Activespironolactone 25 mg oral tablet (2 sources)Aldosterone AntagonistStart: 99-77-0357Lkbglrbdrnrhwa 25 mg tablet Active MG PO March 10, 2025 12:00am Complies with drug therapy Problems Active Problems Problem ClassificationProblemDateDocumented DateEpisodic/ChronicCongestive heart failure; nonhypertensive (20 sources)Unspecified diastolic (congestive) heart failure; Translations: [Diastolic heart failure]Onset: 10-15-4207IvpuvlhUjpmguhsq of lipid metabolism (1 source)Hyperlipidemia, unspecified; Translations: [HYPERLIPIDEMIA UNSPECIFIED]Onset: 47-20-8629LbrfcsdOexgnrtshy disorders (1 source)Gastro-esophageal reflux disease without esophagitis; Translations: [GERD WITHOUT ESOPHAGITIS]Onset: 75-14-2991EifkzqeRzctaudlv hypertension (17 sources)Essential (primary) hypertension; Translations: [Essential hypertension]Onset: 107212-71-2924TfkjmfoNawon valve disorders (14 sources)Tricuspid valve regurgitation; Translations: [Rheumatic tricuspid insufficiency]Onset: 449266-57-6113KfxsxetQhbqipjiigey with complications and secondary hypertension (1 source)Hypertensive heart disease with heart failure; Translations: [HTN HEART DISEASE W/HEART FAIL]Onset: 82-89-7399JukidjqOfjoqbx (5 sources)Pain in toe; Translations: [Tinea unguium]35-39-4506Hbqpqbma Osteoarthritis (14 sources)Osteoarthritis of knee; Translations: [Osteoarthritis of knee, unspecified]Onset: 835414-25-2094OpjbfxkAgrtr connective tissue disease (3 sources)Right rotator cuff syndrome; Translations: [Unspecified rotator cuff tear or rupture of right shoulder, not specified as traumatic]77-33-2098Wjtzkogf Other connective tissue disease (5 sources)Biceps tendinitis; Translations: [Bicipital tendinitis, right shoulder]43-17-4569ItmymmriTqujw connective tissue disease (3 sources)Tear of right rotator cuff; Translations: [Unspecified rotator cuff tear or rupture of right shoulder, not specified as traumatic]58-92-5978Ossxycdv Other diseases of veins and lymphatics (4 sources)Vascular insufficiency; Translations: [Venous insufficiency (chronic) (peripheral)]19-85-9952SyfpjfsgTtbtj lower respiratory disease (4 sources)Other forms of dyspnea; Translations: [OTHER FORMS OF DYSPNEA]Onset: 21-77-5512HptskoagQwovv lower respiratory disease (2 sources)Shortness of breath; Translations: [Shortness of breath]Onset: 62-49-0122PozkhvsnOtjry non-traumatic joint disorders (2 sources)Pain in right shoulder; Translations: [Right shoulder pain]03-09-2025 EpisodicOther skin disorders (5 sources)Asteatosis cutis; Translations: [Xerosis cutis]52-78-5319Ssvmzqnp Pulmonary heart disease (14 sources)Pulmonary hypertension; Translations: [Pulmonary hypertension, unspecified]Onset: hronic Past or Other Problems Problem ClassificationProblemDateDocumented DateEpisodic/ChronicDiabetes mellitus without complication (1 source)Other abnormal glucose; Translations: [OTHER ABNORMAL GLUCOSE]Onset: 96-94-0638TprfyyolZeavzthpdcm chest pain (5 sources)Chest pain, unspecified; Translations: [CHEST PAIN UNSPECIFIED]Onset: 67-40-7008BikrypvbGxzvu ear and sense organ disorders (12 sources)Impacted cerumen; Translations: [Impacted cerumen, unspecified ear] Onset: 489659-23-6988YhacenerMxuxx lower respiratory disease (12 sources)Dyspnea on exertion; Translations: [Other forms of dyspnea]Onset: 461605-70-4586WuumhakaIqeau non-traumatic joint disorders (5 sources)Pain in unspecified knee; Translations: [PAIN IN UNSPECIFIED KNEE] Onset: 36-94-7462YovzccuiNkcfu screening for suspected conditions (not mental disorders or infectious disease) (2 sources)Encounter for screening for malignant neoplasm of prostate; Translations: [Encounter for screening for malignant neoplasm of rectum]Onset: 91-06-5718AjtcettsXbivstfa codes; unclassified (12 sources)Edema of lower extremity; Translations: [Localized edema]Onset: 103805-18-4190Abacdjmx Results Test NameValueInterpretationReference RangeFacilityOffice Visiton 12-13-2024 Follow-up [id number] Yuan Wilson 1955 M Date Provider Department Center 12/13/2024 JACQUELYN MERA [facility] Family History Problem Relation Age of Onset Heart failure Mother Heart attack Father Family Status - Relation Status Age at Mother Father Level of Service:30269 [place] OFFICE/OUTPATIENT ESTABLISHED MOD MDM 30 [facility]36on 63-99-426943Eowcsjnib lab results from 10/28/2024: and PFT's from [...] with Dr. Aguilar. Referral to Dr. Hanks sent.[facility] 29on 92-50-015592Hcjbcbxh by: YOLETTE HDZ on: 10/27/2024 11:58 AM Modules accepted: OrdersNormalUniMercer County Community Hospital36on 10-27-2024 36Patient called to make you aware [...] to this thread because I am off tomorrow.)[facility]36on 92-11-691763Eeivdqv called back. He will double his lasix to 40mg daily and have BMP in 1 week. Order faxed to [facility]. Patient verbalized understanding.[facility]36on 10-77-977235Cwcednhax echo result from 10/07/2024: MD Yolette Turner MA I want him to increase furosemide to 40 mg daily. He will need the BMP I had ordered to be done 1 week after the increase. LM for patient to return my call.[facility] Telephoneon [id number] Yuan Wilson 1955 M Date Provider Department Center 10/18/2024 928-YOLETTE HDZ CARD [facility] Family History Problem Relation Age of Onset Heart failure Mother Heart attack Father Family Status - Relation Status Age at Mother FatherNormalUniMercer County Community HospitalOffice Visiton 48-92-3131Gbinxn- up [id number] Yuan Wilson 1955 M Date Provider Department Center 09/17/2024 JACQUELYN MERA [facility] Family History Problem Relation Age of Onset Heart failure Mother Heart attack Father Family Status - Relation Status Age at Mother Father Level of Service:47537 [place] OFFICE/OUTPATIENT ESTABLISHED MOD [facility]DM [facility] 57-41-4446Mgxrfx-up visit [id number] Yuan Wilson 1955 M Date Provider Department Center 03/29/2024 HAYLEY SALMON [facility] Family History Problem Relation Age of Onset Heart failure Mother Heart attack Father Family Status - Relation Status Age at Mother Father Level of Service:50066 [place] OFFICE/OUTPATIENT ESTABLISHED LOW [facility]DM [facility]RAIN WO/W CONTRon 45-51[place] [address] Magnetic Resonance Report Signed Patient: YUAN WILSON MR#: [id number] : 1955 Acct:[id number] Age/Sex: 68 / M ADM Date: 01/26/24 Loc: LAB Attending Dr: Rosemary Panchal M.D. Ordering Physician: Rosemary Panchal M.D. Date of Service: 01/26/24 Procedure(s): MR head/brain wo/w con Accession Number(s): [id number] cc: Jarrett Vyas M.D.; Rosemary Panchal M.D. [place] [address] Patient Name: YUAN WILSON MRN: [facility]:[id number] date: 1955 Sex: M Assigned Patient Location: LAB Current Patient Location: LAB Accession/Order Number: [id number] Exam Date: 01/26/2024 07:00 Report Date: 01/26/2024 [...] Signed By: 01/26/24 1330 DD/ 1328 TD/TT: Scrap Drop Engineer:CARMENHRadiology, Radiologist, - 01/26/2024 [place] [address] Magnetic Resonance Report Signed Patient: YUAN WILSON MR#: [id number] : 1955 Acct:[id number] Age/Sex: 68 / M ADM Date: 01/26/24 Loc: LAB Attending Dr: Rosemary Panchal M.D. Ordering Physician: Rosemary Panchal M.D. Date of Service: 01/26/24 Procedure(s): MR head/brain wo/w con Accession Number(s): [id number] cc: Jarrett Vyas M.D.; Rosemary Panchal M.D. [address] [place] [address] Patient Name: YUAN WILSON MRN: [facility]:[id number] date: 1955 Sex: M Assigned Patient Location: LAB Current Patient Location: LAB Accession/Order Number: [id number] Exam Date: 01/26/2024 07:00 Report Date: 01/26/2024 [...] By: GARCIA YUAN M.D. Signed By: 01/26/24 1337 DD/ 1328 TD/TT: Scrap Drop Engineer: SVEN HealthcareRadiology Study observation (narrative)SVEN HealthcareMRI HEAD/BRAIN WO/W CONTROrdered By: Radiologist Radiology on 95-52-5315AC[facility] Work Phone: PROF CHEM 8 (BAS METB)on 50-60-8140Vavif gap [Moles/Vol]9.9 mmol/LNormalThe [facility] CenterComment on above:Performed By: #### BMP #### [facility] [address] [place] [address] [address] Nataly FryeCalcium [Mass/Vol]7.9 mg/dLCritically low8.5-10.1The [facility] CenterComment on above:Performed By: #### BMP #### [facility] [address] [address] [address] Nataly FryeChloride [Moles/Vol]104 mmol/LOnygly45-694Ylq [facility] Comment on above:Performed By: #### BMP #### [facility] [address] [place] [address] Dr. Nataly FryeCO2 [Moles/Vol]33.8 mmol/LCritically high21.0-32.0The [facility] CenterComment on above:Performed By: #### BMP #### [facility] [address] [place] [address] Dr. Nataly FryeCreatinine [Mass/Vol]1.19 mg/dLNormal0.70-1.30The [facility] CenterComment on above:Performed By: #### BMP #### [facility] [address] [place] [address] Dr. Nataly FortuneGFR-AF COMORAN>60Normal>=60The [facility] CenterComment on above:Performed By: #### BMP #### [facility] [address] [place] [address] Dr. Nataly FortuneGFR-NON AF COMORAN>60Normal>=60The [facility] CenterComment on above:Performed By: #### BMP #### [facility] [address] [address] [address] Nataly FryeGlucose [Mass/Vol]130 mg/dLCritically comj89-080Kfs [facility] CenterComment on above:Performed By: #### BMP #### [facility] [address] [place] [address] Dr. Nataly FryePotassium [Moles/Vol]3.7 mmol/LNormal3.5-5.1The [facility] Comment on above:Performed By: #### BMP #### [facility] [address] [address] [address] Nataly Patinodium [Moles/Vol]144 mmol/TNogotq599-511Jsc [facility] Comment on above:Performed By: #### BMP #### [facility] [address] [place] [address] Dr. Nataly FryeUrea nitrogen [Mass/Vol]18.0 mg/dLNormal7.0-18.0The [facility] CenterComment on above:Performed By: #### BMP #### [facility] [address] [place] [address] Dr. Nataly Cee nitrogen/Creatinine [Mass ratio]15.1 mg/mgNormalThe [facility] CenterComment on above:Performed By: #### BMP #### [facility] [address] [place] [address] Dr. Nataly Kirby 77-36-0069Jxexormauuz peptide B (Bld) [Mass/Vol]58.0 pg/mL Normal<=900.0The [facility] CenterComment on above:Performed By: #### BMP, BNP #### [facility] [address] [place] [address] Dr. Nataly Jean CHEM 8 (BAS METB)on 62-76-1411Kojtm gap [Moles/Vol]9.6 mmol/LNormalThe [facility] CenterComment on above:Performed By: #### BMP, BNP #### [facility] [address] [place] [address] Dr. Nataly FryeCalcium [Mass/Vol]7.3 mg/dLCritically low8.5-10.1The [facility] CenterComment on above:Performed By: #### BMP, BNP #### [facility] [address] [place] [address] Dr. Nataly FryeChloride [Moles/Vol]104 mmol/YJtfuyb98-844Okn [facility] Comment on above:Performed By: #### BMP, BNP #### [facility] [address] [place] [address] Dr. Nataly FryeCO2 [Moles/Vol]34.7 mmol/LCritically high21.0-32.0The [facility] CenterComment on above:Performed By: #### BMP, BNP #### [facility] [address] [address] [address] Nataly FryeCreatinine [Mass/Vol]1.33 mg/dLCritically high0.70-1.30The [facility] CenterComment on above:Performed By: #### BMP, BNP #### [facility] [address] [place] [address] [address] Ingram ChangEGFR-AF COMORAN>60Normal>=60The [facility] CenterComment on above:Performed By: #### BMP, BNP #### [facility] [address] [place] [address] [address] Nataly FortuneGFR-NON AF UMLJSCUU40 mL/min/1.42f3Aytyujjylj low>=60The [facility] CenterComment on above:Performed By: #### BMP, BNP #### [facility] [address] [address] [address] Nataly FryeGlucose [Mass/Vol]146 mg/dLCritically lmjp87-971Rlf [facility] CenterComment on above:Performed By: #### BMP, BNP #### [facility] [address] [address] [address] Nataly FryePotassium [Moles/Vol]3.3 mmol/LCritically low3.5-5.1The [facility] CenterComment on above:Performed By: #### BMP, BNP #### [facility] [address] [place] [address] [address] Nataly FryeSodium [Moles/Vol]145 mmol/QErbuhp193-386Wwr [facility] Comment on above:Performed By: #### BMP, BNP #### [facility] [address] [place] [address] [address] Nataly FryeUrea nitrogen [Mass/Vol]22.0 mg/dLCritically high7.0-18.0The [facility] CenterComment on above:Performed By: #### BMP, BNP #### [facility] [address] [place] [address] [address] Nataly FryeUrea nitrogen/Creatinine [Mass ratio]16.5 mg/mgNoWright-Patterson Medical CenterComment on above:Performed By: #### BMP, BNP #### [facility] [address] [place] [address] [address] Ingram ChangECHOCARDIO M/2D COMPLETEon 45-32-2669JBJENFYKEG M/2D COMPLETE Patient: YUAN WILSON Exam Date: 08/27/2022 : 1955 Gender:M Ordering : DR JARRETT VYAS . Admission #: [id number] Family : Order #: [id number] CLICK HERE TO VIEW EXAM ECHOCARDIOGRAM REPORT [...] by: Marni Ritter M.D. on 08/27/2022 at 12:17[facility] STRESS/REST MULTIon 62-64-8924II STRESS/REST MULTIPatient: YUAN WILSON Exam Date: 08/26/2022 : 1955 Gender:M Ordering : DR JARRETT VYAS . Admission #: [id number] Family : Order #: [id number] CLICK HERE TO VIEW EXAM RADIOLOGY REPORT [...] by: Elton Saba MD on 08/28/2022 at 06:12[facility] INSULINon 53-28-6943Jugvxcb42.8 uIU/mLNormal2.6-24.9The [facility] CenterComment on above:Performed By: #### INSULIN ####[facility] [address] [place], [place] [address]ZjDr. Nataly Kirby 46-86-5145Wlmzitmajjx peptide B (Bld) [Mass/Vol]140.0 pg/mLNormal<=900.0The [facility] CenterComment on above:Performed By: #### LIPID, URIC, BNP, T7, TSH, CMP #### [facility] [address] [place], [place] [address] Dr. Nataly Forde AUTO DIFFon 76-08-1474ZZNA #0.0 103/ulNormal0.0-0.1The [facility] CenterComment on above:Performed By: #### CBC #### [facility] [address] [place] [address] [address] Nataly FryeBasophils/100 WBC (Bld)0.6 %Normal0.2-2.0[facility] Comment on above:Performed By: #### CBC #### [facility] [address] [place] [address] Dr. Nataly Schreiber #0.1 103/ulNormal0.0-0.7The [facility] CenterComment on above: Performed By: #### CBC #### [facility] [address] [place] [address] Dr. Nataly Fortuneosinophils/100 WBC (Bld)2.7 %Normal0.9-7.0[facility] Comment on above:Performed By: #### CBC #### [facility] [address] [place] [address] Dr. Nataly Fortunerythrocyte distribution width (RBC) [Ratio]18.1 %Critically high 11.0-15.0[facility] HospitalComment on above:Performed By: #### CBC #### [facility] [address] [place] [address] Dr. Nataly Boggsatocrit (Bld) [Volume fraction]30.2 %Critically low42.0-54.0 The [facility] CenterComment on above:Performed By: #### CBC #### [facility] [address] [place] [address] Dr. Nataly FryeHemoglobin (Bld) [Mass/Vol]8.8 g/dLCritically low14.0-18.0[facility] HospitalComment on above:Performed By: #### CBC #### [facility] [address] [place] [address] Dr. Nataly Moore #0.06 10e3/ulCritically high0.00-0.03[facility] Comment on above:Performed By: #### CBC #### [facility] [address] [place] [address] Dr. Nataly Moore %1.3 %Critically high0.0-0.5The [facility] CenterComment on above:Performed By: #### CBC #### [facility] [address] [place] [address] Dr. Nataly Lim #1.7 103/ulNormal1.2-3.8The [facility] CenterComment on above:Performed By: #### CBC #### [facility] [address] [place] [address] Dr. Nataly Almaguerhocytes/100 WBC (Bld)36.6 %Bovrnn13.5-60.0The [facility] CenterComment on above:Performed By: #### CBC #### [facility] [address] [place] [address] Dr. Nataly Sharma DIFF REQNONormalThe [facility] CenterComment on above: Performed By: #### CBC #### [facility] [address] [place] [address] Dr. Nataly Freitas (RBC) [Entitic mass]25.5 pgCritically low25.9-34.0The [facility] CenterComment on above:Performed By: #### CBC #### [facility] [address] [place] [address] Dr. Nataly Valenzuela (RBC) [Mass/Vol]29.1 g/dLCritically low29.9-35.2The [facility] CenterComment on above:Performed By: #### CBC #### [facility] [address] [place] [address] Dr. Nataly Giraldo (RBC) [Entitic vol]87.5 bCVgapdw38.0-94.0The [facility] CenterComment on above:Performed By: #### CBC #### [facility] [address] [place] [address] Dr. Nataly Motley #0.5 103/ulNormal0.3-0.8The [facility] CenterComment on above:Performed By: #### CBC #### [facility] [address] [place] [address] Dr. Yilan ChangMonocytes/100 WBC (Bld)11.0 %Normal1.7-12.0The [facility] Comment on above:Performed By: #### CBC #### [facility] [address] [place] [address] Dr. Nataly Beyer #2.3 103/ulNormal1.4-6.5The [facility] CenterComment on above:Performed By: #### CBC #### [facility] [address] [place] [address] Dr. Nataly Garciautrophils/100 WBC (Bld)47.8 %Knapmk46.0-75.0The [facility] CenterComment on above:Performed By: #### CBC #### [facility] [address] [place] [address] Dr. Nataly Mckeonlet mean volume (Bld) [Entitic vol]9.5 fLNormal9.5-13.5The [facility] CenterComment on above:Performed By: #### CBC #### [facility] [address] [place] [address] Dr. Nataly FryePLT172 103/fwFquuod502-963Ois [facility] CenterComment on above: Performed By: #### CBC #### [facility] [address] [place] [address] Dr. Nataly FryeRBC3.45 106/ulCritically low4.70-6.10The [facility] CenterComment on above:Performed By: #### CBC #### [facility] [address] [place] [address] Dr. Nataly FryeWBC4.7 103/ulNormal4.0-11.0The [facility] CenterComment on above: Performed By: #### CBC #### [facility] [address] [place] [address] Dr. Nataly Jorgensen THYROXINE INDEX T7on 21-28-5856ZVF3.22Wembjl0.30-4.50The [facility] CenterComment on above:Performed By: #### LIPID, URIC, BNP, T7, TSH, CMP #### [facility] [address] [address] [address] Nataly FryeT3U34.0 %Szlkbt08.0-40.0[facility] HospitalComment on above: Performed By: #### LIPID, URIC, BNP, T7, TSH, CMP #### [facility] [address] [place] [address] [address] Nataly FryeT4 [Mass/Vol]6.40 ug/dLNormal4.50-12.10The [facility] Comment on above:Performed By: #### LIPID, URIC, BNP, T7, TSH, CMP #### [facility] [address] [address] [address] Nataly FryeGLYCOHEMOGLOBIN A1Con 42-81-7595PXP RECOMMENDATIONSEE BELOWOhio Valley HospitalComhenry [facility] on above:Result Comment: ADA RECOMMENDED LIMIT 4.0 - 6.0 ADA THERAPEUTIC TARGET < 7.0 ACTION SUGGESTED > 7.0Performed By: #### A1C ####[facility] [address] [place] [address]Dr. Nataly FryeHbA1c (Bld) [Mass fraction]5.6 %Normal4.5-6.2[facility] Comment on above:Performed By: #### A1C ####[facility] [address] [place] [address]Dr.Yilan FryeLIPID PROFILEon 08-14-2022 CHOL-HDL RATIO NORMSEE [facility] CenterComhenry [facility] on above:Result Comment: 3.3 - 4.4 LOW RISK 4.4 - 7.1 AVERAGE RISK 7.1 - 11.0 MODERATE RISK >11.0 HIGH RISKPerformed By: #### LIPID, URIC, BNP, T7, TSH, CMP #### [facility] [address] [address] [address] Nataly FryeCholesterol [Mass/Vol]106 mg/dLNormal<=200[facility] Comment on above:Performed By: #### LIPID, URIC, BNP, T7, TSH, CMP #### [facility] [address] [address] [address] Nataly FryeCholesterol in HDL [Mass/Vol]25 mg/dLCritically yfm96-85Rvo [facility] on above:Performed By: #### LIPID, URIC, BNP, T7, TSH, CMP #### [facility] [address] [place] [address] Dr. Nataly Eddyesterol in LDL [Mass/Vol]34.6 mg/dLRiverview Health Institute on above:Performed By: #### LIPID, URIC, BNP, T7, TSH, CMP #### [facility] [address] [place] [address] Dr. Nataly Gil.total/Cholesterol in HDL [Mass ratio]4.2 {ratio} NormalThe [facility] CenterComhenry [facility] on above:Performed By: #### LIPID, URIC, BNP, T7, TSH, CMP #### [facility] [address] [place] [address] Dr. Nataly Acosta NORMAL> or = 60 mg/dl - LOW CARDIOVASCULAR RISK <40 mg/dl - HIGH CARDIOVASCULAR RISKWooster Community HospitalComhenry [facility] on above:Performed By: #### LIPID, URIC, BNP, T7, TSH, CMP #### [facility] [address] [place] [address] Dr. Nataly Henriquez CALC NORMALSEE BELOWWooster Community HospitalComhenry [facility] on above:Result Comment: <100 mg/dl OPTIMAL 100 - 129 mg/dl NEAR OR ABOVE OPTIMAL 130 - 159 mg/dl BORDERLINE HIGH 160 - 189 mg/dl HIGH >190 mg/dl VERY HIGH Performed By: #### LIPID, URIC, BNP, T7, TSH, CMP #### [facility] [address] [place] [address] Dr. Nataly FryeTriglyceride [Mass/Vol]232 mg/dLCritically high<=150The [facility] on above:Performed By: #### LIPID, URIC, BNP, T7, TSH, CMP #### [facility] [address] [place] [address] Dr. Nataly MendozaLDL CALC46.4 mg/dLRiverside Methodist Hospitalment on above: Performed By: #### LIPID, URIC, BNP, T7, TSH, CMP #### [facility] [address] [place] [address] Dr. Nataly Jean 14(COMP METB)on 87-68-1631Xaltjuo [Mass/Vol]3.3 g/dL Critically low3.4-5.0The [facility] CenterComment on above:Performed By: #### LIPID, URIC, BNP, T7, TSH, CMP #### [facility] [address] [place] [address] Dr. Nataly FryeAlbumin/Globulin [Mass ratio]1.0 {ratio}NormalThe [facility] CenterComment on above:Performed By: #### LIPID, URIC, BNP, T7, TSH, CMP #### [facility] [address] [place] [address] Dr. Nataly Salas [Catalytic activity/Vol]86 U/ERnxxek21-820Ctu [facility] CenterComment on above:Performed By: #### LIPID, URIC, BNP, T7, TSH, CMP #### [facility] [address] [place] [address] Dr. Nataly Tolentino [Catalytic activity/Vol]64 U/LCritically ntxk22-73Hho [facility] CenterComment on above:Performed By: #### LIPID, URIC, BNP, T7, TSH, CMP #### [facility] [address] [place] [address] Dr. Nataly Duarte gap [Moles/Vol]11.3 mmol/LNormalThe [facility] Comment on above:Performed By: #### LIPID, URIC, BNP, T7, TSH, CMP #### [facility] [address] [place] [address] Dr. Nataly Ny [Catalytic activity/Vol]37 U/FYepbfu43-83Epf [facility] CenterComment on above:Performed By: #### LIPID, URIC, BNP, T7, TSH, CMP #### [facility] [address] [place] [address] Dr. Nataly FryeBilirubin [Mass/Vol]0.4 mg/dLNormal0.2-1.0The [facility] Comment on above:Performed By: #### LIPID, URIC, BNP, T7, TSH, CMP #### [facility] [address] [place] [address] Dr. Nataly FryeCalcium [Mass/Vol]7.9 mg/dLCritically low8.5-10.1The [facility] CenterComment on above:Performed By: #### LIPID, URIC, BNP, T7, TSH, CMP #### [facility] [address] [place] [address] Dr. Nataly FryeChloride [Moles/Vol]106 mmol/REybnbf23-543Lqb [facility] Comment on above:Performed By: #### LIPID, URIC, BNP, T7, TSH, CMP #### [facility] [address] [place] [address] Dr. Nataly FryeCO2 [Moles/Vol]30.7 mmol/CNvqsnp64.0-32.0[facility] Comment on above:Performed By: #### LIPID, URIC, BNP, T7, TSH, CMP #### [facility] [address] [place] [address] Dr. Nataly FryeCreatinine [Mass/Vol]0.98 mg/dLNormal0.70-1.30The [facility] CenterComment on above:Performed By: #### LIPID, URIC, BNP, T7, TSH, CMP #### [facility] [address] [place] [address] Dr. Nataly FortuneGFR-AF COMORAN>60Normal>=60The [facility] CenterComment on above:Performed By: #### LIPID, URIC, BNP, T7, TSH, CMP #### [facility] [address] [place] [address] Dr. Nataly FortuneGFR-NON AF COMORAN>60Normal>=60The [facility] CenterComment on above:Performed By: #### LIPID, URIC, BNP, T7, TSH, CMP #### [facility] [address] [place] [address] Dr. Nataly FryeGlobulin (S) [Mass/Vol]3.3 g/dLNormalThe [facility] CenterComment on above:Performed By: #### LIPID, URIC, BNP, T7, TSH, CMP #### [facility] [address] [address] [address] Nataly FryeGlucose [Mass/Vol]114 mg/dLNoWright-Patterson Medical CenterComment on above:Performed By: #### LIPID, URIC, BNP, T7, TSH, CMP #### [facility] [address] [address] [address] Nataly FryePerformed By: #### A1C ####[facility] [address] [address]Dr.Yilan FryePotassium [Moles/Vol]4.0 mmol/L Normal3.5-5.1The [facility] CenterComment on above:Performed By: #### LIPID, URIC, BNP, T7, TSH, CMP #### [facility] [address] [place] [address] Dr. Nataly FryeProtein [Mass/Vol]6.6 g/dLNormal6.4-8.2The [facility] Comment on above:Performed By: #### LIPID, URIC, BNP, T7, TSH, CMP #### [facility] [address] [place] [address] Dr. Nataly FryeSodium [Moles/Vol]144 mmol/LLyapys948-400Hfn [facility] Comment on above:Performed By: #### LIPID, URIC, BNP, T7, TSH, CMP #### [facility] [address] [address] [address] Nataly FryeUrea nitrogen [Mass/Vol]11.0 mg/dLNormal7.0-18.0The [facility] CenterComment on above:Performed By: #### LIPID, URIC, BNP, T7, TSH, CMP #### [facility] [address] [place] [address] Dr. Nataly Cee nitrogen/Creatinine [Mass ratio]11.2 mg/mgNoWright-Patterson Medical CenterComment on above:Performed By: #### LIPID, URIC, BNP, T7, TSH, CMP #### [facility] [address] [place] [address] Dr. Nataly Bullard 69-31-9564CNH5.816 uIU/mLNormal0.358-3.740The [facility] CenterComment on above:Performed By: #### LIPID, URIC, BNP, T7, TSH, CMP ####[facility] [address] [place], [place] [address]FnBambi FryeURIC ACID SERUMon 54-12-8442Dhvef [Mass/Vol]6.6 mg/dLNormal3.5-7.2The [facility] CenterComment on above:Performed By: #### LIPID, URIC, BNP, T7, TSH, CMP ####[facility] [address] [place], [place] [address]ViBambi FryePhysician Referralon 32-55-2469Sgimhtglf Referral [id number]#1.00CD:[address] [place] [address] Vital Signs Date TimeVital SignValuePerforming McskqvjldYiqrqskr82-73-2415 08:58-0400Body bklzma754.9 cmDakota Brown DPM Work Phone: [facility] HospitalAssexyoydm88-43-3584 08:58-0400Body mass index (BMI) [Ratio]36.35 kg/c0Sblfkjhw Brown DPM Work Phone: [facility] HospitalAoquvqanwr64-68-7889 08:58-0400Body ebccrk439.56 kgDakota Brown DPM Work Phone: [facility] HospitalQyzixbuzny64-63-0689 08:58-0400Respiratory rate18 /minNicalbaro Brown DPM Work Phone: [facility] HospitalXgoegtxppm18-49-2042 09:57-0400Body fwtaul748.26 cmJarrett Vyas MD Work Phone: [facility]10-23-2025 09:57-0400 Body mass index (BMI) [Ratio]40 kg/j1UvdajqhJarrett Vyas MD Work Phone: [facility]10-23-2025 09:57-0400 Body kgDouglas Hoy MD Work Phone: [facility]08-28-2025 11:37-0400 Body haoseg160.26 cmJarrett Vyas MD Work Phone: [facility]08-28-2025 11:37-0400 Body mass index (BMI) [Ratio]40.1 kg/i9KbhvupxJarrett Vyas MD Work Phone: [facility]08-28-2025 11:37-0400 Body .37 Ofelia Vyas MD Work Phone: [phone] [place], [place] [address]08-07-2025 11:28-0400 Body .9 cmNicholas Brown DPM Work Phone: [phone] [place], [place] [address]Xqwbcwoozd81-82-7922 11:28-0400Body mass index (BMI) [Ratio]36.35 kg/g3Goufexrx Brown DPM Work Phone: [phone] [place], [place] [address]Cidklbxhwr23-82-7331 11:28-0400Body wwqaby412.56 kgNicholas Brown DPM Work Phone: [phone]-[facility] HospitalSshwwlanwq91-03-6879 11:28-0400Respiratory rate18 /minNicholas Brown DPM Work Phone: [facility] HospitalWhnrvcccdp35-53-6167 10:30-0400Body .9 cmNicholas Brown DPM Work Phone: [phone] [place], [place] [address]Xnreecpgxu73-66-6688 10:30-0400Body mass index (BMI) [Ratio]36.35 kg/e5Opykrxpc Brown DPM Work Phone: [phone] [place], [place] [address]Lxzbkxqqbd24-58-5793 10:30-0400Body ohlshm168.56 kgNicholas Brown DPM Work Phone: [phone]-[facility] HospitalRckwjofihr57-47-8123 10:30-0400Respiratory rate18 /minNicholas Brown DPM Work Phone: [facility] HospitalSikrkrodja87-69-8010 10:44-0500Body ijylxi994.9 cmNicholsameer Rocha DPM Work Phone: [facility] HospitalPahiimyfoo35-05-2875 10:44-0500Body mass index (BMI) [Ratio]36.35 kg/w5Acwbliqw Brown DPM Work Phone: [facility] HospitalWcyysngbdc56-49-8014 10:44-0500Body yanvhr985.56 kgDakota Brown DPM Work Phone: [facility] HospitalVkquinimdj58-13-3350 10:44-0500Respiratory rate18 /minDakota Brown DPM Work Phone: [facility] HospitalDwiwomxpwv14-76-1554 09:53-0400Body ntxtxi010.9 cmDakota Brown DPM Work Phone: [facility] HospitalGdloairavl02-67-3123 09:53-0400Body mass index (BMI) [Ratio]36.35 kg/j1Qvwbxroy Brown DPM Work Phone: [facility] HospitalThznuaupvh85-12-1217 09:53-0400Body mwlosu469.56 kgCassidysameer Rocha DPM Work Phone: noCap[facility] Medical CenterAtwdhwdans66-83-5081 09:53-0400Diastolic blood megrywlz37 mm[Hg]Dakota Rocha DPM Work Phone: noCapital Region Medical CenterKrrjcnqrku77-12-0549 09:53-0400Heart rate79 /min Dakota Rocha DPM Work Phone: [facility] HospitalBkfzgliejd00-98-1440 09:53-0400Systolic blood shoyivnf443 mm[Hg]Dakota Rocha DPM Work Phone: no[facility] Encounters Encounter DateEncounter TypeCare ProviderFacilityStart: 05-12-2025 End: 45-38-5547Fehufg flowsheetDakota Rocha DPM Work Phone: [facility] CI PODIATRYStart: 05-12-2025 End: 90-96-7799Elrgyf flowsheetNicalbaro Rocha DPM Work Phone: [facility] CI PODIATRYStart: 05-12-2025 End: 28-67-1656Mqoyedu encounter procedureDakota Rocha DPM Work Phone: noms CI PODIATRYComment on above:Pain due to onychomycosis of toenails of both feet (Primary Dx); Venous insufficiency; Xerosis cutisStart: 05-12-2025 End: 88-90-2773jtzrcwdxikQATHOYGW A BROWNNot AvailableStart: 05-05-2025 End: 28-30-6740itebsrzsjeKbuveda M Hoy MD Work Phone: -[facility] WestueStart: 05-05-2025 End: 82-09-6448Ndljtpt encounter procedureTulio Ortiz [facility] [place] Work Phone: Start: 03-10-2025 End: 71-22-2216unaqmiapnoKuyovpt M Hoy MD Work Phone: [facility] Work Phone: Start: 03-10-2025 End: 20-48-5284Xqpbgsn encounter Gee Ortiz [facility] [place] Work Phone: Start: 02-17-2025 End: 17-36-1941Ivsqcj flowsStacy Rocha DPM Work Phone: [facility] CI PODIATRYStart: 02-17-2025 End: 28-42-1398Dtcudo Zay Rocha DPM Work Phone: [facility] CI PODIATRYStart: 02-17-2025 End: 97-96-6008Cxrfusy encounter procedureDakota Rocha DPM Work Phone: noms CI PODIATRYComment on above:Pain due to onychomycosis of toenails of both feet (Primary Dx); Venous insufficiency; Xerosis cutisStart: 02-17-2025 End: 53-96-9333yjinqlxeijYNUMVRSS A BROWNNot AvailableStart: 12-13-2024 End: 44-88-9011qjxdwlbtsnNYFDFMSt. Anthony's Hospital Start: 12-09-2024 End: 83-19-1559Yfvjiy flowsheetNicholas A Brown DPM Work Phone: noMS CI PODIATRYStart: 12-09-2024 End: 28-03-2167Armlwo flowsheetNicholas A Brown DPM Work Phone: noMS CI PODIATRYStart: 12-09-2024 End: 19-46-5764Zraiakr encounter procedureNicholas A Brown DPM Work Phone: noms CI PODIATRYComment on above:Pain due to onychomycosis of toenails of both feet (Primary Dx); Venous insufficiency; Xerosis cutisStart: 12-09-2024 End: 59-30-9608tcgpqlabhgVLBLBIYY A ARTIENot AvailableStart: 09-30-2024 End: 77-65-0970hydlplpyzxFVQHMRVA A ARTIENot AvailableStart: 09-17-2024 End: 55-17-0043zzwmrfykjtUXAWCVSt. Anthony's Hospital Start: 07-08-2024 End: 61-78-8396Gdsgfm flowsheetNicholas A Brown DPM Work Phone: n[facility] CI PODIATRYStart: 07-08-2024 End: 80-50-7912Qzkbat flowsheetNicholas A Brown DPM Work Phone: noMS CI PODIATRYStart: 07-08-2024 End: 04-79-8502Yztzosq encounter procedureNicholas A Brown DPM Work Phone: noms CI PODIATRYComment on above:Pain due to onychomycosis of toenails of both feet (Primary Dx); Venous insufficiency; Xerosis cutisStart: 07-08-2024 End: 24-80-6931ebxhdelbvvIYEUDJLO A BROWNNot AvailableStart: 07-05-2024 End: 84-93-0948Yffxyn flowsheetNicholas A Brown DPM Work Phone: [facility] CI PODIATRYStart: 07-05-2024 End: 25-35-7470Wmqxxv flowsheetNicholas Jed Rocha DPM Work Phone: noMS CI PODIATRYStart: 04-29-2024 End: 65-92-3461Otciwv flowsheetNicholas A Brown DPM Work Phone: noMS CI PODIATRYStart: 04-29-2024 End: 46-87-9314Xxdnrj flowsheetNicholas A Brown DPM Work Phone: noMS CI PODIATRYStart: 04-29-2024 End: 84-16-5385Rscrhmr encounter procedureNicalbaro Rocha DPM Work Phone: noms CI PODIATRYComment on above:Pain due to onychomycosis of toenails of both feet (Primary Dx); Xerosis cutisStart: 03-29-2024 End: 59-98-0830tpinnefanmMBIIKXW BOESUniversCleveland Clinic Foundationtart: 01-26-2024 End: 27-50-4107Zicydmocd Result EncounterHilary Vinod Panchal MD Work Phone: noms External Department UnsolicitedStart: 01-26-2024 End: 73-28-7408Aydaopjkg Result EncounterHilary Vinod Panchal MD Work Phone: noms External Department UnsolicitedStart: 12-10-2022 End: 24-40-0088ukqltyvpnnQJ JARRETT HOY .Facility:P5Ltuzr: 11-21-2022 End: 24-03-2178zgdonoaullIK JARRETT HOY .Facility:N5Rkmwa: 08-27-2022 End: 90-77-7450uxcvadewixDT JARRETT HOY .Facility:Y3Sjcbj: 08-26-2022 End: 98-32-2088jkhopikieqZL JARRETT HOY .Facility:I6Syvgo: 08-14-2022 End: 89-97-8491cgkcgwtgkeWR JARRETT HOY .Facility:[address] DateProcedureProcedure DetailPerforming ClinicianStart: 48-78-5636TLH HEAD/BRAIN WO/W Bridger Panchal MD Work Phone: Plan of Treatment DateCare ActivityDetailAuthorStart: 05-12-2025 End: 25-88-5490Upfsiwq encounter procedureNOMS CI PODIATRYComment on above:Pain due to onychomycosis of toenails of both feet (Primary Dx); Venous insufficiency; Xerosis cutisStart: 12-35-7432ZXEXG-19 Vaccine ( season)COVID-19 Vaccine ()[facility] HealthcareStart: 52-18-9145Etmhmvubk vaccinationNOMS HealthcareStart: 02-17-2025 End: 22-53-3414Bfedufi encounter zyrzgikte87/07/2025 11:30 AM EDT Procedure Visit [facility] [address] [address] Dakota Rocha DPM [address] [address] Pain due to onychomycosis of toenails of both feet (Primary Dx); Venous insufficiency; Xerosis cutisNOMS CI PODIATRY Comment on above:Pain due to onychomycosis of toenails of both feet (Primary Dx); Venous insufficiency; Xerosis cutisStart: 12-09-2024 End: 98-66-9578Wcuetqz encounter /29/2025 10:40 AM EDT Procedure Visit [facility] [address] [address] Dakota Rocha DPM [address] [address] Pain due to onychomycosis of toenails of both feet (Primary Dx); Venous insufficiency; Xerosis cutisNOMS CI PODIATRY Comment on above:Pain due to onychomycosis of toenails of both feet (Primary Dx); Venous insufficiency; Xerosis cutisStart: 09-16-2024 End: 36-06-3696Qtafdeh encounter zzkwbzxij56/06/2025 10:40 AM EST Procedure Visit [facility] [address] [facility] [address] [place] [address] Dakota Rocha, [place] [address] [address] N[facility] CI PODIATRYStart: 07-08-2024 End: 25-52-7262Henqbja encounter procedureNOMS CI PODIATRYComment on above:Pain due to onychomycosis of toenails of both feet (Primary Dx); Venous insufficiency; Xerosis cutisStart: 05-05-2024 End: 32-40-5685Gsmipwxz Pnzrnko9705/05/2024 8:00 AM EDT Clinical Support [facility] [address] [facility] [address] [place] [address] Ivana Deal, [facility] [address] [place] [address] [facility] CI AUDStart: 04-29-2024 End: 36-58-5128Hiuomga encounter wazvocfbc89/17/2024 10:00 AM EDT Procedure Visit [facility] [address] [facility] [address] [place] [address] Dakota Rocha DPM [address] [address] Pain due to onychomycosis of toenails of both feet (Primary Dx); Xerosis cutisNOMS CI PODIATRYComment on above:Pain due to onychomycosis of toenails of both feet (Primary Dx); Xerosis cutisStart: 67-80-6721Lwofkzqqf vaccinationInfluenza Vaccine (#1)[facility] HealthcareStart: 25-73-2543Kbsqkvtytqxb Vaccine: 65+ Years (1 of 1 - PCV) Pneumococcal Vaccine: 65+ Years (1 of 1 - PCV)[facility] HealthcareStart: 2007 Pneumococcal Vaccine: 65+ Years (1 of 1 - PCV)Pneumococcal Vaccine: 65+ Years (1 of 1 - PCV)[facility] HealthcareStart: 93-54-9308DQrA/Tdap/Td Vaccines (1 - Tdap) DTaP/Tdap/Td Vaccines (1 - Tdap)[facility] HealthcareStart: 83-84-1375Cpwkctvoo for malignant neoplasm of colonNOMS HealthcareXR Shoulder - right [facility] Payers DatePayer CategoryPayerPolicy ID2022MedicareMEDICARE Member Subscriber Plan / Payer (Effective 2022-Present) Name: Yuan Wilson Member ID: [id number] Relation to Subscriber: Self Name: Yuan Wilson Subscriber ID: [id number] Payer ID: STATE Group ID: Not on file Type: Medicare Address: [address] [id number] 07-48-5620Lhjtqff Health Insurance [id number] [id number] 17-12-6586Fcbopfr Health [id number] 2..1.251833.3.57[id number] 2..1.568771.3.57[id number] 2..1.811985.3.57[id number] 2..1.983427.3.57[id number] 2..1.898921.3.57[id number] 2.16.840.1.401797.3.57[id number] 2..840.1.727238.3.57[id number] 2..840.1.122364.3.57[id number] 2..840.1.681309.3.57[id number] 2.16.840.1.562583.3.579.2.1259 Social History DateTypeDetailFacilityStart: 93-44-4837Niyerja smoking status NHISNever smoked tobaccoNOMS HealthcareStart: 33-85-4017Ikhaabj use and exposureSmokeless tobacco non-userNOMS HealthcareStart: 02-17-2024 End: 76-89-7212Crkjtzeuv beverage intakeEx-drinker (finding)[facility] Start: 02-17-2024 End: 13-28-7442Dcsaccp of Social functionNOMS HealthcareStart: 02-17-2024 End: 15-13-8216Oqlfdiw use panelNOMS HealthcareStart: 42-46-1729Ogt assigned at [facility]heasternNot on fileNOAK HealthcareTobacco smoking status NHISUnknown if ever smoked [facility] Work Phone: SexMale (finding)[facility] Start: 01-91-3889Eji Assigned At [facility] Start: 46-27-9712ElhDxyoPHQJ HealthcareNEGATED: Highlighted rowStart: NINF History of tobacco usePassive smokerNOMS Healthcare Clinical Notes 03-29-2024 to 05-12-2025 Note Date & LiimFeeyJsjmwqbj35-22-2951 History of Present illness Narrative* Dakota Rocha, [...] Partner Violence: Unknown (09/04/2023) Received from [facility] Safety & Environment Fear of Current or [...] needed Dakota Rocha DPM documented in this encounterChristian HospitalQwpyhryjkj13-03-8864 Evaluation note* Diagnosis Onset Date Resolution Status Admit Date Bicipital tendinitis, right shoulder acuteAugust 2024 10:54amRight rotator cuff tearacuteAugust 2024 10:54amBicipital tendinitis, right shoulderacuteOctober 2024 9:38amRight rotator cuff tearacuteOctober 2024 9:38am [facility] Work Phone: [phone]) 794-929908-07-2025 History of Present illness Narrative* Dakota Rocha [...] Partner Violence: Unknown (09/04/2023) Received from [facility] Safety & Environment Fear of Current or [...] needed Dakota Rocha DPM documented in this encounterChristian HospitalIzbyoiblzq11-48-3315 NoteUT Cardiology - [facility] [...] 100 mg by m (more content not included)...[facility]05-29-2025 History of Present illness Narrative* Dakota [...] disease) History of Crohn's disease HTN (hypertension) ([facility]) Kidney stone Medications: Current Outpatient Medications: [...] Partner Violence: Unknown (09/04/2023) Received from [facility] Safety & Environment Fear of Current or [...] needed Dakota Rocha DPM documented in this encounterChristian HospitalYekhwbdkjx82-72-1510 NoteUT Cardiology - [facility] [...] chloride 104, (more content not included)... [facility]12-26-2024 History of Present illness Narrative* Dakota [...] disease) History of Crohn's disease HTN (hypertension) ([facility]) Kidney stone Medications: Current Outpatient Medications: [...] Partner Violence: Unknown (09/04/2023) Received from [facility], [facility] Safety & Environment Fear of Current or [...] needed Dakota Rocha DPM documented in this encounterChristian HospitalYcnllkekpg94-28-4282 History of Present illness Narrative* Dakota Rocha [...] disease) History of Crohn's disease HTN (hypertension) ([facility]) Kidney stone Medications: Current Outpatient Medications: [...] Partner Violence: Unknown (09/04/2023) Received from [facility], [facility] [place] Safety & Environment Fear of Current [...] needed Dakota Rocha DPM documented in this encounterChristian HospitalQlktxndghy11-29-6932 NoteStable no concerning symptoms or worsening SOB or orthopneaUnMartins Ferry Hospital 03-29-2024 NoteHypertension is currently well controlled Renal function has remained stable Continue toprol, aldactone and lasixUnMartins Ferry Hospital 03-29-2024 NoteNYHC II remains euvolemic without exacerbation or activity limiting symptoms Continue GDMT- continue lasix daily and aldactone Diuretic therapy Monitor daily weights, I&O, fluid restriction 1.5-2L/day, renal function and electrolytes-[facility]09-16-2024 NotePt is here for a six month follow up. Pt denies chest pain, palpatation, dizziness Review of Systems Constitutional: Weight loss: 10# since January 2023. Cardiovascular: Positive for dyspnea on exertion and leg swelling. All other systems reviewed and are negative.[facility] 03-29-2024 NoteUTP CARDIOLOGY PROGRESS NOTE HPI: [...] leaflet mobility. No eviden (more content not included)...[facility] HospitalEvaluation note* Diagnosis Pain due to onychomycosis of toenails of both feet- Primary Xerosis cutis Other specified disease of sebaceous glands documented in this encounter [facility] HealthcareEvaluation note* Diagnosis Pain due to onychomycosis of toenails of both feet- Primary Venous insufficiency Unspecified venous (peripheral) insufficiency Xerosis cutis Other specified disease of sebaceous glands documented in this encounter [facility] HealthcareEvaluation note* Diagnosis Pain due to onychomycosis of toenails of both feet- Primary Venous insufficiency Unspecified venous (peripheral) insufficiency Xerosis cutis Other specified disease of sebaceous glands documented in this encounter [facility] HealthcareEvaluation note* Diagnosis Onset Date Resolution Status Admit Date Bicipital tendinitis, right shoulder acuteAugust 2024 10:54amRotator cuff syndrome of right shoulderacuteAugust 2024 10:54am [facility] Work Phone: Evaluation note* Diagnosis Pain due to onychomycosis of toenails of both feet- Primary Venous insufficiency Unspecified venous (peripheral) insufficiency Xerosis cutis Other specified disease of sebaceous glands documented [facility] this [facility] (narrative)No reason for referral information availableMercy Health St. [facility] Work Phone: Summary Purpose Family History [...] section and content) DATE CREATED AUTHOR 06/06/2021 [facility] DATE CREATED AUTHOR AUTHOR'S ORGANIZ ATION 12/20/2022 [facility] DATE CREATED AUTHOR AUTHOR'S ORGANIZ ATION 12/13/2024 [facility] DATE CREATED AUTHOR AUTHOR'S ORGANIZ ATION 05/13/2025 [facility] EPIC Care Teams (unrecognized sec tion and content) Team MemberRelationshipSpecialtyStart DateEnd Date Jarrett Vyas MD [address] [facility] [address] [facility] - [facility]07/17/23Team MemberRelationshipSpecialtyStart DateEnd Formerly [facility], [facility] Jarrett Vyas MD [address] [facility], [phone] P[facility] - [facility] Medicine07/17/23Team MemberRelationshipSpecialtyStart DateEnd Formerly [facility], [facility] Jarrett Vyas MD [address] [facility], [phone] [facility] - [facility] Medicine07/17/23Team MemberRelationshipSpecialtyStart DateEnd Date Jarrett Vyas MD [address] [place] [address] PCP - [facility] Medicine07/17/23Team MemberRelationshipSpecialtyStart DateEnd Date Jarrett Vyas MD [address] [phone] PCP - [facility] Medicine07/17/23 Team Status: Active Member [...] March 10, 2025 End: March 10, 2025DoRalph Castrosouth baldwin regional medical centerbing Care ProviderActiveStart: March 10, 2025 End: March 10, 2025 Team Status: Inactive Member Role/Relationship Status Dates Jarrett Vyas MD Primary Care Provider Active Start: May 05, 2025 End: May 05, 2025Tulio Ortiz DOAttending ProviderActiveStart: May 05, 2025 End: May 05, 2025Team MemberRelationshipSpecialtyStart DateEnd Date Jarrett Vyas MD [address] [place] [phone] PCP - GeneralFamily Medicine07/17/23 Reason for Visit [...] BE BASED ON THE PRIMARY CLINICAL RECORDS. [facility]. provides no warranty or guarantee of the accuracy or completeness of information in this document.
--- OUTSIDE RECORDS SUMMARY | 2025-07-13 07:54 | XMS_ITS | Clinical Summary ---
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 Name Role Phone Wojciech Vyas MD Primary Care Provider [phone] Allergies No known active allergies Medications MedicationSigDispense QuantityRefillsLast FilledStart DateEnd DateStatus Farxiga 10 MG 07/06/2023ctive diclofenac (Voltaren) 75 MG EC tablet Take 75 mg by mouth 2 (two) times a day as zbytvx6406/25/2023ctive furosemide (Lasix) 20 MG tablet Take 20 mg by mouth in the morning.04/14/2023ctive metoprolol succinate XL (Toprol-XL) 100 MG 24 hr tablet Take 100 mg by mouth in the morning.05/20/2023ctive Active Problems ProblemNoted DateDiagnosed DateImpacted ccujuzy5710/01/2023Osteoarthritis of knee 10/01/2023iastolic heart kdipjbm0411/27/2022OE (dyspnea on exertion)11/27/2022 Essential bmlsiheiimzg32/17/2023Lower extremity edema11/27/2022ulmonary /17/2023Tricuspid valve ocojafnzetczh12/17/2023 Encounters DateTypeDepartmentCare WstrTtjdioipire37/30/2025 9:00 AM EDTProcedure Visit [facility] [address] [place] [address] Dakota Rocha DPM Pain due to onychomycosis of toenails of both feet (Primary Dx); Venous insufficiency; Xerosis cutis05/12/2025amboo flowsheet [facility] [address] [place] [address] Dakota Rocha DPM 05/12/2025Travelfrom Last 3 Months Family History Medical HistoryRelationNameCommentsDiabetesFatherHeart diseaseFatherHypertension FatherDiabetesMotherHeart diseaseMotherHypertensionMotherHypertensionOther RelationNameStatusCommentsFatherDeceasedMotherDeceasedOther Social History Tobacco UseTypesPacks/DayYears UsedDateSmoking Tobacco: NeverPassive Smoke Exposure: NeverSmokeless Tobacco: Never Tobacco Cessation:Counseling Given: Yes Alcohol UseStandard Drinks/WeekCommentsNot Currently0 (1 standard drink = 0.6 oz pure alcohol)Sex and Gender InformationValueDate RecordedSex Assigned at Not on fileLegal FqfJmaz3309/25/2022 6:53 PM EDTGender IdentityNot on fileSexual OrientationNot on file Last Filed Vital Signs Vital SignReadingTime TakenCommentsBlood Viupinjk124/7803 10:37 AM EDT Vfjpw866809/30/2024 10:37 AM EDTTemperature--Respiratory Fndx6344 8:58 AM EDTOxygen Saturation--Inhaled Oxygen Concentration--Bqrdgt811 kg (268 lb) 05/12/2025 8:58 AM FVPMrbzgt509.9 cm (6')05/12/2025 8:58 AM EDTBody Mass Index 36.351 8:58 AM EDT Plan of Treatment DateTypeDepartmentCare Team (Latest Contact Info)Oxlgodzrnvb71/22/2026 9:10 AM ESTProcedure Visit [facility] [address] [facility] [address] [place] [address] Dakota Rocha, [place] [address] [facility] [address] [place] [address] Health MaintenanceDue DateLast DoneCommentsCT Fhdgyvlnqtbw1957Colonoscopy 1957Colorectal Cancer Fpfbuhwis1957FIT-DNA1957FIT1957 FOBT05/02/19577317[place]1957Pneumococcal Vaccine: 65+ Years (1 of 1 - PCV)2007Influenza Vaccine (#1)2025 Insurance Care Teams Team MemberRelationshipSpecialtyStart DateEnd Wojciech Vyas MD [address] [place] [address] PCP - GeneralFamily Medicine07/17/23
--- OUTSIDE RECORDS SUMMARY | 2025-07-13 07:54 | XMS_ITS | Patient Health Record ---
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 Name Role Phone Melquiades Vyas Primary Care Provider [phone] Arsen Hanks [place] [phone] Allergies Allergen (clinical drug ingredient) Drug/Non Drug Allergy documented on EMR Reaction Allergy Type Onset Date Status IodineUnknownDrug AllergyActive Results Component Value Reference Range Notes XR shoulder RT min 2V Reviewed date:03/10/2025 05:05:43 PM Interpretation: Performing Lab: Notes/Report: Source Facility: [place] [address] XRay Report Signed Patient: YUAN WILSON MR#: [id number] : 1955 Acct:[id number] Age/Sex: 69 / M ADM Date: 03/10/25 Loc: RAD Attending Dr: Tulio Harrell D.O. Ordering Physician: Tulio Harrell Date of Service: 03/10/25 Procedure(s): XR shoulder RT min 2V Accession Number(s): [id number] cc: Tulio Harrell; Jarrett Vyas M.D. [place] [id number] Patient Name: YUAN WILSON MRN: [id number]:[id number] date: 1955 Sex: M Assigned Patient Location: RAD Current Patient Location: PT Accession/Order Number: [id number] Exam Date: 03/10/2025 11:00 Report Date: 03/10/2025 13:20 At the request of: TULIO HARRELL DO Procedure: XR shoulder RT min 2V RIGHT SHOULDER - 4 views CLINICAL HISTORY: Pain in right shoulder radiating down the arm for the past 3-4 months. No injury. M25.511 COMPARISON: None AP, Y, axillary and Grashey views were obtained. There is no evidence of fracture or dislocation. There is mild hypertrophy at the acromioclavicular joint. There is mild sclerosis at the greater tuberosity. There are no significant soft tissue abnormalities. XR/XR shoulder RT min 2V IMPRESSION: NO ACUTE BONY FINDINGS. Impression dictated by: Casandra Farrar M.D. 03/10/2025 1:20 PM Dictation Location: [place] [address] Electronically authenticated by: [id number] Y Date: 03/10/2025 13:20 Dictated By: Casandra Farrar M.D. Signed By: 03/10/25 1322 DD/ 1320 TD/TT: Tape Maker: RT pulmonary function test Reviewed date:10/14/2024 05:22:50 PM Interpretation: Performing Lab: Notes/Report: Source Facility: [place] [address] Respiratory Report Signed Patient: YUAN WILSON MR#: [id number] : 1955 Acct:[id number] Age/Sex: 69 / M ADM Date: 10/07/24 Loc: CARD Attending Dr: JACQUELYN AGUILAR Ordering Physician: JACQUELYN AUGILAR Date of Service: 10/07/24 Procedure(s): RT pulmonary function test Accession Number(s): [id number] cc: [facility] Test Date: 2024-10-07 Pat Name: YUAN WILSON Department: Room: - Gender: Male 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 Order Number: [id number] Ángel MD: Arsen Hanks Interpretive Statements Pulmonary function testing was completed according to ATS criteria. Findings were considered accurate and reproducible, with exception of DLCO which did not meet ATS standards. Both pre- and post-bronchodilator values utilized for spirometry. Spirometry (based on pre-bronchodilator values): -FEV1/FVC: Reduced @ 66% -FEV1: Moderately reduced @ 66% -FVC: Reduced @ 74% -There is no significant bronchodilator response. Lung volumes by plethysmography: -RV: Increased @ 134% -TLC: Normal @ 99% Diffusion capacity: -DLCO: Mild reduction @ 77% when corrected for Hb 11g/dL Impressions: -Spirometry suggests mild obstruction without a bronchodilator response. Increased RV suggests air trapping. Mild diffusion impairment. Overall study is compatible with COPD/emphysema. Clinical correlation required. Electronically Signed On 10-14-2024 16:22:58 EDT by Arsen Hanks Dictated By: Arsen Hanks D.O. Signed By: 10/14/24 1623 DD/ 0805 TD/TT: Tape Maker: TSH Reviewed date:08/18/2024 12:28:47 PM Interpretation: Performing Lab: Notes/Report: [facility] , Thyroid Stimulating Hormone 3.293 0.358-3.740 u IU/mL Performing Lab:see noteML - [facility] LBT4 Reviewed date:08/18/2024 12:28:47 PM Interpretation: Performing Lab: Notes/Report: [facility] ,T4 Thyroxine7.004.50-12.10 ug/dLPerforming Lab:see noteML - [facility] LBPSA SCREENING Reviewed date:08/18/2024 12:28:47 PM Interpretation: Performing Lab: Notes/Report: [facility] ,Prostate Specific Antigen Scrn0.13<=4.00 ng/mLPerforming Lab:see noteML - [facility] LBPROF 14(COMP METB) Reviewed date:08/18/2024 12:28:47 PM Interpretation: Performing Lab: Notes/Report: [facility] ,Pwcgvy594664-154 mmol/LPotassium4.23.5-5.1 mmol/OMxeurhst73546-371 mmol/LCarbon Aumofap57.221.0-32.0 mmol/LAnion Gap12.4Hhgypxb72628-687 mg/dLBlood Urea Kvqoelzq21.07.0-18.0 mg/dLCreatinine1.220.70-1.30 mg/dLEstimated GFR ( Myesha>60>=60 mL/min/1.73m 2Estimated GFR (Non- Ame59>=60 mL/min/1.73m 2 BUN Creatinine Ratio12.5Vldghhw9.88.5-10.1 mg/dLBilirubin Total0.50.2-1.0 mg/dL Aspartate Amino Guvjkksiavu6265-64 U/LAlanine Tushxztsqqgnnbzg0586-00 U/L Alkaline Xydcocicegh2356-978 U/LTotal Protein6.86.4-8.2 g/dLAlbumin Level3.73.4- 5.0 g/dLGlobulin3.1Albumin Globulin Ratio1.2Performing Lab:see noteML - [facility] LBLIPID PROFILE Reviewed date:08/18/2024 12:28:47 PM Interpretation: Performing Lab: Notes/Report: [facility] ,Nvlasestdetkq700<=150 mg/cUBvgeossrrds930<=200 mg/dLHDL Xntbqxbikzm3644-90 mg/dL <40 mg/dl - HIGH CARDIOVASCULAR RISK > or =60 mg/dl - LOW CARDIOVASCULAR RISK LDL Cholesterol Kplejqunaf16.0 >190 mg/dl VERY HIGH 100-129 mg/dl NEAR OR ABOVE OPTIMAL 160-189 mg/dl HIGH 130-159 mg/dl BORDERLINE HIGH <100 mg/dl OPTIMAL VLDL EUQRMEMWWRV08.2Chol HDL Ratio4.0 4.4 - 7.1 AVERAGE RISK >11.0 HIGH RISK 7.1 - 11.0 MODERATE RISK 3.3 - 4.4 LOW RISK Performing Lab:see noteML - [facility] LBGLYCOHEMOGLOBIN A1C Reviewed date:08/18/2024 12:28:47 PM Interpretation: Performing Lab: Notes/Report: [facility] ,Glycohemoglobin A1C5.54.5-6.2 % > 7.0 ACTION SUGGESTED ADA RECOMMENDED LIMIT 4.0 - 6.0 ADA THERAPEUTIC TARGET < 7.0 Estimated Average Mcvpkyc385Vantpjlbbr Lab:see noteML - [facility] LB FREE T3 Reviewed date:08/18/2024 12:28:47 PM Interpretation: Performing Lab: Notes/Report: [facility] ,Free T31.772.18-3.98 pg/mLPerforming Lab:see noteML - [facility] LB CBC AUTO DIFF Reviewed date:08/18/2024 08:46:55 AM Interpretation: Performing Lab: Notes/Report: [facility] ,White Blood Count6.34.0-11.0 10 3/uLRed Blood Count3.294.70-6.10 10 6/uL Amwutjlfih44.014.0-18.0 g/wYCrhqhnyzup10.542.0-54.0 %Mean Corpuscular Jnrnos76.8 80.0-94.0 fLMean Corpuscular Plnieoulou76.425.9-34.0 pgMean Corpuscular HGB Conc 33.829.9-35.2 g/dLRed Cell Distribution Width14.811.0-15.0 %Platelet Bhzsm728 150-450 10 3/uLMean Platelet Jsjlnu77.19.5-13.5 fLNeutrophils Percent Auto38.7 43.0-75.0 %Lymphocytes Percent Auto46.720.5-60.0 %Monocytes Percent Auto10.01.7- 12.0 %Eosinophils Percent Auto3.20.9-7.0 %Basophils Percent Auto0.60.2-2.0 % Immature Granulocytes Pct Auto0.80.0-0.5 %Neutrophils Absolute Auto2.41.4-6.5 10 3/uLLymphocytes Absolute Auto2.91.2-3.8 10 3/uLMonocytes Absolute Auto0.60.3-0.8 10 3/uLEosinophils Absolute Auto0.20.0-0.7 10 3/uLBasophils Absolute Auto0.00.0- 0.1 10 3/uLImmature Granulocytes Abs Auto0.050.00-0.03 10 3/uLPerforming Lab:see noteML - [facility] LBBNP Reviewed date:08/18/2024 12:28:47 PM Interpretation: Performing Lab: Notes/Report: [facility] ,NT Pro B Type Natriuretic Perp977.0<=900.0 pg/mLPerforming Lab:see noteML - [facility] LBPROF CHEM 8 (BAS METB) Reviewed date:10/28/2024 09:04:37 PM Interpretation: Performing Lab: Notes/Report: [facility] ,Rcazer494431-209 mmol/LPotassium3.73.5-5.1 mmol/GLnzbqgnj90222-319 mmol/LCarbon Bmdovjq92.021.0-32.0 mmol/LAnion Gap12.0Xahmafb76726-756 mg/dLBlood Urea Fzwpdynb70.07.0-18.0 mg/dLCreatinine1.370.70-1.30 mg/dLEstimated GFR ( Myesha>60>=60 mL/min/1.73m 2Estimated GFR (Non- Ame52>=60 mL/min/1.73m 2 BUN Creatinine Ratio11.5Lsttyoy2.28.5-10.1 mg/dLPerforming Lab:see noteML - [facility] LBCA echo doppler complete Reviewed date:10/10/2024 04:03:50 PM Interpretation: Performing Lab: Notes/Report: Source Facility: [place] [address] Cardiology Report Signed Patient: YUAN WILSON MR#: [id number] : 1955 Acct:[id number] Age/Sex: 69 / M ADM Date: 10/07/24 Loc: CARD Attending Dr: JACQUELYN AGUILAR Ordering Physician: JACQUELYN AGUILAR Date of Service: 10/07/24 Procedure(s): CA echo doppler complete Accession Number(s): [id number] cc: Jarrett Vyas M.D.; JACQUELYN AGUILAR Patient Name: YUAN WILSON MR#: [id number] : 1955 Exam Date: 10/07/2024 Ordering Doctor: DR JACQUELYN AGUILAR M.D. ECHOCARDIOGRAM REPORT PROCEDURE: CA ECHO DOPPLER COMPLETE INDICATIONS: Heart failure, dyspnea, hypertension COMPARISON: None. DESCRIPTION: COMPLETE ECHOCARDIOGRAM Real-time transthoracic echocardiography with 2D, M-mode, spectral and color flow Doppler performed. QUALITY: Technical quality was good. LEFT VENTRICLE: Normal chamber size. Thickened septal wall. Mild to moderate concentric hypertrophy. Normal systolic function. LV EF: Normal left ventricular ejection fraction, (60-65%). DIASTOLIC: Diastolic function is indeterminate. ATRIAL SEPTUM: LEFT ATRIUM: Severe dilatation. RIGHT ATRIUM: Moderate dilatation. RIGHT VENTRICLE: Normal chamber size. Normal right ventricular systolic function. TRICUSPID VALVE: Normal mobility and thickness. No stenosis with mild to moderate regurgitation. Doppler studies reveal severely (>60) elevated right sided pressures. RVSP 63 mmHg MITRAL VALVE: Normal mobility and thickness. No evidence of mitral valve stenosis. There is no mitral annular calcification. Mild mitral regurgitation. AORTIC VALVE: Normal trileaflet appearance. No visible sclerosis. Normal leaflet mobility. No evidence of aortic valve stenosis. No aortic regurgitation. AORTIC ROOT: Normal diameter and appearance. Ascending aorta is normal in size. PULMONIC VALVE: Normal thickness and mobility. No stenosis. Trivial regurgitation. PERICARDIUM: No evidence of pericardial effusion. IVC: Collapses with inspirations. IVC is dilated (2.2 cm) PLEURA: CONCLUSION: 1. Mild to moderate concentric left ventricular hypertrophy with normal systolic function. LVEF is estimated at 60 to 65%. 2. Normal right ventricular size and systolic function. 3. Moderate to severe biatrial dilatation. 4. Mild to moderate tricuspid regurgitation. 5. Mild mitral regurgitation. 6. Severely elevated right-sided pressures. RVSP is 63 mmHg. Adult Echocardiography Procedure Report Left Ventricle LVEDD (3.7 - 5.6 cm): 5.27 cm LVESD (2.2 - 4.0 cm): 3.70 cm LVIVS thickness (0.6 - 1.2 cm): 1.46 cm LVPW thickness (0.5 - 1.0 cm): 0.92 cm e': 0.14 m/s E - e': 4.18 LVOT Max Gradient: 2.57 mm[Hg] LVOT Area (cm2): 0.80 m/s Peak Velocity (LVOT): 0.80 m/s Mean Velocity (LVOT): 0.58 m/s LVOT Diameter 2.33 cm Left Atrium LA Volume Index (2D A2C): 56.78 ml/m2 Left Atrium Systolic Dimension: 5.52 cm Mitral Valve MV E to A Ratio: 1.05 Mitral Valve A-Wave Peak Velocity: 0.55 m/s Mitral Valve E-Wave Peak Velocity: 0.58 m/s Right Ventricle Aorta AO Root Diam: 3.71 cm Ascending Ao Diam: 2.99 cm Aortic Valve AoV Area (Peak Rishi): 2.84 cm2, 2.84 cm2 AoV Area (VTI): 2.67 cm2, 2.67 cm2 Peak Velocity(Antegrade Flow): 1.20 m/s Peak Gradient(Antegrade Flow): 5.79 mm[Hg] Mean Velocity(Antegrade Flow): 0.83 m/s Mean Gradient(Antegrade Flow): 3.14 mm[Hg] Velocity Time Integral: 28.79 cm Tricuspid Valve Peak Velocity (Regurgitant Flow): 3.71 m/s Pulmonic Valve Mean Gradient: 1.51 mm[Hg] Mean Velocity: 0.57 m/s Peak Velocity: 0.87 m/s, 1.00 m/s Peak Gradient: 3.98 mm[Hg], 3.01 mm[Hg] Right Atrium Right Atrium Systolic Pressure: 55.67 ml, 55.67 ml Dictated by: Jacquelyn Aguilar M.D. on 10/08/2024 at 17:00 Approved by: Jacquelyn Aguilar M.D. on 10/08/2024 at 17:07 Dictated By: JACQUELYN AGUILAR Signed By: 10/08/241707 DD/ 06 TD/TT: Tape Maker:SERENE delvis perf SPECT rest str Reviewed date:06/20/2025 07:01:26 PM Interpretation: Performing Lab: Notes/Report: Source Facility: [place] [address] Nuclear Medicine Report Signed Patient: YUAN WILSON MR#: [id number] : 1955 Acct:[id number] Age/Sex: 70 / M ADM Date: 06/14/25 Loc: CARD Attending Dr: JACQUELYN AGUILAR Ordering Physician: JACQUELYN AGUILAR Date of Service: 06/14/25 Procedure(s): NM delvis perf SPECT rest str Accession Number(s): [id number] cc: Jarrett Vyas M.D.; JACQUELYN AGUILAR Patient Name: YUAN WILSON MR#: [id number] : 1955 Exam Date: 06/14/2025 Ordering Doctor: DR JACQUELYN AGUILAR M.D. RADIOLOGY REPORT PROCEDURE: NM DELVIS PERF SPECT REST STR COMPARISON: None. INDICATIONS: DYSPNEA ON EXERTION TECHNIQUE: Exam Description: Stress/Rest two day protocol gated SPECT Rest Imagin.5 mCi Tc-99m Cardiolite IV on 06-15-2025 Stress Imaging 25.7 mCi Tc-99m Cardiolite IV on 06-14-2025 Exercise Protocol: Osvaldo Heart Rate (bpm): Rest: 75 Max: 151 PMHR: 99 Blood Pressure: Rest: 108/70 Max: 150/72 Exercise Time: Minutes: 3 Seconds: 02 Stage Reached: Stage: 1 Mets 4.6 Symptoms: Rest and peak stress ECG findings were pending and the exercise portion of the study was pending per attending physician [facility] . For more details please see separate cardiac stress test report. FINDINGS: QUALITY OF STUDY: Good PERFUSION DEFECT: LOCATION: Inferior, inferolateral SIZE: Medium SEVERITY: Moderate TYPE: Fixed with adequate contractility and thickening consistent most likely with diaphragmatic attenuation WALL MOTION: Normal LV SIZE: 96 mL. TID / TCD: 0.8 LVEF: Calculated EF 78%. SUMMARY: Normal myocardial perfusion imaging study CONCLUSION: Probably normal myocardial perfusion nuclear stress test without evidence of ischemia or infarction, significant diaphragmatic attenuation is noted Normal left ventricle systolic function, EF 78% No transient ischemic dilatation, TID 0.8 EKG portion of stress test is reported separately Dictated by: Kiley Hillman MD on 06/20/2025 at 17:58 Approved by: Kiley Hillman MD on 06/20/2025 at 18:02 Dictated By: Kiley Hillman M.D. Signed By: 06/20/251802 DD/ 01 TD/TT: Tape Maker:MR leona MCBRIDE wo stephanie Reviewed date:02/13/2025 08:01:59 PM Interpretation: Performing Lab: Notes/Report: Source Facility: [facility]-[address] [place] [address] [place] [address] Magnetic Resonance Report Signed Patient: YUAN WILSON MR#: [id number] : 1955 Acct:[id number] Age/Sex: 69 / M ADM Date: 02/11/25 Loc: MRI Attending Dr: Jarrett Vyas M.D. Ordering Physician: Jarrett Vyas M.D. Date of Service: 02/11/25 Procedure(s): MR shoulder RT wo con Accession Number(s): [id number] cc: Jarrett Vyas M.D. [place] [id number] Patient Name: YUAN WILSON MRN: [facility]:[id number] date: 1955 Sex: M Assigned Patient Location: MRI Current Patient Location: MRI Accession/Order Number: [id number] Exam Date: 02/11/2025 09:17 Report Date: 02/11/2025 09:21 At the request of: JARRETT VYAS MD Procedure: MR shoulder RT wo con MR RIGHT SHOULDER CLINICAL INFORMATION: Right shoulder pain. COMPARISON: None. PROCEDURE: Axial, oblique coronal, and oblique sagittal long TR images of the shoulder were obtained. FINDINGS: ROTATOR CUFF AND ASSOCIATED STRUCTURES Biceps Tendon: The biceps tendon is normally situated within the bicipital groove. No complete or partial biceps tendon tear is present. Rotator cuff: There is a full-thickness tear of the supraspinatus insertion. There is medial retraction of portions of the tendon by 1.8 cm. There is a gap partial unroofing the humeral head at the insertion site measuring 1.6 cm in AP dimension. There is increased signal intensity within the infraspinatus tendon suggesting tendinopathy. Teres minor and subscapularis are intact. Musculature: There is no muscular tear, contusion, or atrophy. Bursa: No bursal effusion or thickening is seen. OSSEOUS STRUCTURES Acromioclavicular joint: There are moderate degenerative changes of the acromioclavicular joint. A type 2 acromion configuration is noted. There is no anterior or lateral acromial downsloping. Bones: No Hill-Sachs, reverse Hill-Sachs, or bony Bankart lesions are seen. There are no fractures or regions of abnormal bone marrow signal intensity. GLENOHUMERAL JOINT Joint: There is no glenohumeral joint effusion. Cartilage: No focal hyaline cartilage defects are noted. Labrum: The labrum is not optimally evaluated. Other support structures: There is mild thickening of the joint capsule in the axillary recess measuring 1 cm in thickness. Correlation with clinical signs of adhesive capsulitis is recommended. MR/MR shoulder RT wo con IMPRESSION: 1. There is a full-thickness tear of the supraspinatus insertion. There is medial retraction of portions of the tendon by 1.8 cm. There is a gap partial unroofing the humeral head at the insertion site measuring 1.6 cm in AP dimension. 2. There is increased signal intensity within the infraspinatus tendon suggesting tendinopathy. 3. There is mild thickening of the joint capsule in the axillary recess measuring 1 cm in thickness. Correlation with clinical signs of adhesive capsulitis is recommended. Impression dictated by: Dylan Cutler M.D. 02/11/2025 9:21 AM Dictation Location: [employer] Electronically authenticated by: [id number] Y Date: 02/11/2025 09:21 Dictated By: Dylan Cutler M.D. Signed By: 02/11/25923 DD/ 0 TD/TT: Tape Maker: Reason For Referral Reason screening colonoscop y Diagnosis 1 Essential (primary) hypertension (I10) Referral Organization [facility] Referring Provider First Name Melquiades Referring Provider Last Name [facility] Referring Provider [facility] Referred Provider Keron Benson Referred Provider Specialty General Surg yaneth Referral Priority Routine Diagnosis 1 Anemia (D64.9) Referral Organization [facility] Referring Provider First Name Melquiades Referring Provider Last Name [facility] Referring Provider [facility] Referred Provider Aj Shearer Referred Provider Specialty Gastroentero logy Referral Priority Routine Diagnosis 1 Supraspinatus tendon tear (S46.819A) Referral Organization [facility] Referring Provider First Name Melquiades Referring Provider Last Name [facility] Referring Provider [facility] Referred Provider Andre Fulton Referred Provider Specialty Orthopedic S urgery Referral Priority Routine Medications Medication SIG (Take, Route, Frequency, Duration) Notes Start Date End Date Status Aspirin 81 81 MG 1 tablet Orally Once a day ActiveAdvair HFA 115-21 MCG/ACT2 puffs Inhalation Twice a day; Duration: 30 days 5ActiveSpironolactone 25 MG1/2 tablet Orally DailyActiveTurmericActive Mysoline 50 MG1 tablet Orally Once a day; Duration: 30 days5Active Diclofenac Sodium 75 MG1 tablet as needed Orally Twice a day; Duration: 30 3ActiveMetoprolol Succinate ER 100 MGTAKE 1 TABLET BY MOUTH EVERY DAY; Duration: 90 daysActiveMulti For HimActiveFarxiga 10 MG1 tablet Orally Once a dayActiveLasix 40 MG1 tablet Orally Once a dayActive Social History Tobacco Use: Social History Observation Description Date Details (start date - stop date) Never Smoker NA - NA Tobacco Use/Smoking Question Answer Notes Patient is a nonsmoker Alcohol Screen (Audit-C) Question Answer Notes Did you have a drink containing alcohol in the p ast year? Yes How often did you have 6 or more drinks on one occasion in the past year?Never (0 point)How many drinks did you have on a typical day when you were drinking in the past year?1 or 2 drinks (0 point)How often did you have a drink containing alcohol in the past year?Less than monthly (1 point)Ezhwbm7Ortfagfhtwsdmi NegativeAUDIT-C (Standard) Question Answer Notes Did you have a drink containing alcohol in the p ast year? No Nqocvg0JrudpsqhzstvrdDcckydms Problems Problem Type SNOMED Code ICD Code Onset Dates Problem Status W/U Status Risk Notes Problem Essential hypertension (71728748 ) Essential (primary) hypertension (I10) ActiveconfirmedProblemRheumatic tricuspid insufficiency (17322953)Rheumatic tricuspid insufficiency (I07.1)ActiveconfirmedProblemChronic diastolic heart failure (310794989)Chronic diastolic (congestive) heart failure (I50.32)Active confirmedProblemDyspnea (003825116)Other forms of dyspnea (R06.09)Active confirmedProblemCOPD - Chronic obstructive pulmonary disease (87378954)COPD (chronic obstructive pulmonary disease) (J44.9)ActiveconfirmedProblemDyspnea on exertion (63156535)Dyspnea on exertion (R06.09)ActiveconfirmedProblemAnemia (340208341)Anemia (D64.9)ActiveconfirmedProblemOsteoarthritis of knee (175518292)Knee osteoarthritis (M17.9)ActiveconfirmedProblemImpacted cerumen (48381502)Cerumen impaction (H61.20)ActiveconfirmedProblemHearing loss (48886780)Hearing loss (H91.90)ActiveconfirmedProblemAdhesive capsulitis of shoulder (825723313)Frozen shoulder, right (M75.01)ActiveconfirmedProblemRotator cuff tear (285174144)Rotator cuff tear (M75.100)ActiveconfirmedProblemCrohn disease (48979513)Crohn disease (K50.90)ActiveconfirmedProblemSensorineural hearing loss (29246972)Asymmetric SNHL (sensorineural hearing loss) (H90.5) ActiveconfirmedProblemEssential tremor (701654728)Familial tremor (G25.0)Active confirmedProblemSupraspinatus tear (disorder) (374714560)Supraspinatus tendon tear (S46.819A)ActiveconfirmedProblemImpingement syndrome of shoulder region (698131864)Shoulder impingement syndrome, right (M75.41)ActiveconfirmedProblem Tinnitus of left ear (4429641438908)Left-sided tinnitus (H93.12)Activeconfirmed ProblemPulmonary hypertension (39030498)Pulmonary hypertension, unspecified (I27.20)Activeconfirmed Vital Signs Blood pressure diastolic 70 mm Hg 04/14/2025 Eodxdj14 in04/14/2025lood pressure tdtdpiub915 mm Hg04/14/20251257Nzmiyl180.2 lbs 04/14/2025BMI37.05 kg/m204/14/2025 Encounters Encounter Location Date Provider Diagnosis [place] [address] [place] [address] 08/17/2024 Melquiades Vyas Essential (primary) hypertension I10 ; Rheumatic tricuspid insufficiency I07.1 ; Chronic diastolic (congestive) heart failure I50.32 and Pulmonary hypertension, unspecified I27.20 [place] [address] [place] [address] 10/25/2024 Melquiades Vyas COPD (chronic obstructive pulmonary disease) J44.9 [place] [address] [place] [address] 01/31/2025 Melquiades Hoy Shoulder impingement syndrome, right M75.41 and Frozen shoulder, right M75.01 [facility] [address] [facility] [place] [address] 02/14/2025 Melquiades Hoy Rotator cuff tear M75.100 [facility] [address] [facility] [place] [address] 04/14/2025 Melquiades Hoy Familial tremor G25. 0 [facility] [address] [facility] [place] [address] 08/09/2024 Melquiades Hoy [facility] [facility] [place] [address] 08/17/2024[facility] [facility] [place] [address]/11/2024Doug HoyAbnormal thyroid blood test R79.89 and An[facility] D64.[facility] [facility] [place] [address] 10/14/2024[facility] [facility] [place] [address]/04/2025[facility] [facility] [place] [address]/Doug HoyCOPD (chronic obstructive pulmonary disease) J44.9B[facility] [facility] [place] [address]/Doug HoyCOPD (chronic obstructive pulmonary disease) J44.9 [facility] [address] [facility] [place] [address]/ [facility] [address] [facility] [place] [address] 12/13/2024[facility] [facility] [place] [address]/[facility] [facility] [address]152/09/2024[facility] HoyBKind[facility] Aurora[address] [place] [address]/10/2024Doug Hoy Supraspinatus tendon tear S46.819AMelissa [facility] [place] [address]/02/2025Doug Hoy Assessments Encounter Date Diagnosis (ICD Code) Assessment Notes Treatment Notes Treatment Clinical Notes Section Notes 10/25/2024 COPD (chronic obstructive pulmon berry disease) (ICD-10 - J44.9) 01/31/2025Shoulder impingement syndrome, right (ICD-10 - M75.41)01/31/2025Frozen shoulder, right (ICD-10 - M75.01)02/14/2025Rotator cuff tear (ICD-10 - M75.100) 04/14/2025Familial tremor (ICD-10 - G25.0)08/18/2024bnormal thyroid blood test (ICD-10 - R79.89)08/18/2024nemia (ICD-10 - D64.9)11/01/2024OPD (chronic obstructive pulmonary disease) (ICD-10 - J44.9)5COPD (chronic obstructive pulmonary disease) (ICD-10 - J44.9)02/14/2025Supraspinatus tendon tear (ICD-10 - S46.819A)08/17/2024Essential (primary) hypertension (ICD-10 - I10)08/17/2024Rheumatic tricuspid insufficiency (ICD-10 - I07.1)08/17/2024 Chronic diastolic (congestive) heart failure (ICD-10 - I50.32)08/17/2024 Pulmonary hypertension, unspecified (ICD-10 - I27.20) Plan Of Treatment Pending Test Test Name Order Date HEMOGLOBIN A1C (GLYCO) 08/17/2024 LIPID PANEL (CHOL/TRIG/HDL/LDL) 08/17/19 25 CBC WITH DIFF (EXP 05/2025) 08/17/2024 PSA, TOTAL 08/17/2024 STOOL OCCULT BLOOD 08/17/2024 AMMONIA 04/14/2025 CBC AUTO DIFF 04/14/2025 PROF 14(COMP METB) 04/14/2025 VIT B12 AND FOLATE 04/14/2025 MRI SHOULDER RT WO CON 01/31/2025 THYROID PANEL (T4/TSH/FREE T3) 5 THYROID PANEL (T4/TSH/FREE T3) THYROID PANEL (T4/TSH/FREE T3) 5 CMP (COMP MET MÉNDEZ) w/eGFR CKD-EPI 2024 Insurance Providers Payer Name Payer Address Payer Phone Subscriber Number Group Number Insured Name Patient Relationship to Insured Coverage Start Date Coverage End Date [place] [address] [id number] Chirag Wilson - patient is the [id number] [address] [address] [place], [place] [id number], RichardSelf - patient is the insured Medical (General) History Medical History History ICD Code Tricuspid valve regurgitation I07.1 Nephrolithiasis N20.0 Iron deficiency anemia D50.9 Internal derangement of knee M23.90 Shoulder impingement syndrome M75.40 Crohn disease K50.90 Hypertension I10 Lumbar disc disease M51.9 Renal calculus N20.0 Inguinal hernia K40.90 Chest wall pain R07.89 Epicondylitis, lateral M77.10 Asthmatic bronchitis J45.909 Gastro-esophageal reflux disease without esophagitis K21.9 Hiatal hernia K44.9 Hemorrhage of anus and rectum K62.5 Surgical History Surgery Date(Month/Year) Right Knee Surgery Bilateral Kidney Stone RemovalLaproscopic Surgery for Crohns DiseseRLQ Hernia RepairLumbar surgery
--- OUTSIDE RECORDS SUMMARY | 2025-07-13 07:55 | XMS_ITS | Clinical Summary ---
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 180 tablet 304504/ctive Additional Information Patient taking differently:40 mg oral Daily,1 29 mg tab, next day 2 20 mg tabs, Reported on 12/13/2024 dapagliflozin propanediol (Farxiga) 10 mg Indications:Chronic diastolic congestive heart failure (CMS/HCC)Take 1 tablet (10 mg) by mouth in the morning. 90 tablet 309509/ctive Active Problems ProblemNoted DateDiagnosed ZylzPltrdkhxs38/29/2025icipital tendinitis, right xqsxvueo44/29/2025Right rotator cuff tear07/11/2025Right shoulder pain07/11/2025 Rotator cuff syndrome of right twpvvujb73/29/2025Tear of supraspinatus tendon 07/11/20253390Tvktfm75/07/2025Hearing loss03/24/2024Impacted mdkverz6210/01/2023 10/01/2023Osteoarthritis of knee/ulmonary hypertension 11/27/2022 Assessment & Plan (03/29/2024 1:22 PM EDT): Stable no concerning symptoms or worsening SOB or orthopnea Tricuspid valve nrbiqkqylysen00/17/2023OE (dyspnea on exertion)11/27/2022 Essential bbloczkljyql73/17/2023 Assessment & Plan (03/29/2024 1:21 PM EDT): Hypertension is currently well controlled Renal function has remained stable Continue toprol, aldactone and lasix Diastolic heart joouiyx9311/27/2022 Assessment & Plan (03/29/2024 1:21 PM EDT): [place] II remains euvolemic without exacerbation or activity limiting symptoms Continue GDMT- continue lasix daily and aldactone Diuretic therapy Monitor daily weights, I&O, fluid restriction 1.5-2L/day, renal function and electrolytes- Lower extremity edema11/27/2022 Encounters DateTypeDepartmentCare RgciCopkyodcyxl53/19/2025Orders Only [facility] [address] [place] [address] Maria Teresa Leyva MA DOE (dyspnea on exertion) (Primary Dx)from Last 3 Months Immunizations ImmunizationAdministration DatesNext DueUnspecified Sars-Cov-2 Vaccination 06/22/2021Zoster, Xdqhibcarkt38/05/2023,07/16/2022 Family History Medical HistoryRelationNameCommentsHeart attackFatherHeart failureMotherRelation NameStatusCommentsFatherDeceasedMotherDeceased Social History Tobacco UseTypesPacks/DayYears UsedDateSmoking Tobacco: NeverSmokeless Tobacco: Never Tobacco Cessation:Counseling Given: Not Answered Alcohol UseStandard Drinks/WeekCommentsYes0 (1 standard drink = 0.6 oz pure alcohol)occasionalUT Safety & EnvironmentAnswerDate RecordedFear of Current or Ex-PartnerNot on file09/04/2023Emotionally AbusedNot on file09/04/2023hysically AbusedNot on file09/04/2023Sexually AbusedNot on file09/04/2023hysically or Sexually AbusedNot on file09/04/2023Sex and Gender InformationValueDate Recorded Sex Assigned at HmrunKuiy68/23/2025 2:25 PM ESTLegal IfdRcio0708/29/2022 9:33 AM ESTGender IdixglfsLlqh47/23/2025 2:25 PM ESTSexual OrientationHeterosexual or Qgzoxqun98/23/2025 2:25 PM EST Last Filed Vital Signs Vital SignReadingTime TakenCommentsBlood Ozehunbt195/8112/13/2024 9:23 AM EDT Ehiey984112/13/2024 9:23 AM EDTTemperature--Respiratory Rate--Oxygen Cbrbtpsygf95% 12/13/2024 9:23 AM EDTInhaled Oxygen Concentration--Cjafxt449 kg (269 lb) 12/13/2024 9:23 AM QUHQlunzc767.9 cm (6')12/13/2024 9:23 AM EDTBody Mass Index 36.4806 9:23 AM EDT Plan of Treatment DateTypeDepartmentCare Team (Latest Contact Info)Psnfpyuzxdy22/31/2025 9:15 AM ESTOffice Visit [facility] [address] [place] [address] Edmund Coffman MD [address] [facility] [place] [address] Health MaintenanceDue DateLast DoneCommentsCT Jdsvolniprgm1957Colonoscopy 1957Colorectal Cancer Sbdvzxozw1957FIT-DNA1957FIT1957 FOBT1957Medicare Annual Wellness (AWV)05/02/19575940Eeanwvomsibed1957 Depression Mxcnxzzsy51/20/1969Pneumococcal Vaccine: 50+ Years (1 of 2 - PCV) 1976Adult Ybnyoun7805/02/1979Fall Risk Knmqsxigc39/20/2022COVID-19 Vaccine ( - season)5108/23/2020, 06/22/2021, 11/22/2020Influenza Vaccine (#1)2025Zoster HsufrfpiItgbeshtj53/05/2023, 07/16/2022HIB Vaccines Aged OutNo longer eligible based [...] topic Insurance Care Teams Team MemberRelationshipSpecialtyStart DateEnd Date Wojciech Vyas MD [address] [facility] [place] [address] [facility]11/07/22
[2025-07-13 08:22] LABS: Ammonia 13 umol/L (11-32)
[2025-07-13 08:38] LABS: Free T3 1.45 pg/mL (2.18-3.98); Thyroid Stimulating Hormone 4.233 uIU/mL (0.358-3.740)
[2025-07-13 08:42] LABS: Alanine Aminotransferase 75 U/L (16-63); Albumin Globulin Ratio 1.1; Albumin Level 3.4 g/dL (3.4-5.0); Alkaline Phosphatase 86 U/L (46-116); Anion Gap 13.3; Aspartate Amino Transferase 49 U/L (15-37); Blood Urea Nitrogen 19.0 mg/dL (7.0-18.0); Calcium 8.2 mg/dL (8.5-10.1); Carbon Dioxide 29.5 mmol/L (21.0-32.0); Chloride 106 mmol/L (98-107); Estimated GFR (African America >60 (>=60 mL/min/1.73m^2); Estimated GFR (Non-African Ame 50 (>=60 mL/min/1.73m^2); Globulin 3.2 g/dL; Glucose 129 mg/dL (74-106); Potassium 3.8 mmol/L (3.5-5.1); Sodium 145 mmol/L (136-145); Total Protein 6.6 g/dL (6.4-8.2)
[2025-07-13 09:21] LABS: Hematocrit 34.0 % (42.0-54.0); Hemoglobin 11.2 g/dL (14.0-18.0); Immature Granulocytes Abs Auto 0.05 10^3/uL (0.00-0.03); Immature Granulocytes Pct Auto 0.8 % (0.0-0.5); Lymphocytes Absolute Auto 2.9 10^3/uL (1.2-3.8); Mean Corpuscular HGB Conc 32.9 g/dL (29.9-35.2); Mean Corpuscular Hemoglobin 33.3 pg (25.9-34.0); Mean Corpuscular Volume 101.2 fL (80.0-94.0); Platelet Count 204 10^3/uL (150-450); Red Blood Count 3.36 10^6/uL (4.70-6.10); White Blood Count 6.4 10^3/uL (4.0-11.0)
[2025-07-13 09:56] LABS: Folate 25.80 ng/mL (8.60-58.90)
[2025-07-14 06:08] LABS: Vitamin B12 293 pg/mL (232-1245)
== END 2025-07-13 07:51 | disposition home or self-care (01) ==
LOC: LAB 07:51
PROVIDERS: PCP Family Medicine; Visit Provider Family Medicine
DX: G25.0 Essential tremor (principal)
CPT/HCPCS: 36415; 80053; 82140; 82607; 82746; 84436; 84443; 84481; 85025